=== PATIENT | female | born 1960 | race Caucasian/White ===

== ENCOUNTER 2019-11-30 12:21 | Emergency (ER) | payer MEDICAID, SELFPAY | END 2019-11-30 16:24 | disposition admitted as inpatient to this hospital (09) | LOC: ER 06-09 13:30 | PROVIDERS: Emergency Provider Family Medicine; PCP Family Medicine | DX: M72.6 Necrotizing fasciitis (principal); I73.9 Peripheral vascular disease, unspecified; E87.1 Hypo-osmolality and hyponatremia; E11.22 Type 2 diabetes mellitus with diabetic chronic kidney disease; N18.1 Chronic kidney disease, stage 1; I99.8 Other disorder of circulatory system; E11.10 Type 2 diabetes mellitus with ketoacidosis without coma; A41.9 Sepsis, unspecified organism; E78.5 Hyperlipidemia, unspecified; I12.9 Hypertensive chronic kidney disease with stage 1 through stage 4 chronic kidney disease, or unspecified chronic kidney disease; F17.210 Nicotine dependence, cigarettes, uncomplicated | CPT/HCPCS: 36415; 71045; 73701; 80053; 80306; 81001; 82009; 85025; 85610; 85730; 86140; 87040; 87070; 87077; 87086; 87186; 87205; 93925; 96365; 96366; 96375; 99283; J1815; J3370; J7030; J7050; Q9967 ==

== ENCOUNTER 2019-11-30 12:21 | Inpatient (IN) | payer MEDICAID, SELFPAY ==
[2019-11-30] VITALS (33 sets, daily range): BP systolic 91–155; BP diastolic 53–80; PULSE 99–134; RESP 14–31; TEMP 37.1–37.8; O2SAT 94–100; BMI 19.7
--- NOTE | 2019-11-30 12:28 | ED_ITS ---
Entered by Hilda Vigil, acting as scribe for Evin Matute DO HPI - Wound/Laceration General: Chief Complaint: Wound/Laceration Stated Complaint: wound check Time Seen by Provider: 11/30/19 12:26 Source: patient Mode of arrival: ambulatory Limitations: no limitations History of Present Illness: HPI narrative: 59-year-old female presents to the emergency room with complaint of left foot pain with a draining wound from the heel of the foot. This been going on for about 4 months she is not sought any care for it she feels like it is spreading now initially began when she stepped on a stick she did take portion of debris out of there foot. This maintained an open wound been actively draining is very painful she is tried various [id number] home remedies with no relief of symptoms. She is not usually see a doctor she not had any antibiotics for this. She is a 2 pack-a-day smoker but the last couple of months this is gotten progressively worse she felt poorly and has not even been able to smoke regularly and is down to half a pack a day without an attempt to stop smoking. She denies any knowledge of diabetes or heart disease. Onset (ago): month(s) (4 months) Extremity Location: Left: ankle and foot Place: home Associated symptoms: Reports other (redness and pain to L foot); Denies chills or fever(s) Treatments prior to arrival: other (none) Review of Systems General: Reports: 10 or more systems reviewed and unremarkable except in HPI and below Const: Reports: change in appetite, fatigue and malaise; Denies: fever, chills or body aches ENMT: Denies: throat pain, ear pain, nasal discharge or nasal congestion Card: Denies: chest pain, edema, shortness of breath on exertion or shortness of breath when lying down Resp: Reports: shortness of breath; Denies: productive cough or non-productive cough GI: Reports: black tarry stool Skin/Breast: Denies: rash or itching PFS ED PFSH: Medical History (Updated 12/01/19 @ 10:55 by Evin Matute DO) Chronic kidney disease (CKD) stage G1/A1, glomerular filtration rate (GFR) equal to or greater than 90 mL/min/1.73 square meter and albuminuria creatinine ratio less than 30 mg/g Coagulopathy Diabetes mellitus Dyslipidemia Essential hypertension Hyponatremia Infectious fasciitis Lower limb ischemia Peripheral arterial disease Sepsis Tobacco abuse Family History Father Cancer Brother , Hepatitis C Diabetes Social History Smoking and tobacco status: current every day smoker Second hand smoke exposure: Yes Alcohol intake: never Substance/Drug Use: never Adopted: No Caregiver/support person: No Lives independently: Yes Household members: spouse Marital status: service: No Current occupational status: unemployed Physical Exam Const: COMMON NORMALS: average body habitus, oriented x3 and alert GENERAL APPEARANCE: cooperative, comfortable, well kempt and well developed NUTRITIONAL APPEARANCE: obese ORIENTATION/CONSCIOUSNESS: Yes awake, Yes oriented to person and Yes oriented to place HENMT: COMMON NORMALS: normocephalic, head/scalp atraumatic, EAC's normal, TM's normal bilaterally, external nose normal, moist oral mucous membranes and oropharynx normal HEAD & SCALP: normocephalic and atraumatic NOSE: external nose normal EXTERNAL AUDITORY CANAL: EAC's normal TYMPANIC MEMBRANE: TM's normal bilaterally MOUTH: oral and palatal mucosa normal, lip normal and tongue normal THROAT: posterior oropharynx normal and tonsils normal Eye: COMMON NORMALS: PERRL, EOMs intact bilaterally, conjunctivae normal and no scleral icterus CONJUNCTIVA: Yes conjunctivae normal PUPIL: Yes PERRL Neck/C-Spine: COMMON NORMALS: full ROM, no lymphadenopathy, supple, no meningeal signs and thyroid normal THYROID: thyroid normal and asymmetrical Lymph: LYMPHATIC: no lymphadenopathy noted Resp: COMMON NORMALS: normal respiratory effort, no retractions, no use of accessory muscles and clear to auscultation bilaterally AUSCULTATION: clear to auscultation bilaterally Cardio: COMMON NORMALS: regular rate and regular rhythm RATE: regular rate RHYTHM: regular rhythm HEART SOUNDS: no murmurs : BLADDER/KIDNEY EXAM: Yes no CVA tenderness Back/Pelvis: COMMON NORMALS: no CVA tenderness LUMBAR SPINE/LOWER BACK: Yes normal to inspection Extremity: RIGHT LOWER EXTREMITY: Yes foot & digits (R foot cold to touch, decreased pulses) LEFT LOWER EXTREMITY: Yes foot & digits (L foot tenderness, redness and open wound on the heal is actively draining. It appears to tunnel up just inferior to the medial malleolus there is generalized edema and tenderness over the dorsum of the metatarsals.) Neuro: COMMON NORMALS: oriented x3 SENSORIUM/ORIENTATION: Yes alert, Yes oriented to person and Yes oriented to place MENINGEAL SIGNS: Yes no meningeal signs Psych: APPEARANCE: Yes well kempt Skin: COMMON NORMALS: no rashes or lesions noted and skin turgor normal GENERAL SKIN EXAM: no rashes or lesions noted and turgor normal Course ED course: Patient appears to be moderately septic. Additionally she is diabetic based on her blood sugars today. Arterial Dopplers of the lower extremities verify what we had expected based on physical exam she is severe peripheral artery disease most likely due to in combination of her diabetes and her smoking. Discussed with Dr. Velasco and Dr. Hagen. Rod recommends angiography to evaluate for patency. Discussed with Dr. Hagen as well he is willing to do angiography but feels she needs to be stabilized initially. Discussed with Dr. Brothers will admit the patient start on vancomycin and cefepime I am. She has been appropriately cultured including wound and blood cultures. We will start her on an insulin drip as she does have positive ketones. Discussed with patient the significance of her findings here today and the risk they present to salvaging the limb. She expresses understanding. Vital Signs: Vital signs: Vital Signs Temperature 99.0 F 12/01/19 06:20 Pulse Rate 99 12/01/19 08:10 Respiratory Rate 18 12/01/19 08:10 Blood Pressure 105/61 12/01/19 08:10 Pulse Oximetry 95 12/01/19 08:10 MDM - Wound/Laceration Lab Data: Labs: Lab Results 11/30/19 11/30/19 11/30/19 Range/Units 12:45 12:45 12:45 WBC 36.0 H* (4.0-10.0) 10^3/ uL RBC 4.66 (4.1-5.3) 10^6/u L Hgb 14.1 (11.5-15.3) g/dL Hct 41.8 (37.0-47.0) % MCV 89.7 (81-99) fL MCH 30.3 (28.0-34.0) pg MCHC 33.7 (30.0-36.0) g/dL RDW 13.2 (12.1-15.1) % Plt Count 492 H (130-400) 10^3/c mm MPV 10.4 (7.4-10.4) fL Neut % (Auto) 90.2 % Lymph % (Auto) 2.8 % Howard % (Auto) 4.3 % Eos % (Auto) 0.0 % Baso % (Auto) 0.3 % Neut # (Auto) 32.4 H (1.8-7.7) 10^3/u L Lymph # (Auto) 1.0 (0.8-4.8) 10^3/u L Howard # (Auto) 1.6 H (0.2-0.9) 10^3/u L Eos # (Auto) 0.0 (0.0-0.8) 10^3/u L Baso # (Auto) 0.1 (0.0-0.1) 10^3/u L Nucleated RBC % (a uto) 0 % Nucleated RBCs # 0.0 /100WBC PT 16.00 H (10.5-13.3) SECO NDS INR 1.23 H (0.8-1.2) APTT 36.8 H (23.9-36.7) SECO NDS Sodium 123 L (136-145) mmol/L Potassium 4.5 (3.5-5.1) mmol/L Chloride 80 L (98-107) mmol/L Carbon Dioxide 21 L (22-29) mmol/L Anion Gap 26.5 H (5-19) BUN 15 (8-23) mg/dL Creatinine 1.0 H (0.5-0.9) mg/dL GFR Calculation 56.4 L (90-130) mL/min Glucose 453 H (65-115) mg/dL Calcium 10.8 H (8.5-10.5) mg/dL Total Bilirubin 0.6 (0.15-1.2) mg/dL AST 12 (0-32) U/L ALT 9 (0-33) U/L Alkaline Phosphata se 163 H (35-105) IU/L C-Reactive Protein 523.6 H (0.0-4.9) mg/L Total Protein 8.5 (6.6-8.7) g/dL Albumin 3.8 (3.5-5.2) g/dL Globulin 4.7 H (1.3-4.6) g/dL Urine Color (Yellow) Urine Appearance (CLEAR) Urine pH (5-7) Ur Specific Gravit y (1.005-1.030) Urine Protein (Negative) Urine Glucose (UA) (Normal) Urine Ketones (Negative) Urine Occult Blood (Negative) Urine Nitrate (Negative) Urine Bilirubin (NEGATIVE) Urine Urobilinogen (Negative) mg/dL Ur Leukocyte Janey ase (Negative) Urine RBC (0-2) /hpf Urine WBC (0-5) /hpf Ur Squamous Epith Cells (0-5) Urine Bacteria (NONE) Urine Opiates Scre en (Negative) ng/mL Ur Barbiturates Sc reen (Negative) ng/mL Ur Phencyclidine S crn (Negative) ng/mL Ur Amphetamines Sc reen (Negative) ng/mL U Benzodiazepines Scrn (Negative) ng/mL Urine Cocaine Scre en (Negative) ng/mL U Marijuana (THC) Screen (Negative) ng/mL Serum Ketones (Negative) 11/30/19 11/30/19 11/30/19 Range/Units 12:45 14:24 14:24 WBC (4.0-10.0) 10^3/ uL RBC (4.1-5.3) 10^6/u L Hgb (11.5-15.3) g/dL Hct (37.0-47.0) % MCV (81-99) fL MCH (28.0-34.0) pg MCHC (30.0-36.0) g/dL RDW (12.1-15.1) % Plt Count (130-400) 10^3/c mm MPV (7.4-10.4) fL Neut % (Auto) % Lymph % (Auto) % Howard % (Auto) % Eos % (Auto) % Baso % (Auto) % Neut # (Auto) (1.8-7.7) 10^3/u L Lymph # (Auto) (0.8-4.8) 10^3/u L Howard # (Auto) (0.2-0.9) 10^3/u L Eos # (Auto) (0.0-0.8) 10^3/u L Baso # (Auto) (0.0-0.1) 10^3/u L Nucleated RBC % (a uto) % Nucleated RBCs # /100WBC PT (10.5-13.3) SECO NDS INR (0.8-1.2) APTT (23.9-36.7) SECO NDS Sodium (136-145) mmol/L Potassium (3.5-5.1) mmol/L Chloride (98-107) mmol/L Carbon Dioxide (22-29) mmol/L Anion Gap (5-19) BUN (8-23) mg/dL Creatinine (0.5-0.9) mg/dL GFR Calculation (90-130) mL/min Glucose (65-115) mg/dL Calcium (8.5-10.5) mg/dL Total Bilirubin (0.15-1.2) mg/dL AST (0-32) U/L ALT (0-33) U/L Alkaline Phosphata se (35-105) IU/L C-Reactive Protein (0.0-4.9) mg/L Total Protein (6.6-8.7) g/dL Albumin (3.5-5.2) g/dL Globulin (1.3-4.6) g/dL Urine Color Yellow (Yellow) Urine Appearance Clear (CLEAR) Urine pH 5.0 (5-7) Ur Specific Gravit y 1.010 (1.005-1.030) Urine Protein 1+ H (Negative) Urine Glucose (UA) 4+ H (Normal) Urine Ketones 1+ H (Negative) Urine Occult Blood 2+ H (Negative) Urine Nitrate Negative (Negative) Urine Bilirubin Neg (NEGATIVE) Urine Urobilinogen 1 H (Negative) mg/dL Ur Leukocyte Janey ase Trace H (Negative) Urine RBC 5-10 H (0-2) /hpf Urine WBC 55-80 H (0-5) /hpf Ur Squamous Epith Cells 0-4 H (0-5) Urine Bacteria 2+ H (NONE) Urine Opiates Scre en Negative (Negative) ng/mL Ur Barbiturates Sc reen Negative (Negative) ng/mL Ur Phencyclidine S crn Negative (Negative) ng/mL Ur Amphetamines Sc reen Negative (Negative) ng/mL U Benzodiazepines Scrn Negative (Negative) ng/mL Urine Cocaine Scre en Negative (Negative) ng/mL U Marijuana (THC) Screen Negative (Negative) ng/mL Serum Ketones Positive H (Negative) Imaging Data^: CXR: Radiologist's impression: [place] [address] XRay Report Signed Patient: Jeramy Ramos #: [id number] : 1960t#:[id number] Age/Sex: 59 / FADM Date: 11/30/19 Loc: ERRoom/Bed: Attending Dr: Ordering Provider/Ordering MD: Evin Matute DO Date of Service: 11/30/19 Procedure(s): XR chest 1V portable [id number] Accession Number(s): [id number] Report Number: [id number] WS: [id number] PORTABLE CHEST HISTORY: dyspnea/cough COMPARISON: None available. Lungs are clear and well expanded. No pleural effusion or pneumothorax. Cardiac size: Normal. Mediastinum/Aorta: Normal mediastinum. No osseous abnormality seen. XR/XR chest 1V portable [id number] IMPRESSION: Unremarkable portable chest. Dictated By:Celia Cardona DO Signed By:Celia Cardona DOSigned Date/Time:11/30/[address]: Radiologist's impression: [place] [address] CT Scan Report Signed Patient: Jeramy Ramos #: [id number] : 1960[facility]#:[id number] Age/Sex: 59 / FADM Date: 11/30/19 Loc: ERRoom/Bed: Attending Dr: Ordering Provider/Ordering MD: Evin Matute DO Date of Service: 11/30/19 Procedure(s): CT foot LT w con [id number] Accession Number(s): [id number] Report Number: [id number] WS: [id number] CT LEFT FOOT WITH CONTRAST. HISTORY: tunneling abscess L heel Technique: All CT scans at [facility] use at least one of these dose optimization techniques: automated exposure control; mA and/or kV adjustment per patient size (includes targeted exams where dose is matched to clinical zully cation); or iterative reconstruction. DLP: 317.00 mGy-cm. Contrast: Omniscan 300; 95 mL IV. COMPARISON: None available. Soft tissue ulceration over the posterior calcaneus measures 1.0 x 1.5 cm. Ul ceration extends nearly to the posterior calcaneus. There is a large amount of air throughout the soft tissues of the foot and ankle. Air is infiltrating the soft tissue and extends along the medial foot to the level of the first metatarsal head. There is air surrounding the medial foot, soft tissues and muscle groups. There is soft tissue edema and soft tissue enhancement involving the posterior calcaneus. No focal fluid collection other than along the ulceration tract. Collection measures only 7 x 8 mm. No osteomyelitis. Notified Evin Matute DO at 11/30/2019 2:[address]/CT foot LT w con [id number] IMPRESSION: 1. Extensive subcutaneous air throughout the soft tissues of the foot and ankle as described above. Consistent with necrotizing fasciitis. 2. Soft tissue ulceration with focal abscess along the tract over the posterior calcaneus. Soft tissue abscess measures 7 x 8 mm. Extensive soft tissue edema. Dictated By:Celia Cardona DO Signed By:Celia Cardona DOSigned Date/Time:11/30/19 1454 US: Radiologist's impression: [place] [address] Ultrasound Report Signed Patient: Jeramy Ramos #: [id number] : 1960cct#:[id number] Age/Sex: 59 / FADM Date: 11/30/19 Loc: ERRoom/Bed: Attending Dr: Ordering Provider/Ordering MD: Evin Matute DO Date of Service: 11/30/19 Procedure(s): [place] [id number] Accession Number(s): [id number] Report Number: [id number] Lucy Ramos Age: 59 Gender: F : 1960 Exam Date: 11/30/2019 13:02 Ordering Phys: Evin Matute DO Technologist: Connie Montoya [place] [facility] [place]ication: Bilateral leg pain, pulselessness Risk Factors: Previous Vascular Surgery: RIGHT LEFT Waveform Velocity (cm/s) Velocity (cm/s) Waveform Monophasic 44.4 Iliac Prox 163.7 Monophasic Monophasic 46.4 Iliac Mid 224.6 Monophasic Monophasic 47.2 Iliac Distal 205.2 Monophasic N/A COLLECTIONS AGENT 212.4 Monophasic Monophasic 60.9 SFA Prox 154.5 Monophasic Monophasic 40.8 SFA Mid 127.9 Monophasic Monophasic 58.7 SFA Dist 67.5 Monophasic Monophasic 23.0 POP 103.8 Monophasic Monophasic 10.8 INTERPRETIVE PROGRAM COORDINATOR 63.1 Monophasic Monophasic 12.4 DPA 33.2 Monophasic 0.5 MARCOS 0.7 FINDINGS Incidental finding of enlarged lymph nodes in left groin area. Low velocity, monophasic continuous waveforms in the right iliac artery with no flow Doppler signals in the common femoral artery. Monophasic and continuous waveforms in the infrapopliteal vessels on the left side. Abnormal resting ABIs bilaterally. CONCLUSIONS 1. 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 2. Abnormal resting MARCOS on the left side, consistent with moderate peripheral arterial disease, possibly multisegmental. Some features of collateral circulation in the infrapopliteal vessels. No similar previous studies are available for comparison Dr Yesi Calles MD [facility] (Electronically Signed) Final Date: 30 November 2019 14:55 Discharge Plan Discharge Patient Disposition: Admitted As Inpatient Admit Provider: Keri Brothers Clinical Impression: Necrotizing soft tissue infection, Diabetes mellitus, Peripheral arterial disease, Infectious fasciitis, Hyponatremia, Chronic kidney disease (CKD) stage G1/A1, glomerular filtration rate (GFR) equal to or greater than 90 mL/min/1.73 square meter and albuminuria creatinine ratio less than 30 mg/g, Lower limb ischemia, DKA (diabetic ketoacidoses), Sepsis Condition: Stable Interventions: ED Discharge Assessment Last Done: 11/30/19 15:47 Discharge Date/Time: 11/30/19 16:24 Coding Level of Care Code ED It Communications Specialist for Chg Fwd Exam Problem Focused The documentation recorded by the Musa davis Bridget Annette, accurately reflects the service I personally performed and the decisions made by Giovani sutton Curtis L, DO Nov 30, 2019 12:21
--- NOTE | 2019-11-30 12:38 | XR_ITS ---
WS: [id number] PORTABLE CHEST HISTORY: dyspnea/cough COMPARISON: None available. Lungs are clear and well expanded. No pleural effusion or pneumothorax. Cardiac size: Normal. Mediastinum/Aorta: Normal mediastinum. No osseous abnormality seen. XR/XR chest 1V portable [id number] IMPRESSION: Unremarkable portable chest.
--- NOTE | 2019-11-30 12:38 | USCV_ITS ---
Lucy Ramos Age: 59 Gender: F : 1960 Exam Date: 11/30/2019 13:02 Ordering Phys: Evin Matute DO Technologist: Connie Montoya Exam Location: [facility] – [place] Indication: Bilateral leg pain, pulselessness Risk Factors: Previous Vascular Surgery: RIGHT LEFT Waveform Velocity (cm/s) Velocity (cm/s) Waveform Monophasic 44.4 Iliac Prox 163.7 Monophasic Monophasic 46.4 Iliac Mid 224.6 Monophasic Monophasic 47.2 Iliac Distal 205.2 Monophasic N/A MEDICAL TECHNOLOGIST PRN 212.4 Monophasic Monophasic 60.9 SFA Prox 154.5 Monophasic Monophasic 40.8 SFA Mid 127.9 Monophasic Monophasic 58.7 SFA Dist 67.5 Monophasic Monophasic 23.0 POP 103.8 Monophasic Monophasic 10.8 CONTAINER FINISHING INSPECTOR 63.1 Monophasic Monophasic 12.4 DPA 33.2 Monophasic 0.5 MARCOS 0.7 FINDINGS Incidental finding of enlarged lymph nodes in left groin area. Low velocity, monophasic continuous waveforms in the right iliac artery with no flow Doppler signals in the common femoral artery. Monophasic and continuous waveforms in the infrapopliteal vessels on the left side. Abnormal resting ABIs bilaterally. CONCLUSIONS 1. 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 2. Abnormal resting MARCOS on the left side, consistent with moderate peripheral arterial disease, possibly multisegmental. Some features of collateral circulation in the infrapopliteal vessels. No similar previous studies are available for comparison Dr Yesi Calles MD [facility] (Electronically Signed) Final Date: 30 November 2019 14:55 S
--- NOTE | 2019-11-30 12:38 | CT_ITS ---
WS: [id number] CT LEFT FOOT WITH CONTRAST. HISTORY: tunneling abscess L heel Technique: All CT scans at [facility] use at least one of these dose optimization techniq ues: automated exposure control; mA and/or kV adjustment per patient size (includes targeted exams wh ere dose is matched to clinical indication); or iterative reconstruction. DLP: 317.00 mGy-cm. Contrast: Omniscan 300; 95 mL IV. COMPARISON: None available. Soft tissue ulceration over the posterior calcaneus measures 1.0 x 1.5 cm. Ulceration extends nearly to the posterior calcaneus. There is a large amount of air throughout the soft tissues of the foot an d ankle. Air is infiltrating the soft tissue and extends along the medial foot to the level of the fi rst metatarsal head. There is air surrounding the medial foot, soft tissues and muscle groups. There is soft tissue edema and soft tissue enhancement involving the posterior calcaneus. No focal fluid co llection other than along the ulceration tract. Collection measures only 7 x 8 mm. No osteomyelitis. Notified Evin Matute DO at 11/30/2019 2:[address]/CT foot LT w con [id number] IMPRESSION: 1. Extensive subcutaneous air throughout the soft tissues of the foot and ankl e as described above. Consistent with necrotizing fasciitis. 2. Soft tissue ulceration with focal abscess along the tract over the posterio r calcaneus. Soft tissue abscess measures 7 x 8 mm. Extensive soft tissue edema .
[2019-11-30 12:59] LABS: Basophils # 0.1 10^3/uL (0.0-0.1); Basophils % 0.3 %; Hematocrit 41.8 % (37.0-47.0); Hemoglobin 14.1 g/dL (11.5-15.3); Lymphocytes % 2.8 %; Mean Corpuscular HGB Conc 33.7 g/dL (30.0-36.0); Mean Corpuscular Hemoglobin 30.3 pg (28.0-34.0); Mean Corpuscular Volume 89.7 fL (81-99); Mean Platelet Volume 10.4 fL (7.4-10.4); Monocytes # 1.6 10^3/uL (0.2-0.9); Monocytes % 4.3 %; Neutrophils # 32.4 10^3/uL (1.8-7.7); Neutrophils % 90.2 %; Nucleated Red Blood Cells % 0 %; Platelet Count 492 10^3/cmm (130-400); Red Blood Count 4.66 10^6/uL (4.1-5.3); Red Cell Distribution Width 13.2 % (12.1-15.1)
[2019-11-30 13:09] LABS: INR 1.23 (0.8-1.2)
[2019-11-30 13:10] LABS: Partial Thromboplastin Time 36.8 SECONDS (23.9-36.7)
[2019-11-30 13:19] LABS: Alanine Aminotransferase 9 U/L (0-33); Albumin Level 3.8 g/dL (3.5-5.2); Alkaline Phosphatase 163 IU/L (35-105); Anion Gap 26.5 (5-19); Aspartate Amino Transferase 12 U/L (0-32); Blood Urea Nitrogen 15 mg/dL (8-23); Calcium 10.8 mg/dL (8.5-10.5); Carbon Dioxide 21 mmol/L (22-29); Chloride 80 mmol/L (98-107); Globulin 4.7 g/dL (1.3-4.6); Glomerular Filtration Rate 56.4 mL/min (90-130); Glucose 453 mg/dL (65-115); Potassium 4.5 mmol/L (3.5-5.1); Sodium 123 mmol/L (136-145); Total Bilirubin 0.6 mg/dL (0.15-1.2); Total Protein 8.5 g/dL (6.6-8.7)
--- NOTE | 2019-11-30 13:20 | PC.NURSE ---
Radiology at bedside for US
[2019-11-30 13:44] LABS: C Reactive Protein 523.6 mg/L (0.0-4.9)
[2019-11-30] MEDS: vancomycin 1,000 MG in sodium chloride 0.9% 250 ML 250 MG IV (13:53)
[2019-11-30] MEDS: iohexol 300 mg/mL 100 mL Btl IV (14:23)
[2019-11-30] MEDS: sodium chloride 0.9% 1,000 ML 999 ML IV (14:34)
[2019-11-30] MEDS: sodium chlor 0.9% + KCl 20 mEq 20 MEQ/1,000 ML BAG 125 MEQ IV (14:34)
[2019-11-30] MEDS: insulin regular-human 100 units/1 mL 10 UNIT IVP (14:35)
[2019-11-30 14:51] LABS: Add Urine Microscopic? YES; Bilirubin Urine Neg (NEGATIVE); Blood Urine 2+ (Negative); Glucose Urine UA 4+ (Normal); Ketones Urine 1+ (Negative); Leukocyte Esterase Urine Trace (Negative); Nitrate Urine Negative (Negative); Protein Urine 1+ (Negative); Urine Appearance Clear (CLEAR); Urine Color Yellow (Yellow); Urobilinogen Urine 1 mg/dL (Negative)
[2019-11-30 14:56] LABS: Amphetamines Screen Urine Negative (Negative); Barbiturates Screen Urine Negative (Negative); Benzodiazepines Screen Urine Negative (Negative); Cocaine Screen Urine Negative (Negative); Opiate Screen Urine Negative (Negative); PCP Screen Urine Negative (Negative); THC Screen Urine Negative (Negative)
[2019-11-30 14:57] LABS: Ketone (Acetest) Serum Positive (Negative)
[2019-11-30 15:01] LABS: Add Urine Culture? Yes; Bacteria Urine 2+; Squamous Epithelial Cell Urine 0-4 (0-5); WBC Urine 55-80 /hpf (0-5)
[2019-11-30] MEDS: SODIUM CHLORIDE 0.9% 1714.6 ML IV (15:34)
[2019-11-30] MEDS: cefepime 2,000 MG in sodium chloride 0.9% (plus) 50 ML 100 MG IV (15:35)
[2019-11-30 15:55] LABS: Glucose Point of Care 306 mg/dL (70-110)
--- NOTE | 2019-11-30 16:25 | PM.HP ---
Providers/Chief Complaint Admitting Physician: Keri Brothers MD Chief Complaint: Sepsis History of Present Illness Lucy Ramos is a 59 year old female who endorses no significant past comorbidities except self diagnosed neuropathy who presented to the ER today complaining of worsening of her left foot. Per patient she suffered a traumatic injury to her foot when she stepped on a splinter with a penetrating injury in June 2019.. She noticed an ulceration over the plantar aspect of the heel of her foot since then. She was able to remove the splinter herself and was able to get the entire length of it out. Since June 18 now her foot has been gradually increasing in size, she has noticed some warmth and swelling. She is able to walk on it however with some limping and pain. She endorses a history of neuropathy, though this is self diagnosed. States that she has been experiencing [id number] sensation and more recently reduced sensation over bilateral feet t so believes that she may not have been able to feel the pain from this injury. Over the past 24 hours she has noted more worsening and some color changes from red pink to purple with formation of blebs. Over the past week has also been experiencing chills and sweats, but no fever. Poluria+, denies weight loss. Labs in the ER notable for white blood cell count of 32.4, with left shift to 29.6 neutrophilia, glucose of 453, anion gap of 26, positive serum ketones, CRP greater than 500. CT shows extensive subcutaneous air throughout the soft tissues of the foot and ankle consistent with necrotizing fasciitis. There is soft tissue ulceration with apical abscess along the tract of the posterior calcaneus. The soft tissue abscess measures 7 x 8 mm with extensive phlegmonous changes. Lower extremity duplex has shown total occlusion of the right common femoral artery with reconstitution at the level of the proximal superficial femoral artery. Abnormal resting MARCOS is noted on the left side consistent with moderate peripheral arterial disease possibly multisegmental. Review of Systems General: Reports: 10 or more systems reviewed and unremarkable except in HPI and below Const: Denies: fever, chills or body aches Eyes: Denies: change in vision, blurry vision or photophobia ENMT: Reports: hoarseness; Denies: throat pain, enlarged tonsils, painful swallowing or nasal congestion Card: Denies: chest pain, palpitations, irregular heart rhythm, edema, swelling of feet/ankles, lightheadedness, pre-syncope, shortness of breath on exertion or shortness of breath when lying down Resp: Denies: shortness of breath, productive cough, non-productive cough, wheezing, stridor, pain on inspiration, change in phlegm color, coughing up blood or chest congestion GI: Denies: abdominal pain, nausea, vomiting, vomiting blood, coffee grounds in vomit, difficulty swallowing, heartburn/indigestion, diarrhea, constipation, cramping, change in stool character, blood in stool or black tarry stool : Denies: flank pain, difficulty urinating, painful urination, urinary frequency, urinary urgency, urinary hesitancy or blood in urine Musc: Reports: extremity pain, joint swelling and joint warmth; Denies: neck pain, back pain or deformity Neuro: Denies: headache, numbness in extremities, weakness in extremities, changes in sensation, difficulty walking, frequent falls, dizziness, vertigo, behavioral changes, slurred speech or seizure-like activity Psych: Denies: anxiety, depression, suicidal ideation or homicidal ideation Endo: Denies: excessive urination, excessive thirst, tired all the time, cold intolerance or hot flashes Jesus/Lymph: Denies: easy bruising or easy bleeding Medications/Allergies Allergies Allergy/AdvReac Type Severity Reaction Status Date / Time No Known Allergies Allergy Verified 11/30/19 18:58 PFSH Acute PFSH: Medical History (Updated 11/30/19 @ 19:18 by Keri Brothers MD) Chronic kidney disease (CKD) stage G1/A1, glomerular filtration rate (GFR) equal to or greater than 90 mL/min/1.73 square meter and albuminuria creatinine ratio less than 30 mg/g Coagulopathy Diabetes mellitus Dyslipidemia Essential hypertension Hyponatremia Infectious fasciitis Lower limb ischemia Peripheral arterial disease Sepsis Tobacco abuse Family History Father Cancer Brother , Hepatitis C Diabetes Social History Smoking and tobacco status: current every day smoker Second hand smoke exposure: Yes Alcohol intake: never Substance/Drug Use: never Adopted: No Caregiver/support person: No Lives independently: Yes Household members: spouse Marital status: service: No Current occupational status: unemployed Vitals/I&O/Wt Last Vital Signs Temp 98.7 F 11/30/19 12:27 Pulse 124 H 11/30/19 15:47 Resp 16 11/30/19 15:47 BP 126/70 11/30/19 15:47 Pulse Ox 94 11/30/19 15:47 Weight last 48 hrs Weight 57.153 kg Physical Exam Narrative: EXAM NARRATIVE: GEN: Awake, alert and oriented, no acute distress CVS: S1S2 N RS: CTA B/L Abd: Soft, nt/nd , bs+ PRINCIPAL IOS DEVELOPER: no focal neuro deficits EXT: Soft tissue swelling over left foot with local warmth. Discomfort to palpation+. Purple discoloration with bleb over medial aspect. Data : 11/30/19 17:30 11/30/19 21:15 Micro: Microbiology 11/30/19 12:35 Gram Stain - Final Other Source 11/30/19 12:50 Blood Culture - Preliminary Blood SPECIMEN COLLECTED 11/30/19 12:45 Blood Culture - Preliminary Blood SPECIMEN COLLECTED A&P Assessment and plan (1) Necrotizing soft tissue infection: Status: Acute Code(s): M79.89 - Other specified soft tissue disorders (2) Lower limb ischemia: Status: Acute Code(s): I99.8 - Other disorder of circulatory system (3) DKA (diabetic ketoacidoses): Status: Acute Code(s): E11.10 - Type 2 diabetes mellitus with ketoacidosis without coma (4) Sepsis: Status: Acute Code(s): A41.9 - Sepsis, unspecified organism Additional A&P Information Admit to ICU in view of DKA and sepsis Sepsis criteria met with tachycardia and leukocytosis. 1. Diabetic ketoacidosis: Blood sugar greater than 400, serum ketones positive, anion gap of 26, pseudohyponatremia. Start insulin infusion at 0.1 mg/kg and titrate per DKA/HHS protocol. Aggressive IV fluid resuscitation with normal saline at this time Once blood sugar comes down to less than 200 we will switch IV fluid to D5 normal saline with added KCl. Addtional 40meq KCL Check HbA1c in the morning Once able to consistently take p.o. intake, will start overlapping infusion with subcutaneous insulin. Likely trigger of DKA to be necrotizing infection in her foot CMP every 4 hrs to trend anion gap 2. Necrotizing fasciitis of the foot Start broad spectrum antimicrobial coverage with Zosyn, vancomycin and additional clindamycin at this time for antitoxin effect from possible GAS. There are some GPC's in pairs and chains seen on her Gram stain. Though the process appears to be more crhonic, ongoing worsening since June 2019, there is an acute mold insert changer the last 24 hours and GAS would need to be covered. Patient is planned for debridement of the foot later today. Clindamycin may be discontinued over the next 24-48 hrs after debridement if patient remains hemodynamically stable Poor wound healing contributed by DM and peripheral arterial disease Suspect that patient may eventually end up needing amputation Podiatry consult 3. severe PAD Dr. Hagen from cardiology consulted for angiogram of B/L lower extremity. Planned over the next 24-48 hrs once acute issues resolve. Best chance of wound healing would be with revascularization if feasible . 4. Pseudohyponatremia from hyperglycemia 5. Peripheral Neuropathy Further orders based on evolution of clinical picture DVT ppx: Lovenox code status: full code Attestations Medical Necessity Statement*: anticipate >2midnight for treatment of sepsis, necrotizing fascitis, peripheral artery disease Coding Level of Care Code Acute High Density [employer] Coater [facility] Diagnoses Necrotizing soft tissue infection M79.89 Lower limb ischemia I99.8 DKA (diabetic ketoacidoses) E11.10 Sepsis A41.9
--- NOTE | 2019-11-30 16:27 | PM.CONSULT ---
Providers/Reason For Consult Consulting Physican/Specialty*: Cardiovascular medicine Reason for Consult*: Limb ischemia left foot Requesting Pravin Matute Attending Physician: Keri Brothers MD History of Present Illness History of Present Illness Lucy Ramos is a 59 year old female who has had an ulcer on the bottom of the heel of her left foot for about 4 months. The patient is uninsured and has not been able to afford any medication or health care. She is a diabetic and a smoker. The ulcer is open and has been tender but has not changed in about 4 months according to the patient. Over the last 24 to 48 hours she has noticed a significant change in the instep portion of her foot from the heel to the first metatarsal. The foot has become tender and purplish in discoloration and somewhat swollen. She went to a local drop-in clinic today and was sent to the emergency room. In the emergency room a Doppler was done of her lower extremities. On the right there appears to be no flow past the external iliac and then the vessel reconstitutes in the right superficial femoral artery. On the left, the affected foot, there is moderate diffuse disease but no specifics were mentioned. A CT of the left foot was done with contrast which shows swelling of all of the soft tissues and air throughout the foot and ankle. There was no evidence of osteomyelitis. She has a number of laboratory abnormalities such as a very high blood sugar around 450 and a mild coagulopathy. Her glomerular filtration rate is low. She is being admitted for intravenous antibiotics and other therapy. She has been given fluids, insulin, vancomycin and cefepime in the emergency room. She has not seen a doctor for many years and has neglected her health care. Review of Systems General: Reports: 10 or more systems reviewed and unremarkable except in HPI and below Meds/Allergies Home Medications and Allergies Home Medications Medication Instructions Recorded Confirmed Type No Known Home Medications 11/30/19 11/30/19 History Allergies Allergy/AdvReac Type Severity Reaction Status Date / Time No Known Allergies Allergy Verified 11/30/19 12:27 Current Medications Current Medications Generic Name Dose Route Start Last Admin Trade Name Freq PRN Reason Stop Dose Admin Potassium Chloride/Sodium Chloride 20 meq in 1,000 mls @ 125 mls/hr 11/30/19 14:15 11/30/19 14:34 Sodium Chlor 0.9% + Kcl 20 Meq IV 125 mls/hr .Q8H SADIE Administration PFSH Acute PFSH: Medical History Chronic kidney disease (CKD) stage G1/A1, glomerular filtration rate (GFR) equal to or greater than 90 mL/min/1.73 square meter and albuminuria creatinine ratio less than 30 mg/g Coagulopathy Diabetes mellitus Dyslipidemia Essential hypertension Hyponatremia Infectious fasciitis Lower limb ischemia Peripheral arterial disease Tobacco abuse Family History Father Cancer Brother , Hepatitis C Diabetes Social History Smoking and tobacco status: current every day smoker Second hand smoke exposure: Yes Alcohol intake: never Substance/Drug Use: never Adopted: No Caregiver/support person: No Lives independently: Yes Household members: spouse Marital status: service: No Current occupational status: unemployed Female Reproductive History: control method: none : 3 Para: 3 Vitals/I&O/Wt Last Vital Signs Temp 98.7 F 11/30/19 12:27 Pulse 124 H 11/30/19 15:47 Resp 16 11/30/19 15:47 BP 126/70 11/30/19 15:47 Pulse Ox 94 11/30/19 15:47 Weight last 48 hrs Weight 126 lb Physical Exam Narrative: EXAM NARRATIVE: GENERAL: In general she is awake and alert looks older than her stated age HEENT: Exam within normal limits. NECK: Supple without jugular vein distention. The carotid upstroke is normal without bruits. BACK: Exam normal. LUNGS: Clear. HEART: Regular rate and rhythm. ABDOMEN: Benign without organomegaly or tenderness. EXTREMITIES: There is a open ulcer on the midportion of the heel on the bottom of the foot of the left leg. The instep of the left foot from the heel toward the proximal part of the first metatarsal head is swollen, painful, purplish in color and there is some crepitus. NEUROLOGIC: Exam normal. SKIN: Unremarkable. Data Micro: Micro: Microbiology 11/30/19 12:35 Gram Stain - Final Other Source 11/30/19 12:50 Blood Culture - Pr eliminary Blood SPECIMEN COLLE JOSÉ 11/30/19 12:45 Blood Culture - Pr eliminary Blood SPECIMEN COLLEC JOSÉ Other Data: Other data: C-reactive protein 523. Alkaline phosphatase 163. Transaminases normal. Glomerular filtration rate 54 mL/min. Serum ketones positive. INR 1.23. PTT 36.8. Serum bicarbonate 21. Chest x-ray is unremarkable. The Doppler of the lower extremities reveals no flow past the common femoral artery on the right with reconstitution of the proximal superficial femoral artery. On the left there is moderate diffuse disease throughout with little flow below the knee. CT of the left foot reveals swelling throughout and air in the foot and ankle without osteomyelitis. A&P Assessment and plan (1) Chronic kidney disease (CKD) stage G1/A1, glomerular filtration rate (GFR) equal to or greater than 90 mL/min/1.73 square meter and albuminuria creatinine ratio less than 30 mg/g: Status: Acute Code(s): N18.1 - Chronic kidney disease, stage 1 (2) Coagulopathy: Status: Acute Code(s): D68.9 - Coagulation defect, unspecified (3) Hyponatremia: Status: Acute Code(s): E87.1 - Hypo-osmolality and hyponatremia (4) Infectious fasciitis: Status: Acute Code(s): M72.8 - Other fibroblastic disorders (5) Peripheral arterial disease: Status: Acute Code(s): I73.9 - Peripheral vascular disease, unspecified (6) Tobacco abuse: Status: Acute Code(s): Z72.0 - Tobacco use (7) Dyslipidemia: Status: Acute Code(s): E78.5 - Hyperlipidemia, unspecified (8) Diabetes mellitus: Status: Acute Code(s): E11.9 - Type 2 diabetes mellitus without complications (9) Lower limb ischemia: Status: Acute Code(s): I99.8 - Other disorder of circulatory system Additional A&P Information She has limb ischemia of the left foot and most likely severe bilateral lower extremity peripheral arterial disease. There is also evidence of air in the foot and clearly the foot is infected. No sign of osteomyelitis at this time. She will ultimately need angiography of the lower extremity. I would like a day or 2 for antibiotics to take effect. I think it would be a good idea to have the general surgeon see her. I think the foot needs to be opened in the area of the instep from the heel up to the first metatarsal. I think this is where the majority of the infection has occurred. This should be incised and drained and washed out carefully. After these things are done in the antibiotics have taken effect we will make an attempt at angiography of the left lower extremity. This may be somewhat difficult given the appearance of the Doppler examination on the right. If her common femoral artery is occluded on the right we may not be able to enter the vasculature there and the procedure may need to be done from the right arm. In the meantime antibiotics and fluids and treatment of her glucose is appropriate. Coding Level of Care Code New Pt Acute Last Repairer Helper for g Fwd Patient Type New History Comprehensive Exam Comprehensive Medical Decision Making High Complexity Diagnoses Chronic kidney disease (CKD) stage G1/A1, glomerular filtration rate (GFR) equal to or greater than 90 mL/min/1.73 square meter and albuminuria creatinine ratio less than 30 mg/g N18.1 Coagulopathy D68.9 Hyponatremia E87.1 Infectious fasciitis M72.8 Peripheral arterial disease I73.9 Tobacco abuse Z72.0 Dyslipidemia E78.5 Diabetes mellitus E11.9 Lower limb ischemia I99.8 Time Spent (min) 83
--- NOTE | 2019-11-30 17:34 | ECG_ITS ---
Measurements Intervals [place] Rate: 119 P: 32 CA: 144 QRS: 59 QRSD: 106 T: 16 QT: 298 QTc: 420 SINUS TACHYCARDIA POSSIBLE INFERIOR MYOCARDIAL INFARCTION , PROBABLY OLD [30 ms Q WAVE IN II/aVF] ABNORMAL RHYTHM ECG INTERPRETATION BASED ON A DEFAULT AGE OF 40 YEARS No previous ECG available for comparison Electronically Signed On 11-30-2019 20:52:03 PROGRAM MANAGER ENVIRONMENTAL PLANNING by Chris Benedict M.D. [id number]
[2019-11-30 17:54] LABS: Lactic Sepsis W/Reflex 1.6 mmol/L (0.5-2.2)
[2019-11-30] MEDS: insulin regular-human 250 UNIT in sodium chloride 0.9% 250 ML 10.4 UNIT IV (17:55)
[2019-11-30] MEDS: enoxaparin 40 mg/0.4 mL Syringe SUBCUT (17:59)
[2019-11-30] MEDS: potassium chloride premix 40 MEQ/100 ML PREMIX 25 MEQ IV (17:59)
[2019-11-30 18:00] LABS: Basophils # 0.1 10^3/uL (0.0-0.1); Basophils % 0.2 %; Hemoglobin 12.9 g/dL (11.5-15.3); Lymphocytes # 1.1 10^3/uL (0.8-4.8); Lymphocytes % 3.3 %; Mean Corpuscular HGB Conc 33.1 g/dL (30.0-36.0); Mean Corpuscular Hemoglobin 29.7 pg (28.0-34.0); Mean Corpuscular Volume 89.9 fL (81-99); Mean Platelet Volume 10.6 fL (7.4-10.4); Monocytes # 0.7 10^3/uL (0.2-0.9); Monocytes % 2.3 %; Neutrophils # 29.6 10^3/uL (1.8-7.7); Neutrophils % 91.4 %; Nucleated Red Blood Cells % 0 %; Platelet Count 459 10^3/cmm (130-400); Red Blood Count 4.34 10^6/uL (4.1-5.3); Red Cell Distribution Width 13.1 % (12.1-15.1)
[2019-11-30 18:04] LABS: Anion Gap 23.8 (5-19); Blood Urea Nitrogen 12 mg/dL (8-23); Calcium 9.9 mg/dL (8.5-10.5); Carbon Dioxide 21 mmol/L (22-29); Chloride 89 mmol/L (98-107); Chol HDL Ratio 7.64 mg/dL (0.0-4.40); Cholesterol 191 mg/dL (0-200); Glomerular Filtration Rate 85.1 mL/min (90-130); Glucose 290 mg/dL (65-115); HDL Cholesterol 25 mg/dL (60-100); LDL Cholesterol Calculated 121 mg/dL (50-129); LDL HDL Ratio 4.84 RATIO (0.00-3.22); Osmolality Calculated 277 mOsm/kg (285-295); Potassium 3.8 mmol/L (3.5-5.1); Sodium 130 mmol/L (136-145); Thyroid Stimulating Hormone 0.95 uIU/mL (0.27-4.20); Triglycerides 225 mg/dL (0-150)
[2019-11-30 18:09] LABS: White Blood Count 32.4 10^3/uL (4.0-10.0)
[2019-11-30] MEDS: lidocaine 1% INJ 20 mL 5 ML IV (18:38)
--- NOTE | 2019-11-30 18:40 | P.CONIM_ITS ---
Providers/Reason For Consult Consulting Physican/Specialty*: Dr James Reason for Consult*: Concern for necrotizing soft tissue infection Requesting Physcian: Dr. Hagen Attending Physician: Keri Brothers MD History of Present Illness History of Present Illness Chief Complaint: I have a problem with my left foot History of present illness: Lucy Ramos is a 59 year old female diabetic with history of peripheral arterial disease the patient had history of trauma to the left foot last June 2019 and she tried to take care of it herself but unfortunately got complicated, patient developed a left heal ulcer and came to the emergency department due to the worsening condition of the left foot as it became swollen and painful. A CT of the left foot was done with contrast which showed: 1. Extensive subcutaneous air throughout the soft tissues of the foot and ankle as described above. Consistent with necrotizing fasciitis. 2. Soft tissue ulceration with focal abscess along the tract over the posterior calcaneus. Soft tissue abscess measures 7 x 8 mm. Extensive soft tissue edema. Patient has a WBC count of 32,000+ in addition to element of acidosis No evidence of constitutional symptoms in the form of fever chills nausea or vomiting Cardiac services Dr. Hagen contacted me concerning about necrotizing soft tissue infection of the left foot, responded immediately and evaluated the patient in the ICU which she appears to be hemodynamically stable so far Review of Systems General: Reports: 10 or more systems reviewed and unremarkable except in HPI and below Meds/Allergies Home Medications and Allergies Home Medications Medication Instructions Recorded Confirmed Type No Known Home Medications 11/30/19 11/30/19 History Allergies Allergy/AdvReac Type Severity Reaction Status Date / Time No Known Allergies Allergy Verified 11/30/19 18:58 Current Medications Current Medications Generic Name Dose Route Start Last Admin Trade Name Freq PRN Reason Stop Dose Admin Enoxaparin Sodium 40 mg 11/30/19 17:42 11/30/19 17:59 Lovenox SUBCUT 40 mg Q24H SADIE Administration Potassium Chloride/Sodium Chloride 20 meq in 1,000 mls @ 125 mls/hr 11/30/19 14:15 11/30/19 14:34 Sodium Chlor 0.9% + Kcl 20 Meq IV 125 mls/hr .Q8H SADIE Administration Insulin Human Regular 250 unit 252.5 mls @ 2.02 mls/hr 11/30/19 16:15 11/30/19 17:55 / Sodium Chloride IV 10.3 unit/hr .Q24H SADIE 10.4 mls/hr Administration Protocol 2 UNIT/HR Sodium Chloride 1,000 mls @ 100 mls/hr 11/30/19 16:42 11/30/19 18:38 Sodium Chloride 0.9% IV Not Given .Q10H SADIE Potassium Chloride 40 meq in 100 mls @ 25 mls/hr 11/30/19 16:42 11/30/19 17:59 K-John IV 11/30/19 20:41 25 mls/hr ONCE ONE Administration PFSH Acute PFSH: Medical History Chronic kidney disease (CKD) stage G1/A1, glomerular filtration rate (GFR) equal to or greater than 90 mL/min/1.73 square meter and albuminuria creatinine ratio less than 30 mg/g Coagulopathy Diabetes mellitus Dyslipidemia Essential hypertension Hyponatremia Infectious fasciitis Lower limb ischemia Peripheral arterial disease Tobacco abuse Family History Father Cancer Brother , Hepatitis C Diabetes Social History Smoking and tobacco status: current every day smoker Second hand smoke exposure: Yes Alcohol intake: never Substance/Drug Use: never Adopted: No Caregiver/support person: No Lives independently: Yes Household members: spouse Marital status: service: No Current occupational status: unemployed Female Reproductive History: control method: none : 3 Para: 3 Vitals/I&O/Wt Last Vital Signs Temp 98.7 F 11/30/19 12:27 Pulse 126 H 11/30/19 17:45 Resp 16 11/30/19 17:45 BP 118/61 11/30/19 17:45 Pulse Ox 98 11/30/19 17:35 Weight last 48 hrs Weight 126 lb Physical Exam Const: COMMON NORMALS: no apparent distress and oriented x3 GENERAL APPEARANCE: cooperative ORIENTATION/CONSCIOUSNESS: Yes awake, Yes oriented to person, Yes oriented to place and Yes oriented to time HENMT: COMMON NORMALS: normocephalic HEAD & SCALP: normocephalic Eye: COMMON NORMALS: PERRL and no scleral icterus PUPIL: Yes PERRL Lymph: LYMPHATIC: no lymphadenopathy noted Chest: COMMONS NORMALS: inspection of chest normal Resp: COMMON NORMALS: normal respiratory effort and clear to auscultation bilaterally AUSCULTATION: clear to auscultation bilaterally Cardio: COMMON NORMALS: S1 normal heart sound and S2 normal heart sound; negative for no murmurs HEART SOUNDS: S1 normal and S2 normal GI: COMMON NORMALS: soft to palpation; negative for no hepatosplenomegaly INSPECTION: Yes normal to inspection PALPATION: Yes soft, No firm, No tender, No guarding, No rigid and No no hepatosplenomegaly Extremity: RIGHT LOWER EXTREMITY: Yes upper leg (Barely palpable pulsation at the right groin area otherwise the right leg cooler than the left one definite signs of chronic ischemia) LEFT LOWER EXTREMITY: Yes foot & digits Left foot and digits: Yes palpation (Crepitus along the medial arch of the left foot) and Yes neurovascular exam (Dopplerable left dorsalis pedis, posterior tibial and peroneal arteries) OTHER: Presence of an ulcer 2 x 2 cm located at the left heel, presence of abscess formation at the medial aspect of the left ankle underneath the medial malleolus Neuro: COMMON NORMALS: oriented x3 SENSORIUM/ORIENTATION: Yes oriented to person, Yes oriented to place and Yes oriented to time Data Micro: Micro: Microbiology 11/30/19 12:35 Gram Stain - Final Other Source 11/30/19 12:50 Blood Culture - Pr eliminary Blood SPECIMEN [facility] 11/30/19 12:45 Blood Culture - Pr eliminary Blood SPECIMEN [facility] A&P Assessment and plan (1) Necrotizing soft tissue infection: After history taking physical examination and reviewing the chart with personal interpretation of the CT scan images, will plan to take the patient urgently to the OR for surgical debridement in the form of I&D of left foot abscess. Indications risks benefits and alternatives all discussed with the patient and she did agree to proceed accordingly Informed consent per chart Status: Acute Code(s): M79.89 - Other specified soft tissue disorders Consult Attestations Medical Necessity Statement: Medical necessity care is expected to cross 2 midnights Time Spent in Patient Care: 16 - 35 minutes (>than 50% of time spent in counselling and/or direct pt care on unit) . Coding Level of Care Code Acute Machine Maintenance Repairer for [facility] Diagnoses Necrotizing soft tissue infection M79.89
[2019-11-30 19:08] LABS: Estmated Average Glucose 298
--- NOTE | 2019-11-30 19:27 | P.ANESASSM_ITS ---
Pre-Anesthetic Assessment Pre-Anesthetic Assessment: Height/Weight: Height 1.7 m Weight 57.153 kg Temp Pulse Resp BP Pulse Ox 98.7 F 126 H 16 118/61 98 11/30/19 12:27 11/30/19 17:45 11/30/19 17:45 11/30/19 17:45 11/30/19 17:35 Social: Social History: Tobacco Exam: Pre-Anes Outpt Exam: alert, oriented x 3, clear to auscultation bilaterally and regular rate & rhythm (ST) Airway: Submandibular: WNL Cervical ROM: WNL MP: 2 Dentition: Full History/ROS: No significant history except as noted Pulmonary: Pulmonary: COPD CV/HEM: CV/HEM: HTN and PVD : : Chronic renal Insufficiency Hepatic: Hepatic: None reported GI: GI: None reported Metabolic: Metabolic: DM and Hyperlipidemia Musc/skel: Musc/skel: None reported Neuropsych: Neuropsych: None reported Anesthetic Plan: ASA status: 4E Anesthesia: Anesthesia Evaluation and General Risk of > 500 ml blood loss (7ml/kg in children): No Meds/Allergies Current Medications: Current Medications Generic Name Dose Route Start Last Admin Trade Name Freq PRN Reason Stop Dose Admin Enoxaparin Sodium 40 mg 11/30/19 17:42 11/30/19 17:59 Lovenox SUBCUT 40 mg Q24H SADIE Administration Potassium Chloride /Sodium Chloride 20 meq in 1,000 m ls @ 125 mls/hr 11/30/19 14:15 11/30/19 14:34 Sodium Chlor 0.9 % + Kcl 20 Meq IV 125 mls/hr .Q8H SADIE Administration Insulin Human Regu lar 250 unit 252.5 mls @ 2.02 mls/hr 11/30/19 16:15 11/30/19 17:55 / Sodium Chlorid e IV 10.3 unit/hr .Q24H SADIE 10.4 mls/hr Administration Protocol 2 UNIT/HR Sodium Chloride 1,000 mls @ 100 m ls/hr 11/30/19 16:42 11/30/19 18:38 Sodium Chloride 0.9% IV Not Given .Q10H SADIE Potassium Chloride 40 meq in 100 mls @ 25 mls/hr 11/30/19 16:42 11/30/19 17:59 K-John IV 11/30/19 20:41 25 mls/hr ONCE ONE Administration PFSH Anesthesia PFSH: Medical History (Updated 11/30/19 @ 19:18 by Keri Brothers MD) Chronic kidney disease (CKD) stage G1/A1, glomerular filtration rate (GFR) equal to or greater than 90 mL/min/1.73 square meter and albuminuria creatinine ratio less than 30 mg/g Coagulopathy Diabetes mellitus Dyslipidemia Essential hypertension Hyponatremia Infectious fasciitis Lower limb ischemia Peripheral arterial disease Sepsis Tobacco abuse Family History Father Cancer Brother , Hepatitis C Diabetes Social History Smoking and tobacco status: current every day smoker Second hand smoke exposure: Yes Alcohol intake: never Substance/Drug Use: never Adopted: No Caregiver/support person: No Lives independently: Yes Household members: spouse Marital status: service: No Current occupational status: unemployed Female Reproductive History: control method: none : 3 Para: 3 Data Anesthesia CBC & Chem 7: 11/30/19 17:30 11/30/19 17:30 Other Labs: Laboratory Results - last 48 hr 11/30/19 11/30/19 11/30/19 12:45 12:45 12:45 WBC 36.0 H* RBC 4.66 Hgb 14.1 Hct 41.8 MCV 89.7 MCH 30.3 MCHC 33.7 RDW 13.2 Plt Count 492 H MPV 10.4 Neut % (Auto) 90.2 Lymph % (Auto) 2.8 [place] % (Auto) 4.3 Eos % (Auto) 0.0 Baso % (Auto) 0.3 Neut # (Auto) 32.4 H Lymph # (Auto) 1.0 [place] # (Auto) 1.6 H Eos # (Auto) 0.0 Baso # (Auto) 0.1 Nucleated RBC % (auto) 0 Nucleated RBCs # 0.0 PT 16.00 H INR 1.23 H APTT 36.8 H Sodium 123 L Potassium 4.5 Chloride 80 L Carbon Dioxide 21 L Anion Gap 26.5 H BUN 15 Creatinine 1.0 H GFR Calculation 56.4 L Glucose 453 H POC Glucose Estimat Average Glucose Hemoglobin A1c Calculated Osmolality Lactic Acid Calcium 10.8 H Total Bilirubin 0.6 AST 12 ALT 9 Alkaline Phosphatase 163 H C-Reactive Protein 523.6 H Total Protein 8.5 Albumin 3.8 Globulin 4.7 H Triglycerides Cholesterol LDL Cholesterol, Calc HDL Cholesterol LDL/HDL Ratio Cholesterol/HDL Ratio TSH Urine Color Urine Appearance Urine pH Ur Specific Orange Urine Protein Urine Glucose (UA) Urine Ketones Urine Occult Blood Urine Nitrate Urine Bilirubin Urine Urobilinogen Ur Leukocyte Esterase Urine RBC Urine WBC Ur Squamous Epith Cells Urine Bacteria Urine Opiates Screen Ur Barbiturates Screen Ur Phencyclidine Scrn Ur Amphetamines Screen U Benzodiazepines Scrn Urine Cocaine Screen U Marijuana (THC) Screen Serum Ketones 11/30/19 11/30/19 11/30/19 12:45 14:24 14:24 WBC RBC Hgb Hct MCV MCH MCHC RDW Plt Count MPV Neut % (Auto) Lymph % (Auto) [place] % (Auto) Eos % (Auto) Baso % (Auto) Neut # (Auto) Lymph # (Auto) [place] # (Auto) Eos # (Auto) Baso # (Auto) Nucleated RBC % (auto) Nucleated RBCs # PT INR APTT Sodium Potassium Chloride Carbon Dioxide Anion Gap BUN Creatinine GFR Calculation Glucose POC Glucose Estimat Average Glucose Hemoglobin A1c Calculated Osmolality Lactic Acid Calcium Total Bilirubin AST ALT Alkaline Phosphatase C-Reactive Protein Total Protein Albumin Globulin Triglycerides Cholesterol LDL Cholesterol, Calc HDL Cholesterol LDL/HDL Ratio Cholesterol/HDL Ratio TSH Urine Color Yellow Urine Appearance Clear Urine pH 5.0 Ur Specific Orange 1.010 Urine Protein 1+ H Urine Glucose (UA) 4+ H Urine Ketones 1+ H Urine Occult Blood 2+ H Urine Nitrate Negative Urine Bilirubin Neg Urine Urobilinogen 1 H Ur Leukocyte Esterase Trace H Urine RBC 5-10 H Urine WBC 55-80 H Ur Squamous Epith Cells 0-4 H Urine Bacteria 2+ H Urine Opiates Screen Negative Ur Barbiturates Screen Negative Ur Phencyclidine Scrn Negative Ur Amphetamines Screen Negative U Benzodiazepines Scrn Negative Urine Cocaine Screen Negative U Marijuana (THC) Screen Negative Serum Ketones Positive H 11/30/19 11/30/19 11/30/19 15:51 17:30 17:30 WBC 32.4 H* RBC 4.34 Hgb 12.9 Hct 39.0 MCV 89.9 MCH 29.7 MCHC 33.1 RDW 13.1 Plt Count 459 H MPV 10.6 H Neut % (Auto) 91.4 Lymph % (Auto) 3.3 [place] % (Auto) 2.3 Eos % (Auto) 0.0 Baso % (Auto) 0.2 Neut # (Auto) 29.6 H Lymph # (Auto) 1.1 [place] # (Auto) 0.7 Eos # (Auto) 0.0 Baso # (Auto) 0.1 Nucleated RBC % (auto) 0 Nucleated RBCs # 0.0 PT INR APTT Sodium 130 L Potassium 3.8 Chloride 89 L Carbon Dioxide 21 L Anion Gap 23.8 H BUN 12 Creatinine 0.7 GFR Calculation 85.1 L Glucose 290 H POC Glucose 306 Estimat Average Glucose Hemoglobin A1c Calculated Osmolality 277 L Lactic Acid Calcium 9.9 Total Bilirubin AST ALT Alkaline Phosphatase C-Reactive Protein Total Protein Albumin Globulin Triglycerides 225 H Cholesterol 191 LDL Cholesterol, Calc 121 HDL Cholesterol 25 L LDL/HDL Ratio 4.84 H Cholesterol/HDL Ratio 7.64 H TSH 0.95 Urine Color Urine Appearance Urine pH Ur Specific Orange Urine Protein Urine Glucose (UA) Urine Ketones Urine Occult Blood Urine Nitrate Urine Bilirubin Urine Urobilinogen Ur Leukocyte Esterase Urine RBC Urine WBC Ur Squamous Epith Cells Urine Bacteria Urine Opiates Screen Ur Barbiturates Screen Ur Phencyclidine Scrn Ur Amphetamines Screen U Benzodiazepines Scrn Urine Cocaine Screen U Marijuana (THC) Screen Serum Ketones 11/30/19 11/30/19 17:30 17:30 WBC RBC Hgb Hct MCV MCH MCHC RDW Plt Count MPV Neut % (Auto) Lymph % (Auto) [place] % (Auto) Eos % (Auto) Baso % (Auto) Neut # (Auto) Lymph # (Auto) [place] # (Auto) Eos # (Auto) Baso # (Auto) Nucleated RBC % (auto) Nucleated RBCs # PT INR APTT Sodium Potassium Chloride Carbon Dioxide Anion Gap BUN Creatinine GFR Calculation Glucose POC Glucose Estimat Average Glucose 298 Hemoglobin A1c 12.0 H Calculated Osmolality Lactic Acid 1.6 Calcium Total Bilirubin AST ALT Alkaline Phosphatase C-Reactive Protein Total Protein Albumin Globulin Triglycerides Cholesterol LDL Cholesterol, Calc HDL Cholesterol LDL/HDL Ratio Cholesterol/HDL Ratio TSH Urine Color Urine Appearance Urine pH Ur Specific Orange Urine Protein Urine Glucose (UA) Urine Ketones Urine Occult Blood Urine Nitrate Urine Bilirubin Urine Urobilinogen Ur Leukocyte Esterase Urine RBC Urine WBC Ur Squamous Epith Cells Urine Bacteria Urine Opiates Screen Ur Barbiturates Screen Ur Phencyclidine Scrn Ur Amphetamines Screen U Benzodiazepines Scrn Urine Cocaine Screen U Marijuana (THC) Screen Serum Ketones Micro: Microbiology 11/30/19 12:35 Gram Stain - Final Other Source 11/30/19 12:50 Blood Culture - Preliminary Blood SPECIMEN COLLECTED 11/30/19 12:45 Blood Culture - Preliminary Blood SPECIMEN COLLECTED Cardiac Studies: No Data to Display
[2019-11-30] MEDS: piperacillin-tazobactam 3.375 GM in sodium chloride 0.9% (plus) 50 ML IV (19:34)
--- NOTE | 2019-11-30 19:42 | PC.NURSE ---
Pt left unit for OR at this time for incision and debridement of left foot. Pt left with insulin gtt running at 8.7 units/hr.
[2019-11-30] MEDS: lidocaine 2% INJ 20 mL INJECTION (20:22)
--- NOTE | 2019-11-30 20:33 | P.OP_ITS ---
Operative Report Date of procedure: November 30, 2019 Pre-op Diagnosis: Necrotizing soft tissue infection of the left foot Post-op diagnosis: same Post-op Findings: Necrotizing soft tissue infection of the left foot post I&D measurements 15 x 6 x [address] to the muscle layer. Necrotic soft tissues of the skin subcutaneous and muscle layer Procedure Done: Incision and drainage of left foot Sharp debridement of the abscess cavity all the way to the muscle layer Specimens removed/disposition: Swabs for cultures and sensitivities Tissues for cultures and sensitivities Necrotic muscles for pathology Surgeon: Thomas James Computer Systems Administrator: Surgical mckinley Lizarraga and Janessa Circulating nurse Christy VICTORIA Anesthesia: General (LITO Chacon and Dr. Dias) Estimated blood loss (mL): 10 Condition: stable Disposition: ICU Brief History: Please see full H&P This is a pleasant 59 years old female patient with worsening left foot swelling and evidence of clinical crepitus of the left foot and an ulcer at the left calcaneal region, the presence of leukocytosis of 32,000 and acidosis and uncontrolled hyperglycemia, did career guidance counselor the patient for incision and drainage of left foot abscess concerning for necrotizing soft tissue infection. Patient agreed to proceed accordingly and an informed consent per chart Procedure: After identifying the patient holding area, the left lower extremity was marked before the procedure by myself, patient was then taken to the operative suite, was placed in supine position, IV antibiotics were given per protocol, LMA was placed by the anesthesia provider, prep and drape of the left foot and ankle region was done under the usual sterile technique. Time-out was done verifying the patient's name/date of /planned procedure and destination after the procedure, all were in agreement. I started by probing the left calcaneal ulcer and a stab incision was created at the infra left medial malleolus space and a gush of pus was revealed, that incision was extended towards the ulcer proximally and posteriorly and also was extended anteriorly and distal across the line of the medial arch all the way to the base of the left big toe, consequently more pus was revealed and more necrotic tissues were debrided, swabs were sent for cultures as well as tissues for cultures and sensitivity. Sharp debridement was done to necrotic tissues including skin subcutaneous all the way to the muscle and fascial layer without bone exposure, muscle layer mostly of the medial arch and for the whole 4 layers of the sole of the foot, also necrotic muscles were sent for pathology. Wound measurement ; Post-debridement measurement; 15 x 6 x [address] to the healthier muscular and fascial components There were no more residual necrotic tissues and there is no evidence of crepitus at the end of the procedure Extensive irrigation of the wound was done with warm saline form of Pulsavac, followed by appropriate hemostasis, packing of the wound was done with mini Kerlix impregnated and lidocaine 2%, followed by ABDs,Kerlix and Ellis wraps Patient tolerated the procedure well, count of instruments, needles and sponges were completed at the end of the procedure.Patient was then taken to the ICU after extubation in stable condition. I was present for the whole entire procedure
--- NOTE | 2019-11-30 20:40 | PC.NURSE ---
Arrived from OR at this time on 6L simple mask. Breathing even and non-labored. Arouses to verbal stimuli. No reports at this time to unit. Arrived with 2% Lidocaine kerlex packing, abd, kerlex, and federico wrap dressing to left foot, clean dry and intact. Report taken from Gideon at bedside. PACU Recovery started at this time. See v/s flowsheet and MAR.
[2019-11-30] MEDS: morphine 4 mg/mL SDV 1 mL 2 MG IVP (20:51)
[2019-11-30] MEDS: clindamycin 900 MG/50 ML PREMIX 100 MG IV (21:03)
[2019-11-30] MEDS: fentaNYL 50 mcg/mL INJ 2mL IVP (21:17)
--- NOTE | 2019-11-30 21:25 | PC.NURSE ---
Recovery Recovery Phase Date 11/30/19 Recovery Phase Time : Total fluids given in OR 400ml EBL: 25ml Urine Output: 0ml Phase 1 Discharge Criteria: Oxygenation concerns: No. 02 sat 96% 2L NC. Breathing even and non-labored. Hemodynamic concerns: No. Bp 93/54 Verbal Responsiveness concerns: No. Alert and oriented X 4. Extremity Activity concerns: No. Moves all four N/V concerns: No. Denies Bleeding concerns: No
[2019-11-30 21:33] LABS: Anion Gap 19.6 (5-19); Blood Urea Nitrogen 11 mg/dL (8-23); Calcium 9.9 mg/dL (8.5-10.5); Carbon Dioxide 22 mmol/L (22-29); Chloride 93 mmol/L (98-107); Glomerular Filtration Rate 72.9 mL/min (90-130); Glucose 136 mg/dL (65-115); Osmolality Calculated 270 mOsm/kg (285-295); Potassium 3.6 mmol/L (3.5-5.1); Sodium 131 mmol/L (136-145)
[2019-11-30] MEDS: D5-NS 0.45% + KCL 20 mEq 20 MEQ/1,000 ML BAG 125 MEQ IV (21:42)
[2019-12-01] VITALS (112 sets, daily range): BP systolic 67–126; BP diastolic 41–78; PULSE 78–102; RESP 13–25; TEMP 37–37.7; O2SAT 80–97
--- NOTE | 2019-12-01 | PC.NURSE ---
Made Npo after midnight per Dr. James request.
[2019-12-01] MEDS: piperacillin-tazobactam 3.375 GM in sodium chloride 0.9% (plus) 50 ML IV ×3 (01:11→17:14)
[2019-12-01 01:43] LABS: Blood Urea Nitrogen 12 mg/dL (8-23); Calcium 9.3 mg/dL (8.5-10.5); Carbon Dioxide 21 mmol/L (22-29); Chloride 94 mmol/L (98-107); Glomerular Filtration Rate 85.1 mL/min (90-130); Glucose 111 mg/dL (65-115); Osmolality Calculated 263 mOsm/kg (285-295); Sodium 128 mmol/L (136-145)
[2019-12-01] MEDS: sodium chloride 0.9% 500 ML 999 ML IV (03:12)
[2019-12-01] MEDS: sodium chloride 0.9% 1,000 ML 999 ML IV ×2 (04:10→08:11)
--- NOTE | 2019-12-01 05:30 | PC.NURSE ---
Continued hypotension with MAP in 50's after 1.5 Liters in boluses. Bilateral arm extremities are cool and clammy. Radial pulses weak and thready. Pt is awake and oriented. on unit and notified. Orders for levophed drip received.
[2019-12-01 05:40] LABS: Glucose Point of Care 184 mg/dL (70-110)
[2019-12-01 05:48] LABS: Basophils # 0.1 10^3/uL (0.0-0.1); Basophils % 0.3 %; Eosinophils # 0.1 10^3/uL (0.0-0.8); Eosinophils % 0.5 %; Hemoglobin 10.2 g/dL (11.5-15.3); Lymphocytes % 8.6 %; Mean Corpuscular HGB Conc 31.9 g/dL (30.0-36.0); Mean Corpuscular Hemoglobin 29.5 pg (28.0-34.0); Mean Corpuscular Volume 92.5 fL (81-99); Mean Platelet Volume 10.9 fL (7.4-10.4); Monocytes # 1.3 10^3/uL (0.2-0.9); Monocytes % 5.6 %; Neutrophils # 19.7 10^3/uL (1.8-7.7); Neutrophils % 83.6 %; Nucleated Red Blood Cells % 0 %; Platelet Count 369 10^3/cmm (130-400); Red Blood Count 3.46 10^6/uL (4.1-5.3); Red Cell Distribution Width 13.4 % (12.1-15.1); White Blood Count 23.6 10^3/uL (4.0-10.0)
[2019-12-01] MEDS: D5-NS 0.45% + KCL 20 mEq 20 MEQ/1,000 ML BAG 125 MEQ IV (05:48)
[2019-12-01 06:02] LABS: Alanine Aminotransferase < 5 U/L (0-33); Albumin Level 2.3 g/dL (3.5-5.2); Alkaline Phosphatase 107 IU/L (35-105); Anion Gap 15.2 (5-19); Aspartate Amino Transferase 12 U/L (0-32); Blood Urea Nitrogen 12 mg/dL (8-23); Calcium 8.7 mg/dL (8.5-10.5); Carbon Dioxide 21 mmol/L (22-29); Chloride 102 mmol/L (98-107); Globulin 3.5 g/dL (1.3-4.6); Glomerular Filtration Rate 85.1 mL/min (90-130); Glucose 98 mg/dL (65-115); Potassium 4.2 mmol/L (3.5-5.1); Sodium 134 mmol/L (136-145); Total Bilirubin 0.4 mg/dL (0.15-1.2); Total Protein 5.8 g/dL (6.6-8.7)
[2019-12-01] MEDS: clindamycin 900 MG/50 ML PREMIX 100 MG IV ×3 (06:12→20:45)
[2019-12-01 06:16] LABS: Magnesium 1.8 mg/dL (1.7-2.3)
--- NOTE | 2019-12-01 07:33 | P.PN_ITS ---
Subjective Subjective: Interval history: Lucy went to the operating room for debridement of the left foot last evening. Appreciate Dr. James's response. This morning she seems to feel okay. She like something to eat and drink. I understand there is a possibility she may need to go back to the operating room so she remains n.p.o. No other events overnight. Medications: Reviewed: Yes Vitals/I&O/Wt Last Vital Signs Temp 99.0 F 12/01/19 06:20 Pulse 96 12/01/19 06:20 Resp 16 12/01/19 06:20 BP 114/54 12/01/19 06:20 Pulse Ox 94 12/01/19 06:20 11/30/19 12/01/19 12/01/19 22:59 06:59 14:59 Intake Total 1491.759 / 9338.367 2933.191 / 3070.950 Output Total 450 / 450 Balance 1491.759 / 4999.036 7807.191 / 2620.950 Weight last 48 hrs Weight 126 lb Physical Exam Narrative: EXAM NARRATIVE: GENERAL: In general she looks and feels well. HEENT: Exam within normal limits. NECK: Supple without jugular vein distention. The carotid upstroke is normal without bruits. BACK: Exam normal. LUNGS: Clear. HEART: Regular rate and rhythm. ABDOMEN: Benign without organomegaly or tenderness. EXTREMITIES: No edema. The left foot is wrapped and I did not remove the dressing. NEUROLOGIC: Exam normal. SKIN: Unremarkable. Urinary Catheter Management^: Rodgers: Cath Placed During This Visit: yes Urethral Indwelling: Yes Reason for Continuing Indwelling Catheter: Accurate Measurement of Urinary Output in Critically Ill Patients Urinary Catheter Date of Insertion: 12/01/19 Urinary Catheter Time of Insertion: 06:22 Data : 12/01/19 04:57 12/01/19 04:57 Micro: Microbiology 11/30/19 20:02 Gram Stain - Final Other Source 11/30/19 20:02 Gram Stain - Final Foot - Wound 11/30/19 12:35 Gram Stain - Final Other Source 11/30/19 12:50 Blood Culture - Preliminary Blood SPECIMEN COLLECTED 11/30/19 12:45 Blood Culture - Preliminary Blood SPECIMEN COLLECTED A&P Assessment and plan (1) Coagulopathy: Status: Acute Code(s): D68.9 - Coagulation defect, unspecified (2) Hyponatremia: Status: Acute Code(s): E87.1 - Hypo-osmolality and hyponatremia (3) Infectious fasciitis: Status: Acute Code(s): M72.8 - Other fibroblastic disorders (4) Tobacco abuse: Status: Acute Code(s): Z72.0 - Tobacco use (5) Peripheral arterial disease: Status: Acute Code(s): I73.9 - Peripheral vascular disease, unspecified (6) Dyslipidemia: Status: Acute Code(s): E78.5 - Hyperlipidemia, unspecified (7) Diabetes mellitus: Status: Acute Code(s): E11.9 - Type 2 diabetes mellitus without complications (8) Chronic kidney disease (CKD) stage G1/A1, glomerular filtration rate (GFR) equal to or greater than 90 mL/min/1.73 square meter and albuminuria creatinine ratio less than 30 mg/g: Status: Acute Code(s): N18.1 - Chronic kidney disease, stage 1 (9) Lower limb ischemia: Status: Acute Code(s): I99.8 - Other disorder of circulatory system Additional A&P Information Once a decision is made about whether or not she needs to go back to the opera tin room, we can feed her. I would like for a day or 2 of antibiotics to be administered. We will then reassess and she will need angiography of the lower extremities in the near term. Attestations Medical Necessity Statement*: Not applicable Coding Level of Care Code Acute Senior Production Manager for g Fwd History Detailed Exam Detailed Medical Decision Making Moderate Complexity Diagnoses Coagulopathy D68.9 Hyponatremia E87.1 Infectious fasciitis M72.8 Tobacco abuse Z72.0 Peripheral arterial disease I73.9 Dyslipidemia E78.5 Diabetes mellitus E11.9 Chronic kidney disease (CKD) stage G1/A1, glomerular filtration rate (GFR) equal to or greater than 90 mL/min/1.73 square meter and albuminuria creatinine ratio less than 30 mg/g N18.1 Lower limb ischemia I99.8
[2019-12-01 07:37] LABS: Glucose Point of Care 111 mg/dL (70-110)
--- NOTE | 2019-12-01 07:56 | P.PN_ITS ---
Subjective Subjective: Interval history: Patient overall feels better Apparently blood pressure was soft and she was placed on some pressor and was given 2 L of crystalloids per hospitalist service. Trending down and WBC count Vitals/I&O/Wt Last Vital Signs Temp 99.0 F 12/01/19 06:20 Pulse 96 12/01/19 06:20 Resp 16 12/01/19 06:20 BP 114/54 12/01/19 06:20 Pulse Ox 94 12/01/19 06:20 11/30/19 12/01/19 12/01/19 22:59 06:59 14:59 Intake Total 1491.759 / 7968.917 0751.191 / 3070.950 Output Total 450 / 450 Balance 1491.759 / 7856.974 5299.191 / 2620.950 Weight last 48 hrs Weight 126 lb Physical Exam Const: COMMON NORMALS: no apparent distress and oriented x3 GENERAL APPEARANCE: cooperative ORIENTATION/CONSCIOUSNESS: Yes awake, Yes oriented to person, Yes oriented to place and Yes oriented to time Extremity: NARRATIVE EXTREMITY EXAM: Left foot examination shows wound is wide open with no purulent discharge minor residual necrotic tissues, with minor odor, dressing was done by me bedside in the form of packing with wet-to-dry Kerlix followed by ABDs and Ellis wrap. Swelling is less and no evidence of crepitus Patient was premedicated with pain medication prior to dressing change Neuro: COMMON NORMALS: oriented x3 SENSORIUM/ORIENTATION: Yes oriented to person, Yes oriented to place and Yes oriented to time Urinary Catheter Management^: Rodgers: Cath Placed During This Visit: yes Urethral Indwelling: Yes Reason for Continuing Indwelling Catheter: Accurate Measurement of Urinary Output in Critically Ill Patients Urinary Catheter Date of Insertion: 12/01/19 Urinary Catheter Time of Insertion: 06:22 Data : 12/01/19 04:57 12/01/19 04:57 Micro: Microbiology 11/30/19 20:02 Gram Stain - Final Other Source 11/30/19 20:02 Gram Stain - Final Foot - Wound 11/30/19 12:35 Gram Stain - Final Other Source 11/30/19 12:50 Blood Culture - Preliminary Blood SPECIMEN COLLECTED 11/30/19 12:45 Blood Culture - Preliminary Blood SPECIMEN COLLECTED A&P Assessment and plan (1) Necrotizing soft tissue infection: From surgical standpoint of view we will plan to take the patient tomorrow for a second look in the OR for potential more surgical debridement and irrigation of the wound and washout. Recommend to follow on cultures and sensitivities Elevation of the left lower extremity on the pillow We will consult physical therapy to prevent potential foot drop and help with the brace We will continue coordinating with cardiac and hospitalist services Focus on nutrition highly recommend to have Glucerna 3-4 times a day with each meal to help in the healing process Once the wound is fur cleaner will be an appropriate candidate for wound VAC Patient down the road will follow at the wound care center weekly. Also I do recommend to start forensic social worker to be involved for discharge planning with regard to wound care Have the patient n.p.o. after midnight for surgery tomorrow at 8:00 am Please call for questions or concerns Thank you for consulting general surgery to participate taking care Status: Acute Code(s): M79.89 - Other specified soft tissue disorders Attestations Medical Necessity Statement*: Medical necessity care is expected to cross 2 midnights Time Spent in Patient Care: 16 - 35 minutes (>than 50% of time spent in cou nselling and/or direct pt care on unit) . Coding Level of Care Code Acute Sr. Pricing Analyst for Britney Fwmerlin Exam Problem Focused Diagnoses Necrotizing soft tissue infection M79.89
[2019-12-01] MEDS: morphine 4 mg/mL SDV 1 mL 2 MG IVP ×2 (08:10→16:25)
[2019-12-01] MEDS: vancomycin 1,000 MG in sodium chloride 0.9% 250 ML 250 MG IV (08:19)
--- NOTE | 2019-12-01 09:36 | PC.CHAP ---
Pastoral Care Encounter/Spiritual Assessment Type of Contact [] Declined central office operator visit [] Patient/Family/Request visit [] Outpatient visit [] Follow-up visit [] Physician referral [] Code/Alert [x] Routine visit [] Staff referral [] Actively dying [] Patient sleeping [] Family support [] [] Out of room [] Palliative care [] [] Receiving care in room [] Pre-surgical visit [] Trauma [] Long length of stay [x] ICU visit [] Other: Relational/Emotional Strength [] Patient feels connected with others/family/visitors/staff [] Distress [] Loneliness/isolation [] Abandonment Spirituality of Patient [x] Person of [place] [] Attends [employer] of their [place] [x] Believes in Prayer [] Reads Bible or Caodaism materials [] There are Spiritual issues to be addressed [employer] Crane Operator Interventions [x] Prayer [] Active listening [] Non-anxious presence [] Spiritual/emotional support [] Crisis/trauma care [] Spiritual counseling [] Bereavement support [] Provided bereavement packet [] Provided Bible/devotional materials [] Provided toy/stuffed animal, coloring book to patient or family member [] Provided Communion [] Anointing/[place] [] Salvation [x] Completed spiritual assessment [] Other: Impact on Illness or Injury [] Angry [] Fearful [] Anxious [] Often cries [] Exhaustion [] Unable to work [] Unable to attend scientologist [] Unable to walk/stand [] Unable to read [] Unable to drive [] Unable to eat/drink [] Unable to sleep [] Unable to be with family [] Patient intubated [] Other: Summary Patient waiting on visit from spouse. Recovering from surgery. Time spent with patient 10min
--- NOTE | 2019-12-01 09:39 | P.PN_ITS ---
Subjective Subjective: Interval history: Leukocytosis improving to 23.6 today. Status post I&D in the OR yesterday. T-max 100.1 Fahrenheit. Heart rate of 99. O2 sat 95% on room air. He remains on insulin infusion. Anion gap has closed. This morning at 15.2. Fingersticks ranging between 111-1 84. Hemoglobin A1c returned at 12. Renal function stable. Blood pressure this morning 81/42 after which she received 500 cc of crystalloid infusion and started on low-dose Levophed at 2 mics. 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 Urinary Catheter Management^: Rodgers: Cath Placed During This Visit: yes Urethral Indwelling: Yes Reason for Continuing Indwelling Catheter: Accurate Measurement of Urinary Output in Critically Ill Patients Urinary Catheter Date of Insertion: 12/01/19 Urinary Catheter Time of Insertion: 06:22 Data : 12/01/19 04:57 12/01/19 04:57 Micro: Microbiology 11/30/19 20:02 Gram Stain - Final Other Source 11/30/19 20:02 Gram Stain - Final Foot - Wound 11/30/19 12:35 Gram Stain - Final Other Source 11/30/19 12:50 Blood Culture - Preliminary Blood SPECIMEN COLLECTED 11/30/19 12:45 Blood Culture - Preliminary Blood SPECIMEN COLLECTED A&P Assessment and plan (1) Sepsis: Status: Acute Code(s): A41.9 - Sepsis, unspecified organism (2) DKA (diabetic ketoacidoses): Status: Acute Code(s): E11.10 - Type 2 diabetes mellitus with ketoacidosis without coma (3) Necrotizing soft tissue infection: Status: Acute Code(s): M79.89 - Other specified soft tissue disorders (4) Lower limb ischemia: Status: Acute Code(s): I99.8 - Other disorder of circulatory system (5) Tobacco abuse: Status: Acute Code(s): Z72.0 - Tobacco use (6) Dyslipidemia: Status: Acute Code(s): E78.5 - Hyperlipidemia, unspecified (7) Diabetes mellitus: Status: Acute Code(s): E11.9 - Type 2 diabetes mellitus without complications Additional A&P Information Admitted to ICU in view of DKA and sepsis Sepsis criteria met with tachycardia and leukocytosis. 1. Diabetic ketoacidosis: Blood sugar greater than 400, serum ketones positive, anion gap of 26, upon admission Anion gap has now closed after following insulin infusion per DKA/HHS protocol Start insulin Lantus 10 units at nighttime and aggressive sliding scale. Start patient on a carbohydrate consistent diet. May be n.p.o. post midnight for surgery for more debridement. Continue normal saline infusion at 150 cc/h. Goal map to be greater than 65. May use low-dose Levophed to maintain sat map. HbA1c at 12, newly diagnosed diabetic. Likely trigger of DKA to be necrotizing infection in her foot No current hypokalemia. 2. Necrotizing fasciitis of the foot Continue broad spectrum antimicrobial coverage with Zosyn, vancomycin and additional clindamycin at this time for antitoxin effect from possible GAS. There are some GPC's in pairs and chains seen on her Gram stain. Though the process appears to be more crhonic, ongoing worsening since June 2019, there is an acute change control analyst the last 24 hours and GAS would need to be covered. Gram stain thus far with polymicrobial larisa. Final culture remains pending. Clindamycin may be discontinued over the next 24-48 hrs if patient remains hemodynamically stable Status post I&D by surgery yesterday evening. Poor wound healing contributed by DM and peripheral arterial disease Though attempt is being currently made at limb salvage interventions, suspect that patient may eventually end up needing amputation of the foot given extensive necrosis, however the best chance of healing post amputation would be after revascularization if the latter is feasible. Awaiting angiogram once improving from a sepsis perspective. 3. Severe PAD Dr. Hagen from cardiology following for possible angiogram of the lower extremities. Planned over the next 24-48 hrs once acute issues resolve. Start statin and low-dose aspirin. 4. Pseudohyponatremia from hyperglycemia, resolved 5. Peripheral Neuropathy Further orders based on evolution of clinical picture DVT ppx: Lovenox code status: full code Attestations Medical Necessity Statement*: Continued ICU admission for management of sepsis and DKA. 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
[2019-12-01 09:54] LABS: Anion Gap 18.5 (5-19); Blood Urea Nitrogen 11 mg/dL (8-23); Calcium 8.3 mg/dL (8.5-10.5); Carbon Dioxide 19 mmol/L (22-29); Chloride 99 mmol/L (98-107); Glomerular Filtration Rate 72.9 mL/min (90-130); Glucose 118 mg/dL (65-115); Osmolality Calculated 271 mOsm/kg (285-295); Potassium 4.5 mmol/L (3.5-5.1); Sodium 132 mmol/L (136-145)
--- NOTE | 2019-12-01 10:43 | PC.NURSE ---
Pt requested more water. Water given to patient by this student nurse. Pain assessed. Pt rates pain a 2 now. Pt resting in bed. Will continue to monitor.
[2019-12-01 11:00] LABS: Glucose Point of Care 165 mg/dL (70-110)
[2019-12-01 11:57] LABS: Glucose Point of Care 121 mg/dL (70-110)
[2019-12-01 11:57] LABS: Glucose Point of Care 121 mg/dL (70-110)
[2019-12-01 11:57] LABS: Glucose Point of Care 135 mg/dL (70-110)
[2019-12-01 11:57] LABS: Glucose Point of Care 110 mg/dL (70-110)
[2019-12-01 11:57] LABS: Glucose Point of Care 121 mg/dL (70-110)
[2019-12-01 11:57] LABS: Glucose Point of Care 117 mg/dL (70-110)
[2019-12-01 11:57] LABS: Glucose Point of Care 233 mg/dL (70-110)
[2019-12-01 11:57] LABS: Glucose Point of Care 104 mg/dL (70-110)
[2019-12-01 11:57] LABS: Glucose Point of Care 99 mg/dL (70-110)
[2019-12-01 11:57] LABS: Glucose Point of Care 144 mg/dL (70-110)
[2019-12-01 11:57] LABS: Glucose Point of Care 96 mg/dL (70-110)
[2019-12-01 11:57] LABS: Glucose Point of Care 114 mg/dL (70-110)
[2019-12-01 11:57] LABS: Glucose Point of Care 325 mg/dL (70-110)
[2019-12-01 11:57] LABS: Glucose Point of Care 318 mg/dL (70-110)
--- NOTE | 2019-12-01 13:51 | PC.NURSE ---
Patient [place] consultant light requesting left ankle boot to be removed, as it is beginning to become uncomfortable per patient. This student nurse called Adal in PT to get verification of okay to remove. Adal confirmed boot may be removed for a couple hours. This student nurse removed boot, placed pillow under left foot, and helped reposition patient. Patient sitting up in bed watching tv when this student nurse left room. Will continue to monitor.
[2019-12-01] MEDS: sodium chloride 0.9% 1,000 ML 150 ML IV ×2 (14:42→19:19)
--- NOTE | 2019-12-01 16:06 | ANE.PACU2 ---
 Inpatient post-anesthesia follow up: Airway intact: Yes Vital signs: Temperature 99.0 F Pulse Rate [Apical ] 118 Pulse Rate 80 Respiratory Rate 21 Blood Pressure [Ri ght Arm] 127/80 Blood Pressure 100/73 Pulse Oximetry 95 Oxygen Delivery Me thod [ Room Air Current Rate & Del tevin] Oxygen Delivery Me thod Room Air Oxygen Flow Rate 2 Fraction of Inspir ed Oxygen Hydration adequate: Yes Nausea and vomiting: No Pain level: 1 Mental status: Baseline
[2019-12-01 16:59] LABS: Glucose Point of Care 264 mg/dL (70-110)
[2019-12-01] MEDS: enoxaparin 40 mg/0.4 mL Syringe SUBCUT (17:12)
[2019-12-01] MEDS: atorvastatin 40 mg Tablet PO (20:42)
[2019-12-01] MEDS: insulin glargine 100 units/1 mL 10 UNIT SUBCUT (20:45)
[2019-12-02] VITALS (46 sets, daily range): BP systolic 88–124; BP diastolic 48–80; PULSE 75–101; RESP 10–27; TEMP 37.2; O2SAT 89–99
--- NOTE | 2019-12-02 | PC.NURSE ---
Made NPO at this time for surgery in AM. Pt educated and verbalized understanding.
[2019-12-02] MEDS: vancomycin 1,000 MG in sodium chloride 0.9% 250 ML 250 MG IV ×2 (02:18→20:27)
[2019-12-02] MEDS: piperacillin-tazobactam 3.375 GM in sodium chloride 0.9% (plus) 50 ML IV ×3 (03:25→18:37)
[2019-12-02] MEDS: morphine 4 mg/mL SDV 1 mL 2 MG IVP (03:32)
[2019-12-02] MEDS: clindamycin 900 MG/50 ML PREMIX 100 MG IV ×3 (05:04→21:35)
[2019-12-02] MEDS: sodium chloride 0.9% 1,000 ML 150 ML IV ×3 (05:05→18:34)
[2019-12-02 05:41] LABS: Magnesium 1.8 mg/dL (1.7-2.3)
--- NOTE | 2019-12-02 07:16 | PM.PN ---
Subjective Subjective: Interval history: Overall patient feels No acute events overnight Vitals/I&O/Wt Last Vital Signs Temp 98.9 F 12/02/19 04:00 Pulse 79 12/02/19 06:00 Resp 20 H 12/02/19 06:00 BP 93/51 12/02/19 06:00 Pulse Ox 92 12/02/19 06:00 12/01/19 12/02/19 12/02/19 22:59 06:59 14:59 Intake Total 1722.5 / 2502.5 970 / 3472.5 Output Total 150 / 650 525 / 1175 Balance 1572.5 / 1852.5 445 / 2297.5 Weight last 48 hrs Weight 126 lb Physical Exam Const: COMMON NORMALS: no apparent distress and oriented x3 GENERAL APPEARANCE: cooperative ORIENTATION/CONSCIOUSNESS: Yes awake, Yes oriented to person, Yes oriented to place and Yes oriented to time Extremity: NARRATIVE EXTREMITY EXAM: Left foot in a brace and dressing intact Capillary refill less than 2 seconds Foot is warm Neuro: COMMON NORMALS: oriented x3 SENSORIUM/ORIENTATION: Yes oriented to person, Yes oriented to place and Yes oriented to time Urinary Catheter Management^: Rodgers: Cath Placed During This Visit: yes Urethral Indwelling: Yes Reason for Continuing Indwelling Catheter: Accurate Measurement of Urinary Output in Critically Ill Patients Urinary Catheter Date of Insertion: 12/01/19 Urinary Catheter Time of Insertion: 06:22 Data : 12/01/19 04:57 12/01/19 09:05 Micro: Microbiology 11/30/19 12:50 Blood Culture - Preliminary Blood NEGATIVE TO DATE 11/30/19 12:45 Blood Culture - Preliminary Blood NEGATIVE TO DATE 11/30/19 12:35 Gram Stain - Final Other Source Wound Culture - Preliminary A&P Assessment and plan (1) Necrotizing soft tissue infection: We will plan to take the patient for surgery today for second look and washout and potential surgical debridement. Informed consent per chart Thank you for consulting general surgery to participate taking care Status: Acute Code(s): M79.89 - Other specified soft tissue disorders Attestations Medical Necessity Statement*: Medical necessity care is expected to cross 2 midnights Time Spent in Patient Care: 16 - 35 minutes (>than 50% of time spent in counselling and/or direct pt care on unit). 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
[2019-12-02 07:19] LABS: Glucose Point of Care 150 mg/dL (70-110)
--- NOTE | 2019-12-02 07:21 | PM.PN ---
Subjective Subjective: Interval history: Lucy has had an uneventful night. No problems. Her leg is slightly tender and throbs on occasion. I looked at the wound yesterday when Dr. James removed the bandage. There was a significant amount of necrotic tissue involved. The wound was unpacked, redressed and the antibiotics continue. She is to go back to the operating room this morning for a second debridement and washing. Medications: Reviewed: Yes Vitals/I&O/Wt Last Vital Signs Temp 98.9 F 12/02/19 04:00 Pulse 79 12/02/19 06:00 Resp 20 H 12/02/19 06:00 BP 93/51 12/02/19 06:00 Pulse Ox 92 12/02/19 06:00 12/01/19 12/02/19 12/02/19 22:59 06:59 14:59 Intake Total 1722.5 / 2502.5 970 / 3472.5 Output Total 150 / 650 525 / 1175 Balance 1572.5 / 1852.5 445 / 2297.5 Weight last 48 hrs Weight 126 lb Physical Exam Narrative: EXAM NARRATIVE: GENERAL: In general she looks and feels well HEENT: Exam within normal limits. NECK: Supple without jugular vein distention. The carotid upstroke is normal without bruits. BACK: Exam normal. LUNGS: Clear. HEART: Regular rate and rhythm. ABDOMEN: Benign without organomegaly or tenderness. EXTREMITIES: No edema. I did not remove the bandage this morning. She is scheduled for the operating room within the hour. NEUROLOGIC: Exam normal. SKIN: Unremarkable. Urinary Catheter Management^: Rodgers: Cath Placed During This Visit: yes Urethral Indwelling: Yes Reason for Continuing Indwelling Catheter: Accurate Measurement of Urinary Output in Critically Ill Patients Urinary Catheter Date of Insertion: 12/01/19 Urinary Catheter Time of Insertion: 06:22 Data : 12/01/19 04:57 12/01/19 09:05 Micro: Microbiology 11/30/19 12:50 Blood Culture - Preliminary Blood NEGATIVE TO DATE 11/30/19 12:45 Blood Culture - Preliminary Blood NEGATIVE TO DATE 11/30/19 12:35 Gram Stain - Final Other Source Wound Culture - Preliminary A&P Assessment and plan (1) Anemia: Status: Acute Code(s): D64.9 - Anemia, unspecified (2) Sepsis: Status: Acute Code(s): A41.9 - Sepsis, unspecified organism (3) Lower limb ischemia: Status: Acute Code(s): I99.8 - Other disorder of circulatory system (4) Chronic kidney disease (CKD) stage G1/A1, glomerular filtration rate (GFR) equal to or greater than 90 mL/min/1.73 square meter and albuminuria creatinine ratio less than 30 mg/g: Status: Acute Code(s): N18.1 - Chronic kidney disease, stage 1 (5) Coagulopathy: Status: Acute Code(s): D68.9 - Coagulation defect, unspecified (6) Hyponatremia: Status: Acute Code(s): E87.1 - Hypo-osmolality and hyponatremia (7) Infectious fasciitis: Status: Acute Code(s): M72.8 - Other fibroblastic disorders (8) Peripheral arterial disease: Status: Acute Code(s): I73.9 - Peripheral vascular disease, unspecified (9) Tobacco abuse: Status: Acute Code(s): Z72.0 - Tobacco use (10) Dyslipidemia: Status: Acute Code(s): E78.5 - Hyperlipidemia, unspecified (11) Diabetes mellitus: Status: Acute Code(s): E11.9 - Type 2 diabetes mellitus without complications Additional A&P Information Once the wound is washed again and things have settled down a little bit, we will perform angiography of the legs. 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
--- NOTE | 2019-12-02 07:26 | ANES.PREANE2 ---
Pre-Anesthetic Assessment Pre-Anesthetic Assessment: Height/Weight: Height 1.7 m Weight 57.153 kg Temp Pulse Resp BP Pulse Ox 98.9 F 79 20 H 93/51 92 12/02/19 04:00 12/02/19 06:00 12/02/19 06:00 12/02/19 06:00 12/02/19 06:00 Preop Diagnosis: Necrotizing soft tissue infection of the left foot Proposed Procedure: I&D left foot Operation Date: 11/30/19 20:00 Proposed Procedures p Incision And Drainage(Left) - Thomas James MD Operation Date: 12/02/19 08:10 Proposed Procedures p Debridement Left Foot Wound(Left) - Thomas James MD Familial anesthetic complications: prev surgery on tuesday evening. tolerated well Was Beta Yeison taken within 24 hours: N/A Last Intake: 00:00 Social: Social History: Tobacco Packs per day: 1.5 Exam: Pre-Anes Outpt Exam: alert and oriented x 3 Airway: Submandibular: WNL Cervical ROM: WNL MP: 2 Dentition: False Pulmonary: Pulmonary: COPD CV/HEM: CV/HEM: PVD : : Chronic renal Insufficiency Hepatic: Hepatic: None reported GI: GI: None reported Metabolic: Metabolic: DM Musc/skel: Musc/skel: None reported Neuropsych: Neuropsych: None reported Anesthetic Plan: ASA status: 4 Anesthesia: General Risk of > 500 ml blood loss (7ml/kg in children): No Other Pertinent Information: Pt off insulin drip. Levophed turned off as well. Meds/Allergies Current Medications: Current Medications Generic Name Dose Route Start Last Admin Trade Name Freq PRN Reason Stop Dose Admin Atorvastatin Calci um 40 mg 12/01/19 21:00 12/01/19 20:42 Lipitor PO 40 mg BEDTIME SADIE Administration Enoxaparin Sodium 40 mg 11/30/19 17:42 12/01/19 17:12 Lovenox SUBCUT 40 mg Q24H SADIE Administration Hydromorphone HCl 2 mg 11/30/19 16:42 12/01/19 16:20 Dilaudid Tab PO 2 mg Q6H PRN Administration SEVERE PAIN Piperacillin Sod/T azobactam 50 mls @ 12.5 mls /hr 11/30/19 17:45 12/02/19 03:25 Sod 3.375 gm/ So dium Chloride IV 12.5 mls/hr Q8H SADIE Administration Protocol As Directed Vancomycin HCl 1,0 00 mg/ 250 mls @ 250 mls /hr 12/01/19 08:00 12/02/19 03:25 Sodium Chloride IV Infused Q18H SADIE Infusion Protocol As Directed Clindamycin HCl/De xtrose 900 mg in 50 mls @ 100 mls/hr 11/30/19 19:15 12/02/19 05:04 Cleocin IV 12/02/19 23:59 100 mls/hr Q8H SADIE Administration Protocol Sodium Chloride 1,000 mls @ 150 m ls/hr 12/01/19 10:00 12/02/19 05:05 Sodium Chloride 0.9% IV 150 mls/hr .Q6H40M SADIE Administration Insulin Aspart 0 unit 12/01/19 12:00 12/01/19 20:44 Novolog SUBCUT 8 unit WM&BEDTIME SADIE Administration Protocol Insulin Glargine 10 unit 12/01/19 21:00 12/01/19 20:45 Lantus SUBCUT 10 unit BEDTIME SADIE Administration Morphine Sulfate 2 mg 11/30/19 16:42 12/02/19 03:32 Morphine IVP 2 mg Q4H PRN Administration SEVERE PAIN PFSH Anesthesia PFSH: Medical History (Updated 12/02/19 @ 07:24 by Nick Hagen MD) Anemia Chronic kidney disease (CKD) stage G1/A1, glomerular filtration rate (GFR) equal to or greater than 90 mL/min/1.73 square meter and albuminuria creatinine ratio less than 30 mg/g Coagulopathy Diabetes mellitus Dyslipidemia Essential hypertension Hyponatremia Infectious fasciitis Lower limb ischemia Peripheral arterial disease Sepsis Tobacco abuse Family History Father Cancer Brother , Hepatitis C Diabetes Social History Smoking and tobacco status: current every day smoker Second hand smoke exposure: Yes Alcohol intake: never Substance/Drug Use: never Adopted: No Caregiver/support person: No Lives independently: Yes Household members: spouse Marital status: service: No Current occupational status: unemployed Female Reproductive History: control method: none : 3 Para: 3 Data Anesthesia CBC & Chem 7: 12/01/19 04:57 12/01/19 09:05 Other Labs: Laboratory Results - last 48 hr 11/30/19 11/30/19 11/30/19 12:45 12:45 12:45 WBC 36.0 H* RBC 4.66 Hgb 14.1 Hct 41.8 MCV 89.7 MCH 30.3 MCHC 33.7 RDW 13.2 Plt Count 492 H MPV 10.4 Neut % (Auto) 90.2 Lymph % (Auto) 2.8 [place] % (Auto) 4.3 Eos % (Auto) 0.0 Baso % (Auto) 0.3 Neut # (Auto) 32.4 H Lymph # (Auto) 1.0 [place] # (Auto) 1.6 H Eos # (Auto) 0.0 Baso # (Auto) 0.1 Nucleated RBC % (auto) 0 Nucleated RBCs # 0.0 PT 16.00 H INR 1.23 H APTT 36.8 H Sodium 123 L Potassium 4.5 Chloride 80 L Carbon Dioxide 21 L Anion Gap 26.5 H BUN 15 Creatinine 1.0 H GFR Calculation 56.4 L Glucose 453 H POC Glucose Estimat Average Glucose Hemoglobin A1c Calculated Osmolality Lactic Acid Calcium 10.8 H Magnesium Total Bilirubin 0.6 AST 12 ALT 9 Alkaline Phosphatase 163 H C-Reactive Protein 523.6 H Total Protein 8.5 Albumin 3.8 Globulin 4.7 H Triglycerides Cholesterol LDL Cholesterol, Calc HDL Cholesterol LDL/HDL Ratio Cholesterol/HDL Ratio TSH Urine Color Urine Appearance Urine pH Ur Specific [place] Urine Protein Urine Glucose (UA) Urine Ketones Urine Occult Blood Urine Nitrate Urine Bilirubin Urine Urobilinogen Ur Leukocyte Esterase Urine RBC Urine WBC Ur Squamous Epith Cells Urine Bacteria Urine Opiates Screen Ur Barbiturates Screen Ur Phencyclidine Scrn Ur Amphetamines Screen U Benzodiazepines Scrn Urine Cocaine Screen U Marijuana (THC) Screen Serum Ketones 11/30/19 11/30/19 11/30/19 12:45 14:24 14:24 WBC RBC Hgb Hct MCV MCH MCHC RDW Plt Count MPV Neut % (Auto) Lymph % (Auto) [place] % (Auto) Eos % (Auto) Baso % (Auto) Neut # (Auto) Lymph # (Auto) [place] # (Auto) Eos # (Auto) Baso # (Auto) Nucleated RBC % (auto) Nucleated RBCs # PT INR APTT Sodium Potassium Chloride Carbon Dioxide Anion Gap BUN Creatinine GFR Calculation Glucose POC Glucose Estimat Average Glucose Hemoglobin A1c Calculated Osmolality Lactic Acid Calcium Magnesium Total Bilirubin AST ALT Alkaline Phosphatase C-Reactive Protein Total Protein Albumin Globulin Triglycerides Cholesterol LDL Cholesterol, Calc HDL Cholesterol LDL/HDL Ratio Cholesterol/HDL Ratio TSH Urine Color Yellow Urine Appearance Clear Urine pH 5.0 Ur Specific [place] 1.010 Urine Protein 1+ H Urine Glucose (UA) 4+ H Urine Ketones 1+ H Urine Occult Blood 2+ H Urine Nitrate Negative Urine Bilirubin Neg Urine Urobilinogen 1 H Ur Leukocyte Esterase Trace H Urine RBC 5-10 H Urine WBC 55-80 H Ur Squamous Epith Cells 0-4 H Urine Bacteria 2+ H Urine Opiates Screen Negative Ur Barbiturates Screen Negative Ur Phencyclidine Scrn Negative Ur Amphetamines Screen Negative U Benzodiazepines Scrn Negative Urine Cocaine Screen Negative U Marijuana (THC) Screen Negative Serum Ketones Positive H 11/30/19 11/30/19 11/30/19 15:51 16:44 17:30 WBC 32.4 H* RBC 4.34 Hgb 12.9 Hct 39.0 MCV 89.9 MCH 29.7 MCHC 33.1 RDW 13.1 Plt Count 459 H MPV 10.6 H Neut % (Auto) 91.4 Lymph % (Auto) 3.3 [place] % (Auto) 2.3 Eos % (Auto) 0.0 Baso % (Auto) 0.2 Neut # (Auto) 29.6 H Lymph # (Auto) 1.1 [place] # (Auto) 0.7 Eos # (Auto) 0.0 Baso # (Auto) 0.1 Nucleated RBC % (auto) 0 Nucleated RBCs # 0.0 PT INR APTT Sodium Potassium Chloride Carbon Dioxide Anion Gap BUN Creatinine GFR Calculation Glucose POC Glucose 306 325 Estimat Average Glucose Hemoglobin A1c Calculated Osmolality Lactic Acid Calcium Magnesium Total Bilirubin AST ALT Alkaline Phosphatase C-Reactive Protein Total Protein Albumin Globulin Triglycerides Cholesterol LDL Cholesterol, Calc HDL Cholesterol LDL/HDL Ratio Cholesterol/HDL Ratio TSH Urine Color Urine Appearance Urine pH Ur Specific [place] Urine Protein Urine Glucose (UA) Urine Ketones Urine Occult Blood Urine Nitrate Urine Bilirubin Urine Urobilinogen Ur Leukocyte Esterase Urine RBC Urine WBC Ur Squamous Epith Cells Urine Bacteria Urine Opiates Screen Ur Barbiturates Screen Ur Phencyclidine Scrn Ur Amphetamines Screen U Benzodiazepines Scrn Urine Cocaine Screen U Marijuana (THC) Screen Serum Ketones 11/30/19 11/30/19 11/30/19 17:30 17:30 17:30 WBC RBC Hgb Hct MCV MCH MCHC RDW Plt Count MPV Neut % (Auto) Lymph % (Auto) [place] % (Auto) Eos % (Auto) Baso % (Auto) Neut # (Auto) Lymph # (Auto) [place] # (Auto) Eos # (Auto) Baso # (Auto) Nucleated RBC % (auto) Nucleated RBCs # PT INR APTT Sodium 130 L Potassium 3.8 Chloride 89 L Carbon Dioxide 21 L Anion Gap 23.8 H BUN 12 Creatinine 0.7 GFR Calculation 85.1 L Glucose 290 H POC Glucose Estimat Average Glucose 298 Hemoglobin A1c 12.0 H Calculated Osmolality 277 L Lactic Acid 1.6 Calcium 9.9 Magnesium Total Bilirubin AST ALT Alkaline Phosphatase C-Reactive Protein Total Protein Albumin Globulin Triglycerides 225 H Cholesterol 191 LDL Cholesterol, Calc 121 HDL Cholesterol 25 L LDL/HDL Ratio 4.84 H Cholesterol/HDL Ratio 7.64 H TSH 0.95 Urine Color Urine Appearance Urine pH Ur Specific [place] Urine Protein Urine Glucose (UA) Urine Ketones Urine Occult Blood Urine Nitrate Urine Bilirubin Urine Urobilinogen Ur Leukocyte Esterase Urine RBC Urine WBC Ur Squamous Epith Cells Urine Bacteria Urine Opiates Screen Ur Barbiturates Screen Ur Phencyclidine Scrn Ur Amphetamines Screen U Benzodiazepines Scrn Urine Cocaine Screen U Marijuana (THC) Screen Serum Ketones 11/30/19 11/30/19 11/30/19 17:53 19:01 20:14 WBC RBC Hgb Hct MCV MCH MCHC RDW Plt Count MPV Neut % (Auto) Lymph % (Auto) [place] % (Auto) Eos % (Auto) Baso % (Auto) Neut # (Auto) Lymph # (Auto) [place] # (Auto) Eos # (Auto) Baso # (Auto) Nucleated RBC % (auto) Nucleated RBCs # PT INR APTT Sodium Potassium Chloride Carbon Dioxide Anion Gap BUN Creatinine GFR Calculation Glucose POC Glucose 318 233 150 Estimat Average Glucose Hemoglobin A1c Calculated Osmolality Lactic Acid Calcium Magnesium Total Bilirubin AST ALT Alkaline Phosphatase C-Reactive Protein Total Protein Albumin Globulin Triglycerides Cholesterol LDL Cholesterol, Calc HDL Cholesterol LDL/HDL Ratio Cholesterol/HDL Ratio TSH Urine Color Urine Appearance Urine pH Ur Specific [place] Urine Protein Urine Glucose (UA) Urine Ketones Urine Occult Blood Urine Nitrate Urine Bilirubin Urine Urobilinogen Ur Leukocyte Esterase Urine RBC Urine WBC Ur Squamous Epith Cells Urine Bacteria Urine Opiates Screen Ur Barbiturates Screen Ur Phencyclidine Scrn Ur Amphetamines Screen U Benzodiazepines Scrn Urine Cocaine Screen U Marijuana (THC) Screen Serum Ketones 11/30/19 11/30/19 11/30/19 20:47 21:15 22:13 WBC RBC Hgb Hct MCV MCH MCHC RDW Plt Count MPV Neut % (Auto) Lymph % (Auto) [place] % (Auto) Eos % (Auto) Baso % (Auto) Neut # (Auto) Lymph # (Auto) [place] # (Auto) Eos # (Auto) Baso # (Auto) Nucleated RBC % (auto) Nucleated RBCs # PT INR APTT Sodium 131 L Potassium 3.6 Chloride 93 L Carbon Dioxide 22 Anion Gap 19.6 H BUN 11 Creatinine 0.8 GFR Calculation 72.9 L Glucose 136 H POC Glucose 184 121 Estimat Average Glucose Hemoglobin A1c Calculated Osmolality 270 L Lactic Acid Calcium 9.9 Magnesium Total Bilirubin AST ALT Alkaline Phosphatase C-Reactive Protein Total Protein Albumin Globulin Triglycerides Cholesterol LDL Cholesterol, Calc HDL Cholesterol LDL/HDL Ratio Cholesterol/HDL Ratio TSH Urine Color Urine Appearance Urine pH Ur Specific [place] Urine Protein Urine Glucose (UA) Urine Ketones Urine Occult Blood Urine Nitrate Urine Bilirubin Urine Urobilinogen Ur Leukocyte Esterase Urine RBC Urine WBC Ur Squamous Epith Cells Urine Bacteria Urine Opiates Screen Ur Barbiturates Screen Ur Phencyclidine Scrn Ur Amphetamines Screen U Benzodiazepines Scrn Urine Cocaine Screen U Marijuana (THC) Screen Serum Ketones 11/30/19 12/01/19 12/01/19 23:01 00:02 01:03 WBC RBC Hgb Hct MCV MCH MCHC RDW Plt Count MPV Neut % (Auto) Lymph % (Auto) [place] % (Auto) Eos % (Auto) Baso % (Auto) Neut # (Auto) Lymph # (Auto) [place] # (Auto) Eos # (Auto) Baso # (Auto) Nucleated RBC % (auto) Nucleated RBCs # PT INR APTT Sodium Potassium Chloride Carbon Dioxide Anion Gap BUN Creatinine GFR Calculation Glucose POC Glucose 114 121 117 Estimat Average Glucose Hemoglobin A1c Calculated Osmolality Lactic Acid Calcium Magnesium Total Bilirubin AST ALT Alkaline Phosphatase C-Reactive Protein Total Protein Albumin Globulin Triglycerides Cholesterol LDL Cholesterol, Calc HDL Cholesterol LDL/HDL Ratio Cholesterol/HDL Ratio TSH Urine Color Urine Appearance Urine pH Ur Specific [place] Urine Protein Urine Glucose (UA) Urine Ketones Urine Occult Blood Urine Nitrate Urine Bilirubin Urine Urobilinogen Ur Leukocyte Esterase Urine RBC Urine WBC Ur Squamous Epith Cells Urine Bacteria Urine Opiates Screen Ur Barbiturates Screen Ur Phencyclidine Scrn Ur Amphetamines Screen U Benzodiazepines Scrn Urine Cocaine Screen U Marijuana (THC) Screen Serum Ketones 12/01/19 12/01/19 12/01/19 01:16 01:58 03:02 WBC RBC Hgb Hct MCV MCH MCHC RDW Plt Count MPV Neut % (Auto) Lymph % (Auto) [place] % (Auto) Eos % (Auto) Baso % (Auto) Neut # (Auto) Lymph # (Auto) [place] # (Auto) Eos # (Auto) Baso # (Auto) Nucleated RBC % (auto) Nucleated RBCs # PT INR APTT Sodium 128 L Potassium 4.0 Chloride 94 L Carbon Dioxide 21 L Anion Gap 17.0 BUN 12 Creatinine 0.7 GFR Calculation 85.1 L Glucose 111 POC Glucose 121 104 Estimat Average Glucose Hemoglobin A1c Calculated Osmolality 263 L Lactic Acid Calcium 9.3 Magnesium Total Bilirubin AST ALT Alkaline Phosphatase C-Reactive Protein Total Protein Albumin Globulin Triglycerides Cholesterol LDL Cholesterol, Calc HDL Cholesterol LDL/HDL Ratio Cholesterol/HDL Ratio TSH Urine Color Urine Appearance Urine pH Ur Specific [place] Urine Protein Urine Glucose (UA) Urine Ketones Urine Occult Blood Urine Nitrate Urine Bilirubin Urine Urobilinogen Ur Leukocyte Esterase Urine RBC Urine WBC Ur Squamous Epith Cells Urine Bacteria Urine Opiates Screen Ur Barbiturates Screen Ur Phencyclidine Scrn Ur Amphetamines Screen U Benzodiazepines Scrn Urine Cocaine Screen U Marijuana (THC) Screen Serum Ketones 12/01/19 12/01/19 12/01/19 03:49 04:57 04:57 WBC 23.6 H RBC 3.46 L Hgb 10.2 L Hct 32.0 L MCV 92.5 MCH 29.5 MCHC 31.9 RDW 13.4 Plt Count 369 MPV 10.9 H Neut % (Auto) 83.6 Lymph % (Auto) 8.6 [place] % (Auto) 5.6 Eos % (Auto) 0.5 Baso % (Auto) 0.3 Neut # (Auto) 19.7 H Lymph # (Auto) 2.0 [place] # (Auto) 1.3 H Eos # (Auto) 0.1 Baso # (Auto) 0.1 Nucleated RBC % (auto) 0 Nucleated RBCs # 0.0 PT INR APTT Sodium 134 L Potassium 4.2 Chloride 102 Carbon Dioxide 21 L Anion Gap 15.2 BUN 12 Creatinine 0.7 GFR Calculation 85.1 L Glucose 98 POC Glucose 96 Estimat Average Glucose Hemoglobin A1c Calculated Osmolality Lactic Acid Calcium 8.7 Magnesium Total Bilirubin 0.4 AST 12 ALT < 5 Alkaline Phosphatase 107 H C-Reactive Protein Total Protein 5.8 L D Albumin 2.3 L Globulin 3.5 Triglycerides Cholesterol LDL Cholesterol, Calc HDL Cholesterol LDL/HDL Ratio Cholesterol/HDL Ratio TSH Urine Color Urine Appearance Urine pH Ur Specific [place] Urine Protein Urine Glucose (UA) Urine Ketones Urine Occult Blood Urine Nitrate Urine Bilirubin Urine Urobilinogen Ur Leukocyte Esterase Urine RBC Urine WBC Ur Squamous Epith Cells Urine Bacteria Urine Opiates Screen Ur Barbiturates Screen Ur Phencyclidine Scrn Ur Amphetamines Screen U Benzodiazepines Scrn Urine Cocaine Screen U Marijuana (THC) Screen Serum Ketones 12/01/19 12/01/19 12/01/19 04:57 05:32 06:25 WBC RBC Hgb Hct MCV MCH MCHC RDW Plt Count MPV Neut % (Auto) Lymph % (Auto) [place] % (Auto) Eos % (Auto) Baso % (Auto) Neut # (Auto) Lymph # (Auto) [place] # (Auto) Eos # (Auto) Baso # (Auto) Nucleated RBC % (auto) Nucleated RBCs # PT INR APTT Sodium Potassium Chloride Carbon Dioxide Anion Gap BUN Creatinine GFR Calculation Glucose POC Glucose 99 110 Estimat Average Glucose Hemoglobin A1c Calculated Osmolality Lactic Acid Calcium Magnesium 1.8 Total Bilirubin AST ALT Alkaline Phosphatase C-Reactive Protein Total Protein Albumin Globulin Triglycerides Cholesterol LDL Cholesterol, Calc HDL Cholesterol LDL/HDL Ratio Cholesterol/HDL Ratio TSH Urine Color Urine Appearance Urine pH Ur Specific [place] Urine Protein Urine Glucose (UA) Urine Ketones Urine Occult Blood Urine Nitrate Urine Bilirubin Urine Urobilinogen Ur Leukocyte Esterase Urine RBC Urine WBC Ur Squamous Epith Cells Urine Bacteria Urine Opiates Screen Ur Barbiturates Screen Ur Phencyclidine Scrn Ur Amphetamines Screen U Benzodiazepines Scrn Urine Cocaine Screen U Marijuana (THC) Screen Serum Ketones 12/01/19 12/01/19 12/01/19 07:18 08:25 09:05 WBC RBC Hgb Hct MCV MCH MCHC RDW Plt Count MPV Neut % (Auto) Lymph % (Auto) [place] % (Auto) Eos % (Auto) Baso % (Auto) Neut # (Auto) Lymph # (Auto) [place] # (Auto) Eos # (Auto) Baso # (Auto) Nucleated RBC % (auto) Nucleated RBCs # PT INR APTT Sodium 132 L Potassium 4.5 Chloride 99 Carbon Dioxide 19 L Anion Gap 18.5 BUN 11 Creatinine 0.8 GFR Calculation 72.9 L Glucose 118 H POC Glucose 111 144 Estimat Average Glucose Hemoglobin A1c Calculated Osmolality 271 L Lactic Acid Calcium 8.3 L Magnesium Total Bilirubin AST ALT Alkaline Phosphatase C-Reactive Protein Total Protein Albumin Globulin Triglycerides Cholesterol LDL Cholesterol, Calc HDL Cholesterol LDL/HDL Ratio Cholesterol/HDL Ratio TSH Urine Color Urine Appearance Urine pH Ur Specific [place] Urine Protein Urine Glucose (UA) Urine Ketones Urine Occult Blood Urine Nitrate Urine Bilirubin Urine Urobilinogen Ur Leukocyte Esterase Urine RBC Urine WBC Ur Squamous Epith Cells Urine Bacteria Urine Opiates Screen Ur Barbiturates Screen Ur Phencyclidine Scrn Ur Amphetamines Screen U Benzodiazepines Scrn Urine Cocaine Screen U Marijuana (THC) Screen Serum Ketones 12/01/19 12/01/19 12/01/19 09:38 10:56 16:55 WBC RBC Hgb Hct MCV MCH MCHC RDW Plt Count MPV Neut % (Auto) Lymph % (Auto) [place] % (Auto) Eos % (Auto) Baso % (Auto) Neut # (Auto) Lymph # (Auto) [place] # (Auto) Eos # (Auto) Baso # (Auto) Nucleated RBC % (auto) Nucleated RBCs # PT INR APTT Sodium Potassium Chloride Carbon Dioxide Anion Gap BUN Creatinine GFR Calculation Glucose POC Glucose 135 165 264 Estimat Average Glucose Hemoglobin A1c Calculated Osmolality Lactic Acid Calcium Magnesium Total Bilirubin AST ALT Alkaline Phosphatase C-Reactive Protein Total Protein Albumin Globulin Triglycerides Cholesterol LDL Cholesterol, Calc HDL Cholesterol LDL/HDL Ratio Cholesterol/HDL Ratio TSH Urine Color Urine Appearance Urine pH Ur Specific [place] Urine Protein Urine Glucose (UA) Urine Ketones Urine Occult Blood Urine Nitrate Urine Bilirubin Urine Urobilinogen Ur Leukocyte Esterase Urine RBC Urine WBC Ur Squamous Epith Cells Urine Bacteria Urine Opiates Screen Ur Barbiturates Screen Ur Phencyclidine Scrn Ur Amphetamines Screen U Benzodiazepines Scrn Urine Cocaine Screen U Marijuana (THC) Screen Serum Ketones 12/02/19 04:45 WBC RBC Hgb Hct MCV MCH MCHC RDW Plt Count MPV Neut % (Auto) Lymph % (Auto) [place] % (Auto) Eos % (Auto) Baso % (Auto) Neut # (Auto) Lymph # (Auto) [place] # (Auto) Eos # (Auto) Baso # (Auto) Nucleated RBC % (auto) Nucleated RBCs # PT INR APTT Sodium Potassium Chloride Carbon Dioxide Anion Gap BUN Creatinine GFR Calculation Glucose POC Glucose Estimat Average Glucose Hemoglobin A1c Calculated Osmolality Lactic Acid Calcium Magnesium 1.8 Total Bilirubin AST ALT Alkaline Phosphatase C-Reactive Protein Total Protein Albumin Globulin Triglycerides Cholesterol LDL Cholesterol, Calc HDL Cholesterol LDL/HDL Ratio Cholesterol/HDL Ratio TSH Urine Color Urine Appearance Urine pH Ur Specific [place] Urine Protein Urine Glucose (UA) Urine Ketones Urine Occult Blood Urine Nitrate Urine Bilirubin Urine Urobilinogen Ur Leukocyte Esterase Urine RBC Urine WBC Ur Squamous Epith Cells Urine Bacteria Urine Opiates Screen Ur Barbiturates Screen Ur Phencyclidine Scrn Ur Amphetamines Screen U Benzodiazepines Scrn Urine Cocaine Screen U Marijuana (THC) Screen Serum Ketones Micro: Microbiology 11/30/19 12:50 Blood Culture - Preliminary Blood NEGATIVE TO DATE 11/30/19 12:45 Blood Culture - Preliminary Blood NEGATIVE TO DATE 11/30/19 12:35 Gram Stain - Final Other Source Wound Culture - Preliminary Cardiac Studies: No Data to Display
[2019-12-02] MEDS: lidocaine 2% INJ 20 mL INJECTION (08:17)
--- NOTE | 2019-12-02 08:37 | P.OP_ITS ---
Operative Report Date of procedure: December 02, 2019 Pre-op Diagnosis: Resolving Necrotizing soft tissue infection of the left foot Post-op diagnosis: same (The same,residual necrotic tissues were appreciated) Post-op Findings: Pockets of residual necrotic tissues were debrided sharply all the way to the muscle and tendon level Procedure Done: Debridement of left foot wound Pre-debridement measurements 9 x 6 x 2 cm Debridement measurements 20 x 10 x [address] to the muscle layer Implants: None Specimens removed/disposition: None Surgeon: Thomas James Anesthesia: General (LMA CORE MICROARCHITECT Oswaldo/Dr. Dias) Estimated blood loss (mL): 10 Condition: stable Disposition: ICU Brief History: This is a pleasant 59 years old female patient with history of diabetic foot ulcer on the left calcaneal region since June 2019,unfortunately the patient did not have appropriate medical management and she was taking care of her ulcer herself, recently she got worsening symptoms of the foot over the past 3 days or so, going to the emergency department and she was diagnosed with soft tissue infection and general surgery was consulted for intervention, I did take the patient last Tuesday for surgical debridement found to have necrotizing soft tissue infection, today I brought the patient back after counseling her to the OR for washout and potential more surgical debridement. Patient agreed to proceed accordingly An informed consent per chart Procedure: Procedure: After identifying the patient holding area, the left lower extremity was marked before the procedure by myself, patient was then taken to the operative suite, was placed in supine position, IV antibiotics were given per protocol, LMA was placed by the anesthesia provider, prep and drape of the left foot and ankle region was done under the usual sterile technique. Time-out was done verifying the patient's name/date of /planned procedure and destination after the procedure, all were in agreement. Overall the wound looks much better I started by exploring the wound and residual necrotic tissues were appreciated they were sharply debrided, I did extend the wound with postoperative debridement measurements 20 x 10 x 2 cm and more necrotic tissues were debrided. The infection process is much less than the index procedure and overall tissues are looking healthier. Wound measurements ; Pre-debridement measurement; 15 x 6 x 2 cm Post debridement measurements 20 x 10 x [address] to the healthier muscular and fascial components There were no more residual necrotic tissues at the end of the procedure Extensive irrigation of the wound was done with warm saline form of Pulsavac 4 L of saline, followed by appropriate hemostasis, packing of the wound was done with mini Kerlix impregnated and lidocaine 2%, followed by ABDs,Kerlix and Ellis wraps, and the brace was placed again by me. Patient tolerated the procedure well, count of instruments, needles and sponges were completed at the end of the procedure.Patient was then taken to the ICU after extubation in stable condition. I was present for the whole entire procedure
--- NOTE | 2019-12-02 08:58 | P.PN_ITS ---
Subjective Subjective: Interval history: On examination this morning patient was lying comfortably in bed. Patient has had further debridement today with Dr. James in the OR. On examination patient complains of mild pain in her foot ranging 5/10 to 6/10. She denies of having any nausea, vomiting, headache, abdominal pain, chest pain, palpitations, shortness of breath. Medications: Reviewed: Yes Vitals/I&O/Wt Last Vital Signs Temp 98.9 F 12/02/19 04:00 Pulse 85 12/02/19 07:30 Resp 22 H 12/02/19 07:30 BP 103/64 12/02/19 08:00 Pulse Ox 94 12/02/19 07:30 12/01/19 12/02/19 12/02/19 22:59 06:59 14:59 Intake Total 1722.5 / 2502.5 970 / 3472.5 Output Total 150 / 650 525 / 1175 250 / 250 Balance 1572.5 / 1852.5 445 / 2297.5 -250 / -250 Weight last 48 hrs Weight 57.153 kg Physical Exam Narrative: EXAM NARRATIVE: General: No acute distress, AO x3 HEENT: PERRLA, pupils bilaterally equal and reactive Chest: Normal vesicular breath sounds, no added sounds, equal good air entry bilaterally CVS: S1-S2 regular, no murmurs, no tachycardia, no gallops, no rubs Abdomen: Soft, nontender, no organomegaly, bowel sounds present Neuro: No focal deficits, no facial deformity, AO x3, power 5/5 in all limbs Extremities: Left foot surgically bandaged. No soakage no foul smell present. Urinary Catheter Management^: Rodgers: Cath Placed During This Visit: yes Urethral Indwelling: Yes Reason for Continuing Indwelling Catheter: Accurate Measurement of Urinary Output in Critically Ill Patients Urinary Catheter Date of Insertion: 12/01/19 Urinary Catheter Time of Insertion: 06:22 Data : 12/02/19 10:35 12/02/19 10:35 Micro: Microbiology 11/30/19 14:24 Urine Culture - Preliminary Urine Catheterized Gram Negative Rods 11/30/19 12:50 Blood Culture - Preliminary Blood NEGATIVE TO DATE 11/30/19 12:45 Blood Culture - Preliminary Blood NEGATIVE TO DATE 11/30/19 12:35 Gram Stain - Final Other Source Wound Culture - Preliminary A&P Assessment and plan (1) Sepsis: Status: Acute Code(s): A41.9 - Sepsis, unspecified organism (2) Necrotizing soft tissue infection: Status: Acute Code(s): M79.89 - Other specified soft tissue disorders (3) DKA (diabetic ketoacidoses): Status: Acute Code(s): E11.10 - Type 2 diabetes mellitus with ketoacidosis without coma (4) Lower limb ischemia: Status: Acute Code(s): I99.8 - Other disorder of circulatory system (5) Tobacco abuse: Status: Acute Code(s): Z72.0 - Tobacco use (6) Dyslipidemia: Status: Acute Code(s): E78.5 - Hyperlipidemia, unspecified (7) Diabetes mellitus: Status: Acute Code(s): E11.9 - Type 2 diabetes mellitus without complications Additional A&P Information Sepsis: Due to necrotizing fasciitis and UTI. Sepsis criteria met with tachycardia and leukocytosis. Necrotizing fasciitis of the foot Needs controlled for now we will continue with vancomycin, Zosyn, clindamycin as already can started. Can plan to discontinue clindamycin once patient is off levo fed for more than 24 hours. If patient's white count continue to trend down slowly and patient continues to remain on Levophed tomorrow we will plan to broaden from Zosyn to imipenem in view of possible resistant gram-negative yanelis in urine culture. Wound cultures growing staph aureus along with strep species. And Ucx growing GNR. Status post repeat I&D today morning. As per surgical service wound is better than before but would need further bedside debridement and bandages before a final possible wound VAC placement depending on peripheral angiogram. Poor wound healing contributed by DM and peripheral arterial disease Though attempt is being currently made at limb salvage interventions, suspect that patient may eventually end up needing amputation of the foot given extensive necrosis, however the best chance of healing post amputation would be after revascularization if the latter is feasible. Awaiting angiogram once improving from a sepsis perspective. Pain control with Dilaudid 0.5 mg Q4h as needed. Keep MAPs over 65 mmhg. Titrate levophed as tolerated. Severe PAD Dr. Hagen from cardiology following for possible angiogram of the lower extremities. Planned over the next 24-48 hrs once acute issues resolve. C/w ASA and statin as already started Diabetic ketoacidosis: Resolved. C/w ISS at aggresive model with Lantus 10 U QHS. Needed 24 U in last 24 hrs of novolog. Start patient on a carbohydrate consistent diet. HbA1c at 12, newly diagnosed diabetic. DVT ppx: Lovenox code status: full code Attestations Medical Necessity Statement*: Septic shock from Necrotizing fascitis Time Spent in Patient Care: Greater than 35 minutes (>than 50% of time spent in counselling and/or direct pt care on unit) . Coding Level of Care Code Acute Hair Spinning Machine Operator for g Fwd Diagnoses Sepsis A41.9 Necrotizing soft tissue infection M79.89 DKA (diabetic ketoacidoses) E11.10 Lower limb ischemia I99.8 Tobacco abuse Z72.0 Dyslipidemia E78.5 Diabetes mellitus E11.9
[2019-12-02] MEDS: morphine 4 mg/mL SDV 1 mL 1 MG IVP (09:02)
[2019-12-02 10:41] LABS: Glucose Point of Care 160 mg/dL (70-110)
[2019-12-02 10:49] LABS: Basophils # 0.1 10^3/uL (0.0-0.1); Basophils % 0.4 %; Eosinophils % 0.1 %; Hematocrit 30.7 % (37.0-47.0); Hemoglobin 9.9 g/dL (11.5-15.3); Lymphocytes # 1.8 10^3/uL (0.8-4.8); Lymphocytes % 9.5 %; Mean Corpuscular HGB Conc 32.2 g/dL (30.0-36.0); Mean Corpuscular Hemoglobin 30.4 pg (28.0-34.0); Mean Corpuscular Volume 94.2 fL (81-99); Mean Platelet Volume 10.3 fL (7.4-10.4); Monocytes # 0.7 10^3/uL (0.2-0.9); Monocytes % 3.5 %; Neutrophils # 15.8 10^3/uL (1.8-7.7); Neutrophils % 83.5 %; Nucleated Red Blood Cells % 0 %; Platelet Count 389 10^3/cmm (130-400); Red Blood Count 3.26 10^6/uL (4.1-5.3); Red Cell Distribution Width 14.3 % (12.1-15.1)
[2019-12-02 11:12] LABS: Alanine Aminotransferase 16 U/L (0-33); Albumin Level 2.3 g/dL (3.5-5.2); Alkaline Phosphatase 146 IU/L (35-105); Anion Gap 20.8 (5-19); Aspartate Amino Transferase 27 U/L (0-32); Blood Urea Nitrogen 9 mg/dL (8-23); Calcium 8.4 mg/dL (8.5-10.5); Carbon Dioxide 17 mmol/L (22-29); Chloride 98 mmol/L (98-107); Globulin 3.8 g/dL (1.3-4.6); Glomerular Filtration Rate 85.1 mL/min (90-130); Glucose 175 mg/dL (65-115); Potassium 3.8 mmol/L (3.5-5.1); Sodium 132 mmol/L (136-145); Total Bilirubin 0.8 mg/dL (0.15-1.2); Total Protein 6.1 g/dL (6.6-8.7); Vancomycin Random 16.3 ug/mL (20.0-40.0)
[2019-12-02] MEDS: aspirin 81 mg EC Tablet PO (11:28)
[2019-12-02] MEDS: bisacodyl 5 mg Tablet 10 MG PO (11:30)
--- NOTE | 2019-12-02 11:59 | PC.NURSE ---
STARLING NON-INVASIVE BARIATRIC COORDINATOR PLACED ON PT. ABLE TO DO PASSIVE LEG RAISE. DELTA CHANGE 9.3% MESSAGED DR RAINES
[2019-12-02 17:01] LABS: Glucose Point of Care 140 mg/dL (70-110)
[2019-12-02 17:45] LABS: Glucose Point of Care 120 mg/dL (70-110)
[2019-12-02 17:45] LABS: Glucose Point of Care 214 mg/dL (70-110)
[2019-12-02] MEDS: enoxaparin 40 mg/0.4 mL Syringe SUBCUT (17:50)
--- NOTE | 2019-12-02 19:38 | SUR.PHASEI ---
Addendum entered by Stephanie Chew RN 12/02/19 19:42: RECOVERY TIME 30 MINUTES Original Note: RECOVERY PT BACK FROM OR, LMA, DEBRIDEMENT OF LEFT FOOT BY DR HUSSEIN. BP SOFT, LEVOPHED ON 2 MCG/MIN, IVF RESUMED AT 150ML/HR NON INVASIVE CARDIAC MONITORING DONE & REPORTED TO DR RAINES. O2 ON 2L/NC FOR ABOUT 30 MIN. MEDICATED FOR PAIN PER ORDERS.
[2019-12-02] MEDS: atorvastatin 40 mg Tablet PO (20:28)
[2019-12-02 21:12] LABS: Glucose Point of Care 193 mg/dL (70-110)
[2019-12-02] MEDS: insulin glargine 100 units/1 mL 10 UNIT SUBCUT (21:19)
[2019-12-03] VITALS (32 sets, daily range): BP systolic 90–150; BP diastolic 53–84; PULSE 68–94; RESP 14–22; TEMP 36.6–36.8; O2SAT 92–98
[2019-12-03] MEDS: HYDROmorphone 1 mg/mL INJ 1 mL IVP ×3 (00:18→05:55)
[2019-12-03] MEDS: sodium chloride 0.9% 1,000 ML 150 ML IV ×2 (01:23→08:56)
[2019-12-03] MEDS: piperacillin-tazobactam 3.375 GM in sodium chloride 0.9% (plus) 50 ML IV (02:40)
[2019-12-03] MEDS: clindamycin 900 MG/50 ML PREMIX 100 MG IV ×2 (04:56→13:01)
[2019-12-03 05:34] LABS: Basophils # 0.1 10^3/uL (0.0-0.1); Basophils % 0.3 %; Eosinophils # 0.1 10^3/uL (0.0-0.8); Eosinophils % 0.3 %; Hematocrit 31.2 % (37.0-47.0); Hemoglobin 10.1 g/dL (11.5-15.3); Lymphocytes % 10.8 %; Mean Corpuscular HGB Conc 32.4 g/dL (30.0-36.0); Mean Corpuscular Hemoglobin 30.9 pg (28.0-34.0); Mean Corpuscular Volume 95.4 fL (81-99); Mean Platelet Volume 11.1 fL (7.4-10.4); Monocytes % 5.4 %; Neutrophils # 14.7 10^3/uL (1.8-7.7); Neutrophils % 80.1 %; Nucleated Red Blood Cells % 0 %; Platelet Count 395 10^3/cmm (130-400); Red Blood Count 3.27 10^6/uL (4.1-5.3); Red Cell Distribution Width 14.6 % (12.1-15.1); White Blood Count 18.4 10^3/uL (4.0-10.0)
[2019-12-03 05:54] LABS: Alanine Aminotransferase 18 U/L (0-33); Albumin Level 2.3 g/dL (3.5-5.2); Alkaline Phosphatase 188 IU/L (35-105); Anion Gap 18.6 (5-19); Aspartate Amino Transferase 27 U/L (0-32); Blood Urea Nitrogen 7 mg/dL (8-23); Calcium 8.4 mg/dL (8.5-10.5); Carbon Dioxide 19 mmol/L (22-29); Chloride 100 mmol/L (98-107); Globulin 3.8 g/dL (1.3-4.6); Glomerular Filtration Rate 85.1 mL/min (90-130); Glucose 104 mg/dL (65-115); Magnesium 1.6 mg/dL (1.7-2.3); Potassium 3.6 mmol/L (3.5-5.1); Sodium 134 mmol/L (136-145); Total Bilirubin 0.7 mg/dL (0.15-1.2); Total Protein 6.1 g/dL (6.6-8.7)
--- NOTE | 2019-12-03 07:37 | PM.PN ---
Subjective Subjective: Interval history: Patient overall feels better No acute events overnight Vitals/I&O/Wt Last Vital Signs Temp 98.9 F 12/02/19 04:00 Pulse 77 12/03/19 06:00 Resp 17 12/03/19 06:00 BP 91/59 12/03/19 06:00 Pulse Ox 95 12/03/19 06:00 12/02/19 12/03/19 12/03/19 22:59 06:59 14:59 Intake Total 1960 / 3265 2060 / 5325 Output Total 1150 / 1400 1450 / 2850 Balance 810 / 1865 610 / 2475 Physical Exam Const: COMMON NORMALS: no apparent distress and oriented x3 GENERAL APPEARANCE: cooperative ORIENTATION/CONSCIOUSNESS: Yes awake, Yes oriented to person, Yes oriented to place and Yes oriented to time Extremity: COMMON NORMALS: normal capillary refill NARRATIVE EXTREMITY EXAM: Wound bed is clean and minor residual necrotic tissues, no crepitus or foul-smelling and no evidence of cellulitis noticed clinically. Bedside dressing change was done by me form of wet-to-dry Neuro: COMMON NORMALS: oriented x3 SENSORIUM/ORIENTATION: Yes oriented to person, Yes oriented to place and Yes oriented to time Urinary Catheter Management^: Rodgers: Cath Placed During This Visit: yes Urethral Indwelling: Yes Reason for Continuing Indwelling Catheter: Accurate Measurement of Urinary Output in Critically Ill Patients Urinary Catheter Date of Insertion: 12/01/19 Urinary Catheter Time of Insertion: 06:22 Data : 12/03/19 05:02 12/03/19 05:02 Micro: Microbiology 11/30/19 20:02 Anaerobic Culture - Preliminary Foot - Drainage 11/30/19 20:02 Gram Stain - Final Foot - Wound Tissue Culture - Preliminary Strep species, gamma-hemolytic 11/30/19 12:35 Gram Stain - Final Other Source Wound Culture - Preliminary Staphylococcus aureus Strep species, gamma-hemolytic 11/30/19 20:02 Gram Stain - Final Other Source Wound Culture - Preliminary Strep species, gamma-hemolytic 11/30/19 14:24 Urine Culture - Preliminary Urine Catheterized Gram Negative Rods A&P Assessment and plan (1) Necrotizing soft tissue infection: Clinically patient continues to improve and the wound looks better, will continue wet-to-dry dressing change once a day, ultimately at some point will apply a wound VAC to expedite the process of healing. I highly recommend to DC Rodgers catheter and switch the patient to p.o. pain medication curb worker involvement to start working on potential rehab discharge planning I will consult Dr. Odom to have a look and see if he has additional thoughts from his ankle and foot surgery expertise. We will continue focus on nutrition and optimize it to promote appropriate We will defer to Dr. Hagen for reperfusion potentials Will Continue coordinating with the hospitalist service and much focus on diabetes control and cessation of smoking Status: Acute Code(s): M79.89 - Other specified soft tissue disorders Attestations Medical Necessity Statement*: Medical necessity care is expected to cross 2 midnights Time Spent in Patient Care: 16 - 35 minutes (>than 50% of time spent in counselling and/or direct pt care on unit). Coding Level of Care Code Acute Instructor Trainer Canine Service for Britney Cheng Diagnoses Necrotizing soft tissue infection M79.89
[2019-12-03] MEDS: aspirin 81 mg EC Tablet PO (08:55)
--- NOTE | 2019-12-03 09:18 | P.PN_ITS ---
Subjective Subjective: Interval history: Patient states she is doing a lot better today morning. She denies of having any nausea, vomiting, headache, palpitations. Her pain as per her is well controlled. Patient's dressing was changed today morning by Dr. James. Patient has been off levo fed since yesterday afternoon. Medications: Reviewed: Yes Vitals/I&O/Wt Last Vital Signs Temp 97.9 F 12/03/19 09:03 Pulse 80 12/03/19 08:00 Resp 18 12/03/19 08:00 BP 113/79 12/03/19 08:00 Pulse Ox 96 12/03/19 08:00 12/02/19 12/03/19 12/03/19 22:59 06:59 14:59 Intake Total 1960 / 3265 2060 / 5325 1240 / 1240 Output Total 1150 / 1400 1450 / 2850 Balance 810 / 1865 610 / 2475 1240 / 1240 Physical Exam Narrative: EXAM NARRATIVE: General: No acute distress, AO x3 HEENT: PERRLA, pupils bilaterally equal and reactive Chest: Normal vesicular breath sounds, no added sounds, equal good air entry bilaterally CVS: S1-S2 regular, no murmurs, no tachycardia, no gallops, no rubs Abdomen: Soft, nontender, no organomegaly, bowel sounds present Neuro: No focal deficits, no facial deformity, AO x3, power 5/5 in all limbs Extremities: Left foot surgically bandaged. No soakage no foul smell present. Urinary Catheter Management^: Rodgers: Cath Placed During This Visit: yes Urethral Indwelling: Yes Reason for Continuing Indwelling Catheter: Accurate Measurement of Urinary Output in Critically Ill Patients Urinary Catheter Date of Insertion: 12/01/19 Urinary Catheter Time of Insertion: 06:22 Data : 12/03/19 05:02 12/03/19 05:02 Micro: Microbiology 11/30/19 20:02 Anaerobic Culture - Preliminary Foot - Drainage 11/30/19 20:02 Gram Stain - Final Foot - Wound Tissue Culture - Preliminary Strep species, gamma-hemolytic 11/30/19 12:35 Gram Stain - Final Other Source Wound Culture - Preliminary Staphylococcus aureus Strep species, gamma-hemolytic 11/30/19 20:02 Gram Stain - Final Other Source Wound Culture - Preliminary Strep species, gamma-hemolytic 11/30/19 14:24 Urine Culture - Preliminary Urine Catheterized Gram Negative Rods A&P Assessment and plan (1) Sepsis: Status: Acute Code(s): A41.9 - Sepsis, unspecified organism (2) Necrotizing soft tissue infection: Status: Acute Code(s): M79.89 - Other specified soft tissue disorders (3) DKA (diabetic ketoacidoses): Status: Acute Code(s): E11.10 - Type 2 diabetes mellitus with ketoacidosis without coma (4) Lower limb ischemia: Status: Acute Code(s): I99.8 - Other disorder of circulatory system (5) Tobacco abuse: Status: Acute Code(s): Z72.0 - Tobacco use (6) Dyslipidemia: Status: Acute Code(s): E78.5 - Hyperlipidemia, unspecified (7) Diabetes mellitus: Status: Acute Code(s): E11.9 - Type 2 diabetes mellitus without complications Additional A&P Information Sepsis: Due to necrotizing fasciitis and UTI. Sepsis criteria met with tachycardia and leukocytosis. Necrotizing fasciitis of the foot Wound cultures growing staph aureus along with strep species. And Ucx growing Klebsiella. Continue with vancomycin at current dose. Day 4 of the antibiotic today. Given the very slow trend of white count will broaden the antibiotic coverage and start patient on imipenem for now and discontinue Zosyn. Can change the antibiotics after the cultures have been finalized. As patient is hemodynamically stable now and Levophed is off for more than 18 hours we will discontinue clindamycin today. Continue IV fluids with normal saline 100 cc/h. Keep mean arterial pressures over 60 mmHg. Status post repeat I&D yesterday. As per surgical service wound is better than before but would need further bedside debridement and bandages before a final possible wound VAC placement depending on peripheral angiogram. Poor wound healing contributed by DM and peripheral arterial disease. Plan for peripheral angiogram tomorrow morning. For pain continue [place] 5/325 1 tab every 6 hours as needed and Dilaudid 0.5 every 4 hours for breakthrough. Severe PAD Plan for peripheral angiogram tomorrow morning. C/w ASA and statin as already started Diabetic ketoacidosis: Resolved. C/w ISS at aggresive model with Lantus 10 U QHS. Needed 14 U in last 24 hrs of novolog. Continue on carbohydrate consistent diet. N.p.o. after midnight for procedure tomorrow morning. HbA1c at 12, newly diagnosed diabetic. DVT ppx: Lovenox code status: full code And plan to transfer patients to floor tomorrow if remains hemodynamically stable. Attestations Medical Necessity Statement*: Needs continued hospitalization for management of necrotizing fasciitis and sepsis Time Spent in Patient Care: Greater than 35 minutes Coding Level of Care Code Acute Ruby On Rails Engineer for [facility] Fwd Diagnoses Sepsis A41.9 Necrotizing soft tissue infection M79.89 DKA (diabetic ketoacidoses) E11.10 Lower limb ischemia I99.8 Tobacco abuse Z72.0 Dyslipidemia E78.5 Diabetes mellitus E11.9
--- NOTE | 2019-12-03 09:21 | P.PN_ITS ---
Subjective Subjective: Interval history: Rox went back to the operating room yesterday for another procedure to clean out the foot. Things went well. She is not having any discomfort. Her white blood cell count has come down to 18.4. Otherwise, there have been no new findings. Medications: Reviewed: Yes Vitals/I&O/Wt Last Vital Signs Temp 97.9 F 12/03/19 09:03 Pulse 80 12/03/19 08:00 Resp 18 12/03/19 08:00 BP 113/79 12/03/19 08:00 Pulse Ox 96 12/03/19 08:00 12/02/19 12/03/19 12/03/19 22:59 06:59 14:59 Intake Total 1960 / 3265 2060 / 5325 1240 / 1240 Output Total 1150 / 1400 1450 / 2850 Balance 810 / 1865 610 / 2475 1240 / 1240 Physical Exam Narrative: EXAM NARRATIVE: GENERAL: In general she looks and feels well HEENT: Exam within normal limits. NECK: Supple without jugular vein distention. The carotid upstroke is normal without bruits. BACK: Exam normal. LUNGS: Clear. HEART: Regular rate and rhythm. ABDOMEN: Benign without organomegaly or tenderness. EXTREMITIES: No edema. I did not take the bandage off the foot. NEUROLOGIC: Exam normal. SKIN: Unremarkable. Urinary Catheter Management^: Rodgers: Cath Placed During This Visit: yes Urethral Indwelling: Yes Reason for Continuing Indwelling Catheter: Accurate Measurement of Urinary Ou tput in Critically Ill Patients Urinary Catheter Date of Insertion: 12/01/19 Urinary Catheter Time of Insertion: 06:22 Data : 12/03/19 05:02 12/03/19 05:02 Micro: Microbiology 11/30/19 20:02 Anaerobic Culture - Preliminary Foot - Drainage 11/30/19 20:02 Gram Stain - Final Foot - Wound Tissue Culture - Preliminary Strep species, gamma-hemolytic 11/30/19 12:35 Gram Stain - Final Other Source Wound Culture - Preliminary Staphylococcus aureus Strep species, gamma-hemolytic 11/30/19 20:02 Gram Stain - Final Other Source Wound Culture - Preliminary Strep species, gamma-hemolytic 11/30/19 14:24 Urine Culture - Preliminary Urine Catheterized Gram Negative Rods A&P Assessment and plan (1) Anemia: Status: Acute Code(s): D64.9 - Anemia, unspecified (2) Sepsis: Status: Acute Code(s): A41.9 - Sepsis, unspecified organism (3) DKA (diabetic ketoacidoses): Status: Acute Code(s): E11.10 - Type 2 diabetes mellitus with ketoacidosis without coma (4) Lower limb ischemia: Status: Acute Code(s): I99.8 - Other disorder of circulatory system (5) Necrotizing soft tissue infection: Status: Acute Code(s): M79.89 - Other specified soft tissue disorders (6) Chronic kidney disease (CKD) stage G1/A1, glomerular filtration rate (GFR) equal to or greater than 90 mL/min/1.73 square meter and albuminuria creatinine ratio less than 30 mg/g: Status: Acute Code(s): N18.1 - Chronic kidney disease, stage 1 (7) Coagulopathy: Status: Acute Code(s): D68.9 - Coagulation defect, unspecified (8) Hyponatremia: Status: Acute Code(s): E87.1 - Hypo-osmolality and hyponatremia (9) Peripheral arterial disease: Status: Acute Code(s): I73.9 - Peripheral vascular disease, unspecified (10) Tobacco abuse: Status: Acute Code(s): Z72.0 - Tobacco use (11) Dyslipidemia: Status: Acute Code(s): E78.5 - Hyperlipidemia, unspecified (12) Diabetes mellitus: Status: Acute Code(s): E11.9 - Type 2 diabetes mellitus without complications Additional A&P Information Things have settled down enough to consider performing angiography. She is scheduled for tomorrow morning at 7:00. We will make an attempt to enter on the right however we may not be able to given the appearance of the noninvasive study. The second choice would be to simply enter on the left and image the left leg. The third choice would be to use the right arm as an entry site. I explained all of this to her. Attestations Medical Necessity Statement*: Not applicable Coding Level of Care Code Established Pt Acute Executive Administrative Asst for Britney Fwd Patient Type Established History Detailed Exam Detailed Medical Decision Making Moderate Complexity Diagnoses Anemia D64.9 Sepsis A41.9 DKA (diabetic ketoacidoses) E11.10 Lower limb ischemia I99.8 Necrotizing soft tissue infection M79.89 Chronic kidney disease (CKD) stage G1/A1, glomerular filtration rate (GFR) equal to or greater than 90 mL/min/1.73 square meter and albuminuria creatinine ratio less than 30 mg/g N18.1 Coagulopathy D68.9 Hyponatremia E87.1 Peripheral arterial disease I73.9 Tobacco abuse Z72.0 Dyslipidemia E78.5 Diabetes mellitus E11.9
[2019-12-03] MEDS: HYDROcodone-acetaminophen 5-325 mg Tablet 1 TAB PO (10:24)
[2019-12-03] MEDS: HYDROmorphone 1 mg/mL INJ 1 mL 0.5 MG IVP ×2 (10:25→20:26)
[2019-12-03 11:14] LABS: Glucose Point of Care 144 mg/dL (70-110)
[2019-12-03 13:34] LABS: Glucose Point of Care 105 mg/dL (70-110)
--- NOTE | 2019-12-03 13:47 | PC.CHAP ---
Pastoral Care Encounter/Spiritual Assessment Type of Contact [] Declined environmental studies professor visit [] Patient/Family/Request visit [] Outpatient visit [] Follow-up visit [] Physician referral [] Code/Alert [] Routine visit [] Staff referral [] Actively dying [] Patient sleeping [] Family support [] [] Out of room [] Palliative care [] [x] Receiving care in room [] Pre-surgical visit [] Trauma [] Long length of stay [x] ICU visit [] Other: Relational/Emotional Strength [] Patient feels connected with others/family/visitors/staff [] Distress [] Loneliness/isolation [] Abandonment Spirituality of Patient [] Person of [place] [] Attends Episcopalian of their [place] [] Believes in Prayer [] Reads Bible or Evangelical materials [] There are Spiritual issues to be addressed Hay Stacker Operator Interventions [] Prayer [] Active listening [] Non-anxious presence [] Spiritual/emotional support [] Crisis/trauma care [] Spiritual counseling [] Bereavement support [] Provided bereavement packet [] Provided Bible/devotional materials [] Provided toy/stuffed animal, coloring book to patient or family member [] Provided Communion [] Anointing/[place] [] Salvation [] Completed spiritual assessment [] Other: Impact on Illness or Injury [] Angry [] Fearful [] Anxious [] Often cries [] Exhaustion [] Unable to work [] Unable to attend quaker [] Unable to walk/stand [] Unable to read [] Unable to drive [] Unable to eat/drink [] Unable to sleep [] Unable to be with family [] Patient intubated [] Other: Summary Nurses were in the patient's room taking care of her at the time of visit. Patient visit attempted by Hay Stacker Operator Kd Flowers. Time spent with patient 3 minutes
[2019-12-03] MEDS: vancomycin 1,000 MG in sodium chloride 0.9% 250 ML 250 MG IV (14:03)
[2019-12-03 14:41] LABS: Vancomycin Trough 12.9 ug/mL (10-15)
[2019-12-03] MEDS: alum-mag-hydroxide-sime 30 mL UDC 15 ML PO (18:28)
[2019-12-03] MEDS: enoxaparin 40 mg/0.4 mL Syringe SUBCUT (18:29)
[2019-12-03 18:41] LABS: Glucose Point of Care 135 mg/dL (70-110)
[2019-12-03] MEDS: atorvastatin 40 mg Tablet PO (20:20)
[2019-12-03] MEDS: insulin glargine 100 units/1 mL 10 UNIT SUBCUT (21:02)
[2019-12-03] MEDS: sodium chloride 0.9% 1,000 ML 100 ML IV (21:47)
[2019-12-03 22:37] LABS: Glucose Point of Care 136 mg/dL (70-110)
[2019-12-04] VITALS (21 sets, daily range): BP systolic 127–162; BP diastolic 59–88; PULSE 75–105; RESP 13–20; TEMP 36.8–36.9; O2SAT 93–99
[2019-12-04] MEDS: HYDROmorphone 1 mg/mL INJ 1 mL 0.5 MG IVP ×2 (00:30→04:25)
[2019-12-04] MEDS: vancomycin 1,000 MG in sodium chloride 0.9% 250 ML 250 MG IV ×2 (01:55→14:35)
[2019-12-04 04:56] LABS: Basophils # 0.1 10^3/uL (0.0-0.1); Basophils % 0.6 %; Eosinophils # 0.1 10^3/uL (0.0-0.8); Eosinophils % 0.4 %; Hematocrit 30.5 % (37.0-47.0); Hemoglobin 9.8 g/dL (11.5-15.3); Lymphocytes # 2.1 10^3/uL (0.8-4.8); Lymphocytes % 13.3 %; Mean Corpuscular HGB Conc 32.1 g/dL (30.0-36.0); Mean Corpuscular Hemoglobin 29.5 pg (28.0-34.0); Mean Corpuscular Volume 91.9 fL (81-99); Mean Platelet Volume 11.1 fL (7.4-10.4); Monocytes # 1.1 10^3/uL (0.2-0.9); Monocytes % 6.8 %; Neutrophils # 11.4 10^3/uL (1.8-7.7); Neutrophils % 72.1 %; Nucleated Red Blood Cells % 0 %; Platelet Count 450 10^3/cmm (130-400); Red Blood Count 3.32 10^6/uL (4.1-5.3); Red Cell Distribution Width 14.7 % (12.1-15.1); White Blood Count 15.8 10^3/uL (4.0-10.0)
[2019-12-04 05:16] LABS: Alanine Aminotransferase 19 U/L (0-33); Albumin Level 2.1 g/dL (3.5-5.2); Alkaline Phosphatase 277 IU/L (35-105); Anion Gap 20.4 (5-19); Aspartate Amino Transferase 32 U/L (0-32); Blood Urea Nitrogen 4 mg/dL (8-23); Calcium 8.4 mg/dL (8.5-10.5); Carbon Dioxide 18 mmol/L (22-29); Chloride 101 mmol/L (98-107); Globulin 4.3 g/dL (1.3-4.6); Glomerular Filtration Rate 101.6 mL/min (90-130); Glucose 108 mg/dL (65-115); Potassium 3.4 mmol/L (3.5-5.1); Sodium 136 mmol/L (136-145); Total Bilirubin 0.5 mg/dL (0.15-1.2); Total Protein 6.4 g/dL (6.6-8.7)
[2019-12-04 06:01] LABS: Slide Review Slide Review Perform
[2019-12-04 06:02] LABS: Platelet Estimate Increased (Normal)
[2019-12-04 06:03] LABS: Absolute Eosinophils 0.1 10^3/cmm (0.0-0.7); Absolute Segmented Neutrophil 12.1 10/cmm (1.6-7.1); Eosinophils 1 %; Lymphocytes 15 %; Monocytes Absolute 0.8 10^3/cmm (0.1-0.6); Segmented Neutrophils 77 %; Total Cells Counted 100 (0-100)
[2019-12-04] MEDS: diphenhydrAMINE 50 mg Capsule PO (06:41)
--- NOTE | 2019-12-04 06:44 | XACV_ITS ---
Ht: 170 cm Wt: 57 kg BSA: 1.64 m2 Any Known Allergies: No known allergies Gender: Female : 1960 Exam Type: Invasive Peripheral Vascular Procedure(s): Procedure Description: Peripheral Cath Diagnostic Procedure Procedure Description: Abdominal aortic angiography Procedure Description: Lower extremities' angiography Exam Priority: Routine Lower Extremity Diagnostic Findings There is mild plaquing of the distal abdominal aorta without any significant stenosis. The common iliacs are patent. Diabetic smoker with no known history of vascular disease presented with infection and necrotizing fasciitis of the left foot. Debridement has taken place. Noninvasive study is abnormal on both legs. She is [place] grade III, category 6; Kevyn stage IV. The procedure was attempted from the right common femoral artery due to the lesions being on the left. The noninvasive studies suggested the external iliac and common femoral artery are occluded. This was the case. I entered the artery on several occasions but was never able to pass a wire. I encountered the same difficulty on the left side. Therefore the procedure was completed from the right radial artery. On the left, the common iliac is patent as is the external iliac and common femoral artery. The internal iliac is also patent. Just at the takeoff of the superficial femoral artery on the left, the artery is closed. This appears to be a flush occlusion however there may be a small area at the ostium which is patent. The vessel reconstitutes by collaterals down near the adductor canal at the distal SFA. The popliteal appears normal. The anterior tibial artery comes off proximally and tapers down into a very small vessel and is probably occluded in the proximal tibia area. The tibial peroneal trunk is patent. The posterior tibial and peroneal appear to be patent to the ankle. On the right, the external iliac is patent. Just at the takeoff of the internal iliac the vessel is close. The vessel closure extends from the entirety of the external iliac through the common femoral artery. There is reconstitution in the proximal superficial femoral artery. The collaterals arise from the internal iliac. The superficial femoral artery appears to be largely normal on the right. The popliteal is also normal. There is three-vessel runoff on the right. The vessels are all patent however moderately to severely diffusely diseased. The tibial peroneal trunk is also normal. Conclusions SFA occlusion on the left with collaterals to the distal SFA and popliteal. Patent popliteal with two-vessel runoff below the knee. Distal common iliac occlusion on the right with reconstitution at the ostial superficial femoral artery with three-vessel runoff below the right knee. Collaterals arise from the internal iliac on the right. Recommendations Review films with surgery. Options are femoral-popliteal bypass, cutdown of the common femoral artery on the left with endovascular approach in the antegrade fashion and finally intervention via the popliteal artery on the left. Hemodynamic Data Phase:Rest AO : 94.0 mmHg / 40.0 mmHg ( 64.0 mmHg ) @ 2:07:00 AM Access Site Site: Right Radial artery Sheath Size: 6 Fr Hemost... Method: TR Band Hemost... Success: Successful Procedure Details Findings Procedure Consent Obtained. Pre-Procedure Time Out. Identified patient by full name and date of as verbalized by the patient/guarantor. Does the consent match the physician's order: Yes. Accurate & Complete Informed Consent: Yes. Inpatient/Outpatient History & Physical on Chart: Yes. If H&P is completed, is and addenduem needed: No; If yes, is the addendum complete: N/A. Visualize and Verify Site with Patient/Guarantor: N/A. Relevant Radiology Images available: N/A. Pre-op teaching completed and patient verbalized understanding. The risks, benefits, and alternatives of sedation and/or procedure were discussed by physician. The patient agrees to continue. Procedure started. Correct patient, site and procedure confirmed by cath team. PERRLA. Strong, equal hand millinery designer bilaterally. Lungs clear x 5 lobes. IV Site on Arrival: 18 gauge in the left wrist. IV Fluids: 0.9% NaCl at KVO. 900 mL infused prior to cathead operator. Pre Procedural Pulses: bilateral dorsalis pedis was Doppled. Pre Procedural Pulses: bilateral posterior tibial was Doppled. Oxygen started at 2liters/min via nasal canula. Pt arrived with oreilly catheter in place. IV Site on Arrival: 20 gauge in the right wrist. bilateral groins was prepped with chloroprep then draped in the usual sterile fashion. Baseline sample Acquired. HR: 73 BPM. Physician arrived. Equipment: Peripheral. Cardiac Cath Pack. ACIST Manifold Kit Model BT 2000. Heparinized Saline (2 units/mL), 1000 mL bag. Physician scrubbed in. Time out performed with cath team. Lidocaine 1% infiltrated to the right groin. Unable to obtain arterial access in right femoral artery. Physician moving to left groin. Lidocaine 1% infiltrated to the left groin. Glidewire inserted. Unable to obtain arterial access in left femoral. Physician moving to right radial. Pre Procedural Pulses: bilateral radial was Doppled. Lidocaine 1% infiltrated to the right radial. Patient's family unavailable. Arterial access obtained. 6 russian JR 4 125cm guide catheter was inserted over the wire. Guide catheter out. A 6 russian JL4 catheter in over wire. Catheter removed over the glide wire. 6 russian JFL guide catheter was inserted over the wire. Guide catheter out. A 6 russian 125 cm Straight Pig catheter in over wire. 6 russian JR 4 guide catheter was inserted over the wire. Left leg runoff 10 ml for total of 30 ml through JR4 guide catheter. Right leg runofff 10 ml for total of 30 ml. Exchange wire inserted. Guide catheter out. A 6 russian Straight Pig catheter in over wire. Wire out. Pigtail out over wire. Physician scrubbed out. Abdominal aortogram performed in AP @ 10 mL/sec for a total of 20 mL. A TR Band was successful obtaining hemostatsis at the Right Radial artery insertion site. TR band placed. Hemostasis obtained. Post Procedure: Pulses reassessed and unchanged. PERRLA. Strong, equal hand millinery designer bilaterally. No VTE prophylaxis required. Medication's Wasted: Lidocaine 1% = 18 mL. Medication's Wasted: Heparin = 1000 units. Medication's Wasted: Other = versed 1 mg. Medication's Wasted: Other = fentanyl 75 mcg. Total IV fluids: 100 mL. Contrast type used: Visipaque 320 mgI/mL, 500 mL bottle. Post-op diagnosis: PAD. Complications: none. Estimated blood loss: 5mL-10mL. Procedure completed. Patient transferred by bed to ICU. Vital chart was stopped. Procedure Medications Start: 7:04 AM Stop: 7:04 AM Medication: Versed Amount: 1 mg Route: I.V. Start: 7:04 AM Stop: 7:04 AM Medication: Fentanyl Amount: 50 mcg Route: I.V. Start: 7:08 AM Stop: 7:08 AM Medication: Versed Amount: 1 mg Route: I.V. Start: 7:08 AM Stop: 7:08 AM Medication: Fentanyl Amount: 50 mcg Route: I.V. Start: 7:35 AM Stop: 7:35 AM Medication: Versed Amount: 1 mg Route: I.V. Start: 7:35 AM Stop: 7:35 AM Medication: Fentanyl Amount: 25 mcg Route: I.V. Start: 7:51 AM Stop: 7:51 AM Medication: Verapamil Amount: 5 mg Route: I.A. Start: 8:07 AM Stop: 8:07 AM Medication: Heparin Amount: 5000 units Route: I.V. I, the attending physician, have reviewed and verified all procedure medications. Yes, all medications given per verbal order History/Risk Factors Hypertension: Yes Dyslipidemia: Yes Diabetic Therapy: Insulin Peripheral Arterial Disease (PAD): Yes Myocardial Infarction (PA): No Obesity: No Renal Disease: No Tobacco Use: Current/Recent(w/in 1 year) Prior Interventions PCI: No CABG: No Valve Surgery: No Report Signatures Finalized by:Dr. Nick Hagen MD on 12/04/2019 9:04:46 AM
[2019-12-04] MEDS: aspirin 81 mg EC Tablet PO (08:59)
[2019-12-04 09:00] LABS: Glucose Point of Care 93 mg/dL (70-110)
[2019-12-04] MEDS: sodium chloride 0.9% 1,000 ML 100 ML IV (09:11)
[2019-12-04] MEDS: potassium chloride premix 40 MEQ/100 ML PREMIX 25 MEQ IV (10:24)
--- NOTE | 2019-12-04 10:34 | PM.MISC ---
Miscellaneous Note Note: Patient underwent angiography of the lower extremities this morning. I was unable to enter either common femoral artery so the procedure was completed from the right radial artery. She has mild plaquing in the distal aorta. For us extensive details please see the angiogram report. On the left, she has an occluded superficial femoral artery. On the right she has an occluded external iliac and common femoral artery. Rather remarkably, she has 2 or 3 vessel runoff below both knees. The next step will be to perform 1 of 3 procedures on the left leg. The first would be an attempted intervention via the popliteal artery, the second would be an attempted intervention after doing a cutdown of the left common femoral artery and proceeding in an antegrade fashion, the third would be a femoral-popliteal bypass. I will sit down with Dr. Velasco later today, review the films and we will decide which direction to go. I explained this in detail to the patient.
--- NOTE | 2019-12-04 10:40 | PC.CHAP ---
Pastoral Care Encounter/Spiritual Assessment Type of Contact [] Declined card room manager visit [] Patient/Family/Request visit [] Outpatient visit [] Follow-up visit [] Physician referral [] Code/Alert [x Routine visit [] Staff referral [] Actively dying [] Patient sleeping [] Family support [] [] Out of room [] Palliative care [] [] Receiving care in room [] Pre-surgical visit [] Trauma [] Long length of stay [x] ICU visit [] Other: Relational/Emotional Strength [] Patient feels connected with others/family/visitors/staff [] Distress [] Loneliness/isolation [] Abandonment Spirituality of Patient [x] Person of Suma [x] Attends Amish of their Suma [x] Believes in Prayer [x] Reads Bible or Hinduism materials [] There are Spiritual issues to be addressed Barrel Bander Interventions [x] Prayer [x] Active listening [x] Non-anxious presence [x] Spiritual/emotional support [] Crisis/trauma care [x] Spiritual counseling [] Bereavement support [] Provided bereavement packet [] Provided Bible/devotional materials [] Provided toy/stuffed animal, coloring book to patient or family member [] Provided Communion [] Anointing/[place] [] Salvation [] Completed spiritual assessment [] Other: Impact on Illness or Injury [] Angry [] Fearful [] Anxious [] Often cries [] Exhaustion [] Unable to work [] Unable to attend presybeterian [] Unable to walk/stand [] Unable to read [] Unable to drive [] Unable to eat/drink [] Unable to sleep [] Unable to be with family [] Patient intubated [x] Other: n/a Summary Time spent with patient 3 minutes
[2019-12-04 11:10] LABS: Glucose Point of Care 107 mg/dL (70-110)
--- NOTE | 2019-12-04 12:29 | P.PN_ITS ---
Subjective Subjective: Interval history: This morning patient was examined after angiography of lower extremities. Patient states that she is doing fine, no fevers, no chills, no nausea, no vomiting, no chest pain, no palpitations, has left leg pain, no diarrhea Medications: Reviewed: Yes Vitals/I&O/Wt Last Vital Signs Temp 98.3 F 12/04/19 04:50 Pulse 83 12/04/19 10:00 Resp 17 12/04/19 10:00 BP 148/67 12/04/19 10:00 Pulse Ox 99 12/04/19 10:00 12/03/19 12/04/19 12/04/19 22:59 06:59 14:59 Intake Total 1400 / 2740 400 / 3140 1200 / 1200 Output Total 2250 / 2250 700 / 2950 Balance -850 / 490 -300 / 190 1200 / 1200 Physical Exam Const: COMMON NORMALS: no apparent distress and oriented x3 HENMT: COMMON NORMALS: normocephalic HEAD & SCALP: normocephalic Neck/C-Spine: COMMON NORMALS: no JVD Resp: COMMON NORMALS: normal respiratory effort, no retractions, no use of accessory muscles and clear to auscultation bilaterally AUSCULTATION: clear to auscultation bilaterally Cardio: COMMON NORMALS: no JVD, regular rate, regular rhythm, S1 normal heart sound and S2 normal heart sound RATE: regular rate RHYTHM: regular rhythm HEART SOUNDS: S1 normal and S2 normal GI: COMMON NORMALS: normal to inspection, nondistended, normoactive bowel sounds, soft to palpation, non-tender, no hepatosplenomegaly, no masses and no bruits PALPATION: Yes soft and Yes no hepatosplenomegaly Extremity: NARRATIVE EXTREMITY EXAM: Left lower extremity in a binder, wrapped and bandaged Neuro: COMMON NORMALS: oriented x3 Urinary Catheter Management^: Rodgers: Cath Placed During This Visit: yes Urethral Indwelling: Yes Reason for Continuing Indwelling Catheter: Accurate Measurement of Urinary Output in Critically Ill Patients Urinary Catheter Date of Insertion: 12/01/19 Urinary Catheter Time of Insertion: 06:22 Data : 12/04/19 04:25 12/04/19 04:25 Micro: Microbiology 11/30/19 20:02 Gram Stain - Final Foot - Wound Tissue Culture - Final Strep species, gamma-hemolytic Staphylococcus aureus 11/30/19 20:02 Gram Stain - Final Other Source Wound Culture - Preliminary Strep species, gamma-hemolytic 11/30/19 12:35 Gram Stain - Final Other Source Wound Culture - Preliminary Staphylococcus aureus Strep species, gamma-hemolytic 11/30/19 20:02 Anaerobic Culture - Preliminary Foot - Drainage 12/03/19 13:45 MRSA Culture - Final Nose 11/30/19 14:24 Urine Culture - Preliminary Urine Catheterized Klebsiella pneumoniae A&P Assessment and plan (1) Sepsis: Status: Acute Code(s): A41.9 - Sepsis, unspecified organism (2) Necrotizing soft tissue infection: Status: Acute Code(s): M79.89 - Other specified soft tissue disorders (3) DKA (diabetic ketoacidoses): Status: Acute Code(s): E11.10 - Type 2 diabetes mellitus with ketoacidosis without coma (4) Lower limb ischemia: Status: Acute Code(s): I99.8 - Other disorder of circulatory system (5) Tobacco abuse: Status: Acute Code(s): Z72.0 - Tobacco use (6) Dyslipidemia: Status: Acute Code(s): E78.5 - Hyperlipidemia, unspecified (7) Diabetes mellitus: Status: Acute Code(s): E11.9 - Type 2 diabetes mellitus without complications Additional A&P Information Sepsis: Due to necrotizing fasciitis and UTI. Sepsis resolved, off Levophed, normotensive, receiving IV fluids Necrotizing fasciitis of the foot Wound cultures growing staph aureus along with strep species. And Ucx growing Klebsiella. Continue with vancomycin and Primaxin, day 5 antibiotics Status post repeat I&D December 02, 2019. As per surgical service wound is better than before but would need further bedside debridement and bandages before a final possible wound VAC placement depending on peripheral angiogram. Poor wound healing contributed by DM and peripheral arterial disease. Plan for peripheral angiogram tomorrow morning. For pain continue Marion 5/325 1 tab every 6 hours as needed and Dilaudid 0.5 every 4 hours for breakthrough. General surgery on consult Severe PAD and concerns for lower limb ischemia Plan for peripheral angiogram by Dr. Hagen this morning C/w ASA and statin as already started Diabetic ketoacidosis: Resolved. C/w ISS at aggresive model with Lantus 10 U QHS. Continue on carbohydrate consistent diet. HbA1c at 12, states that she has a history of type 2 diabetes mellitus, however she does not have any insurance, and was not able to afford doctor visits or medications DVT ppx: Lovenox code status: full code We will transfer to the general medical floors today Attestations Medical Necessity Statement*: Patient requires hospitalization, for necrotizing fasciitis of left lower extremity, sepsis resolved, severe peripheral arterial disease Coding Level of Care Code Acute Senior Buyer Planner for [facility] Fwd Diagnoses Sepsis A41.9 Necrotizing soft tissue infection M79.89 DKA (diabetic ketoacidoses) E11.10 Lower limb ischemia I99.8 Tobacco abuse Z72.0 Dyslipidemia E78.5 Diabetes mellitus E11.9
[2019-12-04] MEDS: HYDROcodone-acetaminophen 5-325 mg Tablet 1 TAB PO ×2 (12:49→19:54)
--- NOTE | 2019-12-04 13:58 | PC.NURSE ---
TR Band Removal TR Band removed per protocol. Pressure held until hemostasis achieved. 2x2 applied with tegaderm. Patient tolerated procedure well with mild pain.
--- NOTE | 2019-12-04 15:23 | PC.CHAP ---
Pastoral Care Encounter/Spiritual Assessment Type of Contact [] Declined taker out visit [] Patient/Family/Request visit [] Outpatient visit [] Follow-up visit [] Physician referral [] Code/Alert [] Routine visit [] Staff referral [] Actively dying [] Patient sleeping [] Family support [] [] Out of room [] Palliative care [] [] Receiving care in room [] Pre-surgical visit [] Trauma [] Long length of stay [x] ICU visit [] Other: Relational/Emotional Strength [x] Patient feels connected with others/family/visitors/staff [] Distress [] Loneliness/isolation [] Abandonment Spirituality of Patient [x] Person of Suma [] Attends Faith of their Suma [x] Believes in Prayer [] Reads Bible or Yazdanism materials [] There are Spiritual issues to be addressed Senior Mobile Web Developer Interventions [x] Prayer [x] Active listening [] Non-anxious presence [x] Spiritual/emotional support [] Crisis/trauma care [] Spiritual counseling [] Bereavement support [] Provided bereavement packet [] Provided Bible/devotional materials [] Provided toy/stuffed animal, coloring book to patient or family member [] Provided Communion [x] Anointing/[place] [] Salvation [] Completed spiritual assessment [] Other: Impact on Illness or Injury [] Angry [] Fearful [] Anxious [] Often cries [] Exhaustion [] Unable to work [] Unable to attend sabianist [] Unable to walk/stand [] Unable to read [] Unable to drive [] Unable to eat/drink [] Unable to sleep [] Unable to be with family [] Patient intubated [] Other: Summary Time in prayer and conversation Time spent with patient 6
--- NOTE | 2019-12-04 15:58 | PM.PN ---
Subjective Subjective: Interval history: Patient overall is doing well Undergone an angiogram by Dr. Hagen today and pending discussion about potential different options for revascularization for the right lower extremity Dr. Hagen and CT surgery service. A consult was initiated today to have Dr. Odom evaluate the patient for further recommendation, pending the patient to be seen by him Vitals/I&O/Wt Last Vital Signs Temp 98.2 F 12/04/19 12:00 Pulse 85 12/04/19 12:00 Resp 16 12/04/19 12:00 BP 141/74 12/04/19 12:00 Pulse Ox 99 12/04/19 10:00 12/04/19 12/04/19 12/04/19 06:59 14:59 22:59 Intake Total 400 / 3140 1200 / 1200 Output Total 700 / 2950 3450 / 3450 Balance -300 / 190 -2250 / -2250 Physical Exam Const: COMMON NORMALS: no apparent distress and oriented x3 GENERAL APPEARANCE: cooperative ORIENTATION/CONSCIOUSNESS: Yes awake, Yes oriented to person, Yes oriented to place and Yes oriented to time Extremity: OTHER: Left lower extremity foot has the dressing on changed by the nurse bedside today cording to her description looks appropriate Neuro: COMMON NORMALS: oriented x3 SENSORIUM/ORIENTATION: Yes oriented to person, Yes oriented to place and Yes oriented to time Skin: COMMON NORMALS: no rashes or lesions noted GENERAL SKIN EXAM: no rashes or lesions noted Urinary Catheter Management^: Rodgers: Cath Placed During This Visit: yes Urethral Indwelling: Yes Reason for Continuing Indwelling Catheter: Accurate Measurement of Urinary Output in Critically Ill Patients Urinary Catheter Date of Insertion: 12/01/19 Urinary Catheter Time of Insertion: 06:22 Data : 12/05/19 03:25 12/05/19 03:25 Micro: Microbiology 11/30/19 20:02 Gram Stain - Final Foot - Wound Tissue Culture - Final Strep species, gamma-hemolytic Staphylococcus aureus 11/30/19 20:02 Gram Stain - Final Other Source Wound Culture - Preliminary Strep species, gamma-hemolytic 11/30/19 12:35 Gram Stain - Final Other Source Wound Culture - Preliminary Staphylococcus aureus Strep species, gamma-hemolytic 11/30/19 20:02 Anaerobic Culture - Preliminary Foot - Drainage 12/03/19 13:45 MRSA Culture - Final Nose 11/30/19 14:24 Urine Culture - Preliminary Urine Catheterized Klebsiella pneumoniae A&P Assessment and plan (1) Necrotizing soft tissue infection: From general surgery standpoint of view we will continue wet-to-dry dressing daily and will apply for wound VAC application Optimize patient's nutrition DC Rodgers catheter when appropriate by medical team Continue physical therapy We will continue to follow on Dr. Hagen's recommendations Status: Acute Code(s): M79.89 - Other specified soft tissue disorders Attestations Medical Necessity Statement*: Medical necessity care is expected to cross 2 midnights Time Spent in Patient Care: 16 - 35 minutes (>than 50% of time spent in counselling and/or direct pt care on unit). Coding Level of Care Code Acute Conveyor Weigher Operator for Britney Cheng Diagnoses Necrotizing soft tissue infection M79.89
[2019-12-04] MEDS: enoxaparin 40 mg/0.4 mL Syringe SUBCUT (16:55)
[2019-12-04 17:20] LABS: Glucose Point of Care 163 mg/dL (70-110)
--- NOTE | 2019-12-04 19:25 | P.CONIM_ITS ---
Providers/Reason For Consult Consulting Physican/Specialty*: Dr. Hardeep CANALES Reason for Consult*: Necrotizing fasciitis left lower extremity Attending Physician: Rodolfo Meier MD History of Present Illness History of Present Illness Lucy Ramos is a 59 year old poorly controlled diabetic female admitted to the emergency department for necrotizing fasciitis left lower extremity. She does not follow regularly with a primary care doctor, diabetes is uncontrolled. June 2019 she first noticed a wound at her left heel. Approximately November 28 the wound began to worsen significantly and she reported to the emergency department. Cardiology and general surgery consulted on admission. 2 surgical debridements have been performed by Dr. Erika CANALES with improvement. Work-up for peripheral arterial disease by Dr. Hieu CANALES. Review of Systems General: Reports: 10 or more systems reviewed and unremarkable except in HPI and below Const: Denies: fever or chills Card: Denies: chest pain or palpitations Resp: Denies: productive cough GI: Denies: abdominal pain, nausea or vomiting : Denies: flank pain Musc: Reports: extremity swelling, joint pain, joint stiffness and limited range of motion Skin/Breast: Reports: sores, nail changes and change in hair; Denies: rash Neuro: Reports: numbness in extremities, changes in sensation and difficulty walking Psych: Denies: suicidal ideation Jesus/Lymph: Denies: easy bruising Meds/Allergies Home Medications and Allergies Home Medications Medication Instructions Recorded Confirmed Type No Known Home Medications 11/30/19 11/30/19 History Allergies Allergy/AdvReac Type Severity Reaction Status Date / Time No Known Allergies Allergy Verified 11/30/19 18:58 Current Medications Current Medications Generic Name Dose Route Start Last Admin Trade Name Freq PRN Reason Stop Dose Admin Hydrocodone Bitart/Acetaminophen 1 tab 12/03/19 09:15 12/04/19 12:49 [place] 5-325 Mg PO 1 tab Q6H PRN Administration MODERATE PAIN Al Hydrox/Mg Hydrox/Simethicone 15 ml 12/03/19 17:17 12/03/19 18:28 Maalox PO 15 ml Q6H PRN Administration INDIGESTION Aspirin 81 mg 12/02/19 09:00 12/04/19 08:59 Aspirin Ec PO 81 mg DAILY SADIE Administration Atorvastatin Calcium 40 mg 12/01/19 21:00 12/03/19 20:20 Lipitor PO 40 mg BEDTIME SADIE Administration Bisacodyl 10 mg 11/30/19 16:42 12/02/19 11:30 Dulcolax PO 10 mg DAILY PRN Administration CONSTIPATION Enoxaparin Sodium 40 mg 11/30/19 17:42 12/04/19 16:55 Lovenox SUBCUT 40 mg Q24H SADIE Administration Hydromorphone HCl 0.5 mg 12/03/19 09:18 12/04/19 04:25 Dilaudid Inj IVP 0.5 mg Q4H PRN Administration PAIN Imipenem/Cilastatin Sodium 500 100 mls @ 200 mls/hr 12/03/19 09:00 12/04/19 16:53 mg/ Sodium Chloride IV 200 mls/hr Q6H SADIE Administration Protocol Vancomycin HCl 1,000 mg/ 250 mls @ 250 mls/hr 12/04/19 02:00 12/04/19 14:35 Sodium Chloride IV 250 mls/hr Q12H SADIE Administration Protocol As Directed Insulin Aspart 0 unit 12/01/19 12:00 12/04/19 17:00 Novolog SUBCUT 6 unit WM&BEDTIME SADIE Administration Protocol Insulin Glargine 10 unit 12/01/19 21:00 12/03/19 21:02 Lantus SUBCUT 10 unit BEDTIME SADIE Administration PFSH Acute PFSH: Medical History (Updated 12/04/19 @ 19:41 by Nitish Odom DPM) Anemia Chronic kidney disease (CKD) stage G1/A1, glomerular filtration rate (GFR) equal to or greater than 90 mL/min/1.73 square meter and albuminuria creatinine ratio less than 30 mg/g Coagulopathy Diabetes mellitus Dyslipidemia Essential hypertension Hyponatremia Infectious fasciitis Lower limb ischemia Peripheral arterial disease Sepsis Tobacco abuse Family History Father Cancer Brother , Hepatitis C Diabetes Social History Smoking and tobacco status: current every day smoker Second hand smoke exposure: Yes Alcohol intake: never Substance/Drug Use: never Adopted: No Caregiver/support person: No Lives independently: Yes Household members: spouse Marital status: service: No Current occupational status: unemployed Female Reproductive History: control method: none : 3 Para: 3 Vitals/I&O/Wt Last Vital Signs Temp 98.2 F 12/04/19 12:00 Pulse 91 12/04/19 18:00 Resp 18 12/04/19 18:00 BP 156/82 12/04/19 18:00 Pulse Ox 96 12/04/19 18:00 12/04/19 12/04/19 12/04/19 06:59 14:59 22:59 Intake Total 400 / 3140 1300 / 1300 Output Total 700 / 2950 3450 / 3450 750 / 4200 Balance -300 / 190 -2150 / -2150 -750 / -2900 Physical Exam Narrative: EXAM NARRATIVE: GENERAL: Patient is alert and oriented ?3 and in no acute distress. The following is a focused bilateral lower extremity exam. VASCULAR: Dorsalis pedis and posterior tibial arteries nonpalpable bilaterally, popliteal artery nonpalpable bilaterally. Capillary refill time less than 5 seconds to the distal hallux bilaterally. Calf is supple and nontender proximally and distally. Decreased hair growth to the legs and feet. NEUROLOGICAL: Protective sensation intact 0/10 sites, tested with [place] monofilament to bilateral feet. DERMATOLOGICAL: Full-thickness wound to medial column of left foot extending from calcaneus, to the distal diaphysis of first metatarsal, not exposed directly to bone, I cannot palpate directly to calcaneus, medial malleolus or first metatarsal. Wound is free of devitalized tissue, there is no purulence or malodor present. There is no significant periwound erythema, no proximal lymphangitic streaking appreciated. Dorsum of the left foot has blue ischemic appearance. Wound bed at this time appears 80% fibrotic 20% granular with exposed muscle, fascia and tendon. Wound measurements approximately 20 cm x 10 cm x 2 cm. MUSCULOSKELETAL: No pain upon palpation or probing of wound secondary to neuropathy left foot. Ankle joint dorsiflexion to neutral bilaterally. Muscle strength is 5 out of 5 in all 3 cardinal planes to bilateral foot and ankle. Pes planus foot type noted. Urinary Catheter Management^: Rodgers: Cath Placed During This Visit: yes Urethral Indwelling: Yes Reason for Continuing Indwelling Catheter: Accurate Measurement of Urinary Output in Critically Ill Patients Urinary Catheter Date of Insertion: 12/01/19 Urinary Catheter Time of Insertion: 06:22 Data Micro: Micro: Microbiology 11/30/19 20:02 Gram Stain - Final Foot - Wound Tissue Culture - F inal Strep species, gamma-hemolytic Staphylococcus aureus 11/30/19 20:02 Gram Stain - Final Other Source Wound Culture - Pr eliminary Strep species, gamma-hemolytic 11/30/19 12:35 Gram Stain - Final Other Source Wound Culture - Pr eliminary Staphylococcus aureus Strep species, gamma-hemolytic 11/30/19 20:02 Anaerobic Culture - Preliminary Foot - Drainage 12/03/19 13:45 MRSA Culture - Fin al Nose A&P Assessment and plan (1) Diabetes mellitus: Status: Acute Qualifiers: Diabetes mellitus type: type 2 Diabetes mellitus ocean transportation intermediary insulin use: unspecified ocean transportation intermediary insulin use status Diabetes mellitus complication status: with circulatory complication Code(s): E11.9 - Type 2 diabetes mellitus without complications (2) Necrotizing soft tissue infection: Status: Acute Code(s): M79.89 - Other specified soft tissue disorders (3) Lower limb ischemia: Status: Acute Code(s): I99.8 - Other disorder of circulatory system (4) Non-pressure chronic ulcer of other part of left foot with necrosis of muscle: Status: Acute Code(s): L97.523 - Non-pressure chronic ulcer of other part of left foot with necrosis of muscle Patient is a 59-year-old uncontrolled diabetic female with necrotizing fasciitis left lower extremity, LRINEC score on admission 9 points At this time left lower extremity wound is free of acute infection, has been removed of devitalized tissue appropriately, has very stable appearance, collaborative effort with cardiology with plan moving forward following angiography showing extensive peripheral arterial disease of the lower extremities. She is receiving empiric IV antibiotics with improvement. I do not have any further recommendations in regards to limb salvage efforts, patient is certainly at risk for lower extremity amputation. Coding Level of Care Code Acute Report Manager for [facility] Fwd Diagnoses Diabetes mellitus E11.9 Diabetes mellitus type: type 2 Diabetes mellitus residential insulin use: unspecified residential insulin use status Diabetes mellitus complication status: with circulatory complication Necrotizing soft tissue infection M79.89 Lower limb ischemia I99.8 Non-pressure chronic ulcer of other part of left foot with necrosis of muscle L97.523
--- NOTE | 2019-12-04 19:32 | PC.NURSE ---
PATIENT MOVED UPSTAIRS PER WHEELCHAIR. DENTURES, JEWELRY, AND PURSE AND OTHER BELONGINGS INSURANCE PROCESSOR WITH PT. PT WAS SAT UP IN CHAIR, NURSE TAKING OVER JACINTO LEE WAS MADE AWARE OF ARRIVAL AND GIVEN UPDATE, DR SEGUNDO CAME AND REDRESSED FOOT AND TALKED TO PT ABOUT WOUND VAC PLACEMENT.
[2019-12-04] MEDS: atorvastatin 40 mg Tablet PO (19:54)
[2019-12-04] MEDS: insulin glargine 100 units/1 mL 10 UNIT SUBCUT (21:28)
[2019-12-05] VITALS (28 sets, daily range): BP systolic 95–178; BP diastolic 61–92; PULSE 76–99; RESP 13–22; TEMP 36.7–37.2; O2SAT 86–97
[2019-12-05 00:38] LABS: Glucose Point of Care 178 mg/dL (70-110)
[2019-12-05] MEDS: vancomycin 1,000 MG in sodium chloride 0.9% 250 ML 250 MG IV ×2 (01:48→14:35)
[2019-12-05 03:43] LABS: Basophils # 0.1 10^3/uL (0.0-0.1); Basophils % 0.7 %; Eosinophils # 0.1 10^3/uL (0.0-0.8); Eosinophils % 0.5 %; Hematocrit 32.2 % (37.0-47.0); Hemoglobin 10.7 g/dL (11.5-15.3); Lymphocytes % 14.6 %; Mean Corpuscular HGB Conc 33.2 g/dL (30.0-36.0); Mean Corpuscular Hemoglobin 30.9 pg (28.0-34.0); Mean Corpuscular Volume 93.1 fL (81-99); Mean Platelet Volume 10.4 fL (7.4-10.4); Monocytes # 1.2 10^3/uL (0.2-0.9); Monocytes % 8.6 %; Neutrophils # 8.7 10^3/uL (1.8-7.7); Nucleated Red Blood Cells % 0 %; Platelet Count 526 10^3/cmm (130-400); Red Blood Count 3.46 10^6/uL (4.1-5.3); Red Cell Distribution Width 14.5 % (12.1-15.1); White Blood Count 13.7 10^3/uL (4.0-10.0)
[2019-12-05 03:59] LABS: Alanine Aminotransferase 16 U/L (0-33); Albumin Level 2.5 g/dL (3.5-5.2); Alkaline Phosphatase 262 IU/L (35-105); Anion Gap 17.3 (5-19); Aspartate Amino Transferase 23 U/L (0-32); Blood Urea Nitrogen 3 mg/dL (8-23); Calcium 9.2 mg/dL (8.5-10.5); Carbon Dioxide 26 mmol/L (22-29); Chloride 100 mmol/L (98-107); Globulin 4.2 g/dL (1.3-4.6); Glomerular Filtration Rate 101.6 mL/min (90-130); Glucose 129 mg/dL (65-115); Magnesium 1.8 mg/dL (1.7-2.3); Phosphorus 2.8 mg/dL (2.5-4.5); Potassium 3.3 mmol/L (3.5-5.1); Sodium 140 mmol/L (136-145); Total Bilirubin 0.5 mg/dL (0.15-1.2); Total Protein 6.7 g/dL (6.6-8.7)
[2019-12-05 04:22] LABS: Slide Review Slide Review Perform
[2019-12-05 05:04] LABS: C Reactive Protein 100.8 mg/L (0.0-4.9)
[2019-12-05 06:48] LABS: Glucose Point of Care 137 mg/dL (70-110)
[2019-12-05] MEDS: aspirin 81 mg EC Tablet PO (08:44)
[2019-12-05 09:37] LABS: Procalcitonin 0.25 ng/mL (0-0.5)
[2019-12-05] MEDS: potassium chloride premix 40 MEQ/100 ML PREMIX 25 MEQ IV (10:06)
[2019-12-05] MEDS: amlodipine 10 mg Tablet PO (10:06)
--- NOTE | 2019-12-05 10:14 | P.PN_ITS ---
Subjective Subjective: Interval history: Patient has been transferred to the second floor. Angiography was performed yesterday and the results available. I have discussed the films with Dr. Velasco and we have come up with a plan to proceed forward. The patient is somewhat depressed today after having the ability to sort all this out. She is of course fearful of limb amputation. Her male com panion asked me how this happened. Medications: Reviewed: Yes Vitals/I&O/Wt Last Vital Signs Temp 98.6 F 12/05/19 07:25 Pulse 85 12/05/19 07:25 Resp 14 12/05/19 07:25 BP 171/70 12/05/19 07:25 Pulse Ox 96 12/05/19 07:25 12/04/19 12/05/19 12/05/19 22:59 06:59 14:59 Intake Total 450 / 1750 340 / 2090 Output Total 1850 / 5300 1300 / 6600 Balance -1400 / -3550 -960 / -4510 Physical Exam Narrative: EXAM NARRATIVE: GENERAL: In general she looks and feels well however somewhat depressed and tearful HEENT: Exam within normal limits. NECK: Supple without jugular vein distention. The carotid upstroke is normal without bruits. BACK: Exam normal. LUNGS: Clear. HEART: Regular rate and rhythm. ABDOMEN: Benign without organomegaly or tenderness. EXTREMITIES: No edema. NEUROLOGIC: Exam normal. SKIN: Unremarkable. Urinary Catheter Management^: Rodgers: Cath Placed During This Visit: yes Urethral Indwelling: Yes Reason for Continuing Indwelling Catheter: Accurate Measurement of Urinary Output in Critically Ill Patients Urinary Catheter Date of Insertion: 12/01/19 Urinary Catheter Time of Insertion: 06:22 Data : 12/05/19 03:25 12/05/19 03:25 Micro: Microbiology 11/30/19 20:02 Gram Stain - Final Foot - Wound Tissue Culture - Final Strep species, gamma-hemolytic Staphylococcus aureus 11/30/19 20:02 Gram Stain - Final Other Source Wound Culture - Preliminary Strep species, gamma-hemolytic 11/30/19 12:35 Gram Stain - Final Other Source Wound Culture - Preliminary Staphylococcus aureus Strep species, gamma-hemolytic 11/30/19 20:02 Anaerobic Culture - Preliminary Foot - Drainage A&P Assessment and plan (1) Anemia: Status: Acute Code(s): D64.9 - Anemia, unspecified (2) Necrotizing soft tissue infection: Status: Acute Code(s): M79.89 - Other specified soft tissue disorders (3) Lower limb ischemia: Status: Acute Code(s): I99.8 - Other disorder of circulatory system (4) Chronic kidney disease (CKD) stage G1/A1, glomerular filtration rate (GFR) equal to or greater than 90 mL/min/1.73 square meter and albuminuria creatinine ratio less than 30 mg/g: Status: Acute Code(s): N18.1 - Chronic kidney disease, stage 1 (5) Peripheral arterial disease: Status: Acute Code(s): I73.9 - Peripheral vascular disease, unspecified (6) Tobacco abuse: Status: Acute Code(s): Z72.0 - Tobacco use (7) Diabetes mellitus: Status: Acute Qualifiers: Diabetes mellitus complication status: with circulatory complication Diabetes mellitus terminal superintendent insulin use: unspecified terminal superintendent insulin use status Diabetes mellitus type: type 2 Code(s): E11.9 - Type 2 diabetes mellitus without complications (8) Dyslipidemia: Status: Acute Code(s): E78.5 - Hyperlipidemia, unspecified Additional A&P Information After extensive discussion with Dr. Velasco and the patient we have decided to make an attempt at intervention via the popliteal artery later today. If this fails then the other 2 options will be available. I have discussed this in detail with her and she agrees to proceed. Attestations Medical Necessity Statement*: Not applicable Coding Level of Care Code Established Pt Acute Game Manager for g Fwd Patient Type Established History Detailed Exam Detailed Medical Decision Making Moderate Complexity Diagnoses Anemia D64.9 Necrotizing soft tissue infection M79.89 Lower limb ischemia I99.8 Chronic kidney disease (CKD) stage G1/A1, glomerular filtration rate (GFR) equal to or greater than 90 mL/min/1.73 square meter and albuminuria creatinine ratio less than 30 mg/g N18.1 Peripheral arterial disease I73.9 Tobacco abuse Z72.0 Diabetes mellitus E11.9 Diabetes mellitus complication status: with circulatory complication Diabetes mellitus correction insulin use: unspecified terminal superintendent insulin use status Diabetes mellitus type: type 2 Dyslipidemia E78.5
[2019-12-05] MEDS: lidocaine 1% INJ 20 mL 5 ML IV (11:02)
--- NOTE | 2019-12-05 13:43 | P.PN_ITS ---
Subjective Subjective: Interval history: This morning patient was examined with her at bedside, patient is quite tearful, she states that she really wants to go home and be with her , she denies chest pain, palpitations, shortness of breath, fevers, chills, nausea, vomiting Vitals/I&O/Wt Last Vital Signs Temp 98.0 F 12/05/19 11:00 Pulse 97 12/05/19 11:00 Resp 14 12/05/19 11:00 BP 169/73 12/05/19 11:00 Pulse Ox 96 12/05/19 11:00 12/04/19 12/05/19 12/05/19 22:59 06:59 14:59 Intake Total 450 / 1750 340 / 2090 Output Total 1850 / 5300 1300 / 6600 Balance -1400 / -3550 -960 / -4510 Physical Exam Const: COMMON NORMALS: no apparent distress and oriented x3 HENMT: COMMON NORMALS: normocephalic HEAD & SCALP: normocephalic Neck/C-Spine: COMMON NORMALS: no JVD Resp: COMMON NORMALS: normal respiratory effort, no retractions, no use of a ccessory muscles and clear to auscultation bilaterally AUSCULTATION: clear to auscultation bilaterally Cardio: COMMON NORMALS: no JVD, regular rate, regular rhythm, S1 normal heart sound and S2 normal heart sound RATE: regular rate RHYTHM: regular rhythm HEART SOUNDS: S1 normal and S2 normal GI: COMMON NORMALS: normal to inspection, nondistended, normoactive bowel sounds, soft to palpation, non-tender, no hepatosplenomegaly, no masses and no bruits PALPATION: Yes soft and Yes no hepatosplenomegaly Extremity: NARRATIVE EXTREMITY EXAM: Left lower extremity in a binder, wrapped and bandaged Neuro: COMMON NORMALS: oriented x3 Urinary Catheter Management^: Rodgers: Cath Placed During This Visit: yes Urethral Indwelling: Yes Reason for Continuing Indwelling Catheter: Accurate Measurement of Urinary Output in Critically Ill Patients Urinary Catheter Date of Insertion: 12/01/19 Urinary Catheter Time of Insertion: 06:22 Data : 12/05/19 03:25 12/05/19 03:25 Micro: Microbiology 11/30/19 12:50 Blood Culture - Final Blood NO GROWTH AFTER 5 DAYS 11/30/19 12:45 Blood Culture - Final Blood NO GROWTH AFTER 5 DAYS 11/30/19 20:02 Gram Stain - Final Other Source Wound Culture - Preliminary Strep anginosus group 11/30/19 20:02 Gram Stain - Final Foot - Wound Tissue Culture - Preliminary Strep anginosus group Staphylococcus aureus 11/30/19 12:35 Gram Stain - Final Other Source Wound Culture - Preliminary Staphylococcus aureus Strep anginosus group 11/30/19 20:02 Anaerobic Culture - Preliminary Foot - Drainage A&P Assessment and plan (1) Sepsis: Status: Acute Code(s): A41.9 - Sepsis, unspecified organism (2) Necrotizing soft tissue infection: Status: Acute Code(s): M79.89 - Other specified soft tissue disorders (3) DKA (diabetic ketoacidoses): Status: Acute Code(s): E11.10 - Type 2 diabetes mellitus with ketoacidosis without coma (4) Lower limb ischemia: Status: Acute Code(s): I99.8 - Other disorder of circulatory system (5) Tobacco abuse: Status: Acute Code(s): Z72.0 - Tobacco use (6) Dyslipidemia: Status: Acute Code(s): E78.5 - Hyperlipidemia, unspecified (7) Diabetes mellitus: Status: Acute Qualifiers: Diabetes mellitus complication status: with circulatory complication Diabetes mellitus skilled nursing insulin use: unspecified production tester insulin use [facility] Diabetes mellitus type: type 2 Code(s): E11.9 - Type 2 diabetes mellitus without complications Additional A&P Information Sepsis: Due to necrotizing fasciitis and UTI. Sepsis resolved, off Levophed, normotensive, receiving IV fluids Necrotizing fasciitis of the foot Wound cultures growing staph aureus along with strep species. And Ucx growing Klebsiella. I am awaiting sensitivities before de-escalating antibiotic treatment to oral antibiotics Continue with vancomycin and Primaxin, day 6 antibiotics Status post repeat I&D December 02, 2019. As per surgical service wound is better than before but would need further bedside debridement and bandages before a final possible wound VAC placement depending on peripheral angiogram. Poor wound healing contributed by DM and peripheral arterial disease. Plan for angiography procedure this evening For pain continue [place] 5/325 1 tab every 6 hours as needed and Dilaudid 0.5 every 4 hours for breakthrough. General surgery on consult, Dr. Hagen on consult Severe PAD and concerns for lower limb ischemia, angiogram yesterday showed occluded left superficial femoral artery, on the right she has occluded external iliac and common femoral artery Plan for peripheral angiogram via popliteal artery by Dr. Perez later on this evening C/w ASA and statin as already started Diabetic ketoacidosis: Resolved. C/w ISS at aggresive model with Lantus 10 U QHS. Continue on carbohydrate consistent diet. HbA1c at 12, states that she has a history of type 2 diabetes mellitus, however she does not have any insurance, and was not able to afford doctor visits or medications DVT ppx: Lovenox code status: full code Doing well on the general medical floors today, hopefully discharge in the next 24 hours Case workers have worked on clarissa approval for her wound VAC, diabetic supplies, medications, needs extensive outpatient follow-ups Attestations Medical Necessity Statement*: Patient requires hospitalization, for sepsis secondary necrotizing fasciitis, severe peripheral arterial disease Coding Level of Care Code Acute Waterproof Bag Cutting Machine Operator for [facility] Fwd Diagnoses Sepsis A41.9 Necrotizing soft tissue infection M79.89 DKA (diabetic ketoacidoses) E11.10 Lower limb ischemia I99.8 Tobacco abuse Z72.0 Dyslipidemia E78.5 Diabetes mellitus E11.9 Diabetes mellitus complication status: with circulatory complication Diabetes mellitus skilled nursing insulin use: unspecified production tester insulin use status Diabetes mellitus type: type 2
--- NOTE | 2019-12-05 14:48 | PM.PN ---
Subjective Subjective: Interval history: Patient overall feels well By Dr. Odom yesterday and no further recommendations Vitals/I&O/Wt Last Vital Signs Temp 98.0 F 12/05/19 11:00 Pulse 97 12/05/19 11:00 Resp 14 12/05/19 11:00 BP 169/73 12/05/19 11:00 Pulse Ox 96 12/05/19 11:00 12/04/19 12/05/19 12/05/19 22:59 06:59 14:59 Intake Total 450 / 1750 590 / 2340 Output Total 1850 / 5300 1300 / 6600 Balance -1400 / -3550 -710 / -4260 Physical Exam Narrative: EXAM NARRATIVE: Patient is conscious alert oriented X3 BMI 20 Left foot wound bed showed residual necrotic tissues that were debrided sharply bedside, the dorsal skin flap showed some ischemic changes Packing was done by me bedside in the form of wet-to-dry followed by ABDs and Ellis wrappe followed by the brace. Urinary Catheter Management^: Rodgers: Cath Placed During This Visit: yes Urethral Indwelling: Yes Reason for Continuing Indwelling Catheter: Accurate Measurement of Urinary Output in Critically Ill Patients Urinary Catheter Date of Insertion: 12/01/19 Urinary Catheter Time of Insertion: 06:22 Data : 12/05/19 03:25 12/05/19 03:25 Micro: Microbiology 11/30/19 14:24 Urine Culture - Final Urine Catheterized Klebsiella pneumoniae 11/30/19 12:50 Blood Culture - Final Blood NO GROWTH AFTER 5 DAYS 11/30/19 12:45 Blood Culture - Final Blood NO GROWTH AFTER 5 DAYS 11/30/19 20:02 Gram Stain - Final Other Source Wound Culture - Preliminary Strep anginosus group 11/30/19 20:02 Gram Stain - Final Foot - Wound Tissue Culture - Preliminary Strep anginosus group Staphylococcus aureus 11/30/19 12:35 Gram Stain - Final Other Source Wound Culture - Preliminary Staphylococcus aureus Strep anginosus group 11/30/19 20:02 Anaerobic Culture - Preliminary Foot - Drainage A&P Assessment and plan (1) Necrotizing soft tissue infection: Continue wet-to-dry dressing daily and will apply for wound VAC application Optimize patient's nutrition Continue physical therapy We will continue to follow on Dr. Hagen's recommendations Thank you for consulting general surgery to participate taking care Status: Acute Code(s): M79.89 - Other specified soft tissue disorders Attestations Medical Necessity Statement*: Medical necessity care is expected to cross 2 midnights Coding Level of Care Code Acute Jewel Bearing Broacher for Britney Cheng Diagnoses Necrotizing soft tissue infection M79.89
[2019-12-05] MEDS: sodium chloride 0.9% 1,000 ML 50 ML IV (16:22)
[2019-12-05] MEDS: diphenhydrAMINE 50 mg Capsule PO (16:22)
--- NOTE | 2019-12-05 16:43 | PC.NURSE ---
PT TAKEN TO DOWN BY BED WITH NURSES AT SIDE FOR ORDERED PROCEDURE.
--- NOTE | 2019-12-05 17:00 | XACV_ITS ---
Ht: 170 cm Wt: 57 kg BSA: 1.64 m2 Any Known Allergies: No known allergies Gender: Female : 1960 Exam Type: Invasive Peripheral Vascular Procedure(s): Procedure Description: Peripheral Cath Diagnostic Procedure Procedure Description: Lower extremities' angiography Procedure Description: Peripheral vascular Intervention Procedure Description: PV Balloon Procedure Description: PV Stent Exam Priority: Routine Lower Extremity Diagnostic Findings Patient is a young woman with diabetes and smoking. She developed a foot ulcer along with necrotizing fasciitis of the inner aspect of the left foot. Debridement has taken place. Yesterday angiography from the right wrist revealed a closure of the superficial femoral artery on the left down toward the adductor canal. She has three-vessel runoff on the left. Today she was brought back for an attempted intervention via the popliteal artery on the left. She is Morrow grade III, category 6; Kevyn stage IV. Lower Extremity Interventional Findings A wire was placed through the occlusion of the superficial femoral artery and placed all the way into the central aorta. Plain old balloon angioplasty was performed of the entire SFA followed by drug-eluting balloon angioplasty. An excellent angiographic result was obtained with good flow. Conclusions Successful angioplasty of the entire left superficial femoral artery utilizing plain old balloon angioplasty followed by drug-eluting balloon angioplasty approached via the popliteal artery on the left. Access Site Site: Left Popliteal Sheath Size: 6 Fr Hemost... Success: Unsuccessful Procedure Details Findings Procedure Consent Obtained. Hemodynamic formulas in Rest were re-calculated based on hemoglobin value from 12/05/2019 3:38:00 AM. Pre-Procedure Time Out. Identified patient by full name and date of as verbalized by the patient/guarantor. Does the consent match the physician's order: Yes. Accurate & Complete Informed Consent: Yes. Inpatient/Outpatient History & Physical on Chart: Yes. If H&P is completed, is and addenduem needed: N/A; If yes, is the addendum complete: N/A. Visualize and Verify Site with Patient/Guarantor: N/A. Relevant Radiology Images available: Yes. Pre-op teaching completed and patient verbalized understanding. The risks, benefits, and alternatives of sedation and/or procedure were discussed by physician. The patient agrees to continue. Procedure started. Correct patient, site and procedure confirmed by cath team. PERRLA. 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 Lungs clear x 5 lobes. IV Site on Arrival: 22 gauge in the left wrist. IV Fluids: 0.9% NaCl at KVO. 0 mL infused prior to computer lab assistant. Oxygen started at 2liters/min via nasal canula. popliteal was prepped with chloroprep then draped in the usual sterile fashion. Physician notified. Equipment: Peripheral. Cardiac Cath Pack. ACIST Manifold Kit Model BT 2000. Heparinized Saline (2 units/mL), 1000 mL bag. Physician arrived. Physician scrubbed in. Time out performed with cath team. Immediate Pre-Procedure Time Out. Correct Patient: Yes; Correct Procedure: Yes; Correct Site: Yes; Correct Patient Position: Yes; Correct Supplies: Yes; Dried Flammable Prep: Yes; Blood Products Available: No;. IV Site on Arrival: 22 gauge in the right wrist. Lidocaine 1% infiltrated to the left popliteal. Baseline sample Acquired. HR: 99 BPM. Ultrasound called. ultrasound arrived. Lidocaine 1% infiltrated to the left popliteal. Lidocaine 1% infiltrated to the popliteal. Arterial access obtained. hand injection through sheath 10ml/sec for a total of 20ml. glidewire inserted. seeker inserted over glidewire. seeker removed. Inflation number : 1 A [employer] 35 WIRELINE SUPERVISOR Catheter [id number] was prepped and advanced across the Superficial Femoral, Left , then inflated to 10 IVORY for 0:43 seconds. Inflation number: 2 The AB Novi 35 WIRELINE SUPERVISOR Catheter [id number] was reinflated across the Superficial Femoral, Left, to 12 IVORY for 1:06 seconds. Inflation number: 3 The AB Nov[employer] 35 WIRELINE SUPERVISOR Catheter [id number] was reinflated across the Superficial Femoral, Left, to 12 IVORY for 1:01 seconds. Inflation number: 4 The AB Novi 35 WIRELINE SUPERVISOR Catheter [id number] was reinflated across the Superficial Femoral, Left, to 12 IVORY for 1:02 seconds. Balloon out. results checked. hand injection through sheath 10ml/sec for a total of 20ml. Inflation number : 5 A [employer] Lutonix 035 5.0150mm was prepped and advanced across the Superficial Femoral, Left , then inflated to 6 IVORY for 1:01 seconds. Inflation number: 6 The [employer] Lutonix 035 6.0x40mm was reinflated across the Superficial Femoral, Left, to 6 IVORY for 1:03 seconds. results checked. Stent balloon out over wire. wire out. Sheath(s) sutured into position with 2-0 silk and sterile 4x4's and Op-site applied over the site. No oozing or signs and symptoms of hematoma noted. Arterial sheath flushed and connected to tranducer and pressure bag with heparinized saline. PERRLA. 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 No VTE prophylaxis required. Medication's Wasted: Heparin = 1000units. Medication's Wasted: Lidocaine 1% = 15 mL. Total IV fluids: 200 mL. Fluoro: 4:07. Contrast type used: Visipaque 320 mgI/mL, 200 mL bottle. [id number]. Post-op diagnosis: PAD. Complications: none. Estimated blood loss: 5mL-10mL. Procedure completed. Patient transferred by bed to 1st floor. Vital chart was stopped. Procedure Medications Start: 4:50 PM Stop: 4:50 PM Medication: Versed Amount: 1 mg Route: I.V. Start: 4:50 PM Stop: 4:50 PM Medication: Fentanyl Amount: 50 mcg Route: I.V. Start: 4:54 PM Stop: 4:54 PM Medication: Versed Amount: 1 mg Route: I.V. Start: 4:54 PM Stop: 4:54 PM Medication: Fentanyl Amount: 50 mcg Route: I.V. Start: 5:15 PM Stop: 5:15 PM Medication: Versed Amount: 1 mg Route: I.V. Start: 5:15 PM Stop: 5:15 PM Medication: Fentanyl Amount: 50 mcg Route: I.V. Start: 5:26 PM Stop: 5:26 PM Medication: Versed Amount: 1 mg Route: I.V. Start: 5:26 PM Stop: 5:26 PM Medication: Fentanyl Amount: 50 mcg Route: I.V. Start: 5:40 PM Stop: 5:40 PM Medication: Heparin Amount: 5000 units Route: I.V. Start: 5:55 PM Stop: 5:55 PM Medication: Versed Amount: 1 mg Route: I.V. Start: 5:55 PM Stop: 5:55 PM Medication: Fentanyl Amount: 50 mcg Route: I.V. Start: 5:56 PM Stop: 5:56 PM Medication: Versed Amount: 1 mg Route: I.V. Start: 5:57 PM Stop: 5:57 PM Medication: Fentanyl Amount: 50 mcg Route: I.V. Start: 6:02 PM Stop: 6:02 PM Medication: Plavix Amount: 600 mg Route: P.O. I, the attending physician, have reviewed and verified all procedure medications. Yes, all medications given per verbal order History/Risk Factors Hypertension: Yes Dyslipidemia: Yes Diabetic Therapy: Insulin Peripheral Arterial Disease (PAD): Yes Myocardial Infarction (VT): No Obesity: No Renal Disease: Yes Tobacco Use: Current/Recent(w/in 1 year) Prior Interventions PCI: No CABG: No Valve Surgery: No Report Signatures Finalized by:Dr. Nick Hagen MD on 12/05/2019 6:26:46 PM
--- NOTE | 2019-12-05 17:41 | USCV_ITS ---
Lucy Ramos Age: 59 Gender: F : 1960 Exam Date: 12/05/2019 17:13 Ordering Phys: Rodolfo Meier MD Technologist: Tereza Muhammad Exam Location: [facility] – [place]_ Indication: GUIDANCE Findings Guidance provided for left popliteal artery The popliteal artery was found to be patent with monophasic and continuous waveforms Conclusions Patent popliteal artery with possible collateral flow Dr Yesi Calles MD FACC (Electronically Signed) Final Date: 05 December 2019 21:13 S
--- NOTE | 2019-12-05 18:00 | PC.NURSE ---
Received patient from CCL via bed after having peripheral angiogram to left leg using popiteal artery. Boot in place to LLE with dressing and federico wrap noted around left foot. Patient states, It was debrided by the surgeon. IV of NS infusing to right AC at 100/hr. PIID to left forearm with redness noted around site. Sheath to popiteal artery in place with dressing noted. Patient placed into Contact Isolation. Denies pain at present. Will monitor.
--- NOTE | 2019-12-05 18:30 | PC.NURSE ---
Report given to oncoming nurse assigned to patient.
[2019-12-05 20:11] LABS: Partial Thromboplastin Time 67.5 SECONDS (23.9-36.7)
[2019-12-05] MEDS: atorvastatin 40 mg Tablet PO (21:06)
[2019-12-05] MEDS: insulin glargine 100 units/1 mL 10 UNIT SUBCUT (21:07)
[2019-12-05 21:38] LABS: Glucose Point of Care 107 mg/dL (70-110)
--- NOTE | 2019-12-05 22:09 | PC.PHAR ---
Vancomycin trough is 21.0. Hold next dose and reduce dosage from 1gm IVPB every 12 hours to 1gm IVPB every 18 hours with trough before third 18 hour dose.
[2019-12-06] VITALS (35 sets, daily range): BP systolic 137–166; BP diastolic 66–81; PULSE 76–99; RESP 11–29; TEMP 36.6–37.2; O2SAT 83–97
--- NOTE | 2019-12-06 01:55 | PC.NURSE ---
prior to sheath pull all 15 minute vitals are under vitals per protocol. didnt record 2 minute vitals but vitals sheet is in chart. al after sheath vitals are under post cath flowsheet (it was finally located where to go to add it to the worklist after vitals were in til that point.)
[2019-12-06 01:59] LABS: Glucose Point of Care 180 mg/dL (70-110)
--- NOTE | 2019-12-06 02:57 | PC.NURSE ---
Called Dr. Hagen about patients lovenox that was to be given while still in laborer drying department to see if he wanted her to have it earlier this evneing or hold it since she is post cath. he said to hold it and give it in the morning, 40 mg q24. so it was rescheduled for then.
--- NOTE | 2019-12-06 02:59 | PC.NURSE ---
Talked to Dr. Brothers as the patient was not doing well and very unciomfortable on the bedpan and wanted to be catheterized for the duration of her bedrest as she had to urinate 3 or 4 times an hour. She agreed to putting the oreilly in and we did it prior to pulling the sheath, 16 welsh, patient tolerated the procedure well.
--- NOTE | 2019-12-06 03:01 | PC.NURSE ---
pulled patients sheathe in the popliteal region, got control of it in a few seconds. patient had no pain medication and tolerated the hold well, experiencing now pain. pressure was held 20 minutes. small hematoma noted during sheath pull of 2.5 centimeters which we've been milking. also noted was in area of puncture we noticed distal to the site little areas looking like an abrasion minus being red but the area was oozing blood from around this area in little dots beyond the puncture site itself. been checking the patients site and it has started oozing a little enough that i needed to change the dressing to a 4x4 folded in half then 3rds to make a firmer pressure dressing.
[2019-12-06 05:44] LABS: Basophils # 0.1 10^3/uL (0.0-0.1); Basophils % 0.7 %; Eosinophils # 0.1 10^3/uL (0.0-0.8); Eosinophils % 0.4 %; Hematocrit 34.3 % (37.0-47.0); Hemoglobin 11.6 g/dL (11.5-15.3); Lymphocytes # 2.4 10^3/uL (0.8-4.8); Lymphocytes % 14.8 %; Mean Corpuscular HGB Conc 33.8 g/dL (30.0-36.0); Mean Corpuscular Hemoglobin 30.1 pg (28.0-34.0); Mean Corpuscular Volume 88.9 fL (81-99); Mean Platelet Volume 10.3 fL (7.4-10.4); Monocytes # 1.4 10^3/uL (0.2-0.9); Monocytes % 8.7 %; Neutrophils # 10.8 10^3/uL (1.8-7.7); Neutrophils % 66.2 %; Nucleated Red Blood Cells % 0 %; Platelet Count 614 10^3/cmm (130-400); Positive C 1; Positive M 1; Red Blood Count 3.86 10^6/uL (4.1-5.3); Red Cell Distribution Width 14.3 % (12.1-15.1); White Blood Count 16.3 10^3/uL (4.0-10.0)
[2019-12-06 06:07] LABS: Alanine Aminotransferase 14 U/L (0-33); Albumin Level 2.7 g/dL (3.5-5.2); Alkaline Phosphatase 245 IU/L (35-105); Anion Gap 19.5 (5-19); Aspartate Amino Transferase 30 U/L (0-32); Blood Urea Nitrogen 3 mg/dL (8-23); Calcium 9.4 mg/dL (8.5-10.5); Carbon Dioxide 31 mmol/L (22-29); Chloride 93 mmol/L (98-107); Globulin 4.4 g/dL (1.3-4.6); Glomerular Filtration Rate 125.4 mL/min (90-130); Glucose 82 mg/dL (65-115); Magnesium 1.9 mg/dL (1.7-2.3); Phosphorus 3.6 mg/dL (2.5-4.5); Potassium 3.5 mmol/L (3.5-5.1); Sodium 140 mmol/L (136-145); Total Bilirubin 0.4 mg/dL (0.15-1.2); Total Protein 7.1 g/dL (6.6-8.7)
[2019-12-06 06:44] LABS: Glucose Point of Care 73 mg/dL (70-110)
[2019-12-06 06:54] LABS: C Reactive Protein 95.5 mg/L (0.0-4.9)
[2019-12-06 06:56] LABS: Slide Review Slide Review Perform
[2019-12-06] MEDS: piperacillin-tazobactam 3.375 GM in sodium chloride 0.9% (plus) 50 ML IV ×2 (08:58→17:19)
[2019-12-06] MEDS: amlodipine 10 mg Tablet PO (08:59)
[2019-12-06] MEDS: enoxaparin 40 mg/0.4 mL Syringe SUBCUT (08:59)
[2019-12-06] MEDS: aspirin 81 mg EC Tablet PO (08:59)
[2019-12-06] MEDS: clopidogrel 75 mg Tablet PO (08:59)
[2019-12-06] MEDS: HYDROcodone-acetaminophen 5-325 mg Tablet 1 TAB PO ×2 (09:20→18:05)
--- NOTE | 2019-12-06 09:51 | PM.PN ---
Subjective Subjective: Interval history: This morning on evaluation patient is sitting comfortably in chair. She underwent angioplasty of left femoral lesion successfully yesterday..Patient states she is doing a lot better today morning. She denies of having any nausea, vomiting, headache, palpitations. Her pain as per her is well controlled. Medications: Reviewed: Yes Vitals/I&O/Wt Last Vital Signs Temp 98.6 F 12/06/19 07:23 Pulse 85 12/06/19 07:23 Resp 17 12/06/19 07:23 BP 148/70 12/06/19 07:23 Pulse Ox 97 12/06/19 07:23 12/05/19 12/06/19 12/06/19 22:59 06:59 14:59 Intake Total 100 / 200 300 / 500 Output Total 1900 / 1900 Balance 100 / 200 -1600 / -1400 Physical Exam Narrative: EXAM NARRATIVE: General: No acute distress, AO x3 HEENT: PERRLA, pupils bilaterally equal and reactive Chest: Normal vesicular breath sounds, no added sounds, equal good air entry bilaterally CVS: S1-S2 regular, no murmurs, no tachycardia, no gallops, no rubs Abdomen: Soft, nontender, no organomegaly, bowel sounds present Neuro: No focal deficits, no facial deformity, AO x3, power 5/5 in all limbs Extremities: Left foot surgically bandaged. No soakage no foul smell present. Left popliteal has a dry bandage. Pulses 1+ Urinary Catheter Management^: Rodgers: Cath Placed During This Visit: yes Urethral Indwelling: Yes Reason for Continuing Indwelling Catheter: Accurate Measurement of Urinary Output in Critically Ill Patients Urinary Catheter Date of Insertion: 12/01/19 Urinary Catheter Time of Insertion: 06:22 Data : 12/06/19 05:10 12/06/19 05:10 Micro: Microbiology 11/30/19 14:24 Urine Culture - Final Urine Catheterized Klebsiella pneumoniae 11/30/19 12:50 Blood Culture - Final Blood NO GROWTH AFTER 5 DAYS 11/30/19 12:45 Blood Culture - Final Blood NO GROWTH AFTER 5 DAYS 11/30/19 20:02 Gram Stain - Final Other Source Wound Culture - Preliminary Strep anginosus group 11/30/19 20:02 Gram Stain - Final Foot - Wound Tissue Culture - Preliminary Strep anginosus group Staphylococcus aureus 11/30/19 12:35 Gram Stain - Final Other Source Wound Culture - Preliminary Staphylococcus aureus Strep anginosus group 11/30/19 20:02 Anaerobic Culture - Preliminary Foot - Drainage A&P Assessment and plan (1) Sepsis: Status: Acute Code(s): A41.9 - Sepsis, unspecified organism (2) Necrotizing soft tissue infection: Status: Acute Code(s): M79.89 - Other specified soft tissue disorders (3) DKA (diabetic ketoacidoses): Status: Acute Code(s): E11.10 - Type 2 diabetes mellitus with ketoacidosis without coma (4) Lower limb ischemia: Status: Acute Code(s): I99.8 - Other disorder of circulatory system (5) Tobacco abuse: Status: Acute Code(s): Z72.0 - Tobacco use (6) Dyslipidemia: Status: Acute Code(s): E78.5 - Hyperlipidemia, unspecified (7) Diabetes mellitus: Status: Acute Qualifiers: Diabetes mellitus complication status: with circulatory complication Diabetes mellitus fdc insulin use: 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 Sepsis resolved, off Levophed, normotensive, receiving IV fluids Necrotizing fasciitis of the foot Wound cultures growing staph aureus along with strep species. And Ucx growing Klebsiella. Patient is post vancomycin Primaxin with day 6 of antibiotics already. On review of wound cultures and urine culture from this admission we will switch patient to Zosyn to cover both for MSSA staph, strep and Klebsiella growing in wound cultures and urine cultures respectively. Given the extensive open wound patient would need a wound VAC as per surgical team as an outpatient. Would most likely need IV antibiotics for at least 2 weeks after which can be transitioned over to oral Augmentin and levofloxacin for further 4 weeks and can be changed as per the clinical course. Status post repeat I&D December 02, 2019. As per Surgical team will need wound vac as an outpatient. Poor wound healing contributed by DM and peripheral arterial disease. For pain continue Cobb 5/325 1 tab every 6 hours as needed and Dilaudid 0.5 every 4 hours for breakthrough. Severe PAD: S/p angioplasty of Left Superficial femoral, on the right she has occluded external iliac and common femoral artery. C/w ASA, Plavix and statin as already started Diabetic ketoacidosis: Resolved. C/w ISS at aggressive model with Lantus 10 U QHS. Continue on carbohydrate consistent diet. HbA1c at 12, states that she has a history of type 2 diabetes mellitus, however she does not have any insurance, and was not able to afford doctor visits or medications HTN: C/w Amlo at current dose. BP well controlled. Out of bed to chair. Can plan for d/c tomorrow . Will confirm with Sx team. DVT ppx: Lovenox code status: full code Doing well on the general medical floors today, hopefully discharge in the next 24 hours Case workers have worked on clarissa approval for her wound VAC, diabetic supplies, medications, needs extensive outpatient follow-ups Attestations Medical Necessity Statement*: Nec fascitis and Severe PAD Time Spent in Patient Care: Greater than 35 minutes Coding Level of Care Code Acute Clerical Support for [facility] Fwd Diagnoses Sepsis A41.9 Necrotizing soft tissue infection M79.89 DKA (diabetic ketoacidoses) E11.10 Lower limb ischemia I99.8 Tobacco abuse Z72.0 Dyslipidemia E78.5 Diabetes mellitus E11.9 Diabetes mellitus complication status: with circulatory complication Diabetes 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
--- NOTE | 2019-12-06 10:05 | P.PN_ITS ---
Subjective Subjective: Interval history: Rox underwent angioplasty of the left superficial femoral artery last evening from the popliteal artery. This was successful and at the end of the procedure had excellent flow. The sheath was pulled overnight. She is still having a mild amount of oozing from the site. She has no pain and no hematoma in the area. Her leg is warm. Medications: Reviewed: Yes Vitals/I&O/Wt Last Vital Signs Temp 98.6 F 12/06/19 07:23 Pulse 85 12/06/19 07:23 Resp 17 12/06/19 07:23 BP 148/70 12/06/19 07:23 Pulse Ox 97 12/06/19 07:23 12/05/19 12/06/19 12/06/19 22:59 06:59 14:59 Intake Total 100 / 200 300 / 500 Output Total 1900 / 1900 Balance 100 / 200 -1600 / -1400 Physical Exam Narrative: EXAM NARRATIVE: GENERAL: In general she looks and feels well today HEENT: Exam within normal limits. NECK: Supple without jugular vein distention. The carotid upstroke is normal without bruits. BACK: Exam normal. LUNGS: Clear. HEART: Regular rate and rhythm. ABDOMEN: Benign without organomegaly or tenderness. EXTREMITIES: No edema. The popliteal site on the left is oozing slightly but there is no hematoma or other vascular anomaly. NEUROLOGIC: Exam normal. SKIN: Unremarkable. Urinary Catheter Management^: Rodgers: Cath Placed During This Visit: yes Urethral Indwelling: Yes Reason for Continuing Indwelling Catheter: Accurate Measurement of Urinary Output in Critically Ill Patients Urinary Catheter Date of Insertion: 12/01/19 Urinary Catheter Time of Insertion: 06:22 Data : 12/06/19 05:10 12/06/19 05:10 Micro: Microbiology 11/30/19 14:24 Urine Culture - Final Urine Catheterized Klebsiella pneumoniae 11/30/19 12:50 Blood Culture - Final Blood NO GROWTH AFTER 5 DAYS 11/30/19 12:45 Blood Culture - Final Blood NO GROWTH AFTER 5 DAYS 11/30/19 20:02 Gram Stain - Final Other Source Wound Culture - Preliminary Strep anginosus group 11/30/19 20:02 Gram Stain - Final Foot - Wound Tissue Culture - Preliminary Strep anginosus group Staphylococcus aureus 11/30/19 12:35 Gram Stain - Final Other Source Wound Culture - Preliminary Staphylococcus aureus Strep anginosus group 11/30/19 20:02 Anaerobic Culture - Preliminary Foot - Drainage A&P Assessment and plan (1) Non-pressure chronic ulcer of other part of left foot with necrosis of muscle: Status: Acute Code(s): L97.523 - Non-pressure chronic ulcer of other part of left foot with necrosis of muscle (2) Anemia: Status: Acute Code(s): D64.9 - Anemia, unspecified (3) Sepsis: Status: Acute Code(s): A41.9 - Sepsis, unspecified organism (4) DKA (diabetic ketoacidoses): Status: Acute Code(s): E11.10 - Type 2 diabetes mellitus with ketoacidosis without coma (5) Necrotizing soft tissue infection: Status: Acute Code(s): M79.89 - Other specified soft tissue disorders (6) Lower limb ischemia: Status: Acute Code(s): I99.8 - Other disorder of circulatory system (7) Chronic kidney disease (CKD) stage G1/A1, glomerular filtration rate (GFR) equal to or greater than 90 mL/min/1.73 square meter and albuminuria creatinine ratio less than 30 mg/g: Status: Acute Code(s): N18.1 - Chronic kidney disease, stage 1 (8) Coagulopathy: Status: Acute Code(s): D68.9 - Coagulation defect, unspecified (9) Peripheral arterial disease: Status: Acute Code(s): I73.9 - Peripheral vascular disease, unspecified (10) Tobacco abuse: Status: Acute Code(s): Z72.0 - Tobacco use (11) Dyslipidemia: Status: Acute Code(s): E78.5 - Hyperlipidemia, unspecified (12) Diabetes mellitus: Status: Acute Qualifiers: Diabetes mellitus complication status: with circulatory complication Diabetes mellitus terminal operations 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 She should be able to begin moving. We will have to keep an eye on the popliteal entry site for bleeding. Since we will be moving her around I am going to stop the Lovenox. Her other medications will continue as currently prescribed. She will need the generic Plavix for a couple months. We will continue the aspirin. Hopefully she will be able to stay off the cigarettes. From my standpoint the wound VAC can be placed at any time. This can occur whenever general surgery and/or podiatry deems necessary. We will deal with the vasculature of the right leg at a later time. There is no critical limb ischemia to the right leg at this time. Attestations Medical Necessity Statement*: Not applicable Coding Level of Care Code Established Pt Acute Demolition Engineer for [facility] Patient Type Established History Detailed Exam Detailed Medical Decision Making Moderate Complexity Diagnoses Non-pressure chronic ulcer of other part of left foot with necrosis of muscle L97.523 Anemia D64.9 Sepsis A41.9 DKA (diabetic ketoacidoses) E11.10 Necrotizing soft tissue infection M79.89 Lower limb ischemia I99.8 Chronic kidney disease (CKD) stage G1/A1, glomerular filtration rate (GFR) equal to or greater than 90 mL/min/1.73 square meter and albuminuria creatinine ratio less than 30 mg/g N18.1 Coagulopathy D68.9 Peripheral arterial disease I73.9 Tobacco abuse Z72.0 Dyslipidemia E78.5 Diabetes mellitus E11.9 Diabetes mellitus complication status: with circulatory complication Diabetes mellitus residential insulin use: unspecified residential insulin use status Diabetes mellitus type: type 2
[2019-12-06 11:41] LABS: Glucose Point of Care 209 mg/dL (70-110)
[2019-12-06] MEDS: sodium chloride 0.9% 1,000 ML 50 ML IV (15:24)
--- NOTE | 2019-12-06 15:59 | PM.PN ---
Subjective Subjective: Interval history: I feel better Patient undergone an angiogram and angioplasty of the left lower extremity yesterday by cardiac services Vitals/I&O/Wt Last Vital Signs Temp 98.0 F 12/06/19 11:20 Pulse 90 12/06/19 11:20 Resp 25 H 12/06/19 11:20 BP 161/74 12/06/19 11:20 Pulse Ox 95 12/06/19 11:20 12/06/19 12/06/19 12/06/19 06:59 14:59 22:59 Intake Total 300 / 500 Output Total 1900 / 1900 Balance -1600 / -1400 Physical Exam Narrative: EXAM NARRATIVE: Patient is conscious alert oriented X3 BMI 20 Left foot examination shows the wound with exposed tendons and muscles but no bone exposure and shows scattered ischemic changes but no pus, residual necrotic tissues towards the left calcaneal. Ischemic changes appreciated on the dorsal aspect of the skin flap yet stable Wet-to-dry dressing change was done by me bedside Urinary Catheter Management^: Rodgers: Cath Placed During This Visit: yes Urethral Indwelling: Yes Reason for Continuing Indwelling Catheter: Accurate Measurement of Urinary Output in Critically Ill Patients Urinary Catheter Date of Insertion: 12/01/19 Urinary Catheter Time of Insertion: 06:22 Data : 12/06/19 05:10 12/06/19 05:10 Micro: Microbiology 11/30/19 20:02 Gram Stain - Final Other Source Wound Culture - Preliminary Strep anginosus group 11/30/19 12:35 Gram Stain - Final Other Source Wound Culture - Preliminary Staphylococcus aureus Strep anginosus group 11/30/19 20:02 Gram Stain - Final Foot - Wound Tissue Culture - Final Strep anginosus group Staphylococcus aureus 11/30/19 20:02 Anaerobic Culture - Preliminary Foot - Drainage 11/30/19 14:24 Urine Culture - Final Urine Catheterized Klebsiella pneumoniae 11/30/19 12:50 Blood Culture - Final Blood NO GROWTH AFTER 5 DAYS 11/30/19 12:45 Blood Culture - Final Blood NO GROWTH AFTER 5 DAYS A&P Assessment and plan (1) Necrotizing soft tissue infection: Continue wet-to-dry daily using 4 x 4 limited to the wound bed followed by ABDs Kerlix and Ellis wrap. I do not see at this point that the wound VAC would be needed to be applied I will hold off till better wound bed granulation tissue is being seen and likely the wound VAC will be applied at the wound care center. Optimize nutrition Continue antimicrobial therapy per hospitalist recommendation Nonweightbearing of the left lower extremity Assurance and education All questions have been answered and all concerns have been addressed to patient's satisfaction. Status: Acute Code(s): M79.89 - Other specified soft tissue disorders Attestations Medical Necessity Statement*: Medical necessity care is expected to cross 2 midnights Time Spent in Patient Care: 16 - 35 minutes (>than 50% of time spent in counselling and/or direct pt care on unit). Coding Level of Care Code Acute Chief Engineering Division for [facility] Diagnoses Necrotizing soft tissue infection M79.89
[2019-12-06 17:21] LABS: Glucose Point of Care 132 mg/dL (70-110)
[2019-12-06 21:51] LABS: Glucose Point of Care 223 mg/dL (70-110)
[2019-12-06] MEDS: atorvastatin 40 mg Tablet PO (22:02)
[2019-12-06] MEDS: insulin glargine 100 units/1 mL 10 UNIT SUBCUT (22:02)
--- NOTE | 2019-12-06 22:37 | PC.NURSE ---
patients sheath site is still ooozing blood, changed gauze and replaced with 2 - 4x4 pieces.
[2019-12-07] VITALS (25 sets, daily range): BP systolic 134–166; BP diastolic 64–76; PULSE 76–92; RESP 13–25; TEMP 36.6–36.8; O2SAT 93–96
[2019-12-07] MEDS: piperacillin-tazobactam 3.375 GM in sodium chloride 0.9% (plus) 50 ML IV ×2 (01:58→09:03)
[2019-12-07 04:11] LABS: Basophils # 0.2 10^3/uL (0.0-0.1); Basophils % 0.9 %; Eosinophils # 0.1 10^3/uL (0.0-0.8); Eosinophils % 0.5 %; Hematocrit 35.2 % (37.0-47.0); Hemoglobin 11.4 g/dL (11.5-15.3); Lymphocytes # 3.1 10^3/uL (0.8-4.8); Lymphocytes % 18.2 %; Mean Corpuscular HGB Conc 32.4 g/dL (30.0-36.0); Mean Corpuscular Hemoglobin 30.8 pg (28.0-34.0); Mean Corpuscular Volume 95.1 fL (81-99); Mean Platelet Volume 10.1 fL (7.4-10.4); Monocytes # 1.3 10^3/uL (0.2-0.9); Monocytes % 7.5 %; Neutrophils # 10.8 10^3/uL (1.8-7.7); Neutrophils % 62.7 %; Nucleated Red Blood Cells % 0 %; Platelet Count 596 10^3/cmm (130-400); Red Cell Distribution Width 14.4 % (12.1-15.1); White Blood Count 17.2 10^3/uL (4.0-10.0)
[2019-12-07 04:17] LABS: Alanine Aminotransferase 12 U/L (0-33); Albumin Level 2.4 g/dL (3.5-5.2); Alkaline Phosphatase 210 IU/L (35-105); Anion Gap 15.2 (5-19); Aspartate Amino Transferase 23 U/L (0-32); Blood Urea Nitrogen 6 mg/dL (8-23); Calcium 9.3 mg/dL (8.5-10.5); Carbon Dioxide 31 mmol/L (22-29); Chloride 93 mmol/L (98-107); Globulin 4.7 g/dL (1.3-4.6); Glomerular Filtration Rate 85.1 mL/min (90-130); Glucose 92 mg/dL (65-115); Potassium 3.2 mmol/L (3.5-5.1); Sodium 136 mmol/L (136-145); Total Bilirubin 0.4 mg/dL (0.15-1.2); Total Protein 7.1 g/dL (6.6-8.7)
[2019-12-07 04:48] LABS: Slide Review Slide Review Perform
[2019-12-07 06:42] LABS: Glucose Point of Care 89 mg/dL (70-110)
--- NOTE | 2019-12-07 08:19 | P.PN_ITS ---
Subjective Subjective: Interval history: Rox has continued to improve. Yesterday she had some oozing from the popliteal entry site. I stopped the Lovenox. There is no hematoma in the area. Today the bleeding has completely stopped. She has been up and around. She is not putting any weight on the left foot. The foot is warm and appears to be well perfused. Medications: Reviewed: Yes Vitals/I&O/Wt Last Vital Signs Temp 98.3 F 12/07/19 04:49 Pulse 82 12/07/19 07:41 Resp 24 H 12/07/19 07:41 BP 149/64 12/07/19 07:41 Pulse Ox 95 12/07/19 07:41 12/06/19 12/07/19 12/07/19 22:59 06:59 14:59 Intake Total 650 / 700 100 / 800 Output Total 1050 / 1050 Balance -400 / -350 100 / -250 Physical Exam Narrative: EXAM NARRATIVE: GENERAL: In general she looks and feels well HEENT: Exam within normal limits. NECK: Supple without jugular vein distention. The carotid upstroke is normal without bruits. BACK: Exam normal. LUNGS: Clear. HEART: Regular rate and rhythm. ABDOMEN: Benign without organomegaly or tenderness. EXTREMITIES: No edema. The left foot is warm and well-perfused. Left popliteal entry site is flat, dry without hematoma and is no longer bleeding. NEUROLOGIC: Exam normal. SKIN: Unremarkable. Urinary Catheter Management^: Rodgers: Cath Placed During This Visit: yes, but has since been removed by the nurse Urethral Indwelling: Yes Reason for Continuing Indwelling Catheter: Decision to DC Catheter Urinary Catheter Date of Insertion: 12/01/19 Urinary Catheter Time of Insertion: 06:22 Date Urinary Catheter Removed: 12/06/19 Time Urinary Catheter Discontinued: 17:35 Data : 12/07/19 03:30 12/07/19 03:30 Micro: Microbiology 11/30/19 20:02 Anaerobic Culture - Preliminary Foot - Drainage 11/30/19 20:02 Gram Stain - Final Other Source Wound Culture - Preliminary Strep anginosus group 11/30/19 12:35 Gram Stain - Final Other Source Wound Culture - Preliminary Staphylococcus aureus Strep anginosus group 11/30/19 20:02 Gram Stain - Final Foot - Wound Tissue Culture - Final Strep anginosus group Staphylococcus aureus A&P Assessment and plan (1) Non-pressure chronic ulcer of other part of left foot with necrosis of muscle: Status: Acute Code(s): L97.523 - Non-pressure chronic ulcer of other part of left foot with necrosis of muscle (2) Sepsis: Status: Acute Code(s): A41.9 - Sepsis, unspecified organism (3) DKA (diabetic ketoacidoses): Status: Acute Code(s): E11.10 - Type 2 diabetes mellitus with ketoacidosis without coma (4) Necrotizing soft tissue infection: Status: Acute Code(s): M79.89 - Other specified soft tissue disorders (5) Lower limb ischemia: Status: Acute Code(s): I99.8 - Other disorder of circulatory system (6) Chronic kidney disease (CKD) stage G1/A1, glomerular filtration rate (GFR) equal to or greater than 90 mL/min/1.73 square meter and albuminuria creatinine ratio less than 30 mg/g: Status: Acute Code(s): N18.1 - Chronic kidney disease, stage 1 (7) Hyponatremia: Status: Acute Code(s): E87.1 - Hypo-osmolality and hyponatremia (8) Infectious fasciitis: Status: Acute Code(s): M72.8 - Other fibroblastic disorders (9) Peripheral arterial disease: Status: Acute Code(s): I73.9 - Peripheral vascular disease, unspecified (10) Tobacco abuse: Status: Acute Code(s): Z72.0 - Tobacco use (11) Dyslipidemia: Status: Acute Code(s): E78.5 - Hyperlipidemia, unspecified (12) Diabetes mellitus: Status: Acute Qualifiers: Diabetes mellitus complication status: with circulatory complication Diabetes mellitus fpc insulin use: unspecified superintendent container terminal insulin use status Diabetes mellitus type: type 2 Code(s): E11.9 - Type 2 diabetes mellitus without complications Additional A&P Information The patient is doing well from a vascular standpoint. The leg can now be moved this much as desired. She may bear weight from my standpoint and may walk and bend the leg at the knee. The leg is now revascularized. A wound VAC can be placed at any time from my standpoint. Any type of rehabilitation can occur. We will deal with the vasculature of the right leg at a later date. She will need aspirin and Plavix for the foreseeable future. The Plavix should be in place for about 2 months and the aspirin indefinitely. Attestations Medical Necessity Statement*: Not applicable Coding Level of Care Code Established Pt Acute Postulant for [facility] Fwd Patient Type Established History Detailed Exam Detailed Medical Decision Making Moderate Complexity Diagnoses Non-pressure chronic ulcer of other part of left foot with necrosis of muscle L97.523 Sepsis A41.9 DKA (diabetic ketoacidoses) E11.10 Necrotizing soft tissue infection M79.89 Lower limb ischemia I99.8 Chronic kidney disease (CKD) stage G1/A1, glomerular filtration rate (GFR) equal to or greater than 90 mL/min/1.73 square meter and albuminuria creatinine ratio less than 30 mg/g N18.1 Hyponatremia E87.1 Infectious fasciitis M72.8 Peripheral arterial disease I73.9 Tobacco abuse Z72.0 Dyslipidemia E78.5 Diabetes mellitus E11.9 Diabetes mellitus complication status: with circulatory complication Diabetes mellitus superintendent container terminal insulin use: unspecified superintendent container terminal insulin use status Diabetes mellitus type: type 2
[2019-12-07] MEDS: aspirin 81 mg EC Tablet PO (09:02)
[2019-12-07] MEDS: clopidogrel 75 mg Tablet PO (09:02)
[2019-12-07] MEDS: amlodipine 10 mg Tablet PO (09:02)
--- NOTE | 2019-12-07 09:31 | PM.PN ---
Subjective Subjective: Interval history: No acute event overnight. This morning on evaluation patient is ambulating on herself without putting any weight on her left foot. She states her pain is well controlled. She denies of having any nausea, vomiting, headache, cough, abdominal pain. Labs noted. Vitals have been stable. She remains afebrile. Medications: Reviewed: Yes Vitals/I&O/Wt Last Vital Signs Temp 98.3 F 12/07/19 04:49 Pulse 82 12/07/19 07:41 Resp 24 H 12/07/19 07:41 BP 149/64 12/07/19 07:41 Pulse Ox 95 12/07/19 07:41 12/06/19 12/07/19 12/07/19 22:59 06:59 14:59 Intake Total 650 / 700 150 / 850 360 / 360 Output Total 1050 / 1050 Balance -400 / -350 150 / -200 360 / 360 Physical Exam Narrative: EXAM NARRATIVE: General: No acute distress, AO x3 HEENT: PERRLA, pupils bilaterally equal and reactive Chest: Normal vesicular breath sounds, no added sounds, equal good air entry bilaterally CVS: S1-S2 regular, no murmurs, no tachycardia, no gallops, no rubs Abdomen: Soft, nontender, no organomegaly, bowel sounds present Neuro: No focal deficits, no facial deformity, AO x3, power 5/5 in all limbs Extremities: Left foot surgically bandaged. No soakage no foul smell present. Left popliteal has a dry bandage. Left foot warm to touch. Right foot colder but pulses dopplerable. Urinary Catheter Management^: Rodgers: Cath Placed During This Visit: yes, but has since been removed by the nurse Urethral Indwelling: Yes Reason for Continuing Indwelling Catheter: Decision to DC Catheter Urinary Catheter Date of Insertion: 12/01/19 Urinary Catheter Time of Insertion: 06:22 Date Urinary Catheter Removed: 12/06/19 Time Urinary Catheter Discontinued: 17:35 Data : 12/07/19 03:30 12/07/19 03:30 Micro: Microbiology 11/30/19 20:02 Anaerobic Culture - Preliminary Foot - Drainage 11/30/19 20:02 Gram Stain - Final Other Source Wound Culture - Preliminary Strep anginosus group 11/30/19 12:35 Gram Stain - Final Other Source Wound Culture - Preliminary Staphylococcus aureus Strep anginosus group 11/30/19 20:02 Gram Stain - Final Foot - Wound Tissue Culture - Final Strep anginosus group Staphylococcus aureus A&P Assessment and plan (1) Sepsis: Status: Acute Code(s): A41.9 - Sepsis, unspecified organism (2) Necrotizing soft tissue infection: Status: Acute Code(s): M79.89 - Other specified soft tissue disorders (3) DKA (diabetic ketoacidoses): Status: Acute Code(s): E11.10 - Type 2 diabetes mellitus with ketoacidosis without coma (4) Lower limb ischemia: Status: Acute Code(s): I99.8 - Other disorder of circulatory system (5) Tobacco abuse: Status: Acute Code(s): Z72.0 - Tobacco use (6) Dyslipidemia: Status: Acute Code(s): E78.5 - Hyperlipidemia, unspecified (7) Diabetes mellitus: Status: Acute Qualifiers: Diabetes mellitus complication status: with circulatory complication Diabetes mellitus electron gun assembler insulin use: unspecified electron gun assembler insulin use status Diabetes mellitus type: type 2 Code(s): E11.9 - Type 2 diabetes mellitus without complications Additional A&P Information Sepsis: Sepsis resolved. Due to necrotizing fasciitis and UTI. Off Levophed, normotensive, receiving IV fluids Necrotizing fasciitis of the foot Wound cultures growing staph aureus along with strep species. And Ucx growing Klebsiella. Patient is post vancomycin, Primaxin with day 6 of antibiotics already. On review of wound cultures and urine culture from this admission we will switch patient to Zosyn to cover both for MSSA staph, strep and Klebsiella growing in wound cultures and urine cultures respectively. Given the social issue, with patient not having insurance patient would need to come to infusion center daily for IV antibiotics so will convert the IV antibiotics to something which can be done less frequently. We will switch her to ceftriaxone 2 g IV every 12. We will monitor her for 24 more hours. Leukocytosis most likely secondary to inflammation from post angioplasty status. Patient remains hemodynamically stable and afebrile. Given the extensive open wound patient would need a wound VAC as per surgical team as an outpatient. Would most likely need IV antibiotics for at least 2 weeks after which can be transitioned over to oral Augmentin and levofloxacin for further 4 weeks and can be changed as per the clinical course. Status post repeat I&D December 02, 2019. As per Surgical team will need wound vac as an outpatient. Poor wound healing contributed by DM and peripheral arterial disease. For pain continue [place] 5/325 1 tab every 6 hours as needed and Dilaudid 0.5 every 4 hours for breakthrough. Severe PAD: S/p angioplasty of Left Superficial femoral on December 05, on the right she has occluded external iliac and common femoral artery. C/w ASA, Plavix and statin as already started. Plavix for 2 months, aspirin indefinitely. Right side to be attempted as an outpatient. Diabetic ketoacidosis: Resolved. Patient has required 18 units of insulin sliding scale yesterday along with 10 units of Lantus overnight. Blood sugars still going over 200 but well controlled. We will change Lantus to 8 units twice daily. Continue on carbohydrate consistent diet. HbA1c at 12, states that she has a history of type 2 diabetes mellitus, however she does not have any insurance, and was not able to afford doctor visits or medications HTN: C/w Amlo at current dose. BP well controlled. Out of bed to chair. Plan to DC tomorrow with advised to follow-up as an outpatient to GI lab for IV antibiotics daily, wound changes DVT ppx: Lovenox code status: full code Doing well on the general medical floors today, hopefully discharge in the next 24 hours Case workers have worked on clarissa approval for her wound VAC, diabetic supplies, medications, needs extensive outpatient follow-ups Attestations Medical Necessity Statement*: . Controlled hospitalization for necrotizing fasciitis and peripheral vascular disease Time Spent in Patient Care: 16 - 35 minutes Coding Level of Care Code Acute Pattern Chart Writer for [facility] Fwd Diagnoses Sepsis A41.9 Necrotizing soft tissue infection M79.89 DKA (diabetic ketoacidoses) E11.10 Lower limb ischemia I99.8 Tobacco abuse Z72.0 Dyslipidemia E78.5 Diabetes mellitus E11.9 Diabetes mellitus complication status: with circulatory complication Diabetes mellitus electron gun assembler insulin use: unspecified electron gun assembler insulin use status Diabetes mellitus type: type 2
[2019-12-07] MEDS: insulin glargine 100 units/1 mL 8 UNIT SUBCUT ×2 (10:19→18:00)
--- NOTE | 2019-12-07 11:03 | XR_ITS ---
WS: [id number] XR chest 1V portable [id number] REASON FOR EXAM: picc line placement FINDINGS: PICC line placement extends from the right side the tip is seen in the mid to lower superio r vena cava in good position. The heart and mediastinum were normal. There is no pneumothorax, pleural reaction, or pneumonia. XR/XR chest 1V portable [id number] IMPRESSION: PICC line satisfactory position extends from the right side.
[2019-12-07 12:00] LABS: Glucose Point of Care 207 mg/dL (70-110)
[2019-12-07] MEDS: cefTRIAXone 2,000 MG in sodium chloride 0.9% (plus) 50 ML 100 MG IV ×2 (14:35→21:16)
[2019-12-07] MEDS: HYDROcodone-acetaminophen 5-325 mg Tablet 1 TAB PO (16:37)
--- NOTE | 2019-12-07 16:42 | PC.NURSE ---
i mistakenly documented dressing change of right foot. it was not the righr foot but the left foot.
--- NOTE | 2019-12-07 16:49 | PC.NURSE ---
PIID IN LEFT WRIST IS PATIENT AND IN TACT. THE DOCUMENTATION THAT IT WAS D/C'D WAS NOT THE CORRECT PATIENT.
[2019-12-07 17:32] LABS: Glucose Point of Care 256 mg/dL (70-110)
[2019-12-07 21:01] LABS: Glucose Point of Care 207 mg/dL (70-110)
[2019-12-07] MEDS: atorvastatin 40 mg Tablet PO (21:16)
[2019-12-08] VITALS: BP 143/70; PULSE 83; RESP 13; TEMP 36.8
[2019-12-08] MEDS: sodium chloride 0.9% 1,000 ML 50 ML IV (02:04)
[2019-12-08 04:00] VITALS: BP 113/73; PULSE 105; RESP 26; TEMP 36.6; O2SAT 99
[2019-12-08 04:45] LABS: Basophils # 0.1 10^3/uL (0.0-0.1); Basophils % 0.7 %; Eosinophils # 0.1 10^3/uL (0.0-0.8); Eosinophils % 0.5 %; Hematocrit 33.9 % (37.0-47.0); Hemoglobin 10.8 g/dL (11.5-15.3); Lymphocytes # 3.8 10^3/uL (0.8-4.8); Lymphocytes % 21.6 %; Mean Corpuscular HGB Conc 31.9 g/dL (30.0-36.0); Mean Corpuscular Hemoglobin 29.5 pg (28.0-34.0); Mean Corpuscular Volume 92.6 fL (81-99); Mean Platelet Volume 10.2 fL (7.4-10.4); Monocytes % 5.9 %; Neutrophils # 10.9 10^3/uL (1.8-7.7); Neutrophils % 62.5 %; Nucleated Red Blood Cells % 0 %; Platelet Count 645 10^3/cmm (130-400); Red Blood Count 3.66 10^6/uL (4.1-5.3); Red Cell Distribution Width 14.5 % (12.1-15.1); White Blood Count 17.5 10^3/uL (4.0-10.0)
[2019-12-08 05:04] LABS: Alanine Aminotransferase 12 U/L (0-33); Albumin Level 2.9 g/dL (3.5-5.2); Alkaline Phosphatase 188 IU/L (35-105); Anion Gap 17.2 (5-19); Aspartate Amino Transferase 20 U/L (0-32); Blood Urea Nitrogen 7 mg/dL (8-23); Calcium 9.6 mg/dL (8.5-10.5); Carbon Dioxide 30 mmol/L (22-29); Chloride 92 mmol/L (98-107); Globulin 4.8 g/dL (1.3-4.6); Glomerular Filtration Rate 85.1 mL/min (90-130); Glucose 144 mg/dL (65-115); Potassium 4.2 mmol/L (3.5-5.1); Sodium 135 mmol/L (136-145); Total Bilirubin 0.3 mg/dL (0.15-1.2); Total Protein 7.7 g/dL (6.6-8.7)
[2019-12-08 05:30] LABS: Slide Review Slide Review Perform
[2019-12-08 06:21] LABS: Glucose Point of Care 143 mg/dL (70-110)
--- NOTE | 2019-12-08 06:36 | PC.NURSE ---
patients picc line dressing needed to be changed, the gauze was saturated with blood and a clot, the statlock piece as well had blood clots under the clips that secure it. dressing changed this night 12/08/19. covered with 4x4 drainage sponge and covered with large tegaderm dressing and coban keeping the lumens from getting caught when dangling.
[2019-12-08 07:35] VITALS: BP 154/68; PULSE 81; RESP 21; TEMP 36.8; O2SAT 95
[2019-12-08] MEDS: aspirin 81 mg EC Tablet PO (09:06)
[2019-12-08] MEDS: HYDROcodone-acetaminophen 5-325 mg Tablet 1 TAB PO ×2 (09:06→17:54)
[2019-12-08] MEDS: amlodipine 10 mg Tablet PO (09:06)
[2019-12-08] MEDS: insulin glargine 100 units/1 mL 8 UNIT SUBCUT ×2 (09:06→18:08)
[2019-12-08] MEDS: clopidogrel 75 mg Tablet PO (09:06)
[2019-12-08] MEDS: cefTRIAXone 2,000 MG in sodium chloride 0.9% (plus) 50 ML 100 MG IV (09:07)
--- NOTE | 2019-12-08 10:45 | P.PN_ITS ---
Subjective Subjective: Interval history: Patient denies any significant pain, she is ready to go home today Vitals/I&O/Wt Last Vital Signs Temp 98.2 F 12/08/19 07:35 Pulse 81 12/08/19 07:35 Resp 21 H 12/08/19 07:35 BP 154/68 12/08/19 07:35 Pulse Ox 95 12/08/19 07:35 12/07/19 12/08/19 12/08/19 22:59 06:59 14:59 Intake Total 400 / 2100 220 / 2100 240 / 240 Output Total 50 / 950 900 / 950 Balance 350 / 1150 -680 / 1150 240 / 240 Physical Exam Narrative: EXAM NARRATIVE: Left leg: Good granulation tissue, no surrounding erythema or purulent drainage Urinary Catheter Management^: Rodgers: Cath Placed During This Visit: yes, but has since been removed by the nurse Urethral Indwelling: Yes Reason for Continuing Indwelling Catheter: Decision to DC Catheter Urinary Catheter Date of Insertion: 12/01/19 Urinary Catheter Time of Insertion: 06:22 Date Urinary Catheter Removed: 12/06/19 Time Urinary Catheter Discontinued: 20:00 Data : 12/08/19 04:08 12/08/19 04:08 Micro: Microbiology 11/30/19 20:02 Anaerobic Culture - Preliminary Foot - Drainage Prevotella bivia A&P Assessment and plan (1) Non-pressure chronic ulcer of other part of left foot with necrosis of muscle: DC home today on wet-to-dry dressing change Follow-up in wound care Status: Acute Code(s): L97.523 - Non-pressure chronic ulcer of other part of left foot with necrosis of muscle Attestations Medical Necessity Statement*: Left foot necrotic wound Coding Level of Care Code Acute Land 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
[2019-12-08 11:16] VITALS: BP 102/49; PULSE 81; RESP 21; TEMP 37.1; O2SAT 94
[2019-12-08 11:42] LABS: Glucose Point of Care 267 mg/dL (70-110)
--- NOTE | 2019-12-08 15:23 | PM.DCS ---
Discharge Providers Date of Admission: 11/30/19 14:39 Date of Discharge: December 08, 2019 Attending Provider at Admission: Keri Brothers MD Attending Provider at Discharge: Enrrique Camargo MD Consults: Cardiology: Dr. Hagen Neurosurgery: Dr. James Podiatry: Dr. Odom Diagnoses at Discharge Discharge Diagnosis (1) Non-pressure chronic ulcer of other part of left foot with necrosis of muscle: Status: Acute Reason for Visit Reason for Visit: Reason For Visit: Sepsis Hospital Course Discharge Summary: Lucy Ramos is a 59 year old female who endorses no significant past comorbidities except self diagnosed neuropathy who presented to the ER on November 30 complaining of worsening of her left foot. Per patient she suffered a traumatic injury to her foot when she stepped on a splinter with a penetrating injury in June 2019. She noticed an ulceration over the plantar aspect of the heel of her foot since then. She was able to remove the splinter herself and was able to get the entire length of it out. Since June 18 now her foot has been gradually increasing in size, she has noticed some warmth and swelling. She is able to walk on it however with some limping and pain. She endorses a history of neuropathy, though this is self diagnosed. States that she has been experiencing [id number]-[id number] sensation and more recently reduced sensation over bilateral feet t so believes that she may not have been able to feel the pain from this injury. Over the past 24 hours she has noted more worsening and some color changes from red pink to purple with formation of blebs. Over the past week has also been experiencing chills and sweats, but no fever. Poluria+, denies weight loss. Labs in the ER notable for white blood cell count of 32.4, with left shift to 29.6 neutrophilia, glucose of 453, anion gap of 26, positive serum ketones, CRP greater than 500. CT shows extensive subcutaneous air throughout the soft tissues of the foot and ankle consistent with necrotizing fasciitis. There is soft tissue ulceration with apical abscess along the tract of the posterior calcaneus. The soft tissue abscess measures 7 x 8 mm with extensive phlegmonous changes. Lower extremity duplex has shown total occlusion of the right common femoral artery with reconstitution at the level of the proximal superficial femoral artery. Abnormal resting MARCOS is noted on the left side consistent with moderate peripheral arterial disease possibly multisegmental. Patient on admission was in diabetic ketoacidosis due to newly diagnosed type 2 diabetes mellitus for which she started on IV fluids and insulin drip. She was treated with broad-spectrum antibiotics and clindamycin for necrotizing fasciitis. Surgery was consulted and she was taken to the OR for debridement of the wound twice with last debridement with I&D done on December 02. Patient had aggressive daily wound dressing changes at bedside. Patient underwent peripheral angiography due to abnormal MARCOS and underwent angioplasty of left superior femoral artery on December 05 also found to have occluded external iliac and common femoral on the right side for which she would need angioplasty as an outpatient in few weeks. Patient's diabetes was managed with Lantus 8 units twice daily and an aggressive insulin sliding scale. Patient's antibiotics were de-escalated as per the wound cultures. Patient's urine culture was growing Klebsiella while her wound cultures are growing MSSA staph. Antibiotics were de-escalated to ceftriaxone 2 g daily to which both Klebsiella and MSSA staph is susceptible. Plan is to continue IV antibiotics for next 2 weeks which patient will be getting as infusion and GI Lab where she will be getting daily dressing change as well. Plan from general surgery is to apply a wound VAC as an outpatient next week. Wound VAC has been provided to the patient. All the oral medications and insulin have been provided to the patient as well through inpatient pharmacy and [address] [facility] pharmacy at [facility]. Patient did not have any insurance so financial assistance was provided to the patient. Patient was seen by physical therapy and she worked well with the physical therapy. Patient's left foot was placed in a boot with physical therapy and she is to put minimal weight on the foot as per surgical recommendations. Plan is to continue IV antibiotics for 2 weeks while daily dressing changes would be done as well at the GI Lab. Most likely a wound VAC will be placed with general surgery as an outpatient. Patient would need further antibiotics for 4 more weeks after completion of IV antibiotics for 2 weeks. As per the culture results from the wound Augmentin would be a good choice along with levofloxacin. Physical Exam Narrative: EXAM NARRATIVE: General: No acute distress, AO x3 HEENT: PERRLA, pupils bilaterally equal and reactive Chest: Normal vesicular breath sounds, no added sounds, equal good air entry bilaterally CVS: S1-S2 regular, no murmurs, no tachycardia, no gallops, no rubs Abdomen: Soft, nontender, no organomegaly, bowel sounds present Neuro: No focal deficits, no facial deformity, AO x3, power 5/5 in all limbs Extremities: Left foot surgically bandaged. No soakage no foul smell present. Left popliteal has a dry bandage. Left foot warm to touch. Right foot colder but pulses dopplerable. Urinary Catheter Management^: Rodgers: Cath Placed During This Visit: yes, but has since been removed by the nurse Urethral Indwelling: Yes Reason for Continuing Indwelling Catheter: Decision to DC Catheter Urinary Catheter Date of Insertion: 12/01/19 Urinary Catheter Time of Insertion: 06:22 Date Urinary Catheter Removed: 12/06/19 Time Urinary Catheter Discontinued: 20:00 Discharge Data Data Completed and Pending: Completed Studies During Hospitalization Category Date Time Status CT foot LT w con [id number] Urgent Cat Scan 11/30/19 12:38 Completed CUT OUT STITCHER request for service Routin e Exams 12/04/19 06:44 Completed CUT OUT STITCHER request for service Routin e Exams 12/05/19 17:00 Completed CXRP [XR chest 1V portable [id number]] S tat Exams 12/07/19 11:03 Completed XR chest 1V gavin ble [id number] Stat Exams 11/30/19 12:38 Completed Pathology: Surgic al [PTH] Routine Pth 12/03/19 08:55 [place] [id number] Urge nt Ultrasound 11/30/19 12:38 Completed CV guide vascular access [id number] Rout ine Ultrasound 12/05/19 17:41 Completed Pending at discharge Category Date Time Status Anaerobic Culture Routine Lab 11/30/19 20:02 Results Wound Culture and Gram Stain Routin e Lab 11/30/19 20:02 Results Wound Culture and Gram Stain Stat Lab 11/30/19 12:35 Results Labs from last 24 hours 12/08/19 12/08/19 12/08/19 11:15 06:12 04:08 WBC RBC Hgb Hct MCV MCH MCHC RDW Plt Count MPV Neut % (Auto) Lymph % (Auto) Barton % (Auto) Eos % (Auto) Baso % (Auto) Neut # (Auto) Lymph # (Auto) Barton # (Auto) Eos # (Auto) Baso # (Auto) Nucleated RBC % (a uto) Nucleated RBCs # Sodium 135 L Potassium 4.2 Chloride 92 L Carbon Dioxide 30 H Anion Gap 17.2 BUN 7 L Creatinine 0.7 GFR Calculation 85.1 L Glucose 144 H POC Glucose 267 143 Calcium 9.6 Total Bilirubin 0.3 AST 20 ALT 12 Alkaline Phosphata se 188 H Total Protein 7.7 Albumin 2.9 L Globulin 4.8 H 12/08/19 12/07/19 12/07/19 04:08 20:37 16:40 WBC 17.5 H RBC 3.66 L Hgb 10.8 L Hct 33.9 L MCV 92.6 MCH 29.5 MCHC 31.9 RDW 14.5 Plt Count 645 H MPV 10.2 Neut % (Auto) 62.5 Lymph % (Auto) 21.6 Barton % (Auto) 5.9 Eos % (Auto) 0.5 Baso % (Auto) 0.7 Neut # (Auto) 10.9 H Lymph # (Auto) 3.8 Barton # (Auto) 1.0 H Eos # (Auto) 0.1 Baso # (Auto) 0.1 Nucleated RBC % (a uto) 0 Nucleated RBCs # 0.0 Sodium Potassium Chloride Carbon Dioxide Anion Gap BUN Creatinine GFR Calculation Glucose POC Glucose 207 256 Calcium Total Bilirubin AST ALT Alkaline Phosphata se Total Protein Albumin Globulin Vitals: Last Vital Signs Temp 98.8 F 12/08/19 11:16 Pulse 81 12/08/19 11:16 Resp 21 H 12/08/19 11:16 BP 102/49 12/08/19 11:16 Pulse Ox 94 12/08/19 11:16 Discharge Plan Discharge Patient Disposition: Home, Self-Care Condition: Stable Prescriptions: New hydrocodone-acetaminophen 5-325 mg Tablet 1 tab PO Q6H PRN (Reason: Moderate Pain) Qty: 10 RF: 0 aspirin 81 mg Tablet,Delayed Release (Dr/Ec) 81 mg PO DAILY Qty: 30 RF: 0 atorvastatin 40 mg Tablet 40 mg PO BEDTIME Qty: 30 RF: 0 Lantus U-100 Insulin 100 unit/mL Solution 8 unit SUBCUT BID Qty: 300 RF: 0 ceftriaxone 2 gram recon soln 2 gm IV Q24H Qty: 14 RF: 0 acetaminophen 325 mg Tablet 650 mg PO Q6H PRN (Reason: Mild/Mod Pain Or Temp >/= 101) Qty: 20 RF: 0 insulin aspart U-100 [Novolog U-100 Insulin aspart] 100 unit/mL Solution 0 unit SUBCUT WM&BEDTIME Qty: 600 RF: 0 amlodipine 10 mg Tablet 10 mg PO DAILY Qty: 30 RF: 0 clopidogrel 75 mg Tablet 75 mg PO DAILY Qty: 30 RF: 0 No Action No Known Home Medications RF: 0 Discharge Orders: Discharge Order (Routine); Ordered 12/08/19 Ordered By: Enrrique Camargo Referrals: [facility] [place] Case Management [Other] (ext. [phone] Please call [facility] [place] Case Management with any questions or concerns regarding your discharge plan. ) Outpatient Surgery [Other] (You have been placed in the schedule to come into the hospital on 12/09/19 at 9:00 AM to get your IV medication of Ceftriaxone 2gm. You will need to come to the ER main lobby and get registered, then they will show you how to get to outpatient therapy where you will get your infusion. If you have any questions please call [facility] [place] Case Management at [phone] ext. [phone].) Nick Hagen MD [Physician] - 2 weeks Thomas James MD [Physician] - 2 weeks Discharge Diet: Cardiac and Diabetic Discharge Activity: Limit activity as instructed Activity Restrictions/Additional Instructions: Do physical activities as directed. Limit weightbearing on the left foot as per Dr. James directions. Follow-up with GI Lab every day at least for 2 weeks for ceftriaxone 2 g daily. After completion of IV antibiotics for 2 weeks patient would need oral antibiotics for at least 4 weeks. Oral antibiotics would be Augmentin and levofloxacin. Dressing changes and wound VAC to be done as an outpatient by Dr. James. Follow-up with Dr. Hagen in 2 weeks for possible peripheral angioplasty on the right side. Continue checking your blood sugars before meals and dosing of insulin as per the aggressive insulin sliding scale. Take Lantus 8 units twice daily both in morning at night. Please be adherent to diabetic diet. Wet-to-dry dressing of the wound every day. Discharge Attestations Time Spent in Discharge Care*: greater than 30 min Specific Discharge Activities: Specific discharge activities: educating patient, educating and/or supporting family/caregiver, discussing with case planner/social workers/dc planners and evaluating patient/reviewing data Status at Discharge: Cognitive status at discharge: cognitively intact, Behavioral status at discharge: cooperative, Functional status at discharge: uses cane/walker Overall status at discharge: patient is progressing back to baseline Quality Metrics Clinical Quality Measures During this hospital stay, did patient experience: None Coding Level of Care Code 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
[2019-12-08 16:48] VITALS: BP 102/49; PULSE 81; RESP 21; TEMP 37.1; O2SAT 94
[2019-12-08 16:51] LABS: Glucose Point of Care 160 mg/dL (70-110)
[2019-12-08] MEDS: atorvastatin 40 mg Tablet PO (17:56)
--- NOTE | 2019-12-08 21:37 | PM.PN ---
Subjective Subjective: Interval history: She was evaluated earlier this morning. Her leg pain has improved and she feels significantly better. Medications: Reviewed: Yes Medication Review Details: Current Medications Acetaminophen (Tylenol) 650 mg PO Q6H PRN PRN Reason: Mild/Mod Pain Or Temp >/= 101 Hydrocodone Bitart/Acetaminophen ([place] 5-325 Mg) 1 tab PO Q6H PRN PRN Reason: MODERATE PAIN Last Admin: 12/08/19 17:54 Dose: 1 tab Documented by: Al Hydrox/Mg Hydrox/Simethicone (Maalox) 15 ml PO Q6H PRN PRN Reason: INDIGESTION Last Admin: 12/03/19 18:28 Dose: 15 ml Documented by: Amlodipine Besylate (Norvasc) 10 mg PO DAILY [facility] Last Admin: 12/08/19 09:06 Dose: 10 mg Documented by: Aspirin (Aspirin Ec) 81 mg PO DAILY [facility] Last Admin: 12/08/19 09:06 Dose: 81 mg Documented by: Atorvastatin Calcium (Lipitor) 40 mg PO BEDTIME [facility] Last Admin: 12/08/19 17:56 Dose: 40 mg Documented by: Bisacodyl (Dulcolax) 10 mg PO DAILY PRN PRN Reason: CONSTIPATION Last Admin: 12/02/19 11:30 Dose: 10 mg Documented by: Clopidogrel Bisulfate (Plavix) 75 mg PO DAILY [facility] Last Admin: 12/08/19 09:06 Dose: 75 mg Documented by: Dextrose (D50w) 25 ml IVP ONCE PRN; Protocol PRN Reason: hypoglycemia protocol Dextrose (D50w) 50 ml IVP PRN PRN; Protocol PRN Reason: hypoglycemia protocol Glucagon (Glucagen) 1 mg IM ONCE PRN; Protocol PRN Reason: Adult Acute Hypoglycemia Prot Dextrose (D5w) 500 mls @ 100 mls/hr IV ONCE PRN; Protocol PRN Reason: Adult Acute Hypoglycemia Prot Sodium Chloride (Sodium Chloride 0.9%) 1,000 mls @ 50 mls/hr IV .Q20H [facility] Last Admin: 12/08/19 02:04 Dose: 50 mls/hr Documented by: Ceftriaxone Sodium 2,000 mg/ (Sodium Chloride) 50 mls @ 100 mls/hr IV Q12H SADIE; Protocol Last Admin: 12/08/19 09:07 Dose: 100 mls/hr Documented by: Insulin Aspart (Novolog) 0 unit SUBCUT WM&BEDTIME SADIE; Protocol Last Admin: 12/08/19 17:56 Dose: 6 unit Documented by: Insulin Glargine (Lantus) 8 unit SUBCUT BID [facility] Last Admin: 12/08/19 18:08 Dose: 8 unit Documented by: Ondansetron HCl (Zofran) 4 mg IVP Q6H PRN PRN Reason: NAUSEA AND VOMITING Vitals/I&O/Wt Last Vital Signs Temp 98.8 F 12/08/19 16:48 Pulse 81 12/08/19 16:48 Resp 21 H 12/08/19 16:48 BP 102/49 12/08/19 16:48 Pulse Ox 94 12/08/19 16:48 12/08/19 12/08/19 12/08/19 06:59 14:59 22:59 Intake Total 220 / 2100 720 / 720 Output Total 900 / 950 900 / 900 Balance -680 / 1150 -180 / -180 Physical Exam Narrative: EXAM NARRATIVE: GENERAL: she looks and feels well HEENT: PERRL, no icterus NECK: Supple, No jugular vein distention. Normal carotid upstroke. LUNGS: Clear.No wheezing, rales or rhonchi HEART: Regular rate and rhythm. EXTREMITIES: No edema. left foot warm and well-perfused. Left popliteal entry site without hematoma and no longer bleeding. Urinary Catheter Management^: Rodgers: Cath Placed During This Visit: yes, but has since been removed by the nurse Urethral Indwelling: Yes Reason for Continuing Indwelling Catheter: Decision to DC Catheter Urinary Catheter Date of Insertion: 12/01/19 Urinary Catheter Time of Insertion: 06:22 Date Urinary Catheter Removed: 12/06/19 Time Urinary Catheter Discontinued: 20:00 Data : 12/08/19 04:08 12/08/19 04:08 Micro: Microbiology 11/30/19 20:02 Gram Stain - Final Other Source Wound Culture - Final Strep anginosus group 11/30/19 20:02 Gram Stain - Final Foot - Wound Tissue Culture - Final Strep anginosus group Staphylococcus aureus 11/30/19 20:02 Anaerobic Culture - Final Foot - Drainage Prevotella bivia Gemella Morbillorum 11/30/19 12:35 Gram Stain - Final Other Source Wound Culture - Final Staphylococcus aureus Strep anginosus group A&P Assessment and plan (1) Lower limb ischemia: s/p periphearal angiography from the right wrist that revealed closure of superficial femoral artery on the left with three-vessel runoff on the left. She had another intervention via the popliteal artery on the left with plain old balloon angioplasty of the entire SFA followed by drug-eluting balloon angioplasty. -doing well from vascular stand point. -Follow up in 1 week as an outpatient for site check and BMP Status: Acute Code(s): I99.8 - Other disorder of circulatory system (2) Peripheral arterial disease: continue ASA, plavix and statin. Status: Acute Code(s): I73.9 - Peripheral vascular disease, unspecified (3) Dyslipidemia: Status: Acute Code(s): E78.5 - Hyperlipidemia, unspecified (4) Tobacco abuse: Status: Acute Code(s): Z72.0 - Tobacco use (5) Diabetes mellitus: Status: Acute Qualifiers: Diabetes mellitus complication status: with circulatory complication Diabetes mellitus long term care administrator insulin use: unspecified long-term insulin use status Diabetes mellitus type: type 2 Code(s): E11.9 - Type 2 diabetes mellitus without complications Attestations Medical Necessity Statement*: As per primary team Coding Level of Care Code Acute 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
--- NOTE | 2019-12-10 11:44 | PC.SOCIAL ---
Post D/C: Spoke with patient to let her know she had prescriptions ready to be picked up at [facility] in [place]. She states she will pick them up today. Patient states she had to go to ER today to get her dressing changed and she does not have anything to change it at home. I called and spoke with Rachel in the GI Lab and they are going to change patient's dressing daily when she comes in for her infusion. Called and spoke with Keara at the [facility] and she confirms patient's appointment is on 12/14/19 at 1300. I called patient back to make sure she knew where her appointment was and the date/time and also that the GI lab nurses would be changing her dressing when she comes in for the infusions. She is thankful for this. I encouraged patient to call me back with any questions or issues and she states she will.
== END 2019-12-08 20:15 | disposition home or self-care (01) | DRG 622 ==
LOC: ER 12:59 → ICU 15:40 → MEDSURG 12-04 19:25 → CSU 12-05 18:35
PROVIDERS: Family Medicine; Internal Medicine Cardiovascular Disease; Surgery; Admitting Provider Student in an Organized Health Care Education/Training Program; Emergency Provider Family Medicine; Visit Provider Student in an Organized Health Care Education/Training Program
PROC: 0KBW0ZZ Excision of Left Foot Muscle, Open Approach (ICD-10-PCS; principal; 2019-11-30 20:00)
PROC: 047L34Z Dilation of Left Femoral Artery with Drug-eluting Intraluminal Device, Percutaneous Approach (ICD-10-PCS; principal; 2019-12-05 16:30)
DX: E11.621 Type 2 diabetes mellitus with foot ulcer (principal); A41.9 Sepsis, unspecified organism; E87.1 Hypo-osmolality and hyponatremia; D68.9 Coagulation defect, unspecified; L97.523 Non-pressure chronic ulcer of other part of left foot with necrosis of muscle; Z79.4 Long term (current) use of insulin; E11.40 Type 2 diabetes mellitus with diabetic neuropathy, unspecified; E11.22 Type 2 diabetes mellitus with diabetic chronic kidney disease; N18.1 Chronic kidney disease, stage 1; E78.5 Hyperlipidemia, unspecified; I12.9 Hypertensive chronic kidney disease with stage 1 through stage 4 chronic kidney disease, or unspecified chronic kidney disease; E11.51 Type 2 diabetes mellitus with diabetic peripheral angiopathy without gangrene; I99.8 Other disorder of circulatory system; F17.210 Nicotine dependence, cigarettes, uncomplicated
CPT/HCPCS: 12345; 36415; 36416; 37224; 51702; 71045; 73701; 75625; 75716; 76937; 80048; 80053; 80061; 80202; 80306; 80307; 81001; 82009; 82962; 83036; 83605; 83735; 84100; 84145; 84443; 85007; 85025; 85610; 85730; 86140; 87040; 87070; 87075; 87077; 87086; 87176; 87186; 87205; 87641; 88300; 93005; 93925; 96365; 96366; 96372; 96375; 97110; 97161; 97162; 97530; 99283; C1725; C1769; C1887; C1894; C2623; J0690; J0692; J0696; J0743; J1170; J1644; J1650; J1815; J2001; J2250; J2270; J2370; J2405; J2543; J2704; J3010; J3370; J3480; J3490; J7030; J7040; J7050; L4361; Q0163; Q9967

== ENCOUNTER 2019-12-09 08:48 | Outpatient (RCR) | payer MEDICAID, SELFPAY ==
[2019-12-09] MEDS: cefTRIAXone 2,000 MG in sodium chloride 0.9% (plus) 50 ML 100 MG IV (09:10)
[2019-12-09 09:19] VITALS: BP 127/71; PULSE 90; RESP 18; TEMP 36.6; O2SAT 98
== END 2019-12-10 05:50 | disposition home or self-care (01) ==
LOC: OPS 08:48
PROVIDERS: Visit Provider Student in an Organized Health Care Education/Training Program
DX: B99.9 Unspecified infectious disease (principal)
CPT/HCPCS: J0696

== ENCOUNTER 2019-12-10 05:55 | Emergency (ER) | payer MEDICAID, SELFPAY ==
[2019-12-10 05:58] VITALS: BP 139/62; PULSE 87; RESP 18; TEMP 36.5; O2SAT 99; BMI 19.7
--- NOTE | 2019-12-10 06:32 | ED_ITS ---
HPI - Extremity Problem General: Chief complaint: Extremity Injury, Lower Stated complaint: LEFT FOOT INJURY Time Seen by Provider: 12/10/19 06:16 History of Present Illness: HPI Narrative: 59 yo female presents with complaint of her bandage being wet. She recetnly had a wound debridement of the lateral aspect of the R foot. She reports waking up this morning with bandage and post op boot being wet. Seh denies fever sweats or chills. Pt does have DM. Associated symptoms: Deny chest pain, fever(s) or rash Review of Systems Const: Denies: fever, chills, body aches, change in appetite, fatigue or malaise ENMT: Denies: throat pain, ear pain, nasal discharge or nasal congestion Card: Denies: chest pain, edema, shortness of breath on exertion or shortness of breath when lying down Resp: Denies: shortness of breath, productive cough or non-productive cough GI: Denies: abdominal pain, nausea, vomiting, vomiting blood, coffee grounds in vomit, diarrhea, constipation, bloating, blood in stool or black tarry stool : Denies: flank pain, difficulty urinating, painful urination, urinary frequency or urinary urgency Skin/Breast: Denies: rash or itching PFSH ED PFSH: Medical History (Updated 12/10/19 @ 06:36 by Evin Matute DO) Anemia Chronic kidney disease (CKD) stage G1/A1, glomerular filtration rate (GFR) equal to or greater than 90 mL/min/1.73 square meter and albuminuria creatinine ratio less than 30 mg/g Coagulopathy Diabetes mellitus Dyslipidemia Essential hypertension Hyponatremia Infectious fasciitis Lower limb ischemia Peripheral arterial disease Sepsis Tobacco abuse Social History Smoking and tobacco status: former smoker Second hand smoke exposure: Yes Alcohol intake: never Adopted: No Caregiver/support person: No Lives independently: Yes Household members: spouse Marital status: service: No Current occupational status: unemployed Female Reproductive History: Para: 3 Physical Exam Const: COMMON NORMALS: no apparent distress GENERAL APPEARANCE: cooperative and comfortable ORIENTATION/CONSCIOUSNESS: Yes awake, Yes oriented to person, Yes oriented to place and Yes oriented to time HENMT: COMMON NORMALS: normocephalic, head/scalp atraumatic, hearing grossly normal bilaterally, external ears normal, EAC's normal, TM's normal bilaterally, nasal mucous membranes and turbinates normal, moist oral mucous membranes and oropharynx normal HEAD & SCALP: normocephalic and atraumatic NOSE: nasal mucous membranes and turbinates normal EXTERNAL EAR: Yes external ears normal EXTERNAL AUDITORY CANAL: EAC's normal TYMPANIC MEMBRANE: TM's normal bilaterally Eye: COMMON NORMALS: PERRL, EOMs intact bilaterally, conjunctivae normal and no scleral icterus CONJUNCTIVA: Yes conjunctivae normal PUPIL: Yes PERRL Neck/C-Spine: COMMON NORMALS: full ROM, no lymphadenopathy, supple and no JVD Lymph: LYMPHATIC: no lymphadenopathy noted and no lymphedema noted Resp: COMMON NORMALS: normal respiratory effort, no retractions, no use of accessory muscles and clear to auscultation bilaterally AUSCULTATION: clear to auscultation bilaterally Cardio: COMMON NORMALS: no JVD, regular rate, regular rhythm and no murmurs RATE: regular rate RHYTHM: regular rhythm GI: COMMON NORMALS: soft to palpation and no hepatosplenomegaly AUSCULTATION: Yes normoactive bowel sounds PALPATION: Yes soft, No tender, No guarding and Yes no hepatosplenomegaly Extremity: COMMON NORMALS: normal to inspection, normal capillary refill, no clubbing, cyanosis or edema, no calf tenderness and no pedal edema OTHER: massive tissue defect of the lateral aspect of the R foot. no erythema. clear serous drainage. no purulence. wound base s packe with gauze. there is maceration of the skin o fthe sole fo the R foot. No erythema fo the R foots or lower leg. Neuro: SENSORIUM/ORIENTATION: Yes oriented to person, Yes oriented to place and Yes oriented to time Skin: COMMON NORMALS: no rashes or lesions noted GENERAL SKIN EXAM: no rashes or lesions noted Course ED course: refer to wound care. PT has follow up with Dr. Blood later this week. Should likely be seen sooner. Case mnagement to make referal. Pt may need home health for wound care and dressing changes. Vital Signs: Vital signs: Vital Signs Temperature 97.7 F 12/10/19 05:58 Pulse Rate 87 12/10/19 05:58 Respiratory Rate 18 12/10/19 05:58 Blood Pressure 139/62 12/10/19 05:58 Pulse Oximetry 99 02/24/20 05:58 Discharge Plan Discharge Patient Disposition: Home, Self-Care Clinical Impression: Necrotizing soft tissue infection, Diabetes mellitus Condition: Stable Prescriptions: No Action atorvastatin 40 mg Tablet 40 mg PO BEDTIME Qty: 30 RF: 0 acetaminophen 325 mg Tablet 650 mg PO Q6H PRN (Reason: Mild/Mod Pain Or Temp >/= 101) Qty: 20 RF: 0 aspirin 81 mg Tablet,Delayed Release (Dr/Ec) 81 mg PO DAILY Qty: 30 RF: 0 amlodipine 10 mg Tablet 10 mg PO DAILY Qty: 30 RF: 0 ceftriaxone 2 gram recon soln 2 gm IV Q24H Qty: 14 RF: 0 Lantus U-100 Insulin 100 unit/mL Solution 8 unit SUBCUT BID Qty: 300 RF: 0 hydrocodone-acetaminophen 5-325 mg Tablet 1 tab PO Q6H PRN (Reason: Moderate Pain) Qty: 10 RF: 0 clopidogrel 75 mg Tablet 75 mg PO DAILY Qty: 30 RF: 0 Novolog U-100 Insulin aspart 100 unit/mL Solution 0 unit SUBCUT WM&BEDTIME Qty: 600 RF: 0 Flagyl 500 mg tablet 500 mg PO Q8H 14 Days Qty: 42 RF: 0 Discharge Orders: Discharge Order (Routine); Ordered 12/10/19 Ordered By: Evin Matute Discharge Diet: Usual diet Discharge Activity: Limit activity as instructed Activity Restrictions/Additional Instructions: No changes in medications. REcommend changing dressing once daily. Case management will call with appointment at wound clinic. 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
--- NOTE | 2019-12-10 06:32 | PC.NURSE ---
Pt's dressing on left foot was removed, and a clean dressing was placed with abd pads, kerlix, and federico wrap.
--- NOTE | 2019-12-11 15:45 | DCPLANNER ---
java technical manager had message to schedule a follow up appointment for patient with [facility]ound [facility]. java technical manager called [facility], spoke with Keara, a follow up appointment was scheduled for Saturday, December 14, 2019 at 1:[address] Smart. Clinic will call patient with appointment information. java technical manager also had message to speak with patient about home health, Keara at [facility], stated that they would take care of the referral.
--- NOTE | 2019-12-19 10:46 | DCPLANNER ---
Patient did attend appointment scheduled for with Wound Care.
== END 2019-12-10 06:41 | disposition home or self-care (01) ==
PROVIDERS: Emergency Provider Family Medicine
DX: L08.89 Other specified local infections of the skin and subcutaneous tissue (principal); I12.9 Hypertensive chronic kidney disease with stage 1 through stage 4 chronic kidney disease, or unspecified chronic kidney disease; N18.9 Chronic kidney disease, unspecified; E11.22 Type 2 diabetes mellitus with diabetic chronic kidney disease; E78.5 Hyperlipidemia, unspecified; E11.51 Type 2 diabetes mellitus with diabetic peripheral angiopathy without gangrene; F17.200 Nicotine dependence, unspecified, uncomplicated; Z79.4 Long term (current) use of insulin
CPT/HCPCS: 99281

== ENCOUNTER 2019-12-12 08:15 | Outpatient (RCR) | payer MEDICAID, SELFPAY ==
[2019-12-10 07:20] VITALS: BP 107/60; PULSE 88; RESP 20; TEMP 36.5; O2SAT 98; BMI 19.8
[2019-12-10] MEDS: cefTRIAXone 2,000 MG in sodium chloride 0.9% (plus) 50 ML 100 MG IV (07:43)
[2019-12-11] MEDS: cefTRIAXone 2,000 MG in sodium chloride 0.9% (plus) 50 ML 100 MG IV (08:51)
[2019-12-11 09:19] VITALS: BP 86/53; PULSE 100; RESP 18; TEMP 36.2; O2SAT 99
[2019-12-12 08:40] VITALS: BP 147/77; PULSE 90; RESP 18; TEMP 36.8; O2SAT 100
[2019-12-12] MEDS: cefTRIAXone 2,000 MG in sodium chloride 0.9% (plus) 50 ML 100 MG IV (08:55)
[2019-12-12] MEDS: sodium hypochlorite 0.25% Btl 473 mL 1 APPLIC TOPICAL (09:00)
[2019-12-13 08:45] VITALS: BP 109/65; PULSE 83; RESP 18; TEMP 36.6; O2SAT 99
[2019-12-13] MEDS: sodium hypochlorite 0.25% Btl 473 mL 1 APPLIC TOPICAL (09:15)
[2019-12-13] MEDS: cefTRIAXone 2,000 MG in sodium chloride 0.9% (plus) 50 ML 100 MG IV (09:27)
[2019-12-14 08:51] VITALS: BP 110/74; PULSE 90; RESP 20; TEMP 36.3; O2SAT 99
[2019-12-14] MEDS: cefTRIAXone 2,000 MG in sodium chloride 0.9% (plus) 50 ML 100 MG IV (09:27)
[2019-12-14 17:15] VITALS: BP 105/51; PULSE 90; RESP 18; TEMP 36.9; O2SAT 99
[2019-12-15] MEDS: cefTRIAXone 2,000 MG in sodium chloride 0.9% (plus) 50 ML 100 MG IV (09:00)
[2019-12-15 09:20] VITALS: BP 116/55; PULSE 94; RESP 18; TEMP 36.4; O2SAT 99
== END 2019-12-15 23:59 | disposition home or self-care (01) ==
LOC: GILAB 08:15
PROVIDERS: Visit Provider Student in an Organized Health Care Education/Training Program
DX: M72.6 Necrotizing fasciitis (principal)
CPT/HCPCS: 15852; 96365; A6446; J0696

== ENCOUNTER 2019-12-14 13:05 | Outpatient (RCR) | payer MEDICAID, SELFPAY | END 2019-12-15 23:59 | disposition home or self-care (01) | LOC: WOUND 13:05 | PROVIDERS: Visit Provider Surgery | DX: E11.621 Type 2 diabetes mellitus with foot ulcer (principal); L97.525 Non-pressure chronic ulcer of other part of left foot with muscle involvement without evidence of necrosis | CPT/HCPCS: 11043; 11046; 99203; 99213; L4387 ==

== ENCOUNTER → 2019-12-24 11:01 | Outpatient (BNVA) | payer MEDICAID, SELFPAY | PROVIDERS: PCP Family Medicine; Visit Provider Nurse Practitioner Family | DX: I73.9 Peripheral vascular disease, unspecified (principal) | CPT/HCPCS: 80048 ==

== ENCOUNTER 2020-01-13 08:30 | Outpatient (RCR) | payer MEDICAID, SELFPAY ==
[2019-12-16 08:59] VITALS: BP 115/62; PULSE 92; RESP 18; TEMP 36.6; O2SAT 99
[2019-12-16 09:07] VITALS: BMI 20.4
[2019-12-16] MEDS: cefTRIAXone 2,000 MG in sodium chloride 0.9% (plus) 50 ML 100 MG IV (09:10)
--- NOTE | 2019-12-16 10:08 | PC.NURSE ---
Addendum entered by Hailee Carver 12/16/19 10:49: DR HUSSEIN SUGGESTED DISCHARGE MED LIST BE PRINTED AND EDUCATION ENFORCED WITH PATIENT AT NEXT APPOINTMENT. CALLED PATIENT TO BRING ALL THE MEDICATIONS SHE TAKES SO WE COULD GET AN ACCURATE MED REC. PATIENT REPORTED SHE IS STARTING A NEW CARE WITH A PCP SAILAJA THIS COMING TUESDAY. Original Note: UTILIZED 3 4X4 GAUZE SOAKED IN DAKIN SOLUTION PROVIDED BY PATIENT. WRAPPED IN CURLIX AND NEW TABATHA BANDAGE. REVIEWING PATIENTS HOME MEDICATION LIST, PATIENT WAS UNABLE TO PROVIDE ACCURATE MEDICATION LIST AND HISTORY OF WHEN PLAVIX AND AMLODIPINE WERE TAKEN. PATIENT REPORTS SHE GETS NOSE BLEEDS EVERY DAY AND IS UNSURE WHY SHE IS TAKING PLAVIX.
[2019-12-17 08:57] VITALS: BP 115/67; PULSE 88; RESP 20; TEMP 36.2; O2SAT 98
[2019-12-17] MEDS: cefTRIAXone 2,000 MG in sodium chloride 0.9% (plus) 50 ML 100 MG IV (09:10)
[2019-12-17 09:21] VITALS: BMI 20.4
--- NOTE | 2019-12-17 10:15 | PC.NURSE ---
Med reconciliation:Pt brought medication bottles and pill merchandise planner in for reconciliation. Medications confirmed in merchandise planner and bottles. Pt list of medications printed out with education provided. Pt without question at this time.
[2019-12-18 08:50] VITALS: BP 106/68; PULSE 102; RESP 18; TEMP 36.8; O2SAT 98; BMI 20.4
[2019-12-18] MEDS: cefTRIAXone 2,000 MG in sodium chloride 0.9% (plus) 50 ML 100 MG IV (09:31)
[2019-12-19 08:55] VITALS: BP 126/67; PULSE 87; RESP 18; TEMP 37; O2SAT 100
[2019-12-19] MEDS: cefTRIAXone 2,000 MG in sodium chloride 0.9% (plus) 50 ML 100 MG IV (09:25)
[2019-12-20 09:00] VITALS: BP 118/67; PULSE 94; RESP 18; TEMP 36.9; O2SAT 100
[2019-12-20] MEDS: cefTRIAXone 2,000 MG in sodium chloride 0.9% (plus) 50 ML 100 MG IV (09:08)
[2019-12-21 09:02] VITALS: BP 116/66; PULSE 82; RESP 18; TEMP 36.9; O2SAT 98
[2019-12-21] MEDS: cefTRIAXone 2,000 MG in sodium chloride 0.9% (plus) 50 ML 100 MG IV (09:12)
[2019-12-22 08:45] VITALS: BP 122/62; PULSE 89; RESP 18; TEMP 36.8; O2SAT 100
[2019-12-22] MEDS: cefTRIAXone 2,000 MG in sodium chloride 0.9% (plus) 50 ML 100 MG IV (09:00)
[2019-12-23 07:55] VITALS: BP 117/78; PULSE 81; RESP 18; TEMP 36.7; O2SAT 100
[2019-12-24 08:52] VITALS: BP 126/67; PULSE 91; RESP 20; TEMP 37; O2SAT 100
[2019-12-25 09:21] VITALS: BP 135/82; PULSE 85; RESP 18; TEMP 36.3; O2SAT 100
[2019-12-26 09:10] VITALS: BP 139/72; PULSE 92; RESP 18; TEMP 37.1; O2SAT 100
[2019-12-27 08:45] VITALS: BP 130/67; PULSE 94; RESP 18; TEMP 36.8; O2SAT 99
[2019-12-29 09:05] VITALS: BP 114/71; PULSE 90; RESP 18; TEMP 36.6; O2SAT 99
[2019-12-30 08:42] VITALS: BP 126/80; PULSE 87; RESP 18; TEMP 36.9; O2SAT 98
[2020-01-01 08:53] VITALS: BP 119/76; PULSE 90; RESP 20; TEMP 37; O2SAT 100
[2020-01-01] MEDS: sodium hypochlorite 0.25% Btl 473 mL 1 APPLIC TOPICAL (09:10)
[2020-01-02] MEDS: sodium hypochlorite 0.25% Btl 473 mL 1 APPLIC TOPICAL (09:20)
[2020-01-02 09:32] VITALS: BP 110/68; PULSE 86; RESP 18; TEMP 36.9; O2SAT 97
[2020-01-03] MEDS: sodium hypochlorite 0.25% Btl 473 mL 1 APPLIC TOPICAL (09:10)
[2020-01-03 09:31] VITALS: BP 124/68; PULSE 90; RESP 18; TEMP 36.6; O2SAT 99
[2020-01-05 08:41] VITALS: BP 95/57; PULSE 91; RESP 18; TEMP 37.1; O2SAT 98
[2020-01-06 08:45] VITALS: BP 119/71; PULSE 89; RESP 18; TEMP 36.7; O2SAT 99
== END 2020-01-15 23:59 | disposition home or self-care (01) ==
LOC: GILAB 08:30
PROVIDERS: Visit Provider Student in an Organized Health Care Education/Training Program
DX: M72.6 Necrotizing fasciitis (principal)
CPT/HCPCS: 11043; 11046; 15852; 82274; 83630; 87505; 96365; 99212; A6446; J0696

== ENCOUNTER 2020-01-15 15:32 | Outpatient (RCR) | payer MEDICAID, SELFPAY | END 2020-01-15 23:59 | disposition home or self-care (01) | LOC: WOUND 15:32 | PROVIDERS: Visit Provider Thoracic Surgery (Cardiothoracic Vascular Surgery) | DX: E11.621 Type 2 diabetes mellitus with foot ulcer (principal); L97.522 Non-pressure chronic ulcer of other part of left foot with fat layer exposed | CPT/HCPCS: 11043; 11046; 15852; 87070; 87077; 87176; 87186; 87205; G0463 ==

== ENCOUNTER 2020-02-12 12:59 | Outpatient (RCR) | payer MEDICAID, SELFPAY | END 2020-02-14 23:59 | disposition home or self-care (01) | LOC: WOUND 12:59 | PROVIDERS: PCP Family Medicine; Visit Provider Thoracic Surgery (Cardiothoracic Vascular Surgery) | DX: E11.621 Type 2 diabetes mellitus with foot ulcer (principal); L97.523 Non-pressure chronic ulcer of other part of left foot with necrosis of muscle | CPT/HCPCS: 11043; 11046; 97606; G0463 ==

== ENCOUNTER 2020-02-15 14:46 | Outpatient (CLI) | payer MEDICAID, SELFPAY | END 2020-02-15 14:47 | disposition home or self-care (01) | LOC: WOUND 02-18 13:41 | PROVIDERS: PCP Family Medicine; Visit Provider Surgery | DX: E11.621 Type 2 diabetes mellitus with foot ulcer (principal); L97.525 Non-pressure chronic ulcer of other part of left foot with muscle involvement without evidence of necrosis | CPT/HCPCS: 11043; 11046 ==

== ENCOUNTER 2020-02-19 15:27 | Outpatient (CLI) | payer MEDICAID, SELFPAY | END 2020-02-19 15:28 | disposition home or self-care (01) | LOC: WOUND 15:27 | PROVIDERS: PCP Family Medicine; Visit Provider Thoracic Surgery (Cardiothoracic Vascular Surgery) | DX: Z51.89 Encounter for other specified aftercare (principal); E11.621 Type 2 diabetes mellitus with foot ulcer; L97.509 Non-pressure chronic ulcer of other part of unspecified foot with unspecified severity; Z79.4 Long term (current) use of insulin | CPT/HCPCS: 80053; 83036; 99212 ==

== ENCOUNTER 2020-02-22 15:07 | Outpatient (CLI) | payer MEDICAID, SELFPAY | END 2020-02-22 15:08 | disposition home or self-care (01) | LOC: WOUND 15:08 | PROVIDERS: PCP Family Medicine; Visit Provider Surgery | DX: E11.621 Type 2 diabetes mellitus with foot ulcer (principal); L97.523 Non-pressure chronic ulcer of other part of left foot with necrosis of muscle | CPT/HCPCS: 11043; 11046 ==

== ENCOUNTER 2020-02-29 14:35 | Outpatient (CLI) | payer MEDICAID, SELFPAY | END 2020-02-29 14:36 | disposition home or self-care (01) | LOC: WOUND 14:36 | PROVIDERS: PCP Family Medicine; Visit Provider Surgery | DX: E11.621 Type 2 diabetes mellitus with foot ulcer (principal); L97.522 Non-pressure chronic ulcer of other part of left foot with fat layer exposed | CPT/HCPCS: 11043; 11046 ==

== ENCOUNTER 2020-03-07 15:32 | Outpatient (CLI) | payer MEDICAID, SELFPAY | END 2020-03-07 15:33 | disposition home or self-care (01) | LOC: WOUND 15:32 | PROVIDERS: PCP Family Medicine; Visit Provider Surgery | DX: E11.621 Type 2 diabetes mellitus with foot ulcer (principal); L97.523 Non-pressure chronic ulcer of other part of left foot with necrosis of muscle | CPT/HCPCS: 11043; 11046 ==

== ENCOUNTER → 2020-03-13 14:32 | Outpatient (BNVA) | payer MEDICAID, SELFPAY | PROVIDERS: PCP Family Medicine; Visit Provider Family Medicine | DX: E11.621 Type 2 diabetes mellitus with foot ulcer (principal); L97.509 Non-pressure chronic ulcer of other part of unspecified foot with unspecified severity; Z79.4 Long term (current) use of insulin | CPT/HCPCS: 80048 ==

== ENCOUNTER 2020-03-14 14:52 | Outpatient (CLI) | payer MEDICAID, SELFPAY | END 2020-03-14 14:53 | disposition home or self-care (01) | LOC: WOUND 14:52 | PROVIDERS: PCP Family Medicine; Visit Provider Surgery | DX: E11.621 Type 2 diabetes mellitus with foot ulcer (principal); L97.525 Non-pressure chronic ulcer of other part of left foot with muscle involvement without evidence of necrosis | CPT/HCPCS: 11043; 11046 ==

== ENCOUNTER 2020-03-21 14:12 | Outpatient (CLI) | payer MEDICAID, SELFPAY | END 2020-03-21 14:13 | disposition home or self-care (01) | LOC: WOUND 14:12 | PROVIDERS: PCP Family Medicine; Visit Provider Surgery | DX: E11.621 Type 2 diabetes mellitus with foot ulcer (principal); L97.525 Non-pressure chronic ulcer of other part of left foot with muscle involvement without evidence of necrosis | CPT/HCPCS: 11043; 11046; L4387 ==

== ENCOUNTER 2020-03-28 14:20 | Outpatient (CLI) | payer MEDICAID, SELFPAY | END 2020-03-28 14:21 | disposition home or self-care (01) | LOC: WOUND 14:28 | PROVIDERS: PCP Family Medicine; Visit Provider Surgery | DX: E11.621 Type 2 diabetes mellitus with foot ulcer (principal); L97.525 Non-pressure chronic ulcer of other part of left foot with muscle involvement without evidence of necrosis | CPT/HCPCS: 11043; 11046 ==

== ENCOUNTER 2020-04-04 15:09 | Outpatient (CLI) | payer MEDICAID, SELFPAY | END 2020-04-04 15:10 | disposition home or self-care (01) | LOC: WOUND 15:10 | PROVIDERS: PCP Family Medicine; Visit Provider Surgery | DX: E11.621 Type 2 diabetes mellitus with foot ulcer (principal); L97.525 Non-pressure chronic ulcer of other part of left foot with muscle involvement without evidence of necrosis | CPT/HCPCS: 11043; 11046 ==

== ENCOUNTER 2020-04-11 13:33 | Outpatient (CLI) | payer MEDICAID, SELFPAY | END 2020-04-11 13:34 | disposition home or self-care (01) | LOC: WOUND 13:36 | PROVIDERS: PCP Family Medicine; Visit Provider Surgery | DX: E11.621 Type 2 diabetes mellitus with foot ulcer (principal); L97.525 Non-pressure chronic ulcer of other part of left foot with muscle involvement without evidence of necrosis | CPT/HCPCS: 11043; 11046 ==

== ENCOUNTER 2020-04-25 13:50 | Outpatient (CLI) | payer MEDICAID, SELFPAY | END 2020-04-25 13:51 | disposition home or self-care (01) | LOC: WOUND 13:52 | PROVIDERS: PCP Family Medicine; Visit Provider Surgery | DX: E11.621 Type 2 diabetes mellitus with foot ulcer (principal); L97.523 Non-pressure chronic ulcer of other part of left foot with necrosis of muscle | CPT/HCPCS: 11042 ==

== ENCOUNTER 2020-05-02 13:57 | Outpatient (CLI) | payer MEDICAID, SELFPAY | END 2020-05-02 13:58 | disposition home or self-care (01) | LOC: WOUND 13:58 | PROVIDERS: PCP Family Medicine; Visit Provider Surgery | DX: E11.621 Type 2 diabetes mellitus with foot ulcer (principal); L97.523 Non-pressure chronic ulcer of other part of left foot with necrosis of muscle | CPT/HCPCS: 11042; L4631 ==

== ENCOUNTER 2020-05-09 14:16 | Outpatient (CLI) | payer MEDICAID, SELFPAY | END 2020-05-09 14:17 | disposition home or self-care (01) | LOC: WOUND 14:18 | PROVIDERS: PCP Family Medicine; Visit Provider Surgery | DX: E11.621 Type 2 diabetes mellitus with foot ulcer (principal); L97.522 Non-pressure chronic ulcer of other part of left foot with fat layer exposed | CPT/HCPCS: 11042 ==

== ENCOUNTER → 2020-05-13 11:11 | Outpatient (BNVA) | payer MEDICAID, SELFPAY | PROVIDERS: PCP Family Medicine; Visit Provider Family Medicine | DX: E11.621 Type 2 diabetes mellitus with foot ulcer (principal); L97.509 Non-pressure chronic ulcer of other part of unspecified foot with unspecified severity; Z79.4 Long term (current) use of insulin; E78.5 Hyperlipidemia, unspecified | CPT/HCPCS: 80053; 80061 ==

== ENCOUNTER 2020-05-16 14:22 | Outpatient (CLI) | payer MEDICAID, SELFPAY | END 2020-05-16 14:23 | disposition home or self-care (01) | LOC: WOUND 14:23 | PROVIDERS: PCP Family Medicine; Visit Provider Surgery | DX: E11.621 Type 2 diabetes mellitus with foot ulcer (principal); L97.522 Non-pressure chronic ulcer of other part of left foot with fat layer exposed | CPT/HCPCS: 11042; L3260 ==

== ENCOUNTER 2020-05-23 13:37 | Outpatient (CLI) | payer MEDICAID, SELFPAY | END 2020-05-23 13:38 | disposition home or self-care (01) | LOC: WOUND 13:37 | PROVIDERS: PCP Family Medicine; Visit Provider Thoracic Surgery (Cardiothoracic Vascular Surgery) | DX: E11.621 Type 2 diabetes mellitus with foot ulcer (principal); L97.522 Non-pressure chronic ulcer of other part of left foot with fat layer exposed | CPT/HCPCS: 11042 ==

== ENCOUNTER 2020-05-30 14:05 | Outpatient (CLI) | payer MEDICAID, SELFPAY | END 2020-05-30 14:06 | disposition home or self-care (01) | LOC: WOUND 14:06 | PROVIDERS: PCP Family Medicine; Visit Provider Surgery | DX: E11.621 Type 2 diabetes mellitus with foot ulcer (principal); L97.522 Non-pressure chronic ulcer of other part of left foot with fat layer exposed | CPT/HCPCS: 11042; L3260 ==

== ENCOUNTER 2020-06-06 14:44 | Outpatient (CLI) | payer MEDICAID, SELFPAY | END 2020-06-06 14:45 | disposition home or self-care (01) | LOC: WOUND 14:46 | PROVIDERS: PCP Family Medicine; Visit Provider Surgery | DX: E11.621 Type 2 diabetes mellitus with foot ulcer (principal); L97.522 Non-pressure chronic ulcer of other part of left foot with fat layer exposed | CPT/HCPCS: 11042 ==

== ENCOUNTER 2020-06-13 14:06 | Outpatient (CLI) | payer MEDICAID, SELFPAY | END 2020-06-13 14:07 | disposition home or self-care (01) | LOC: WOUND 14:06 | PROVIDERS: PCP Family Medicine; Visit Provider Surgery | DX: E11.621 Type 2 diabetes mellitus with foot ulcer (principal); L97.522 Non-pressure chronic ulcer of other part of left foot with fat layer exposed | CPT/HCPCS: 11042; A6545 ==

== ENCOUNTER 2020-06-20 13:48 | Outpatient (CLI) | payer MEDICAID, SELFPAY | END 2020-06-20 13:49 | disposition home or self-care (01) | LOC: WOUND 13:49 | PROVIDERS: PCP Family Medicine; Visit Provider Surgery | DX: E11.621 Type 2 diabetes mellitus with foot ulcer (principal); L97.522 Non-pressure chronic ulcer of other part of left foot with fat layer exposed | CPT/HCPCS: 11042 ==

== ENCOUNTER 2020-06-27 13:30 | Outpatient (CLI) | payer MEDICAID, SELFPAY | END 2020-06-27 13:31 | disposition home or self-care (01) | LOC: WOUND 13:30 | PROVIDERS: PCP Family Medicine; Visit Provider Surgery | DX: E11.621 Type 2 diabetes mellitus with foot ulcer (principal); L97.522 Non-pressure chronic ulcer of other part of left foot with fat layer exposed | CPT/HCPCS: 11042 ==

== ENCOUNTER 2020-07-04 13:18 | Outpatient (CLI) | payer MEDICAID, SELFPAY | END 2020-07-04 13:19 | disposition home or self-care (01) | LOC: WOUND 13:19 | PROVIDERS: PCP Family Medicine; Visit Provider Nurse Practitioner Family | DX: E11.621 Type 2 diabetes mellitus with foot ulcer (principal); L97.522 Non-pressure chronic ulcer of other part of left foot with fat layer exposed | CPT/HCPCS: 11042 ==

== ENCOUNTER 2020-07-11 13:44 | Outpatient (CLI) | payer MEDICAID, SELFPAY | END 2020-07-11 13:45 | disposition home or self-care (01) | LOC: WOUND 13:47 | PROVIDERS: PCP Family Medicine; Visit Provider Surgery | DX: E11.621 Type 2 diabetes mellitus with foot ulcer (principal); L97.522 Non-pressure chronic ulcer of other part of left foot with fat layer exposed | CPT/HCPCS: 17250; 97597 ==

== ENCOUNTER 2020-07-18 13:52 | Outpatient (CLI) | payer MEDICAID, SELFPAY | END 2020-07-18 13:53 | disposition home or self-care (01) | LOC: WOUND 13:52 | PROVIDERS: PCP Family Medicine; Visit Provider Surgery | DX: Z09 Encounter for follow-up examination after completed treatment for conditions other than malignant neoplasm (principal) | CPT/HCPCS: 99212 ==

== ENCOUNTER 2020-07-23 12:59 | Outpatient (CLI) | payer MEDICAID, SELFPAY | END 2020-07-23 13:00 | disposition home or self-care (01) | LOC: WOUND 12:59 | PROVIDERS: PCP Family Medicine; Visit Provider Thoracic Surgery (Cardiothoracic Vascular Surgery) | DX: E11.621 Type 2 diabetes mellitus with foot ulcer (principal); L97.522 Non-pressure chronic ulcer of other part of left foot with fat layer exposed | CPT/HCPCS: 11042; L3260 ==

== ENCOUNTER 2020-07-25 10:47 | Outpatient (CLI) | payer MEDICAID, SELFPAY | END 2020-07-25 10:48 | disposition home or self-care (01) | LOC: WOUND 10:48 | PROVIDERS: PCP Family Medicine; Visit Provider Surgery | DX: E11.621 Type 2 diabetes mellitus with foot ulcer (principal); L97.522 Non-pressure chronic ulcer of other part of left foot with fat layer exposed | CPT/HCPCS: 99211 ==

== ENCOUNTER → 2020-08-11 10:23 | Outpatient (BNVA) | payer MEDICAID, SELFPAY | PROVIDERS: PCP Family Medicine; Visit Provider Family Medicine | DX: I10 Essential (primary) hypertension (principal); E78.5 Hyperlipidemia, unspecified; E11.621 Type 2 diabetes mellitus with foot ulcer; Z79.4 Long term (current) use of insulin; L97.509 Non-pressure chronic ulcer of other part of unspecified foot with unspecified severity | CPT/HCPCS: 80053; 80061; 83036; 85025 ==

== ENCOUNTER → 2020-11-11 00:01 | Outpatient (BNVA) | payer MEDICAID, SELFPAY | PROVIDERS: PCP Family Medicine; Visit Provider Family Medicine | DX: E11.621 Type 2 diabetes mellitus with foot ulcer (principal); L97.523 Non-pressure chronic ulcer of other part of left foot with necrosis of muscle; Z79.4 Long term (current) use of insulin | CPT/HCPCS: 87070; 87075; 87205 ==

== ENCOUNTER 2020-11-13 13:13 | Outpatient (CLI) | payer MEDICAID, SELFPAY | END 2020-11-13 13:14 | disposition home or self-care (01) | LOC: WOUND 13:13 | PROVIDERS: PCP Family Medicine; Visit Provider Thoracic Surgery (Cardiothoracic Vascular Surgery) | DX: E11.621 Type 2 diabetes mellitus with foot ulcer (principal); L97.522 Non-pressure chronic ulcer of other part of left foot with fat layer exposed | CPT/HCPCS: 11042; G0463; L3260 ==

== ENCOUNTER 2020-11-17 15:05 | Outpatient (CLI) | payer MEDICAID, SELFPAY | END 2020-11-17 15:06 | disposition home or self-care (01) | LOC: WOUND 15:06 | PROVIDERS: PCP Family Medicine; Visit Provider Thoracic Surgery (Cardiothoracic Vascular Surgery) | DX: E11.621 Type 2 diabetes mellitus with foot ulcer (principal); L97.522 Non-pressure chronic ulcer of other part of left foot with fat layer exposed | CPT/HCPCS: 11042 ==

== ENCOUNTER 2020-12-15 13:54 | Outpatient (CLI) | payer MEDICAID, SELFPAY | END 2020-12-15 13:55 | disposition home or self-care (01) | LOC: WOUND 13:54 | PROVIDERS: PCP Family Medicine; Visit Provider Nurse Practitioner Family | DX: Z09 Encounter for follow-up examination after completed treatment for conditions other than malignant neoplasm (principal) | CPT/HCPCS: 99212 ==

== ENCOUNTER → 2021-01-19 10:40 | Outpatient (BNVA) | payer MEDICAID, SELFPAY | PROVIDERS: PCP Family Medicine; Visit Provider Family Medicine | DX: E11.621 Type 2 diabetes mellitus with foot ulcer (principal); L97.509 Non-pressure chronic ulcer of other part of unspecified foot with unspecified severity; I10 Essential (primary) hypertension; Z79.4 Long term (current) use of insulin | CPT/HCPCS: 80053; 83036; 85025 ==

== ENCOUNTER → 2021-01-20 16:22 | Outpatient (BNVA) | payer MEDICAID, SELFPAY | PROVIDERS: PCP Family Medicine; Visit Provider Family Medicine | DX: I10 Essential (primary) hypertension (principal); E11.621 Type 2 diabetes mellitus with foot ulcer; L97.509 Non-pressure chronic ulcer of other part of unspecified foot with unspecified severity; Z79.4 Long term (current) use of insulin; E78.5 Hyperlipidemia, unspecified; R79.9 Abnormal finding of blood chemistry, unspecified | CPT/HCPCS: 82607 ==

== ENCOUNTER → 2021-05-15 08:09 | Outpatient (BNVA) | payer MEDICAID, SELFPAY | PROVIDERS: PCP Family Medicine; Visit Provider Family Medicine | DX: D64.9 Anemia, unspecified (principal); E11.621 Type 2 diabetes mellitus with foot ulcer; E78.5 Hyperlipidemia, unspecified; N18.1 Chronic kidney disease, stage 1; L97.509 Non-pressure chronic ulcer of other part of unspecified foot with unspecified severity; Z79.4 Long term (current) use of insulin | CPT/HCPCS: 80053; 80061; 83036; 85025 ==

== ENCOUNTER → 2021-05-19 09:37 | Outpatient (BNVA) | payer MEDICAID, SELFPAY | PROVIDERS: PCP Family Medicine; Visit Provider Family Medicine | DX: D64.9 Anemia, unspecified (principal) | CPT/HCPCS: 82728; 83550 ==

== ENCOUNTER → 2021-08-17 11:00 | Outpatient (BNVA) | payer MEDICAID, SELFPAY | PROVIDERS: PCP Family Medicine; Visit Provider Family Medicine | DX: D50.9 Iron deficiency anemia, unspecified (principal); E11.621 Type 2 diabetes mellitus with foot ulcer; L97.509 Non-pressure chronic ulcer of other part of unspecified foot with unspecified severity; Z79.4 Long term (current) use of insulin | CPT/HCPCS: 80053; 82728; 83036; 83550; 85025 ==

== ENCOUNTER → 2022-01-18 11:15 | Outpatient (BNVA) | payer MEDICAID, SELFPAY | PROVIDERS: PCP Family Medicine; Visit Provider Family Medicine | DX: E11.621 Type 2 diabetes mellitus with foot ulcer (principal); L97.509 Non-pressure chronic ulcer of other part of unspecified foot with unspecified severity; Z79.4 Long term (current) use of insulin; D50.9 Iron deficiency anemia, unspecified; D50.8 Other iron deficiency anemias | CPT/HCPCS: 80053; 82728; 83036; 83550; 85025 ==

== ENCOUNTER → 2022-05-10 10:25 | Outpatient (BNVA) | payer MEDICAID, SELFPAY | PROVIDERS: PCP Family Medicine; Visit Provider Family Medicine | DX: E11.621 Type 2 diabetes mellitus with foot ulcer (principal); L97.509 Non-pressure chronic ulcer of other part of unspecified foot with unspecified severity; Z79.4 Long term (current) use of insulin | CPT/HCPCS: 80053; 83036 ==

== ENCOUNTER → 2022-11-08 10:24 | Outpatient (BNVA) | payer MEDICAID, SELFPAY | PROVIDERS: PCP Family Medicine; Visit Provider Family Medicine | DX: I10 Essential (primary) hypertension (principal); E78.5 Hyperlipidemia, unspecified; E11.621 Type 2 diabetes mellitus with foot ulcer; L97.509 Non-pressure chronic ulcer of other part of unspecified foot with unspecified severity; Z79.4 Long term (current) use of insulin | CPT/HCPCS: 80053; 80061; 83036; 85025 ==

== ENCOUNTER → 2023-05-09 10:38 | Outpatient (BNVA) | payer MEDICAID, SELFPAY | PROVIDERS: PCP Family Medicine; Visit Provider Family Medicine | DX: E11.621 Type 2 diabetes mellitus with foot ulcer (principal); L97.509 Non-pressure chronic ulcer of other part of unspecified foot with unspecified severity; Z79.4 Long term (current) use of insulin | CPT/HCPCS: 80053; 83036 ==

== ENCOUNTER → 2023-11-10 09:29 | Outpatient (BNVA) | payer OTHER, MEDICAID, SELFPAY | PROVIDERS: PCP Family Medicine; Visit Provider Family Medicine | DX: I10 Essential (primary) hypertension (principal); E11.9 Type 2 diabetes mellitus without complications | CPT/HCPCS: 80053; 80061; 82043; 83036; 85025 ==

== ENCOUNTER → 2024-06-28 08:48 | Outpatient (BNVA) | payer OTHER, SELFPAY | PROVIDERS: PCP Family Medicine | DX: Z79.4 Long term (current) use of insulin (principal); E78.5 Hyperlipidemia, unspecified; E11.621 Type 2 diabetes mellitus with foot ulcer; L97.509 Non-pressure chronic ulcer of other part of unspecified foot with unspecified severity; D68.9 Coagulation defect, unspecified | CPT/HCPCS: 80053; 80061; 83036; 85025 ==

== ENCOUNTER → 2024-11-20 10:37 | Outpatient (BNVA) | payer BC, OTHER, SELFPAY | PROVIDERS: PCP Family Medicine | DX: E78.5 Hyperlipidemia, unspecified (principal); E11.621 Type 2 diabetes mellitus with foot ulcer; L97.529 Non-pressure chronic ulcer of other part of left foot with unspecified severity | CPT/HCPCS: 80053; 80061; 83036 ==

== ENCOUNTER 2024-12-28 10:57 | Outpatient (CLI) | payer BC, SELFPAY ==
--- NOTE | 2024-12-28 11:00 | XR_ITS ---
WS: [id number] Left foot, 3 views, 12/28/2024 Clinical Data: E11.621 - Type 2 diabetes mellitus with foot ulcer Comparison: None. Findings: There is partial destruction of the calcaneus and talus with loss of the normal configurations. The ankle mortise is abnormal with loss of the normal articulation of the talus with the tibia. Deformity of the distal left fibula and tibia may be result of old injuries. There is soft tissue swelling surrounding the proximal foot. The distal tarsal bones including the tarsal navicular, cuneiforms and cuboid are intact. There is demineralization of the metatarsals and phalanges. There is erosion of the proximal phalanx of the left great toe in its distal portion with sclerosis of the IP joint. No fractures are seen. XR/XR foot LT min 3V* [id number] Impression: 1. Partial destruction of calcaneus and talus with loss of normal outlines. 2. Loss of normal articulation between the talus and distal tibia. 3. Soft tissue swelling surrounding the ankle and proximal left foot. 4. Demineralization of the distal tarsal bones, metatarsals and phalanges. 5. Erosion and sclerosis of the IP joint of left great toe.
== END 2024-12-28 10:58 | disposition home or self-care (01) ==
LOC: RAD 10:59
PROVIDERS: PCP Family Medicine; Visit Provider Thoracic Surgery (Cardiothoracic Vascular Surgery)
DX: E11.621 Type 2 diabetes mellitus with foot ulcer (principal); L97.519 Non-pressure chronic ulcer of other part of right foot with unspecified severity; M89.8X7 Other specified disorders of bone, ankle and foot; R93.6 Abnormal findings on diagnostic imaging of limbs; M85.872 Other specified disorders of bone density and structure, left ankle and foot; M19.072 Primary osteoarthritis, left ankle and foot
CPT/HCPCS: 73630

== ENCOUNTER → 2025-01-29 09:54 | Outpatient (BNVA) | payer BC, SELFPAY | PROVIDERS: PCP Family Medicine; Visit Provider Podiatrist Foot & Ankle Surgery | DX: E11.621 Type 2 diabetes mellitus with foot ulcer (principal); L97.522 Non-pressure chronic ulcer of other part of left foot with fat layer exposed; Z79.4 Long term (current) use of insulin; E11.52 Type 2 diabetes mellitus with diabetic peripheral angiopathy with gangrene | CPT/HCPCS: 73630; 87070; 87075; 87077; 87176; 87186; 87205 ==

== ENCOUNTER → 2025-02-19 13:03 | Outpatient (BNVA) | payer MEDICARE, SELFPAY | PROVIDERS: PCP Family Medicine; Visit Provider Thoracic Surgery (Cardiothoracic Vascular Surgery) | DX: E11.52 Type 2 diabetes mellitus with diabetic peripheral angiopathy with gangrene (principal); E11.621 Type 2 diabetes mellitus with foot ulcer; L97.526 Non-pressure chronic ulcer of other part of left foot with bone involvement without evidence of necrosis | CPT/HCPCS: 97597 ==

== ENCOUNTER 2025-02-22 10:40 | Outpatient (CLI) | payer MEDICARE, SELFPAY ==
--- NOTE | 2025-02-22 11:00 | CT_ITS ---
WS: [id number] CT LEFT ANKLE, NONCONTRAST HISTORY: wound left foot/ankle Technique: All CT scans at [facility] use at least one of these dose optimization techniques: automated exposure control; mA and/or kV adjustment per patient size (includes targeted exams where dose is matched to clinical indication); or iterative reconstruction. DLP: 143.77 mGy.cm COMPARISON: Radiograph 01/29/2025 History of Charcot joint. Draining wound medial LEFT ankle. Severe deformity of the ankle joint. Destructive bone lesions with ulcerations, subchondral cysts and bony fragmentation with subluxations and displacements. Consistent with a Charcot joint. There is a large amount of soft tissue edema surrounding the ankle extending into the foot. Largest area of soft tissue edema contains air along the medial ankle at the level of the ankle joint. Scattered foci of air in the subcutaneous soft tissue. Additional air pockets are also noted within the talus. Some of this air may be due to debridement. A discrete fluid collection is difficult to identify without IV contrast. CT/CT ankle LT wo con* [id number] IMPRESSION: 1. Significant soft tissue edema with loss of the normal fat planes along the medial ankle. There are numerous foci of air in the subcutaneous soft tissue an d also air foci within the talus. These foci of air may be due to necrotizing f asciitis or debridement. Osteomyelitis of the talus should be considered. Foci of air in the talus new since 11/30/2019. 2. Progressive subluxation with destructions and fragmentation at the ankle meme int consistent with Charcot's.
== END 2025-02-22 10:41 | disposition home or self-care (01) ==
LOC: RAD 10:41
PROVIDERS: PCP Family Medicine; Visit Provider Podiatrist Foot & Ankle Surgery
DX: M14.672 Charcot's joint, left ankle and foot (principal)
CPT/HCPCS: 73700

== ENCOUNTER 2025-02-22 19:23 | Inpatient (IN) | payer MEDICARE, SELFPAY ==
[2025-02-22 19:35] VITALS: BP 128/70; PULSE 109; RESP 16; TEMP 36.7; O2SAT 100; BMI 21.2
--- NOTE | 2025-02-22 19:45 | ED_ITS ---
HPI - Recheck/Abnormal Lab/Rx 2 General: Chief Complaint: Recheck/Abnormal Lab/Rx Stated Complaint: Dr Olvera sent for labs Time Seen by Provider: 02/22/25 19:26 Source: patient Mode of arrival: ambulatory Limitations: no limitations History of Present Illness: 64-year-old female who has a history of Charcot's foot also had a chronic wound to her right foot states she been under care of wound care as recently and seeing Dr. Mcclure she had a CT scan today outpatient showed some possible air and was sent here for lab work. She denies any real change in the wound denies any fever has had some slight drainage Related Data Previous Rx's ?Medication ?Instructions ?Recorded aspirin 81 mg tablet,delayed 81 mg PO DAILY #30 tabs 0 12/08/19 release rosuvastatin 20 mg tablet See Rx Instructions .Route 0 06/29/24 .COMPLEX #90 tabs glipizide 2.5 mg tablet, extended 2.5 mg PO DAILY #90 tabs 11/20/24 release 24 hr metformin 500 mg tablet,extended See Rx Instructions . Route 11/20/24 release 24 hr .COMPLEX #90 tabs linezolid 600 mg tablet 600 mg PO BID #14 tabs 01/31 amlodipine 10 mg tablet See Rx Instructions .Route 0 02/06/25 .COMPLEX #90 tabs sitagliptin phosphate 50 mg tablet See Rx Instructions .Route 02/06/25 (Januvia) .COMPLEX #90 tabs clopidogrel 75 mg tablet See Rx Instructions .Route 0 02/18/25 .COMPLEX #90 tabs Allergies Allergy/AdvReac Type Severity Reaction Status Date / Time No Known Allergies Allergy Verified 02/05/25 12:50 Review of Systems 2 Const: Denies: fever(s), chills, body aches or change in appetite ENMT: Denies: throat pain or dental pain Card: Denies: chest pain Resp: Denies: dyspnea GI: Denies: abdominal pain, nausea, vomiting or diarrhea Musc: Denies: neck pain or back pain Skin/Breast: Denies: rash Neuro: Denies: headache(s) PFSH ED 2 PFSH: Medical History Unspecified open wound, left foot, initial encounter Type 2 diabetes mellitus, with long-term current use of insulin Anemia Sepsis Lower limb ischemia Chronic kidney disease (CKD) stage G1/A1, glomerular filtration rate (GFR) equal to or greater than 90 mL/min/1.73 square meter and albuminuria creatinine ratio less than 30 mg/g Coagulopathy Hyponatremia Infectious fasciitis Peripheral arterial disease Dyslipidemia Essential hypertension Surgical History History of foot surgery Family History Father Cancer Brother , Hepatitis C Diabetes Social History Smoking and tobacco/nicotine status: never used tobacco/nicotine Second hand smoke exposure: Yes Alcohol intake: never Substance/Drug Use: never Adopted: No Caregiver/support person: No Lives independently: Yes Household members: spouse Marital status: service: No Current occupational status: unemployed Female Reproductive History: Para: 3 Physical Exam 2 Const: COMMON NORMALS: no acute distress, patient oriented x3 and healthy appearing HENMT: COMMON NORMALS: normocephalic and atraumatic HEAD & SCALP: n ormocephalic and atraumatic Eye: COMMON NORMALS: conjunctivae normal CONJUNCTIVA: Yes conjunctivae normal Neck/C-Spine: COMMON NORMALS: full ROM and supple Chest: COMMONS NORMALS: normal inspection of the chest Resp: COMMON NORMALS: normal respiratory effort Cardio: COMMON NORMALS: regular rate RATE: regular rate Extremity: COMMON NORMALS: full ROM NARRATIVE EXTREMITY EXAM: Charcot foot deformity chronic wound to left inner foot Neuro: COMMON NORMALS: patient oriented x3, moves all extremities and no focal motor deficits Psych: COMMON NORMALS: mental status grossly normal, Normal thought process present and cooperative THOUGHT PROCESS: Normal thought process present Skin: COMMON NORMALS: no rashes or lesions noted and no wounds GENERAL SKIN EXAM: no rashes or lesions noted Course 2 Vital Signs: Vital signs: Vital Signs Temperature 98.0 F 02/22/25 19:35 Pulse Rate 109 H 02/22/25 19:35 Respiratory Rate 16 02/22/25 19:35 Blood Pressure 128/70 02/22/25 19:35 Pulse Oximetry 100 02/22/25 19:35 Oxygen Delivery Me thod Room Air 02/22/25 19:35 MDM - Recheck/Abnormal Lab/Rx Medical Decision Making Patient presents with osteomyelitis of her left foot she is seen by gizzard peeler Dr. Westbrook in the ER will admit at this time for IV antibiotics and he has been taken to the OR tomorrow Medical Records I reviewed the patient's medical records. Lab Data I reviewed the patient's lab results. 02/22/25 19:42 02/22/25 19:42 Laboratory Results WBC 9.19 10^3/uL (3.29-11.43) 02/22/25 19:42 RBC 3.97 10^6/uL (3.85-5.65) 02/22/25 19:42 Hgb 10.20 g/dL (11.27-16.99) L 02/22/25 19:42 Hct 34.2 % (36-47) L 02/22/25 19:42 MCV 86.1 fl (85-98) 02/22/25 19:42 MCH 25.7 pg (27-33) L 02/22/25 19:42 MCHC 29.8 g/dL (30-55) L 02/22/25 19:42 RDW 16.4 % (12.1-15.1) H 02/22/25 19:42 Plt Count 557 10^3/cmm (157-399) H 02/22/25 19:42 MPV 10.5 fL (7.4-10.4) H 02/22/25 19:42 Neut % (Auto) 70.8 % 02/22/25 19:42 Lymph % (Auto) 19.0 % 02/22/25 19:42 Traverse % (Auto) 7.6 % 02/22/25 19:42 Eos % (Auto) 1.4 % 02/22/25 19:42 Baso % (Auto) 0.7 % 02/22/25 19:42 Neut # (Auto) 6.50 10^3/uL (1.8-7.7) 02/22/25 19:42 Lymph # (Auto) 1.8 10^3/uL (0.8-4.8) 02/22/25 19:42 Traverse # (Auto) 0.7 10^3/uL (0.2-0.9) 02/22/25 19:42 Eos # (Auto) 0.1 10^3/uL (0.0-0.8) 02/22/25 19:42 Baso # (Auto) 0.1 10^3/uL (0.0-0.1) 02/22/25 19:42 Nucleated RBC % (auto) 0 % 02/22/25 19:42 Nucleated RBCs # 0.0 /100WBC 02/22/25 19:42 ESR 88 mm/hr (0-15) H 02/22/25 19:42 Sodium 135 mmol/L (136-145) L 02/22/25 19:42 Potassium 4.0 mmol/L (3.5-5.1) 02/22/25 19:42 Chloride 95 mmol/L (98-107) L 02/22/25 19:42 Carbon Dioxide 22 mmol/L (22-29) 02/22/25 19:42 Anion Gap 22.0 (5-19) H 02/22/25 19:42 BUN 16 mg/dL (8-23) 02/22/25 19:42 Creatinine 1.1 mg/dL (0.5-0.9) H 02/22/25 19:42 GFR Calculation 49.7 mL/min (90-130) L 02/22/25 19:42 Glucose 135 mg/dL (65-115) H 02/22/25 19:42 Calculated Osmolality 283 mOsm/kg (285-295) L 02/22/25 19:42 Calcium 9.3 mg/dL (8.5-10.5) 02/22/25 19:42 Total Bilirubin 0.2 mg/dL (0.15-1.2) 02/22/25 19:42 AST 13 U/L (0-32) 02/22/25 19:42 ALT 8 U/L (0-33) 02/22/25 19:42 Alkaline Phosphatase 86 U/L (35-105) 02/22/25 19:42 C-Reactive Protein 84.3 mg/L (0.0-4.9) H 02/22/25 19:42 Total Protein 7.4 g/dL (6.6-8.7) 02/22/25 19:42 Albumin 3.4 g/dL (3.5-5.2) L 02/22/25 19:42 Globulin 4.0 g/dL (1.3-4.6) 02/22/25 19:42 No radiology studies performed this visit Discharge Plan Discharge Patient Disposition: Admitted As Inpatient Clinical Impression: Acute osteomyelitis of left foot Diabetic ulcer of left heel Qualifiers: Diabetes mellitus type: type 2 Non-pressure ulcer stage: unspecified non- pressure ulcer stage Qualified Code(s): E11.621 - Type 2 diabetes mellitus with foot ulcer Condition: Stable Coding Level of Care Code ED Enamel Buffer for Britney Cheng
[2025-02-22 19:48] LABS: Basophils # 0.1 10^3/uL (0.0-0.1); Basophils % 0.7 %; Eosinophils # 0.1 10^3/uL (0.0-0.8); Eosinophils % 1.4 %; Hematocrit 34.2 % (36-47); Lymphocytes # 1.8 10^3/uL (0.8-4.8); Mean Corpuscular HGB Conc 29.8 g/dL (30-55); Mean Corpuscular Hemoglobin 25.7 pg (27-33); Mean Corpuscular Volume 86.1 fl (85-98); Mean Platelet Volume 10.5 fL (7.4-10.4); Monocytes # 0.7 10^3/uL (0.2-0.9); Monocytes % 7.6 %; Neutrophils % 70.8 %; Nucleated Red Blood Cells % 0 %; Platelet Count 557 10^3/cmm (157-399); Red Blood Count 3.97 10^6/uL (3.85-5.65); Red Cell Distribution Width 16.4 % (12.1-15.1); White Blood Count 9.19 10^3/uL (3.29-11.43)
[2025-02-22 19:53] LABS: Erythrocyte Sedimentation Rate 88 mm/hr (0-15)
[2025-02-22 20:07] LABS: Alanine Aminotransferase 8 U/L (0-33); Albumin Level 3.4 g/dL (3.5-5.2); Alkaline Phosphatase 86 U/L (35-105); Aspartate Amino Transferase 13 U/L (0-32); Blood Urea Nitrogen 16 mg/dL (8-23); C Reactive Protein 84.3 mg/L (0.0-4.9); Calcium 9.3 mg/dL (8.5-10.5); Carbon Dioxide 22 mmol/L (22-29); Chloride 95 mmol/L (98-107); Creatinine Clr Calc Pharmacy 48.9505; Glomerular Filtration Rate 49.7 mL/min (90-130); Glucose 135 mg/dL (65-115); Osmolality Calculated 283 mOsm/kg (285-295); Sodium 135 mmol/L (136-145); Total Bilirubin 0.2 mg/dL (0.15-1.2); Total Protein 7.4 g/dL (6.6-8.7)
--- NOTE | 2025-02-22 20:34 | P.CONIM_ITS ---
Providers/Reason For Consult 2 Consulting Physician/Specialty*: Dr. Farhad Olvera, Celeste.P.M./podiatry Reason for Consult*: Left ankle osteomyelitis, gas gangrene Primary Care Provider: Elana Spain DO History of Present Illness History of Present Illness Lucy Ramos is a 64 year old female with left ankle Charcot arthropathy, advanced Charcot dislocation of ankle joint. Patient has been ambulating and walking on medial malleolus and talus which has resulted in chronic ulceration. She has extensive wound care history over the course of the past 5 years. She does have a history of gas gangrene prior to this. She underwent extensive debridement at that time. Residual wound has been healing well up to this point. Patient was referred to me in the outpatient setting for evaluation for surgical intervention for deformity correction. CT scan was ordered to evaluate extent of deformity to determine surgical options. This was performed today at 11 AM. I reviewed the results this evening. There is an incidental finding of gas producing organism associated with ulceration in the subcutaneous and deep fascial layers of the left foot surrounding the wound as well as within the talus. I contacted the patient and directed her to the emergency department given the finding of subcutaneous emphysema. Workup in the emergency department failed to produce leukocytosis. However, elevated ESR, CRP. Clinical exam also revealed positive probe to bone and increased active drainage. Patient states that drainage has been worsening over the course the past couple days. Patient denies any constitutional symptoms. Review of Systems 2 General: Reports: 10 or more systems reviewed and unremarkable except in HPI and below Const: Denies: fever(s), chills, body aches or change in appetite Eyes: Denies: change in vision or blurry vision Card: Denies: chest pain, palpitations or irregular heart rhythm Resp: Denies: dyspnea GI: Denies: abdominal pain, nausea, vomiting or diarrhea Musc: Reports: joint stiffness Skin/Breast: Reports: non-healing lesions and lesions Neuro: Reports: numbness in extremities Medications/Allergies Home Medications ?Medication ?Instructions ?Recorded ?Confirmed ?Last Taken ?Type aspirin 81 mg tablet,delayed 81 mg PO DAILY #30 tabs 0 12/08/19 02/05/25 12/17/19 06:30 Rx release rosuvastatin 20 mg tablet See Rx Instructions .Route 0 06/29/24 02/05/25 Unknown Rx .COMPLEX #90 tabs glipizide 2.5 mg tablet, extended 2.5 mg PO DAILY #90 tabs 11/20/24 02/05/25 Unknown Rx release 24 hr metformin 500 mg tablet,extended See Rx Instructions . Route 11/20/24 02/05/25 Unknown Rx release 24 hr .COMPLEX #90 tabs linezolid 600 mg tablet 600 mg PO BID #14 tabs 01/3102/05/25 Unknown Rx amlodipine 10 mg tablet See Rx Instructions .Route 0 02/06/25 Unknown Rx .COMPLEX #90 tabs sitagliptin phosphate 50 mg tablet See Rx Instructions .Route 02/06/25 Unknown Rx (Januvia) .COMPLEX #90 tabs clopidogrel 75 mg tablet See Rx Instructions .Route 0 02/18/25 Unknown Rx .COMPLEX #90 tabs Allergies Allergy/AdvReac Type Severity Reaction Status Date / Time No Known Allergies Allergy Verified 02/05/25 12:50 PFSH Acute 2 PFSH: Medical History Unspecified open wound, left foot, initial encounter Type 2 diabetes mellitus, with long-term current use of insulin Anemia Sepsis Lower limb ischemia Chronic kidney disease (CKD) stage G1/A1, glomerular filtration rate (GFR) equal to or greater than 90 mL/min/1.73 square meter and albuminuria creatinine ratio less than 30 mg/g Coagulopathy Hyponatremia Infectious fasciitis Peripheral arterial disease Dyslipidemia Essential hypertension Surgical History History of foot surgery Family History Father Cancer Brother , Hepatitis C Diabetes Social History Smoking and tobacco/nicotine status: never used tobacco/nicotine Second hand smoke exposure: Yes Alcohol intake: never Substance/Drug Use: never Adopted: No Caregiver/support person: No Lives independently: Yes Household members: spouse Marital status: service: No Current occupational status: unemployed Female Reproductive History: Para: 3 Vitals/I&O/Wt Last Vital Signs Temp 98.0 F 02/22/25 19:35 Pulse 109 H 02/22/25 19:35 Resp 16 05/09/25 19:35 BP 128/70 02/22/25 19:35 Pulse Ox 100 02/22/25 19:35 O2 Del Method Room Air 02/22/25 19:35 02/22/25 02/22/25 02/22/25 06:59 14:59 22:59 Intake Total 0 / 0 Balance 0 / 0 Weight last 48 hrs Weight 136 lb Physical Exam 2 Narrative: BELOW IS A FOCUSED LOWER EXTREMITY EXAM GENERAL: A&O x 3 VASCULAR: DP/PT pulses palpable 2/4 with CFT intact, <3seconds to distal digits DERMATOLOGICAL: Full-thickness ulceration plantar medial aspect of left ankle overlying the talus and medial malleolus. This measures 1.5 x 1.0 x 2.5 cm. Crepitus. Active serous drainage with minimal surrounding erythema. Positive probe to bone. MUSCULOSKELETAL: Advanced Charcot arthropathy with deformity of the ankle and rigid valgus position. Tenderness with palpation of periwound area. NEUROLOGICAL: Neurological sensation to the affected foot and ankle is present through L4-S1 dermatomes with no hyper/hypoesthesias, negative Tinel or Valleix's sign IMAGING: CT/CT ankle LT wo con* [id number]?? IMPRESSION:?? 1.??Significant soft tissue edema with l oss of the normal fat planes along the medial ankle. There are numerous foci of air in the subcutaneous soft tissue and also air foci within the talus. These foci of air may be due to necrotizing fasciitis or debridement. Osteomyelitis of the talus should be considered. Foci of air in the talus new since 11/30/2019.?? 2.??Progressive subluxation with destruc tions and fragmentation at the ankle joint consistent with Charcot's.?? Data 02/22/25 19:42 02/22/25 19:42 A&P Assessment and plan (1) Acute osteomyelitis of left talus: Plan -Left ankle acute osteomyelitis/emphysematous osteomyelitis of talus -Recommend infectious disease consult -Labs and vitals reviewed -WBC 9.19 -ESR 88 -CRP 84 - VSS -Cultures wound cultures pending -Abx Vanco/Zosyn -Diet: N.p.o. at midnight -Given findings of emphysematous osteomyelitis and gas in soft tissues surrounding wound plan for surgical debridement tomorrow morning 02/23/2025. This was discussed with patient in detail in the emergency department. Patient questions answered to satisfaction. Plan will be for washout of soft tissue as well as biopsy of talus to identify causative organism. My concern is the extent of involvement of the talus with emphysematous osteomyelitis. Prognosis is guarded. -Pain Mgmt: Per primary team -Weight bearing: Nonweightbearing to left foot. May use right foot for transfers -Dressings: Saline wet-to-dry -Continue current Abx therapy until ID and Sensitivity results -Trend labs -Discharge plan: Patient will need PICC line prior to discharge. Remainder of discharge plan to be determined -Podiatry will continue to round on patient daily and provide recommendations PDMP PDMP Reviewed: Not Reviewed Coding Level of Care Code Acute Code for Britney Kochd Diagnoses Acute osteomyelitis of left talus M86.172
--- NOTE | 2025-02-22 20:49 | P.HP_ITS ---
Providers/Chief Complaint 2 Primary Care Provider: Elana Spain DO Chief Complaint: Dr Olvera sent for labs History of Present Illness Lucy Ramos is a 64 year old female with a past medical history significant for charcot arthropathy, insomnia, type 2 diabetes mellitus, nonhealing wound to left ankle, and multiple other comorbidities who presents to the emergency department with abnormal left ankle CT imaging today. CT of her left ankle showed significant soft tissue edema with loss of normal fat planes along the medial ankle with numerous foci of air in the subcu tissue soft tissue as well as within the talus concerning for necrotizing fasciitis and possibly osteomyelitis of talus. Patient was contacted and told to go to the emergency department for further workup. She is evaluated the emergency department from with podiatry recommending surgery tomorrow morning. She is agreeable to plan. Patient endorses history of nonhealing left ankle wound in the setting of Charcot arthropathy. She has noticed increased drainage from the wound recently. Endorses associated chills. Denies fevers. Denies alleviating or aggravating factors. Review of Systems 2 Narrative: A complete review of systems was obtained and is negative except as stated in HPI. Medications/Allergies Home Medications ?Medication ?Instructions ?Recorded ?Confirmed ?Last Taken ?Type aspirin 81 mg tablet,delayed 81 mg PO DAILY #30 tabs 0 12/08/19 02/05/25 12/17/19 06:30 Rx release rosuvastatin 20 mg tablet See Rx Instructions .Route 0 06/29/24 02/05/25 Unknown Rx .COMPLEX #90 tabs glipizide 2.5 mg tablet, extended 2.5 mg PO DAILY #90 tabs 11/20/24 02/05/25 Unknown Rx release 24 hr metformin 500 mg tablet,extended See Rx Instructions . Route 11/20/24 02/05/25 Unknown Rx release 24 hr .COMPLEX #90 tabs linezolid 600 mg tablet 600 mg PO BID #14 tabs 01/3102/05/25 Unknown Rx amlodipine 10 mg tablet See Rx Instructions .Route 0 02/06/25 Unknown Rx .COMPLEX #90 tabs sitagliptin phosphate 50 mg tablet See Rx Instructions .Route 02/06/25 Unknown Rx (Januvia) .COMPLEX #90 tabs clopidogrel 75 mg tablet See Rx Instructions .Route 0 02/18/25 Unknown Rx .COMPLEX #90 tabs Allergies Allergy/AdvReac Type Severity Reaction Status Date / Time No Known Allergies Allergy Verified 02/05/25 12:50 PFSH Acute 2 PFSH: Medical History Unspecified open wound, left foot, initial encounter Type 2 diabetes mellitus, with long-term current use of insulin Anemia Sepsis Lower limb ischemia Chronic kidney disease (CKD) stage G1/A1, glomerular filtration rate (GFR) equal to or greater than 90 mL/min/1.73 square meter and albuminuria creatinine ratio less than 30 mg/g Coagulopathy Hyponatremia Infectious fasciitis Peripheral arterial disease Dyslipidemia Essential hypertension Surgical History History of foot surgery Family History Father Cancer Brother , Hepatitis C Diabetes Social History Smoking and tobacco/nicotine status: never used tobacco/nicotine Second hand smoke exposure: Yes Alcohol intake: never Substance/Drug Use: never Adopted: No Caregiver/support person: No Lives independently: Yes Household members: spouse Marital status: service: No Current occupational status: unemployed Female Reproductive History: Para: 3 Vitals/I&O/Wt Last Vital Signs Temp 98.0 F 02/22/25 19:35 Pulse 109 H 02/22/25 19:35 Resp 16 02/22/25 19:35 BP 128/70 02/22/25 19:35 Pulse Ox 100 02/22/25 19:35 O2 Del Method Room Air 02/22/25 19:35 02/22/25 02/22/25 02/22/25 06:59 14:59 22:59 Intake Total 0 / 0 Balance 0 / 0 Weight last 48 hrs Weight 61.689 kg Physical Exam 2 Narrative: General: Patient is awake and alert. Pleasant. Head: Normocephalic. Atraumatic. EOM intact. Neck: No JVD. Cardiovascular: RRR. No gallops. No murmurs. Lungs: Clear to auscultation, no use of accessory muscles, no crackles or wheezes. Skin: No jaundice. No rashes. Abdomen: Normal bowel sounds, abdomen soft and nontender. Genito Urinary: Genital exam not performed since complaints not related. Rectal: Rectal exam not performed since no symptoms indicated blood loss. Extremities: No cyanosis or clubbing. Musculoskeletal: Left foot is wrapped in gauze/bandages. Neurological: Moves all 4 extremities. No myoclonus. Data 02/22/25 19:42 02/22/25 19:42 A&P Assessment and plan (1) Type 2 diabetes mellitus, with long-term current use of insulin: (2) Diabetic ulcer of left heel: (3) Necrotizing soft tissue infection: (4) Acute osteomyelitis of left talus: (5) Charcot arthropathy: (6) Unspecified open wound, left foot, initial encounter: (7) Subcutaneous air: (8) Thrombocytosis: (9) Hyponatremia: Plan Necrotizing fasciitis of left ankle Suspect osteomyelitis of left talus History of nonhealing left ankle wound History of Charcot arthropathy - Podiatry consulted, appreciate recommendations - N.p.o. after midnight for surgery - Patient started on vancomycin and Zosyn, will continue both for now - Supportive care Peripheral arterial disease - Continue aspirin - Hold Plavix for now Type 2 diabetes mellitus - Hold oral agents - Sliding scale correction Hyperlipidemia - Continue statin Hypertension - Continue Norvasc DVT prophylaxis: SCD CODE STATUS: Full code PDMP PDMP Reviewed: Not Reviewed Attestations 2 Medical Necessity Statement*: Patient presents with gas gangrene of left ankle with expected hospitalization not to cross 2 midnights for surgical intervention for source control, IV antibiotics, and supportive care. Coding Level of Care Code Acute Code for [facility] Fwd Diagnoses Type 2 diabetes mellitus with foot ulcer, with long-term current use of insulin E11.621; L97.509; Z79.4 Diabetes mellitus complication status: with skin complications Diabetes mellitus complication detail: with foot ulcer Diabetic ulcer of left heel associated with type 2 diabetes mellitus, unspecified ulcer stage E11.621; L97.429 Diabetes mellitus type: type 2 Non-pressure ulcer stage: unspecified non-pressure ulcer stage Necrotizing soft tissue infection M79.89 Acute osteomyelitis of left talus M86.172 Charcot arthropathy M14.60 Unspecified open wound, left foot, initial encounter S91.302A Subcutaneous air T79.7XXA Thrombocytosis D75.839 Hyponatremia E87.1
[2025-02-22] MEDS: VANCOMYCIN ADD-Vantage 1,000 MG in 0.9% NaCl ADD-Vantage 250 ML 250 MG IV (21:24)
[2025-02-22 21:32] VITALS: BP 124/69; PULSE 90; RESP 16; O2SAT 99
[2025-02-22] MEDS: atorvastatin 40 mg Tablet 80 MG PO (23:00)
[2025-02-22] MEDS: piperacillin-tazobactam 3.375 GM in sodium chloride 0.9% (plus) 50 ML IV (23:02)
[2025-02-22] MEDS: sodium chloride 0.9% 1,000 ML 50 ML IV (23:02)
[2025-02-22 23:11] LABS: Procalcitonin 0.08 ng/mL (0-0.5)
[2025-02-23] VITALS (15 sets, daily range): BP systolic 93–146; BP diastolic 46–71; PULSE 68–100; RESP 15–18; TEMP 36.4–37.1; O2SAT 93–100
[2025-02-23 00:45] LABS: MRSA PCR OZH (swab) NOT DETECTED (Not Detecte)
[2025-02-23 04:03] LABS: Alanine Aminotransferase 7 U/L (0-33); Albumin Level 3.3 g/dL (3.5-5.2); Alkaline Phosphatase 81 U/L (35-105); Anion Gap 13.9 (5-19); Aspartate Amino Transferase 11 U/L (0-32); Blood Urea Nitrogen 17 mg/dL (8-23); Carbon Dioxide 28 mmol/L (22-29); Chloride 101 mmol/L (98-107); Creatinine Clr Calc Pharmacy 47.8266; Globulin 3.4 g/dL (1.3-4.6); Glomerular Filtration Rate 49.7 mL/min (90-130); Glucose 119 mg/dL (65-115); Magnesium 2.1 mg/dL (1.7-2.3); Osmolality Calculated 291 mOsm/kg (285-295); Potassium 3.9 mmol/L (3.5-5.1); Sodium 139 mmol/L (136-145); Total Bilirubin 0.2 mg/dL (0.15-1.2); Total Protein 6.7 g/dL (6.6-8.7)
--- NOTE | 2025-02-23 07:27 | PHA.VACGOAL ---
Vancomycin Goal - Goal Vancomycin Goal:: 15-20 mg/L Vancomycin Indication:: Osteo (Necrotizing fasciitis of left ankle, Suspect osteomyelitis of left talus) - Therapy Current therapy:: Pip/Tazo Day of therpy:: Day []of [] . Actual body weight (kg): 127 lb 11.2 oz - Data Labs: WBC 9.19 10^3/uL (3.29-11.43) 02/22/25 19:42 RBC 3.97 10^6/uL (3.85-5.65) 02/22/25 19:42 Hgb 10.20 g/dL (11.27-16.99) L 02/22/25 19:42 Hct 34.2 % (36-47) L 02/22/25 19:42 MCV 86.1 fl (85-98) 02/22/25 19:42 MCH 25.7 pg (27-33) L 02/22/25 19:42 MCHC 29.8 g/dL (30-55) L 02/22/25 19:42 RDW 16.4 % (12.1-15.1) H 02/22/25 19:42 Sodium 139 mmol/L (136-145) 02/23/25 03:27 Potassium 3.9 mmol/L (3.5-5.1) 02/23/25 03:27 Chloride 101 mmol/L (98-107) 02/23/25 03:27 Carbon Dioxide 28 mmol/L (22-29) 02/23/25 03:27 Anion Gap 13.9 (5-19) 02/23/25 03:27 BUN 17 mg/dL (8-23) 02/23/25 03:27 Creatinine 1.1 mg/dL (0.5-0.9) H 02/23/25 03:27 GFR Calculation 49.7 mL/min (90-130) L 02/23/25 03:27 Last dialysis session:: N/A Treatment plan:: new consult Regimen:: INITIAL LOADING DOSE OF 1000 MG GIVEN IN ER. MAINTENANCE DOSE OF 500 MG Q12H PER DOSING PROTOCOL. Follow up:: WILL CONTINUE TO MONITOR AND FOLLOW UP DAILY. TROUGH PRIOR TO 4TH MAINTENANCE DOSE.
--- NOTE | 2025-02-23 07:48 | W.PM.OPSUD ---
Surgery/Procedure H&P Update DATE OF PROCEDURE: February 23, 2025 DATE H&P PERFORMED: 02/22/25 H&P UPDATE INFORMATION: I have reviewed H&P completed within last 30 days, I have examined patient prior to procedure, No changes to prior documentation, H&P is in [facility] EMR on date indicated and Risks and benefits of the procedure reviewed PLANNED PROCEDURE: Operation Date: 02/23/25 08:10 Proposed Procedures p Incision And Drainage of Left Ankle(Left) - Farhad Olvera DPM
--- NOTE | 2025-02-23 08:13 | P.ANESASSM_ITS ---
Pre-Anesthetic Assessment Height/Weight: Height 1.7 m Weight 57.924 kg Temp Pulse Resp BP Pulse Ox O2 Del Method 98.8 F 98 18 137/61 98 Room Air 02/23/25 07:32 02/23/25 07:32 02/23/25 07:32 02/23/25 07:32 02/23/25 07:32 02/23/25 07:32 Operation Date: 02/23/25 08:10 Proposed Procedures p Incision And Drainage of Left Ankle(Left) - Farhad Olvera DPM Last intake: Intake Last Liquid Date 02/22/25 Last Liquid Time 23:00 Last Solid Date 02/22/25 Last Solid Time 14:00 Social No alcohol and No tobacco (quit 5 y/a) Exam alert, oriented x 3, clear to auscultation bilaterally and regular rate & rhythm (rapid 90-100/min) Airway Submandibular: within normal limits Cervical ROM: within normal limits Mallampati: Class I Pulmonary None reported CV/HEM Hypertension and Peripheral Vascular Disease Metabolic Diabetes Mellitus and Hyperlipidemia Anesthetic Plan ASA status: 3E Anesthesia: General Medications/Allergies Home Medications ?Medication ?Instructions ?Recorded ?Confirmed ?Last Taken ?Type aspirin 81 mg tablet,delayed 81 mg PO DAILY #30 tabs 0 12/08/19 02/05/25 12/17/19 06:30 Rx release rosuvastatin 20 mg tablet See Rx Instructions .Route 0 06/29/24 02/05/25 Unknown Rx .COMPLEX #90 tabs glipizide 2.5 mg tablet, extended 2.5 mg PO DAILY #90 tabs 11/20/24 02/05/25 Unknown Rx release 24 hr metformin 500 mg tablet,extended See Rx Instructions . Route 11/20/24 02/05/25 Unknown Rx release 24 hr .COMPLEX #90 tabs linezolid 600 mg tablet 600 mg PO BID #14 tabs 01/3102/05/25 Unknown Rx amlodipine 10 mg tablet See Rx Instructions .Route 0 02/06/25 Unknown Rx .COMPLEX #90 tabs sitagliptin phosphate 50 mg tablet See Rx Instructions .Route 02/06/25 Unknown Rx (Januvia) .COMPLEX #90 tabs clopidogrel 75 mg tablet See Rx Instructions .Route 0 02/18/25 Unknown Rx .COMPLEX #90 tabs Allergies Allergy/AdvReac Type Severity Reaction Status Date / Time No Known Allergies Allergy Verified 02/05/25 12:50 Current Medications Generic Name Dose Route Start Last Admin Trade Name Sacha PRN Reason Stop Dose Admin Atorvastatin Calcium 80 mg 02/22/25 22:45 02/22/25 23:00 Atorvastatin 40 Mg Tablet PO 80 mg On Hold: 02/23/25 07:31 BEDTIME SADIE Administration Comment: Order held by Process Transfer Sodium Chloride 1,000 mls @ 50 mls/hr 02/22/25 23:59 02/22/25 23:02 Sodium Chloride 0.9% IV 50 mls/hr On Hold: 02/23/25 07:31 .Q20H SADIE Administration Comment: Order held by Process Transfer [facility] Anesthesia Medical History Unspecified open wound, left foot, initial encounter Type 2 diabetes mellitus, with long-term current use of insulin Anemia Sepsis Lower limb ischemia Chronic kidney disease (CKD) stage G1/A1, glomerular filtration rate (GFR) equal to or greater than 90 mL/min/1.73 square meter and albuminuria creatinine ratio less than 30 mg/g Coagulopathy Hyponatremia Infectious fasciitis Peripheral arterial disease Dyslipidemia Essential hypertension Surgical History History of foot surgery Family History Father Cancer Brother , Hepatitis C Diabetes Social History Smoking and tobacco/nicotine status: never used tobacco/nicotine Second hand smoke exposure: Yes Alcohol intake: never Substance/Drug Use: never Adopted: No Caregiver/support person: No Lives independently: Yes Household members: spouse Marital status: service: No Current occupational status: unemployed Female Reproductive History Para: 3 Data Anesthesia 02/22/25 19:42 02/23/25 03:27 Short CBC 02/22/25 Range/Units 19:42 WBC 9.19 (3.29-11.43) 10^3/uL Hgb 10.20 L (11.27-16.99) g/dL Hct 34.2 L (36-47) % MCV 86.1 (85-98) fl Plt Count 557 H (157-399) 10^3/cmm Neut % (Auto) 70.8 % Neut # (Auto) 6.50 (1.8-7.7) 10^3/uL BMP 02/22/25 02/23/25 19:42 03:27 Sodium 135 L 139 Potassium 4.0 3.9 Chloride 95 L 101 Carbon Dioxide 22 28 BUN 16 17 Creatinine 1.1 H 1.1 H Glucose 135 H 119 H Calcium 9.3 9.0 Liver Function 02/22/25 02/23/25 Range/Units 19:42 03:27 Total Bilirubin 0.2 0.2 (0.15-1.2) mg/dL AST 13 11 (0-32) U/L ALT 8 7 (0-33) U/L Alkaline Phosphatase 86 81 (35-105) U/L Albumin 3.4 L 3.3 L (3.5-5.2) g/dL Coags 02/22/25 19:42 ESR 88 H C-Reactive Protein 84.3 H Microbiology 02/22/25 20:52 Blood Culture - Preliminary Blood SPECIMEN COLLECTED 02/22/25 20:47 Blood Culture - Preliminary Blood SPECIMEN COLLECTED
[2025-02-23] MEDS: BUPivacaine 0.5% INJ 30 mL INJECTION (08:30)
--- NOTE | 2025-02-23 08:44 | W.PM.BPON ---
Date of procedure: 02/23/2025 Surgeon name: Dr. Farhad Olvera D.P.M. Public Health Specialist(s) name(s): Triny Procedure(s) performed: Incision bone cortex left foot Description of findings: emphysematous osteomyelitis left talus, gas gangrene, abscess deep tissues left ankle approximately 10cc Estimated blood loss: 5cc Tourniquet time: no tourniquet used Specimen(s) removed: cultures aerobic and anaerobic, bone culture left talus Post-operative diagnosis: osteomyelitis
--- NOTE | 2025-02-23 08:47 | PC.PHAR ---
Sammi is faxing current med list 02/23/25 8:47am
--- NOTE | 2025-02-23 10:20 | PM.OP ---
Operative Report Date of procedure: February 23, 2025 Surgeon: Farhad Olvera DPM Procedure: Date of procedure: 02/23/2025 Pre-op diagnosis: Acute osteomyelitis left ankle Post-op diagnosis: Abscess left ankle with acute osteomyelitis Post-op findings: Emphysematous osteomyelitis left talus with large abscess posterior talus Procedure done: Incision bone cortex left ankle CPT 76766 Implants: None Specimens removed: Cultures aerobic and anaerobic, bone culture left talus Surgeon: Dr. Farhad Olvera DPM Mainframe Programmer: Triny Estimated blood loss: 5 cc Tourniquet time: No tourniquet used Complications: None The patient presents with a severe foot infection involving left ankle, characterized by erythema, swelling, and drainage. The infection is complicated by underlying conditions, including diabetes, Charcot arthropathy, which have contributed to the progression of the infection despite conservative management. Preoperative imaging and laboratory results indicate osteomyelitis, abscess formation, necessitating surgical intervention. The planned procedure is intended to address the infection, debride necrotic tissue, and, if necessary, assess the viability of surrounding structures to prevent further complications. The patient has been NPO since midnight. The history has been reviewed and the history and physical is current. The signed consent was confirmed and placed in the patient chart. Patient imaging has been reviewed and is consistent with the diagnosis. Under mild sedation, the patient was brought into the operating room and placed on the table in the supine position. Patient is receiving antibiotics around the clock on the floor, Therefore, additional antibiotic prophylaxix was not administered. General sedation was then performed by the anesthesiateam. A local field block was performed using 0.5% Marcaine plain. A pneumatic tourniquet was then placed about the left ankle. The operative extremity was then prepped and draped in the usual fashion. After prep, the following procedure was then performed. Attention was directed to the left ankle where musculoskeletal deformity was noted fixed valgus position secondary to Charcot arthropathy with full-thickness ulceration probing to bone. [place] elevator was inserted into the plantar medial wound of the left ankle. This probed proximally approximately 3.5 cm. A mosquito hemostat was used to bluntly dissect this area. There is extravasation of purulent material coming from the area. Cultures aerobic and anaerobic were obtained at this point and sent to micro for ID and sensitivity. #15 blade was used to incise over this area down to the level of cortex of the medial border of the talus. Any remaining periosteum was reflected to expose the underlying talus. Again further abscess was visualized. Via blunt dissection the entirety of the abscess was exposed along the posterior aspect of the talus. This was noted to go into the ankle joint and subtalar joint. Upon incising the cortex of the talus the talus was noted to be nonviable, spongy, dark and discolored, bathed in purulent material. Rongeur was used to remove portion of talus to be sent to micro for ID and sensitivity as bone culture. The site was irrigated with sterile saline via pulse lavage. Incision that was made was closed using 3-0 nylon in simple interrupted fashion. The wound was packed with quarter inch iodoform packing gauze. Before being dressed with 4 x 4 gauze, ABD, Kerlix, Ellis The patient tolerated the procedure and anesthesia well and without complication. The patient was transported from the operating room to the recovery room with vital signs stable and vascular status intact to all digits of the left foot. Thepatient was instructed to remain nonweightbearing to the operative extremity, to keep surgical dressing clean, dry and intact. The patient will be transferred back to the floor once anesthesia criteria is met. I will continue to round on and follow the patient in the inpatientsetting and provide recommendations to stabilize the patient for discharge. Due to the extent of involvement of the talus and the poor bone quality of the talus as well as the finding of emphysematous osteomyelitis on CT scan, I recommend patient undergo below the knee amputation as not only a limb salvage procedure but if this infection continues to progress it could become life-threatening. Recommend orthopedic consult for left below the knee amputation as podiatry is unable to perform this level of amputation.
--- NOTE | 2025-02-23 10:44 | PM.MISC ---
Miscellaneous Note Note: Patient was seen postoperatively in room resting comfortably in bed. was present for conversation. I discussed the details of surgery and intraoperative findings and the extent of infection. Based on intraoperative findings the left ankle is unfortunately not salvageable. Also, given the presence of intraosseous emphysema and chronic limb deformity secondary to Charcot arthropathy I believe that below-knee amputation is patient's best option moving forward. Patient was agreeable to this and verbalized understanding. All questions were answered to satisfaction. Case was discussed with hospitalist. Orthopedic consult to be placed.
[2025-02-23] MEDS: vancomycin 500 MG in sodium chloride 0.9% (plus) 100 ML 200 MG IV ×2 (10:54→21:55)
--- NOTE | 2025-02-23 12:03 | USR_ITS ---
PROCEDURE INFORMATION: Exam: US Duplex Bilateral Lower Extremity Arteries Exam date and time: 02/23/2025 1:07 PM Age: 64 years old Clinical indication: Screening exam; Pre-op bka TECHNIQUE: Imaging protocol: Real-time ultrasound scan of the arteries of the bilateral lower extremities with 2-D verduzco scale, color Doppler flow and spectral waveform analysis. Images documented and saved. COMPARISON: CT ankle LT wo con* [id number] 02/22/2025 11:09 AM FINDINGS: Right common iliac artery: Decreased systolic velocity or flow. No occlusion. Multiphasic waveform. Right common femoral artery: No occlusion or significant stenosis. Multiphasic waveform. Right superficial femoral artery: No occlusion or significant stenosis. Monophasic waveform. Right popliteal artery: No occlusion or significant stenosis. Monophasic waveform. Right calf/foot arteries: No occlusion or significant stenosis in the visualized arteries. Monophasic waveforms posterior tibial artery. Dorsalis pedis artery is patent with monophasic waveform. Left common iliac artery: No occlusion or significant stenosis. Multiphasic waveform. Left common femoral artery: No occlusion or significant stenosis. Multiphasic waveform. Left superficial femoral artery: No occlusion or significant stenosis. Multiphasic waveform. Left popliteal artery: No occlusion or significant stenosis. Multiphasic waveform. Left calf/foot arteries: No occlusion or significant stenosis in the visualized arteries. Monophasic waveform posterior tibial artery. Dorsalis pedis artery is patent with multiphasic waveform. MARCOS: 0.5 on the right and 0.77 on the left. US/[place] [id number] IMPRESSION: 1. MARCOS of 0.5 on the right suggesting moderate to severe runoff disease. 2. MARCOS of 0.77 on the left suggesting mild runoff disease. 3. Presence of monophasic waveform from the level of the superficial femoral artery and distally of the right leg suggest significant runoff disease, as well. There is also decreased systolic velocity or flow of the inflow right common iliac artery. 4. Monophasic waveform left posterior tibial artery suggests small-vessel disease component [id number] on the left. 5. No significant stenosis or occlusion otherwise.
[2025-02-23 12:38] LABS: Estmated Average Glucose 117; Hemoglobin A1C 5.7 % (4.0-6.0)
--- NOTE | 2025-02-23 13:11 | P.PN_ITS ---
Subjective 2 Subjective: seen today pt is s/p debridement with podiatry resting comfortably in bed seen post-op denies cp, sob, abdominal pain Vitals/I&O/Wt Last Vital Signs Temp 97.9 F 02/23/25 09:30 Pulse 93 02/23/25 12:00 Resp 16 02/23/25 09:30 BP 108/65 02/23/25 12:00 Pulse Ox 97 02/23/25 12:00 O2 Del Method Room Air 02/23/25 09:30 O2 Flow Rate 8 02/23/25 08:51 02/22/25 02/23/25 02/23/25 22:59 06:59 14:59 Intake Total 250 / 250 50.000 / 300.000 100 / 100 Output Total 5 / 5 Balance 250 / 250 50.000 / 300.000 95 / 95 Weight last 48 hrs Weight 57.924 kg Weight 58.151 kg Weight 61.689 kg Physical Exam 2 Narrative: General: Patient is awake and alert. Pleasant. Head: Normocephalic. Atraumatic. EOM intact. Cardiovascular: RRR. No gallops. No murmurs. Lungs: Clear to auscultation, no use of accessory muscles, no crackles or wheezes. Skin: No jaundice. No rashes. Abdomen: Normal bowel sounds, abdomen soft and nontender. Extremities: No cyanosis or clubbing. Musculoskeletal: Left foot is wrapped in gauze/bandages. Neurological: Moves all 4 extremities. No myoclonus. Data 02/22/25 19:42 02/23/25 03:27 Micro: Microbiology 02/22/25 20:52 Blood Culture - Preliminary Blood SPECIMEN COLLECTED 02/22/25 20:47 Blood Culture - Preliminary Blood SPECIMEN COLLECTED A&P Assessment and plan (1) Type 2 diabetes mellitus, with long-term current use of insulin: (2) Diabetic ulcer of left heel: (3) Necrotizing soft tissue infection: (4) Acute osteomyelitis of left talus: (5) Charcot arthropathy: (6) Unspecified open wound, left foot, initial encounter: (7) Subcutaneous air: (8) Thrombocytosis: (9) Hyponatremia: Plan Necrotizing fasciitis of left ankle Suspect osteomyelitis of left talus History of nonhealing left ankle wound History of Charcot arthropathy - Podiatry consulted, appreciate recommendations - N.p.o. after midnight for surgery - Patient started on vancomycin and Zosyn, will continue both for now - Supportive care Peripheral arterial disease - Continue aspirin - Hold Plavix for now Type 2 diabetes mellitus - Hold oral agents - Sliding scale correction Hyperlipidemia - Continue statin Hypertension - Continue Norvasc DVT prophylaxis: SCD CODE STATUS: Full code 02/23/2025 check b/l LE arterial dopplers and MARCOS consult Dr. Reynoso: pt needs BKA per podiatry continue IV abx npo at midnight today pre-op ekg ordered continue to hold plavix check crp, sed rate in am talked with dr. weaver and dr. reynoso PDMP PDMP Reviewed: Not Reviewed Attestations 2 Medical Necessity Statement*: Patient presents with gas gangrene of left ankle with expected hospitalization not to cross 2 midnights for surgical intervention for source control, IV antibiotics, and supportive care. Diagnoses Type 2 diabetes mellitus with foot ulcer, with long-term current use of insulin E11.621; L97.509; Z79.4 Diabetes mellitus complication status: with skin complications Diabetes mellitus complication detail: with foot ulcer Diabetic ulcer of left heel associated with type 2 diabetes mellitus, unspecified ulcer stage E11.621; L97.429 Diabetes mellitus type: type 2 Non-pressure ulcer stage: unspecified non-pressure ulcer stage Necrotizing soft tissue infection M79.89 Acute osteomyelitis of left talus M86.172 Charcot arthropathy M14.60 Unspecified open wound, left foot, initial encounter S91.302A Subcutaneous air T79.7XXA Thrombocytosis D75.839 Hyponatremia E87.1
--- NOTE | 2025-02-23 14:04 | ECG_ITS ---
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
[2025-02-23 16:42] LABS: Glucose Point of Care 217 mg/dL (70-110)
[2025-02-23] MEDS: insulin lispro 100 unit/1 mL SUBCUT ×2 (17:44→21:48)
[2025-02-23] MEDS: sodium chloride 0.9% 1,000 ML 100 ML IV (17:45)
[2025-02-23] MEDS: piperacillin-tazobactam 3.375 GM in sodium chloride 0.9% (plus) 50 ML IV (17:48)
--- NOTE | 2025-02-23 19:19 | ANE.PACU2 ---
Inpatient post-anesthesia follow up: Airway intact: Yes Vital signs: Temperature 98.3 F Pulse Rate 82 Respiratory Rate 16 Blood Pressure 114/69 Pulse Oximetry 97 Oxygen Delivery Me thod Room Air Oxygen Flow Rate 8 Fraction of Inspir ed Oxygen Hydration adequate: Yes Pain level: controlled Mental status: Baseline (appropriate for post anesthesia ) Additional Comments: Immediate PACU evaluation
[2025-02-23 21:03] LABS: Glucose Point of Care 207 mg/dL (70-110)
--- NOTE | 2025-02-23 21:47 | P.CONIM_ITS ---
Providers/Reason For Consult 2 Consulting Physician/Specialty*: Kevon Reynoso DO/orthopedic surgery Reason for Consult*: Consult for left below the knee amputation, failed limb salvage for chronic left foot infection and osteomyelitis with podiatry Requesting Physician: Dr. Olvera and Dr. Edgar Attending Physician: Moraima Edgar MD Primary Care Provider: Elana Spain DO History of Present Illness History of Present Illness Lucy Ramos is a 64 year old female who was admitted on 02/22/2025 for acute osteomyelitis of left talus and left foot infection. Podiatry was consulted and attempted debridement underwent debridement today on 02/23/2025 unfortunately given the extensive infection and intraoperative findings recommendation by podiatry at this point time would be for left below the knee amputation which patient at this point in time has come to terms with that is ready to proceed with orthopedics was then consulted for performing of the left below the knee amputation. According to patient as well as hospitalist patient has had angio/revascularization attempts to the left lower extremity allegedly in the past. She is take Plavix and aspirin at baseline. We did have ABIs performed today which right was 0.5 and left 0.77. A1c 5.7 creatinine 1.1. Patient currently has dressing in place from surgery today. Review of Systems 2 General: Reports: 10 or more systems reviewed and unremarkable except in HPI and below Medications/Allergies Home Medications ?Medication ?Instructions ?Recorded ?Confirmed ?Last Taken ?Type aspirin 81 mg tablet,delayed 81 mg PO DAILY #30 tabs 0 12/08/19 02/23/25 12/17/19 06:30 Rx release rosuvastatin 20 mg tablet See Rx Instructions .Route 0 06/29/24 02/23/25 Unknown Rx .COMPLEX #90 tabs glipizide 2.5 mg tablet, extended 2.5 mg PO DAILY #90 tabs 11/20/24 02/23/25 Unknown Rx release 24 hr metformin 500 mg tablet,extended See Rx Instructions . Route 11/20/24 02/23/25 Unknown Rx release 24 hr .COMPLEX #90 tabs amlodipine 10 mg tablet See Rx Instructions .Route 0 02/06/25 02/23/25 Unknown Rx .COMPLEX #90 tabs sitagliptin phosphate 50 mg tablet See Rx Instructions .Route 02/06/25 02/23/25 Unknown Rx (Januvia) .COMPLEX #90 tabs clopidogrel 75 mg tablet See Rx Instructions .Route 0 02/18/25 02/23/25 Unknown Rx .COMPLEX #90 tabs Allergies Allergy/AdvReac Type Severity Reaction Status Date / Time No Known Allergies Allergy Verified 02/05/25 12:50 Current Medications Generic Name Dose Route Start Last Admin Trade Name Freq PRN Reason Stop Dose Admin Atorvastatin Calcium 80 mg 02/22/25 22:45 02/22/25 23:00 Atorvastatin 40 Mg Tablet PO 80 mg BEDTIME SADIE Administration Sodium Chloride 1,000 mls @ 100 mls/hr 02/22/25 23:59 02/23/25 17:45 Sodium Chloride 0.9% IV 100 mls/hr .Q10H SADIE Administration Piperacillin Sod/Tazobactam 50 mls @ 12.5 mls/hr 02/23/25 08:00 02/23/25 17:48 Sod 3.375 gm/ Sodium Chloride IV 12.5 mls/hr Q8H SADIE Administration Vancomycin HCl 500 mg/ Sodium 100 mls @ 200 mls/hr 02/23/25 10:30 02/23/25 11:25 Chloride IV Infused Q12H SADIE Infusion Insulin Human Lispro 0 unit 02/23/25 18:00 02/23/25 17:44 Insulin Lispro 100 Unit/1 Ml SUBCUT 6 unit WM&BEDTIME SADIE Administration Protocol PFSH Acute 2 PFSH: Medical History Unspecified open wound, left foot, initial encounter Type 2 diabetes mellitus, with long-term current use of insulin Anemia Sepsis Lower limb ischemia Chronic kidney disease (CKD) stage G1/A1, glomerular filtration rate (GFR) equal to or greater than 90 mL/min/1.73 square meter and albuminuria creatinine ratio less than 30 mg/g Coagulopathy Hyponatremia Infectious fasciitis Peripheral arterial disease Dyslipidemia Essential hypertension Surgical History History of foot surgery Family History Father Cancer Brother , Hepatitis C Diabetes Social History Smoking and tobacco/nicotine status: never used tobacco/nicotine Second hand smoke exposure: Yes Alcohol intake: never Substance/Drug Use: never Adopted: No Caregiver/support person: No Lives independently: Yes Household members: spouse Marital status: service: No Current occupational status: unemployed Female Reproductive History: Para: 3 Vitals/I&O/Wt Last Vital Signs Temp 97.8 F 02/23/25 20:11 Pulse 90 02/23/25 20:11 Resp 15 02/23/25 20:11 BP 143/67 02/23/25 20:11 Pulse Ox 97 02/23/25 20:11 O2 Del Method Room Air 02/23/25 20:11 O2 Flow Rate 8 02/23/25 08:51 02/23/25 02/23/25 02/23/25 06:59 14:59 22:59 Intake Total 50.000 / 300.000 100 / 100 1175.833 / 1275.833 Output Total 5 / 5 Balance 50.000 / 300.000 95 / 95 1175.833 / 1270.833 Weight last 48 hrs Weight 127 lb 11.2 oz Weight 128 lb 3.2 oz Weight 136 lb Physical Exam 2 Narrative: Examination left lower extremity: Examination left lower extremity demonstrates patient has dressing on in place to the left lower extremity foot from surgery today. This is wrapped around the foot and just at the ankle. Discussed with patient at this point time she is okay not having the entire dressing taken down as she is ready to proceed with below the knee amputation. Above the ankle there is no evidence of edema or subcutaneous emphysema her compartments are soft and compressible. No erythema or proximal tracking noted. Her toes are cool and sluggish capillary refill. She is able to wiggle her toes. No signs of subcutaneous bulla or rapid progressing infection appreciated. She can subtly plantarflex and dorsiflex the ankle. No tenderness palpation proximally at the knee or hip and able to tolerate logroll motion with no significant pain or discomfort. Patient does appreciate sensation intact light touch distally to the toes. Secondary survey examination unremarkable. Data 02/22/25 19:42 02/23/25 03:27 Micro: Microbiology 02/22/25 20:52 Blood Culture - Preliminary Blood NEGATIVE TO DATE 02/22/25 20:47 Blood Culture - Preliminary Blood NEGATIVE TO DATE 02/22/25 20:49 Gram Stain - Final Other Source 02/23/25 08:30 Gram Stain - Final Ankle - #1 02/23/25 08:30 Gram Stain - Final Ankle - #1 US Vascular: Radiologist's impression: US/[place] [id number] IMPRESSION: 1. MARCOS of 0.5 on the right suggesting moderate to severe runoff disease. 2. MARCOS of 0.77 on the left suggesting mild runoff disease. 3. Presence of monophasic waveform from the level of the superficial femoral artery and distally of the right leg suggest significant runoff disease, as well. There is also decreased systolic velocity or flow of the inflow right common iliac artery. 4. Monophasic waveform left posterior tibial artery suggests small-vessel disease component [id number] on the left. 5. No significant stenosis or occlusion otherwise. Other CT: Radiologist's impression: jluis Provider/Ordering MD: Farhad Olvera DPM Date of Service: 02/22/25 Procedure(s): CT ankle LT wo con* [id number] Accession Number(s): [id number] Report Number: [id number] WS: [id number] CT LEFT ANKLE, NONCONTRAST HISTORY: wound left foot/ankle Technique: All [facility] scans at [facility] use at least one of these dose optimization techniques: automated exposure control; mA and/or kV adjustment per patient size (includes targeted exams where dose is matched to clinical indication); or iterative reconstruction. DLP: 143.77 mGy.cm COMPARISON: Radiograph 01/29/2025 History of Charcot joint. Draining wound medial LEFT ankle. Severe deformity of the ankle joint. Destructive bone lesions with ulcerations, subchondral cysts and bony fragmentation with subluxations and displacements. Consistent with a Charcot joint. There is a large amount of soft tissue edema surrounding the ankle extending into the foot. Largest area of soft tissue edema contains air along the medial ankle at the level of the ankle joint. Scattered foci of air in the subcutaneous soft tissue. Additional air pockets are also noted within the talus. Some of this air may be due to debridement. A discrete fluid collection is difficult to identify without IV contrast. CT/CT ankle LT wo con* [id number] IMPRESSION: 1. Significant soft tissue edema with loss of the normal fat planes along the medial ankle. There are numerous foci of air in the subcutaneous soft tissue and also air foci within the talus. These foci of air may be due to necrotizing fasciitis or debridement. Osteomyelitis of the talus should be considered. Foci of air in the talus new since 11/30/2019. 2. Progressive subluxation with destructions and fragmentation at the ankle joint consistent with Charcot's. Ordering Provider/Ordering MD: Farhad Olvera DPM Date of Service: 01/29/25 Procedure(s): XR foot LT min 3V* [id number] Accession Number(s): [id number] Report Number: [id number] PROCEDURE INFORMATION: Exam: XR Left Foot Exam date and time: 01/29/2025 10:03 AM Age: 64 years old Clinical indication: Condition or disease; Other: Wound; Additional info: Wound on left medial foot. , Wound on left medial foot. TECHNIQUE: Imaging protocol: Radiologic exam of the left foot. Views: 3 or more views. COMPARISON: CR XR foot LT min 3V* [id number] 12/28/2024 11:20 AM FINDINGS: Bones/joints: Moderate diffuse demineralization. Interphalangeal articular surface narrowing and mild spurring. Findings involving the tibiotalar and subtalar joints which probably represent Charcot arthropathy. Soft tissues: Normal. XR/XR foot LT min 3V* [id number] IMPRESSION: Severe deformity of the hindfoot and ankle. Likely Charcot arthropathy. A&P Assessment and plan (1) Acute osteomyelitis of left talus: (2) Charcot arthropathy: (3) Type 2 diabetes mellitus, with long-term current use of insulin: (4) Diabetic ulcer of left heel: (5) Unspecified open wound, left foot, initial encounter: Plan N.p.o. at midnight Patient's chart reviewed Labs reviewed Imaging reviewed Antibiotics per primary Reviewed duplex lower extremity arterial study as well as ABIs Plan to proceed to the OR for a left below the knee amputation tomorrow MDM: Patient at this point time is a 64-year-old female with chronic Charcot arthropathy as well as osteomyelitis of the talus. Underwent a debridement with podiatry today with attempts for limb salvage however at this point in time given the extensiveness of the infection that was found during the debridement it was determined at that point in time recommendation for the patient would be best benefited from a left below the knee amputation. At this point in time orthopedics was consulted for performing of a left below the knee amputation. At this point in time I have reviewed patient's chart as well as reviewed patient's ABIs as well as her labs. At this point in time we did talk about the role of a below the knee amputation stump and a chronic wound and left foot infection as well as osteomyelitis as well as she does have extensive Charcot arthropathy visible on her plain film x-rays. At this point in time we did talk about with her diabetes as well as peripheral vascular disease that she does have some challenges ahead potentially even of a below the knee amputation healing. On examination however at the site of a below the knee amputation the skin does appear to be healthy as well as no signs of infection in this area. I feel below the knee amputation would be the most reasonable option here moving forward to give her the best chance of hopefully a prosthesis here in the future. At this point time she is come to terms with her foot infection and is ready to proceed with a left below the knee amputation. We talked about the roles of nonoperative versus operative invention. We talked about the ins and outs procedure the risk benefits complication alternatives with surgical and nonsurgical treatment options. Risk of surge include but not limited to make a better, make it worse, wound complications, persistent infection, further amputation or revision amputation surgeries, persistent pain/phantom pain. Understanding risk for surgery patient elects proceed with surgical intervention all questions answered at this time. Will plan to proceed to the OR tomorrow for left below the knee amputation. All questions answered. PDMP PDMP Reviewed: Not Reviewed Coding Level of Care Code Acute Code for [facility] Fwd Diagnoses Acute osteomyelitis of left talus M86.172 Charcot arthropathy M14.60 Type 2 diabetes mellitus with foot ulcer, with long-term current use of insulin E11.621; L97.509; Z79.4 Diabetes mellitus complication status: with skin complications Diabetes mellitus complication detail: with foot ulcer Diabetic ulcer of left heel associated with type 2 diabetes mellitus, unspecified ulcer stage E11.621; L97.429 Diabetes mellitus type: type 2 Non-pressure ulcer stage: unspecified non-pressure ulcer stage Unspecified open wound, left foot, initial encounter S91.302A Time Spent (min) 45
[2025-02-23] MEDS: atorvastatin 40 mg Tablet 80 MG PO (21:48)
--- NOTE | 2025-02-23 22:00 | XRR_ITS ---
PROCEDURE INFORMATION: Exam: XR Left Tibia and Fibula Exam date and time: 02/23/2025 11:07 PM Age: 64 years old Clinical indication: Pain; Lower leg; Left; Lt lower ext infection; Pre op lt bka TECHNIQUE: Imaging protocol: Radiologic exam of the left tibia and fibula. Views: 2 views. COMPARISON: CT ankle LT wo con* [id number] 02/22/2025 11:09 AM FINDINGS: Bones/joints: Mild tricompartmental osteoarthritis of the knee. Chronic calcifications seen along the lateral aspect of the ankle, consider correlation with ankle imaging and/or CT scan as clinically indicated. Soft tissues: Normal. Vasculature: Scattered vascular calcifications. XR/XR tibia fibula LT 2V [id number] IMPRESSION: 1. Mild tricompartmental osteoarthritis of the knee. 2. Chronic calcifications seen along the lateral aspect of the ankle, consider correlation with ankle imaging and/or CT scan as clinically indicated. 3. Scattered vascular calcifications.
[2025-02-24] VITALS (19 sets, daily range): BP systolic 97–155; BP diastolic 49–97; PULSE 68–103; RESP 16–18; TEMP 36.3–36.8; O2SAT 93–100
[2025-02-24 01:05] LABS: Basophils % 0.2 %; Hematocrit 28.1 % (36-47); Lymphocytes # 1.4 10^3/uL (0.8-4.8); Lymphocytes % 14.6 %; Mean Corpuscular HGB Conc 30.6 g/dL (30-55); Mean Corpuscular Hemoglobin 25.4 pg (27-33); Mean Corpuscular Volume 83.1 fl (85-98); Mean Platelet Volume 9.4 fL (7.4-10.4); Monocytes # 0.9 10^3/uL (0.2-0.9); Monocytes % 9.2 %; Neutrophils # 6.99 10^3/uL (1.8-7.7); Neutrophils % 75.5 %; Nucleated Red Blood Cells % 0 %; Platelet Count 638 10^3/cmm (157-399); Red Blood Count 3.38 10^6/uL (3.85-5.65); Red Cell Distribution Width 16.1 % (12.1-15.1); White Blood Count 9.26 10^3/uL (3.29-11.43)
[2025-02-24 01:27] LABS: Erythrocyte Sedimentation Rate 81 mm/hr (0-15)
[2025-02-24] MEDS: piperacillin-tazobactam 3.375 GM in sodium chloride 0.9% (plus) 50 ML IV ×3 (01:31→17:42)
[2025-02-24 01:32] LABS: Alanine Aminotransferase 6 U/L (0-33); Albumin Level 3.3 g/dL (3.5-5.2); Alkaline Phosphatase 77 U/L (35-105); Aspartate Amino Transferase 10 U/L (0-32); Blood Urea Nitrogen 15 mg/dL (8-23); Carbon Dioxide 23 mmol/L (22-29); Chloride 106 mmol/L (98-107); Creatinine Clr Calc Pharmacy 58.3665; Globulin 3.4 g/dL (1.3-4.6); Glomerular Filtration Rate 62.6 mL/min (90-130); Glucose 129 mg/dL (65-115); Osmolality Calculated 297 mOsm/kg (285-295); Sodium 142 mmol/L (136-145); Total Bilirubin 0.2 mg/dL (0.15-1.2); Total Protein 6.7 g/dL (6.6-8.7)
[2025-02-24] MEDS: sodium chloride 0.9% 1,000 ML 100 ML IV (04:21)
[2025-02-24 11:15] LABS: Glucose Point of Care 123 mg/dL (70-110)
--- NOTE | 2025-02-24 12:26 | PC.NURSE ---
Pt taken down to Pre-op at 1220.
--- NOTE | 2025-02-24 12:30 | W.PM.OPSUD ---
Surgery/Procedure H&P Update DATE OF PROCEDURE: February 24, 2025 DATE H&P PERFORMED: 02/23/25 H&P UPDATE INFORMATION: I have reviewed H&P completed within last 30 days, I have examined patient prior to procedure and No changes to prior documentation PREOP DIAGNOSIS: Left foot infection, osteomyelitis PRIMARY INDICATION FOR PROCEDURE: Left foot infection, osteomyelitis PLANNED PROCEDURE: Operation Date: 02/23/25 08:10 Proposed Procedures p Incision And Drainage of Left Ankle(Left) - Farhad Olvera DPM Operation Date: 02/24/25 11:55 Proposed Procedures p Below Knee Amputation(Left) - Kevon Reynoso DO
--- NOTE | 2025-02-24 12:46 | P.PN_ITS ---
Subjective 2 Subjective: seen today denies cp, sob, not on insulin at home awaiting surgery this morning for BKA Vitals/I&O/Wt Last Vital Signs Temp 98.2 F 02/24/25 11:40 Pulse 103 H 02/24/25 12:22 Resp 18 02/24/25 12:22 BP 155/70 02/24/25 12:22 Pulse Ox 98 02/24/25 12:22 O2 Del Method Room Air 02/24/25 12:22 O2 Flow Rate 8 02/23/25 08:51 02/23/25 02/24/25 02/24/25 22:59 06:59 14:59 Intake Total 1325.833 / 9775.070 9621 / 2475.833 50 / 50 Balance 1325.833 / 6903.591 8262 / 2470.833 50 / 50 Weight last 48 hrs Weight 57.606 kg Weight 57.924 kg Weight 58.151 kg Weight 61.689 kg Physical Exam 2 Narrative: General: Patient is awake and alert. Pleasant. Head: Normocephalic. Atraumatic. EOM intact. Cardiovascular: RRR. No gallops. No murmurs. Lungs: Clear to auscultation, no use of accessory muscles, no crackles or wheezes. Abdomen: Normal bowel sounds, abdomen soft and nontender. Extremities: No cyanosis or clubbing. Musculoskeletal: Left foot is wrapped in gauze/bandages. Data 02/24/25 00:44 02/24/25 00:44 Micro: Microbiology 02/23/25 08:30 Gram Stain - Final Ankle - #1 Anaerobic Culture - Preliminary 02/22/25 20:52 Blood Culture - Preliminary Blood NEGATIVE TO DATE 02/22/25 20:47 Blood Culture - Preliminary Blood NEGATIVE TO DATE 02/22/25 20:49 Gram Stain - Final Other Source 02/23/25 08:30 Gram Stain - Final Ankle - #1 A&P Assessment and plan (1) Type 2 diabetes mellitus, with long-term current use of insulin: (2) Diabetic ulcer of left heel: (3) Necrotizing soft tissue infection: (4) Acute osteomyelitis of left talus: (5) Charcot arthropathy: (6) Unspecified open wound, left foot, initial encounter: (7) Subcutaneous air: (8) Thrombocytosis: (9) Hyponatremia: Plan Necrotizing fasciitis of left ankle Suspect osteomyelitis of left talus History of nonhealing left ankle wound History of Charcot arthropathy - Podiatry consulted, appreciate recommendations - N.p.o. after midnight for surgery - Patient started on vancomycin and Zosyn, will continue both for now - Supportive care Peripheral arterial disease - Continue aspirin - Hold Plavix for now Type 2 diabetes mellitus - Hold oral agents - Sliding scale correction Hyperlipidemia - Continue statin Hypertension - Continue Norvasc DVT prophylaxis: SCD CODE STATUS: Full code 02/23/2025 check b/l LE arterial dopplers and MARCOS consult Dr. Reynoso: pt needs BKA per podiatry continue IV abx npo at midnight today pre-op ekg ordered continue to hold plavix check crp, sed rate in am talked with dr. weaver and dr. reynoso 02/24/2025 continue IV abx plan for BKA today npo since midnight crp 75 today, sed rate 81 ekg shows sinus rhythm dr reynoso consulted dr weaver on board hold plavix continue aspirin PDMP PDMP Reviewed: Not Reviewed Attestations 2 Medical Necessity Statement*: plan for BKA today Diagnoses Type 2 diabetes mellitus with foot ulcer, with long-term current use of insulin E11.621; L97.509; Z79.4 Diabetes mellitus complication status: with skin complications Diabetes mellitus complication detail: with foot ulcer Diabetic ulcer of left heel associated with type 2 diabetes mellitus, unspecified ulcer stage E11.621; L97.429 Diabetes mellitus type: type 2 Non-pressure ulcer stage: unspecified non-pressure ulcer stage Necrotizing soft tissue infection M79.89 Acute osteomyelitis of left talus M86.172 Charcot arthropathy M14.60 Unspecified open wound, left foot, initial encounter S91.302A Subcutaneous air T79.7XXA Thrombocytosis D75.839 Hyponatremia E87.1
--- NOTE | 2025-02-24 12:46 | P.ANESUD_ITS ---
Pre-Anesthetic Update Pre-Anesthetic Assessment: Date of Surgery/Procedure: 02/24/25 Preop Evy gnosis: Left foot infection, osteomyelitis Proposed Procedure: Operation Date: 02/23/25 08:10 Proposed Procedures p Incision And Drainage of Left Ankle(Left) - Farhad Olvera DPM Operation Date: 02/24/25 11:55 Proposed Procedures p Below Knee Amputation(Left) - Kevon Reynoso, DO Any changes to Pre-Anesthetic Assessment?: No Last Intake: Intake Last Liquid Date 02/22/25 Last Liquid Time 23:00 Last Solid Date 02/22/25 Last Solid Time 14:00 Labs Last 48hrs: Short CBC 02/22/25 02/24/25 Range/Units 19:42 00:44 WBC 9.19 9.26 (3.29-11.43) 10^ 3/uL Hgb 10.20 L 8.60 L (11.27-16.99) g/ dL Hct 34.2 L 28.1 L (36-47) % MCV 86.1 83.1 L (85-98) fl Plt Count 557 H 638 H (157-399) 10^3/c mm Neut % (Auto) 70.8 75.5 % Neut # (Auto) 6.50 6.99 (1.8-7.7) 10^3/u L BMP 02/22/25 02/23/25 02/24/25 19:42 03:27 00:44 Sodium 135 L 139 142 Potassium 4.0 3.9 4.0 Chloride 95 L 101 106 Carbon Dioxide 22 28 23 BUN 16 17 15 Creatinine 1.1 H 1.1 H 0.9 Glucose 135 H 119 H 129 H Calcium 9.3 9.0 9.0 Liver Function 02/22/25 02/23/25 02/24/25 Range/Units 19:42 03:27 00:44 Total Bilirubin 0.2 0.2 0.2 (0.15-1.2) mg/dL AST 13 11 10 (0-32) U/L ALT 8 7 6 (0-33) U/L Alkaline Phosphata se 86 81 77 (35-105) U/L Albumin 3.4 L 3.3 L 3.3 L (3.5-5.2) g/dL Blood Bank 02/23/25 00:44 Blood Type A Positive Rho(D) Type Rh positive Antibody Screen Negative Coags 02/22/25 02/24/25 19:42 00:44 ESR 88 H 81 H C-Reactive Protein 84.3 H 75.0 H Vitals: Temperature 98.2 F 02/24/25 11:40 Temperature Source Oral 02/24/25 11:40 Pulse Rate 103 H 02/24/25 12:22 Respiratory Rate 18 02/24/25 12:22 Respiratory Effort Spontaneous, Non- Labored 02/24/25 08:00 Respiratory Depth Normal 02/24/25 08:00 Respiratory Patter n Normal 02/24/25 08:00 Blood Pressure 155/70 02/24/25 12:22 Blood Pressure Rhoda n 98 02/24/25 12:22 Blood Pressure Pos ition Sitting 02/22/25 19:35 Pulse Oximetry 98 02/24/25 12:22 Oxygen Delivery Me thod Room Air 02/24/25 12:22 Oxygen Flow Rate 8 02/23/25 08:51 Sepsis Recent Feve r Within 48 Hours No 02/22/25 19:35
[2025-02-24] MEDS: vancomycin 500 MG in sodium chloride 0.9% (plus) 100 ML 200 MG IV ×2 (13:05→23:42)
[2025-02-24] MEDS: tranexamic acid 1,000 mg/10mL SDV 1000 MG IV (13:18)
[2025-02-24] MEDS: VANCOMYCIN ADD-Vantage 1,000 MG VIAL 1000 MG INTRA-ARTI (13:44)
--- NOTE | 2025-02-24 13:56 | P.BOP_ITS ---
Date of Procedure: 02/24/2025 Surgeon: Kevon Reynoso DO Hospital Nursing Assistant(s): Stone Reynoso PA-C Procedure(s) performed: Left below the knee amputation Findings of the procedure(s): Patient found to have left foot osteomyelitis and draining wound with foot infection underwent left below the knee amputation without any issues or complications Estimated blood loss: 25 mL Specimen(s) removed: Left lower leg/foot removed and placed in biohazard bag sent for specimen Post-operative diagnosis: Left foot osteomyelitis and draining wound with foot infection
--- NOTE | 2025-02-24 13:56 | PC.NURSE ---
6038 dr. jennings injected 20ml 1% lidocaine into left stump
--- NOTE | 2025-02-24 13:57 | PM.OP ---
Operative Report Date of procedure: February 24, 2025 Surgeon: Kevon Reynoso DO Agri Business Agent: Agri Business Agent: Stone Reynoso PA-C: PA was necessary for assistance in this case with leg positioning assistance with amputation, retraction and protection of neurovascular structures and tying off of vascular structures, as well as assistance in wound closure and dressing application. Procedure: Pre-op diagnosis: Left foot chronic osteomyelitis, draining wound and acute cellulitis, failed respond to conservative treatment and failure of response to limb salvage Post-op diagnosis: same Post-op findings: see op note Procedure done: Left below the knee amputation Specimens removed/disposition: Left the knee amputation left lower extremity leg removed and sent for specimen Surgeon: Kevon Reynoso DO Agri Business Agent: Stone Reynoso PA-C: PA was necessary for assistance in this case with leg positioning assistance with amputation, retraction and protection of neurovascular structures and tying off of vascular structures, as well as assistance in wound closure and dressing application. Anesthesia: General Estimated blood loss: 25mL TOurniquet 20min IV fluids: 300mL Complications: none Findings: see op note Condition: stable Disposition: floor Brief History: Patient is a pleasant 64-year-old female who unfortunately has peripheral vascular disease as well as diabetic foot ulcerations she has Charcot arthropathy and unfortunately had debridements with podiatry with plan for limb salvage however continued with chronic wound and osteomyelitis of the talus podiatry had debrided yesterday and unfortunately able for limb salvage as recommended below the knee amputation orthopedics was consulted for left below the knee amputation. We talked about this in detail with patient and at this point in time she understands the ins and outs procedure, the risk the benefits of the complications alternatives of surgical intervention through shared decision-making elects proceed with a left below the knee amputation. All questions have been answered at this time. Has been medically optimized by the medical team. Plan to proceed with a left below the knee amputation. Procedure: PROCEDURE IN DETAIL: ?The patient was identified in the preoperative holding area. ?The operative site was clearly marked and identified, and informed consent was obtained. ?Patient did participate in identifying the operative site. ?Patient was transferred to the operating table and positioned in supine position, where adequate anesthesia was administered per the Anesthesia Department. ?A nonsterile tourniquet was placed high on the operative lower extremity. The operative lower extremity was then positioned, prepped and draped in the usual sterile orthopedic fashion. The distal most aspect of the lower extremity was secured in a sterile stockinette with sterile Coban. ? After elevation, the tourniquet was inflated. ?We delineated our topographical anatomy, marking out our tibial resection at approximately 12 cm distal to the medial joint line. ?The skin flaps were elucidated with a surgical marker using a 1/3rd anterior-posterior 2/3rd flap. The skin was then incised with a 10-blade scalpel and then Bovie electrocautery was used to dissect the subcutaneous tissue as we delineated the anterior margins of the tibia and fibula. ?Anterolateral soft tissue envelope was clearly evaluated. ?Again, the muscle demonstrated good contractility and good color. It was determined that we were outside of the zone of the infection at this level. Then proceeded with the amputation. ?I delineated our peroneal neurovascular bundle and ligated it with 0 silk tie doubled up. ?Once I delineated the anterior cortices of the tibia and fibula, soft tissues were protected with soft tissue retraction and a sagittal saw was used to transect the tibia at approximately 12 cm distal to the joint line and then the fibula just proximal to that obliquely. ? then the amputation knife was taken along the posterior cortex of the tibia and the fibula, transecting the soft tissues distally, leaving a nice long posterior flap. ? The specimen was then marked left foot and ankle and sent for permanent pathology and disposal. ? We did debulk the posterior flap just a bit, found the remainder of the neurovascular bundles. ?Again, we even identified the sural nerve posteriorly and the tibial nerve. ?These were injected with lidocaine plain and then placed under traction and transected with 15-blade scalpel prior to allowing them to retract well into the residual stump. ?Again, the additional bundles were ligated with Vicryl knot doubled up. ?We irrigated with copious amounts of normal saline and then deflated the tourniquet to verify adequate hemostasis and good capillary refill distally. ?Again, all of the bundles were ligated appropriately. ?We had excellent hemostasis. Vancomycin powder was placed in wound bed for antibiotic infection prophylaxis. ?I then facilitated the primary myodesis anterior to posterior with #1 strata fix. ?The skin was then closed with 2-0 STRATAFIX and then skin michelle. ?A sterile dressing was applied with Xeroform, 4x4s, ABD, soft roll, and an Ellis wrap. ?The patient was transferred to Recovery in stable condition. Disposition: Patient is going to be return to the floor for medical management per the hospitalist team. ?We will continue IV antibiotics. Pain control and will follow-up with orthopedics in 2 weeks for dressing evaluation. At this point in time orthopedics will follow patient in the hospital. Patient understands agrees to current plan. Questions answered.
--- NOTE | 2025-02-24 13:57 | PM.OP ---
Operative Report Date of procedure: February 24, 2025 Surgeon: Kevon Reynoso DO
--- NOTE | 2025-02-24 14:13 | PM.PACU ---
PACU note Narrative: Patient is a 64-year-old female that just underwent a left below the knee amputation. Pt transferred to PACU in stable condition. Dressing is dry. pt is awake and alert. Patient is still under the effect of anesthesia and not fully awake yet. Pain is controlled. Exam: unarousable Disposition: back to floor
[2025-02-24] MEDS: oxyCODONE 5 mg IR Tab/Cap PO ×2 (15:43→19:54)
--- NOTE | 2025-02-24 16:08 | ANE.PACU2 ---
Inpatient post-anesthesia follow up: Airway intact: Yes Vital signs: Temperature 97.4 F Pulse Rate 82 Respiratory Rate 18 Blood Pressure 125/60 Pulse Oximetry 99 Oxygen Delivery Me thod Room Air Oxygen Flow Rate 10 Fraction of Inspir ed Oxygen Hydration adequate: Yes Nausea and vomiting: No Pain level: controlled Mental status: Baseline
[2025-02-24 16:50] LABS: Glucose Point of Care 152 mg/dL (70-110)
[2025-02-24] MEDS: docusate sodium 100 mg Capsule PO (17:42)
[2025-02-24] MEDS: insulin lispro 100 unit/1 mL SUBCUT ×2 (17:42→21:14)
[2025-02-24] MEDS: iron polysaccharide complex 150 mg Capsule PO (17:42)
[2025-02-24] MEDS: calcium carb-vit d 600mg/400unit 1 Tablet 1 EACH PO (17:42)
[2025-02-24 20:04] LABS: Glucose Point of Care 180 mg/dL (70-110)
[2025-02-24] MEDS: ceFAZolin 2,000 mg SDV 2000 MG IVP (21:14)
[2025-02-24] MEDS: atorvastatin 40 mg Tablet 80 MG PO (21:14)
[2025-02-25] VITALS (11 sets, daily range): BP systolic 117–149; BP diastolic 68–88; PULSE 77–96; RESP 16–19; TEMP 36.4–36.8; O2SAT 92–99
[2025-02-25] MEDS: oxyCODONE 5 mg IR Tab/Cap PO ×5 (01:09→16:47)
[2025-02-25] MEDS: piperacillin-tazobactam 3.375 GM in sodium chloride 0.9% (plus) 50 ML IV ×2 (01:14→08:51)
[2025-02-25] MEDS: sodium chloride 0.9% 1,000 ML 100 ML IV ×2 (01:17→12:52)
[2025-02-25] MEDS: ceFAZolin 2,000 mg SDV 2000 MG IVP ×2 (05:08→12:52)
[2025-02-25 06:30] LABS: Glucose Point of Care 125 mg/dL (70-110)
[2025-02-25 07:09] LABS: Basophils # 0.1 10^3/uL (0.0-0.1); Basophils % 0.6 %; Eosinophils % 0.4 %; Hematocrit 28.1 % (36-47); Lymphocytes # 1.7 10^3/uL (0.8-4.8); Lymphocytes % 15.3 %; Mean Corpuscular HGB Conc 29.9 g/dL (30-55); Mean Corpuscular Hemoglobin 25.7 pg (27-33); Mean Corpuscular Volume 85.9 fl (85-98); Mean Platelet Volume 9.2 fL (7.4-10.4); Monocytes # 1.1 10^3/uL (0.2-0.9); Monocytes % 9.7 %; Neutrophils # 8.19 10^3/uL (1.8-7.7); Neutrophils % 73.1 %; Nucleated Red Blood Cells % 0 %; Platelet Count 631 10^3/cmm (157-399); Red Blood Count 3.27 10^6/uL (3.85-5.65); Red Cell Distribution Width 16.7 % (12.1-15.1); White Blood Count 11.19 10^3/uL (3.29-11.43)
[2025-02-25 07:32] LABS: Anion Gap 17.7 (5-19); Blood Urea Nitrogen 8 mg/dL (8-23); Calcium 8.9 mg/dL (8.5-10.5); Carbon Dioxide 23 mmol/L (22-29); Chloride 102 mmol/L (98-107); Creatinine Clr Calc Pharmacy 58.0672; Glomerular Filtration Rate 62.6 mL/min (90-130); Glucose 121 mg/dL (65-115); Magnesium 1.8 mg/dL (1.7-2.3); Osmolality Calculated 288 mOsm/kg (285-295); Potassium 3.7 mmol/L (3.5-5.1); Sodium 139 mmol/L (136-145)
--- NOTE | 2025-02-25 08:12 | PM.DCS ---
Discharge Providers Date of Admission: 02/22/25 20:29 Date of Discharge: February 25, 2025 Attending Provider at Admission: Stone Eason MD Attending Provider at Discharge: Moraima Edgar MD Primary Care Provider: Elana Spain DO Diagnoses at Discharge Discharge Diagnosis (1) Type 2 diabetes mellitus, with long-term current use of insulin: Status: Chronic Qualifiers: Diabetes mellitus complication detail: with foot ulcer Diabetes mellitus complication status: with skin complications Qualified Code(s): E11.621 - Type 2 diabetes mellitus with foot ulcer; L97.509 - Non-pressure chronic ulcer of other part of unspecified foot with unspecified severity; Z79.4 - terminal 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 of insulin (2) Diabetic ulcer of left heel: Status: Acute Qualifiers: Diabetes mellitus type: type 2 Non-pressure ulcer stage: unspecified non-pressure ulcer stage Qualified Code(s): E11.621 - Type 2 diabetes mellitus with foot ulcer; L97.429 - Non-pressure chronic ulcer of left heel and midfoot with unspecified severity (3) Necrotizing soft tissue infection: Status: Acute (4) Acute osteomyelitis of left talus: Status: Acute (5) Charcot arthropathy: Status: Acute (6) Unspecified open wound, left foot, initial encounter: Status: Acute (7) Subcutaneous air: Status: Acute (8) Thrombocytosis: Status: Acute (9) Hyponatremia: Status: Acute Reason for Visit Reason for Visit: Dr Olvera sent for labs Hospital Course Hospital Course Patient was admitted to the hospital for acute osteomyelitis of left hallux. She underwent surgical debridement with podiatry. 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 BKA was recommended. Orthopedic surgery was consulted for BKA. BKA was performed on 02/24/2025. Healthy muscle tissue noted by orthopedic surgeon at time of amputation. Postop patient has done well. Hemoglobin is stable at 8.4. She is able to transfer herself from bed to wheelchair. Is awaiting physical therapy consult today. Patient does not want to go to her facility and wants to go home. She will be sent on 2 weeks of Augmentin and to follow-up with Dr. Reynoso as an outpatient. Wound care instructions placed in chart. We will give her repeat labs to check. Once safe discharge plan has taken place I will discharge patient. Medically she is doing well. Vitals are stable. Blood sugar well-controlled. Physical Exam Narrative: General: Patient is awake and alert. Pleasant. Head: Normocephalic. Atraumatic. EOM intact. Cardiovascular: RRR. No gallops. No murmurs. Lungs: Clear to auscultation, no use of accessory muscles, no crackles or wheezes. Abdomen: Normal bowel sounds, abdomen soft and nontender. Extremities: No cyanosis or clubbing. Musculoskeletal: Left BKA noted wrapped in bandage. Discharge Data Studies Completed and Pending Completed Studies During Hospitalization Category Date Time Status XR tibia fibula LT 2V [id number] Routine Exams 02/23/25 22:00 [place] [id number] Urgent Ultrasound 02/23/25 12:03 Completed Pending at discharge Category Date Time Status Abscess Culture and Gram Stain Routine Lab 02/23/25 08:30 Results Anaerobic Culture Routine Lab 02/23/25 08:30 Results Blood Culture Stat Lab 02/22/25 20:52 Results Tissue Culture and Gram Stain Routine Lab 02/23/25 08:30 Results Wound Culture and Gram Stain Routine Lab 02/22/25 20:49 Results Pathology: Surgical [PTH] Routine Pth 02/24/25 13:58 Ordered Radiology Impressions Duplex Scan Lower Extremity Artery 02/23/25 12:03 IMPRESSION: 1. MARCOS of 0.5 on the right suggesting moderate to severe runoff disease. 2. MARCOS of 0.77 on the left suggesting mild runoff disease. 3. Presence of monophasic waveform from the level of the superficial femoral artery and distally of the right leg suggest significant runoff disease, as well. There is also decreased systolic velocity or flow of the inflow right common iliac artery. 4. Monophasic waveform left posterior tibial artery suggests small-vessel disease component [id number] on the left. 5. No significant stenosis or occlusion otherwise. Tibia/Fibula X-Ray 02/23/25 22:00 IMPRESSION: 1. Mild tricompartmental osteoarthritis of the knee. 2. Chronic calcifications seen along the lateral aspect of the ankle, consider correlation with ankle imaging and/or CT scan as clinically indicated. 3. Scattered vascular calcifications. Laboratory Results WBC 11.19 10^3/uL (3.29-11.43) 02/25/25 06:59 RBC 3.27 10^6/uL (3.85-5.65) L 02/25/25 06:59 Hgb 8.40 g/dL (11.27-16.99) L 02/25/25 06:59 Hct 28.1 % (36-47) L 02/25/25 06:59 MCV 85.9 fl (85-98) 02/25/25 06:59 MCH 25.7 pg (27-33) L 02/25/25 06:59 MCHC 29.9 g/dL (30-55) L 02/25/25 06:59 RDW 16.7 % (12.1-15.1) H 02/25/25 06:59 Plt Count 631 10^3/cmm (157-399) H 02/25/25 06:59 MPV 9.2 fL (7.4-10.4) 02/25/25 06:59 Neut % (Auto) 73.1 % 02/25/25 06:59 Lymph % (Auto) 15.3 % 02/25/25 06:59 Craven % (Auto) 9.7 % 02/25/25 06:59 Eos % (Auto) 0.4 % 02/25/25 06:59 Baso % (Auto) 0.6 % 02/25/25 06:59 Neut # (Auto) 8.19 10^3/uL (1.8-7.7) H 02/25/25 06:59 Lymph # (Auto) 1.7 10^3/uL (0.8-4.8) 02/25/25 06:59 Craven # (Auto) 1.1 10^3/uL (0.2-0.9) H 02/25/25 06:59 Eos # (Auto) 0.0 10^3/uL (0.0-0.8) 02/25/25 06:59 Baso # (Auto) 0.1 10^3/uL (0.0-0.1) 02/25/25 06:59 Nucleated RBC % (auto) 0 % 02/25/25 06:59 Nucleated RBCs # 0.0 /100WBC 02/25/25 06:59 ESR 81 mm/hr (0-15) H 02/24/25 00:44 Sodium 139 mmol/L (136-145) 02/25/25 06:59 Potassium 3.7 mmol/L (3.5-5.1) 02/25/25 06:59 Chloride 102 mmol/L (98-107) 02/25/25 06:59 Carbon Dioxide 23 mmol/L (22-29) 02/25/25 06:59 Anion Gap 17.7 (5-19) 02/25/25 06:59 BUN 8 mg/dL (8-23) 02/25/25 06:59 Creatinine 0.9 mg/dL (0.5-0.9) 02/25/25 06:59 GFR Calculation 62.6 mL/min (90-130) L 02/25/25 06:59 Glucose 121 mg/dL (65-115) H 02/25/25 06:59 POC Glucose 125 mg/dL (70-110) H 02/25/25 06:17 Estimat Average Glucose 117 02/23/25 03:27 Hemoglobin A1c 5.7 % (4.0-6.0) 02/23/25 03:27 Calculated Osmolality 288 mOsm/kg (285-295) 02/25/25 06:59 Calcium 8.9 mg/dL (8.5-10.5) 02/25/25 06:59 Magnesium 1.8 mg/dL (1.7-2.3) 02/25/25 06:59 Total Bilirubin 0.2 mg/dL (0.15-1.2) 02/24/25 00:44 AST 10 U/L (0-32) 02/24/25 00:44 ALT 6 U/L (0-33) 02/24/25 00:44 Alkaline Phosphatase 77 U/L (35-105) 02/24/25 00:44 C-Reactive Protein 75.0 mg/L (0.0-4.9) H 02/24/25 00:44 Total Protein 6.7 g/dL (6.6-8.7) 02/24/25 00:44 Albumin 3.3 g/dL (3.5-5.2) L 02/24/25 00:44 Globulin 3.4 g/dL (1.3-4.6) 02/24/25 00:44 Procalcitonin 0.08 ng/mL (0-0.5) 02/22/25 22:28 TSH 1.10 uIU/mL (0.27-4.20) 02/23/25 03:27 Nasal MRSA (PCR) Not detected (Not Detecte) 02/22/25 23:11 Vancomycin Trough 13.0 ug/mL (10-15) 02/24/25 23:05 Blood Type A Positive 02/23/25 00:44 Rho(D) Type Rh positive 02/23/25 00:44 Antibody Screen Negative 02/23/25 00:44 Vitals Last Vital Signs Temp 97.9 F 02/25/25 04:00 Pulse 90 02/25/25 04:00 Resp 16 02/25/25 05:07 BP 149/72 02/25/25 04:00 Pulse Ox 94 02/25/25 05:07 O2 Del Method Room Air 02/25/25 04:00 O2 Flow Rate 10 02/24/25 14:10 Discharge Plan Discharge Patient Disposition: Home Condition: Stable Prescriptions: New oxycodone 5 mg Tablet 5 - 10 mg PO Q6H PRN (Reason: Moderate To Severe Pain) 5 Days Qty: 20 0RF docusate sodium 100 mg Capsule 100 mg PO BID Qty: 14 0RF polysaccharide iron complex [Ferrex 150] 150 mg iron Capsule 150 mg PO BIDWM Qty: 60 0RF multivitamin with folic acid [Thera] 400 mcg Tablet 1 tab PO DAILY Qty: 30 0RF amoxicillin-pot clavulanate 875-125 mg tablet 1 tab PO BID 14 Days Qty: 28 0RF Continued glipizide 2.5 mg tablet extended release 24hr 2.5 mg PO DAILY Qty: 90 1RF metformin 500 mg tablet extended release 24 hr See Rx Instructions .ROUTE .COMPLEX Qty: 90 1RF Dose Instruction: take 1 tablet by mouth once daily Rx Instructions: take 1 tablet by mouth once daily rosuvastatin 20 mg tablet See Rx Instructions .ROUTE .COMPLEX Qty: 90 1RF Dose Instruction: TAKE ONE TABLET BY MOUTH DAILY Rx Instructions: TAKE ONE TABLET BY MOUTH DAILY Januvia 50 mg tablet See Rx Instructions .ROUTE .COMPLEX Qty: 90 1RF Dose Instruction: TAKE ONE TABLET BY MOUTH DAILY. Rx Instructions: TAKE ONE TABLET BY MOUTH DAILY. amlodipine 10 mg tablet See Rx Instructions .ROUTE .COMPLEX Qty: 90 1RF Dose Instruction: TAKE ONE TABLET BY MOUTH DAILY. Rx Instructions: TAKE ONE TABLET BY MOUTH DAILY. clopidogrel 75 mg tablet See Rx Instructions .ROUTE .COMPLEX Qty: 90 1RF Dose Instruction: take 1 tablet by mouth once daily Rx Instructions: take 1 tablet by mouth once daily aspirin 81 mg Tablet,Delayed Release (Dr/Ec) 81 mg PO DAILY Qty: 30 0RF Referrals: Elana Spain DO [Primary Care Provider, [facility]] - 03/28/25 9:00 am Kevon Reynoso DO [Physician, Orthopedics] - 03/13/25 1:45 pm Discharge Diet: Regular Discharge Activity: Limit activity as instructed, Use walker/crutches as instructed and As per PT/OT instructions Patient Instructions: Acute Wound Care (DC), Opioid Safety, Post Anesthesia Care Activity Restrictions/Additional Instructions: Leave dressing on dry and intact Nonweightbearing on operative lower extremity No baths or soaks. Use crutches/walker to help with ambulation. Elevation and ice as needed for pain and swelling Take pain medication as prescribed Take antinausea medication as needed May supplement with hvdt-toa-obchpya anti-inflammatories (make sure not to take more than 3000 mg of Tylenol in 1 day as your pain medication does have Tylenol in it) Follow-up in the orthopedic office in 2 weeks Contact the office for any questions or concerns Discharge Attestations Time Spent in Discharge Care*: greater than 30 min Status at Discharge: Cognitive status at discharge: cognitively intact, Behavioral status at discharge: cooperative, Quality Metrics Clinical Quality Measures [ No reported AMI, CVA or VTE this stay] Coding Level of Care Code 18999 Total time (in minutes) for Discharge: 45 Diagnoses Type 2 diabetes mellitus with foot ulcer, with long-term current use of insulin E11.621; L97.509; Z79.4 Diabetes mellitus complication detail: with foot ulcer Diabetes mellitus complication status: with skin complications Diabetic ulcer of left heel associated with type 2 diabetes mellitus, unspecified ulcer stage E11.621; L97.429 Diabetes mellitus type: type 2 Non-pressure ulcer stage: unspecified non-pressure ulcer stage Necrotizing soft tissue infection M79.89 Acute osteomyelitis of left talus M86.172 Charcot arthropathy M14.60 Unspecified open wound, left foot, initial encounter S91.302A Subcutaneous air T79.7XXA Thrombocytosis D75.839 Hyponatremia E87.1
[2025-02-25] MEDS: enoxaparin 30 mg/0.3 mL Syringe SUBCUT (08:49)
[2025-02-25] MEDS: amlodipine 10 mg Tablet PO (08:50)
[2025-02-25] MEDS: aspirin 81 mg EC Tablet PO (08:50)
[2025-02-25] MEDS: multivitamin therapeutic Tablet 1 TAB PO (08:50)
[2025-02-25] MEDS: docusate sodium 100 mg Capsule PO ×2 (08:50→16:47)
[2025-02-25] MEDS: calcium carb-vit d 600mg/400unit 1 Tablet 1 EACH PO ×2 (08:50→16:47)
[2025-02-25] MEDS: iron polysaccharide complex 150 mg Capsule PO ×2 (08:50→16:47)
[2025-02-25 11:49] LABS: Glucose Point of Care 187 mg/dL (70-110)
[2025-02-25] MEDS: insulin lispro 100 unit/1 mL SUBCUT (12:51)
[2025-02-25] MEDS: vancomycin 500 MG in sodium chloride 0.9% (plus) 100 ML 200 MG IV (12:53)
--- NOTE | 2025-02-25 14:36 | P.PN_ITS ---
Subjective 2 Subjective: Patient seen examined today family at bedside. Patient's pain controlled medications at this time. No issues overnight patient did complain of some phantom pain overnight. Dressing on in place clean dry intact Vitals/I&O/Wt Last Vital Signs Temp 98.3 F 02/25/25 12:19 Pulse 86 02/25/25 12:19 Resp 18 02/25/25 12:58 BP 126/70 02/25/25 12:19 Pulse Ox 99 02/25/25 12:58 O2 Del Method Room Air 02/25/25 12:19 O2 Flow Rate 10 02/24/25 14:10 02/24/25 02/25/25 02/25/25 22:59 06:59 14:59 Intake Total 1630 / 1680 150 / 1830 1390 / 1390 Balance 1630 / 1655 150 / 1805 1390 / 1390 Weight last 48 hrs Weight 126 lb Weight 127 lb Physical Exam 2 Narrative: Examination limited secondary to bandage being left on in place dressings on in place is clean dry and intact for left BKA stump. Data 02/25/25 06:59 02/25/25 06:59 Micro: Microbiology 02/22/25 20:49 Gram Stain - Final Other Source Wound Culture - Preliminary Coag positive Staphylococcus 02/23/25 08:30 Gram Stain - Final Ankle - #1 Anaerobic Culture - Preliminary Abscess Culture - Preliminary Coag positive Staphylococcus 02/23/25 08:30 Gram Stain - Final Ankle - #1 Tissue Culture - Preliminary Coag positive Staphylococcus A&P Assessment and plan (1) Acute osteomyelitis of left talus: (2) Charcot arthropathy: (3) Type 2 diabetes mellitus, with long-term current use of insulin: (4) Diabetic ulcer of left heel: (5) Unspecified open wound, left foot, initial encounter: (6) Status post below-knee amputation of left lower extremity: Plan Labs reviewed Resume diet PT/OT Nonweightbearing left lower extremity Internal medicine on board as primary IV antibiotics Dressing on in place clean dry and intact?only change if saturated Patient postop day 1 left below-knee amputation Pain control DVT prophylaxis per primary Orthopedics will continue to follow Stable from orthopedic standpoint PDMP PDMP Reviewed: Not Reviewed Attestations 2 Medical Necessity Statement*: Status post left below the knee amputation, ongoing care Coding Level of Care Code Acute Code for Chg Fwd Diagnoses Acute osteomyelitis of left talus M86.172 Charcot arthropathy M14.60 Type 2 diabetes mellitus with foot ulcer, with long-term current use of insulin E11.621; L97.509; Z79.4 Diabetes mellitus complication status: with skin complications Diabetes mellitus complication detail: with foot ulcer Diabetic ulcer of left heel associated with type 2 diabetes mellitus, unspecified ulcer stage E11.621; L97.429 Diabetes mellitus type: type 2 Non-pressure ulcer stage: unspecified non-pressure ulcer stage Unspecified open wound, left foot, initial encounter S91.302A Status post below-knee amputation of left lower extremity Z89.512
[2025-02-25 15:10] LABS: Basophils # 0.1 10^3/uL (0.0-0.1); Basophils % 0.4 %; Eosinophils % 0.3 %; Hematocrit 29.2 % (36-47); Lymphocytes % 17.1 %; Mean Corpuscular HGB Conc 30.5 g/dL (30-55); Mean Corpuscular Hemoglobin 25.9 pg (27-33); Mean Corpuscular Volume 85.1 fl (85-98); Mean Platelet Volume 9.3 fL (7.4-10.4); Monocytes % 8.4 %; Neutrophils # 8.35 10^3/uL (1.8-7.7); Neutrophils % 72.8 %; Nucleated Red Blood Cells % 0 %; Platelet Count 651 10^3/cmm (157-399); Red Blood Count 3.43 10^6/uL (3.85-5.65); Red Cell Distribution Width 16.6 % (12.1-15.1); White Blood Count 11.48 10^3/uL (3.29-11.43)
--- NOTE | 2025-02-25 16:10 | PC.NURSE ---
Discharge pending delivery of wheelchair and to come pick pt up.
[2025-02-25 16:12] LABS: Glucose Point of Care 109 mg/dL (70-110)
--- NOTE | 2025-02-25 17:26 | PC.NURSE ---
Patient belongings show that pt had money and belongings locked up in pyxus, however, pt says she does not have any belongings locked up and she has everything with her. This nurse double checked both [employer] machines to be sure. No belongings located in either one.
== END 2025-02-25 17:28 | disposition home health service (06) | DRG 616 ==
LOC: ER 20:30 → MEDSURG 20:49
PROVIDERS: Podiatrist Foot & Ankle Surgery; Student in an Organized Health Care Education/Training Program; Admitting Provider Internal Medicine; Emergency Provider Emergency Medicine; PCP Family Medicine; Visit Provider Internal Medicine
PROC: 0QBM0ZZ Excision of Left Tarsal, Open Approach (ICD-10-PCS; principal; 2025-02-23 08:00)
PROC: 0Y6J0Z1 Detachment at Left Lower Leg, High, Open Approach (ICD-10-PCS; CPT 27880; principal; 2025-02-24 13:50)
DX: E11.69 Type 2 diabetes mellitus with other specified complication (principal); A48.0 Gas gangrene; E11.52 Type 2 diabetes mellitus with diabetic peripheral angiopathy with gangrene; L97.429 Non-pressure chronic ulcer of left heel and midfoot with unspecified severity; M86.172 Other acute osteomyelitis, left ankle and foot; M86.672 Other chronic osteomyelitis, left ankle and foot; L02.416 Cutaneous abscess of left lower limb; L03.116 Cellulitis of left lower limb; E87.1 Hypo-osmolality and hyponatremia; E11.610 Type 2 diabetes mellitus with diabetic neuropathic arthropathy; E11.621 Type 2 diabetes mellitus with foot ulcer; E11.22 Type 2 diabetes mellitus with diabetic chronic kidney disease; I12.9 Hypertensive chronic kidney disease with stage 1 through stage 4 chronic kidney disease, or unspecified chronic kidney disease; E11.51 Type 2 diabetes mellitus with diabetic peripheral angiopathy without gangrene; N18.1 Chronic kidney disease, stage 1; E78.5 Hyperlipidemia, unspecified; D63.1 Anemia in chronic kidney disease; G47.00 Insomnia, unspecified; D75.839 Thrombocytosis, unspecified; Z79.82 Long term (current) use of aspirin; Z79.84 Long term (current) use of oral hypoglycemic drugs; Z79.02 Long term (current) use of antithrombotics/antiplatelets
CPT/HCPCS: 36415; 36416; 73590; 80048; 80053; 80202; 82962; 83036; 83735; 84145; 84443; 85025; 85651; 86140; 86850; 86900; 87040; 87070; 87075; 87077; 87176; 87186; 87205; 88307; 88311; 93005; 93925; 96365; 96367; 96372; 97161; 97165; 99285; 99291; J0690; J1100; J1650; J1815; J2250; J2371; J2405; J2543; J2704; J3010; J3370; J3490; J7030; J7050; J9999

== ENCOUNTER → 2025-03-13 13:38 | Outpatient (BNVA) | payer MEDICARE, SELFPAY | PROVIDERS: PCP Family Medicine; Visit Provider Physician Assistant | DX: Z89.512 Acquired absence of left leg below knee (principal) | CPT/HCPCS: 99024 ==

== ENCOUNTER → 2025-03-27 13:18 | Outpatient (BNVA) | payer MEDICARE, SELFPAY | PROVIDERS: PCP Family Medicine; Visit Provider Physician Assistant | DX: Z89.512 Acquired absence of left leg below knee (principal) | CPT/HCPCS: 99024 ==

== ENCOUNTER → 2025-05-08 15:01 | Outpatient (BNVA) | payer MEDICARE, SELFPAY | PROVIDERS: PCP Family Medicine; Visit Provider Student in an Organized Health Care Education/Training Program | DX: Z89.512 Acquired absence of left leg below knee (principal); Z98.890 Other specified postprocedural states | CPT/HCPCS: 99213 ==

== ENCOUNTER → 2025-05-20 14:24 | Outpatient (BNVA) | payer MEDICARE, SELFPAY | PROVIDERS: PCP Family Medicine; Visit Provider Thoracic Surgery (Cardiothoracic Vascular Surgery) | DX: I96 Gangrene, not elsewhere classified (principal); L97.821 Non-pressure chronic ulcer of other part of left lower leg limited to breakdown of skin; M86.8X6 Other osteomyelitis, lower leg; B96.89 Other specified bacterial agents as the cause of diseases classified elsewhere | CPT/HCPCS: 97597; 99203 ==

== ENCOUNTER → 2025-05-27 14:34 | Outpatient (BNVA) | payer MEDICARE, SELFPAY | PROVIDERS: PCP Family Medicine; Visit Provider Thoracic Surgery (Cardiothoracic Vascular Surgery) | DX: I96 Gangrene, not elsewhere classified (principal); L97.821 Non-pressure chronic ulcer of other part of left lower leg limited to breakdown of skin; M86.8X6 Other osteomyelitis, lower leg; T87.81 Dehiscence of amputation stump; Y83.8 Other surgical procedures as the cause of abnormal reaction of the patient, or of later complication, without mention of misadventure at the time of the procedure | CPT/HCPCS: 97597 ==

== ENCOUNTER → 2025-06-07 10:49 | Outpatient (BNVA) | payer MEDICARE, SELFPAY | PROVIDERS: PCP Family Medicine; Visit Provider Family Medicine | DX: E11.9 Type 2 diabetes mellitus without complications (principal); E11.621 Type 2 diabetes mellitus with foot ulcer; L97.509 Non-pressure chronic ulcer of other part of unspecified foot with unspecified severity; Z79.4 Long term (current) use of insulin; Z89.512 Acquired absence of left leg below knee | CPT/HCPCS: 80053; 82043; 83036 ==

== ENCOUNTER → 2025-09-06 10:41 | Outpatient (BNVA) | payer MEDICARE, SELFPAY | PROVIDERS: PCP Family Medicine; Visit Provider Family Medicine | DX: E11.621 Type 2 diabetes mellitus with foot ulcer (principal); Z79.4 Long term (current) use of insulin; L97.529 Non-pressure chronic ulcer of other part of left foot with unspecified severity | CPT/HCPCS: 80053; 83036 ==